=== PATIENT | male | born 1965 | race Caucasian/White ===

== ENCOUNTER 2023-02-21 08:10 | Outpatient (CLI) | payer BC, SELFPAY ==
--- NOTE | ~2023-02-21 | MR_ITS ---
MRI of the lumbar spine Clinical History: Spondylosis, radiculopathy Technique: Axial T2-weighted images, and sagittal T1-weighted, T2-weighted, and T2 fat-sat images wer e acquired. Findings: There are bilateral L4 pars interarticularis defects, with 8 mm anterolisthesis of L4 over L5. No acute fracture identified. No other bone marrow signal abnormality seen. At L1-L2 and L2-L3, there is no disc bulge or herniation. There is mild to moderate facet arthropathy at these levels. No spinal canal stenosis or neural foraminal narrowing at these levels. At L3-L4, there is minimal disc bulge with mild to moderate facet arthropathy. No spinal canal stenos is or neural foraminal narrowing. At L4-L5, there is diffuse disc bulge/uncovering with advanced facet arthropathy. There is no kye s shanna canal stenosis. There is severe right neural foraminal narrowing. There is mild to moderate lef t neural foraminal narrowing. At L5-S1, there is no disc bulge or herniation. There is moderate to advanced facet arthropathy. No s shanna canal stenosis or neural foraminal narrowing. Paravertebral soft tissues are unremarkable. Impression: Bilateral L4 pars interarticularis defects, with 8 mm anterolisthesis of L4 over L5. Underlying degenerative changes at L4-L5 with associated severe right neural foraminal narrowing and mild to moderate left neural foraminal narrowing. Reviewed, dictated and finalized at [facility]. Impression: Bilateral L4 pars interarticularis defects, with 8 mm anterolisthesis of L4 ove r L5. Underlying degenerative changes at L4-L5 with associated severe right neural fo raminal narrowing and mild to moderate left neural foraminal narrowing.
== END 2023-02-21 08:11 ==
LOC: GOSHIMG 08:12
DX: M47.26 Other spondylosis with radiculopathy, lumbar region (principal); R93.7 Abnormal findings on diagnostic imaging of other parts of musculoskeletal system
CPT/HCPCS: 72148

== ENCOUNTER 2023-05-01 15:51 | Inpatient (IN) | payer BC, SELFPAY ==
[2023-05-01] VITALS (13 sets, daily range): BP systolic 145–174; BP diastolic 95–114; PULSE 94–105; RESP 12–20; TEMP 36.6–36.7; O2SAT 98–100; BMI 28.7
--- NOTE | ~2023-05-01 | US_ITS ---
EXAMINATION: US biopsy renal DATE: 05/04/2023 10:07 INDICATION: Acute kidney injury. Proteinuria. Hematuria. TECHNIQUE: The procedure including the risks, benefits, and alternatives was discussed with the patie nt. Risks discussed included bleeding and infection. The patient understood the risks and agreed to p roceed. A timeout was performed to verify the patient's name, date of , and procedure to be p erformed. The skin overlying the left kidney was prepped and draped in usual sterile fashion. Anest hetic was administered with 1% lidocaine subcutaneously. An 18 gauge core biopsy needle was then use d to obtain 4 core biopsy specimens under continuous sonographic guidance. The entry site was cleaned and dressed. There were no immediate complications. FINDINGS: Ultrasound images demonstrate the needle in the kidney. IMPRESSION: 1. Ultrasound-guided random left kidney core needle biopsy. Reviewed, dictated and finalized at location A.
--- NOTE | ~2023-05-01 | XR_ITS ---
Portable chest x-ray Comparison: 05/02/2023 Clinical History: Catheter placement Findings: Right-sided central venous catheter is in satisfactory position. Lungs are clear. No conso lidation, effusion, or pneumothorax. Cardiomediastinal silhouette is stable. Stable orthopedic hardw are at the left clavicle. Impression: Right-sided central venous catheter in satisfactory position. Clear lungs. Reviewed, dictated and finalized at location . Impression: Right-sided central venous catheter in satisfactory position. Clear lungs.
--- NOTE | ~2023-05-01 | XR_ITS ---
XR chest port-a-cath/central DATE: 05/02/2023 16:17 INDICATION: Central line placement TECHNIQUE: Portable upright AP chest on 05/02/2023 at 1611 hours COMPARISON: None FINDINGS: Right internal jugular central venous catheter tip overlies the superior vena cava. No pneu mothorax or pleural effusion is evident. The lungs are clear of infiltrate or consolidation. Normal heart size. No hilar or mediastinal enlargement. Plate and screws of left clavicle. IMPRESSION: Right internal jugular central venous catheter tip overlies superior vena cava No active cardiac pulmonary disease or pneumothorax Reviewed, dictated and finalized at Location A. Reviewed, dictated and finalized at location L. IMPRESSION: Right internal jugular central venous catheter tip overlies superio r vena cava No active cardiac pulmonary disease or pneumothorax
--- NOTE | ~2023-05-01 | US_ITS ---
EXAMINATION: US renal BI DATE: 05/01/2023 18:50 INDICATION: kidney failure TECHNIQUE: Multiple grayscale and Doppler ultrasound images of the kidneys were obtained. COMPARISON: CT abdomen and pelvis, same date FINDINGS: The right kidney measures 11.2 x 5.9 x 5.5 cm. The left kidney measures 13.0 x 6.0 x 6.2 cm. The kidn eys demonstrate normal parenchymal echogenicity. There is no hydronephrosis. The bladder wall is mild ly thickened, to 3 mm. Ureteral jets not identified. IMPRESSION: Unremarkable renal findings. Mild bladder wall thickening may be secondary to outlet compromise or cy stitis. Ureteral jets were not detected during this examination. Reviewed, dictated and finalized at location K. IMPRESSION: Unremarkable renal findings. Mild bladder wall thickening may be secondary to o utlet compromise or cystitis. Ureteral jets were not detected during this exami [facility] emergency department
--- NOTE | ~2023-05-01 | CT_ITS ---
EXAMINATION: CT abdomen pelvis wo con DATE: 05/01/2023 17:11 INDICATION: Nausea and vomiting. Abdominal cramping. TECHNIQUE: Computed tomography (CT) of the abdomen and pelvis was performed without intravenous contr ast. Automated exposure control and iterative reconstruction technique were employed. The dose-length product was 650.58 mGy-cm. COMPARISON: None. FINDINGS: The visualized portions of the lung bases demonstrate mild atelectasis. No pleural effusion . The heart size is normal. There are coronary artery calcifications. No pericardial effusion. The li yoanna, gallbladder, pancreas, spleen, adrenal glands, and kidneys are normal. There is no urolithiasis. There are no dilated loops of bowel. The appendix is normal. There are bilateral inguinal hernias co ntaining fat. Aortic atherosclerosis is noted. There are no pathologically enlarged lymph nodes. Ther e is no free intraperitoneal fluid. There is moderate lumbar spondylosis. There are chronic bilateral L4 pars defects. There is 6 mm anterolisthesis of L4 on L5. IMPRESSION: 1. Bilateral inguinal hernias containing fat. Reviewed, dictated and finalized at location A.
--- NOTE | ~2023-05-01 | XR_ITS ---
EXAMINATION: XR fl guide central line place DATE: 05/10/2023 07:59 INDICATION: Tunneled dialysis catheter insertion TECHNIQUE: 2 fluoroscopic images of portions of the chest were obtained during procedure performed by Dr. Easley. Radiologist was not present for the imaging or procedure. The amount of fluoroscopy time used during this procedure was 0.5 minutes. COMPARISON: 05/02/2023 FINDINGS/IMPRESSION: Interval replacement of the prior right internal jugular central venous catheter with a new large-bor e dual-lumen likely tunneled right internal jugular central venous catheter with distal tip in the ri ght atrium. Reviewed, dictated and finalized at location A.
--- NOTE | 2023-05-01 16:04 | ECG_ITS ---
Measurements Intervals [place] Rate: 108 P: 44 [place]: 132 QRS: 28 QRSD: 85 T: 46 QT: 321 QTc: 431 Interpretive Statements SINUS TACHYCARDIA BORDERLINE R WAVE PROGRESSION, ANTERIOR LEADS MINIMAL Q WAVES- HIGH LATERAL LEADS ABNORMAL ECG NO PREVIOUS ECG AVAILABLE FOR COMPARISON Electronically Signed On 05-02-2023 8:00:10 CDT by Liang Clemons D.O.
--- NOTE | 2023-05-01 16:04 | ECG_ITS ---
Measurements Intervals [place] Rate: 91 P: 51 DC: 158 QRS: 21 QRSD: 88 T: 29 QT: 351 QTc: 434 Interpretive Statements SINUS RHYTHM MINIMAL Q WAVES- HIGH LATERAL LEADS BORDERLINE ECG NO PREVIOUS ECG AVAILABLE FOR COMPARISON Electronically Signed On 05-01-2023 20:13:40 CDT by Liang Clemons D.O.
[2023-05-01 16:32] LABS: Basophils Absolute Auto 0.1 K/mm3 (0.0-0.1); Basophils Percent Auto 0.9 % (0.2-1.2); Eosinophils Absolute Auto 0.2 K/mm3 (0-0.3); Eosinophils Percent Auto 2.3 % (0-4.4); Hematocrit 30.1 % (42.0-52.0); Hemoglobin 9.8 g/dL (14.0-18.0); Immature Granulocyte Absolute 0.07 K/mm3 (0.00-0.031); Immature Granulocyte Percent A 1.1 % (0-0.5); Lymphocytes Absolute Auto 0.93 K/mm3 (0.9-3.2); Mean Corpuscular HGB Conc 32.6 g/dl (32-36); Mean Corpuscular Hemoglobin 30.3 pg (26-34); Mean Corpuscular Volume 93.2 fl (80-100); Mean Platelet Volume 10.7 fl (7.4-10.4); Monocytes Absolute Auto 0.5 K/mm3 (0.1-0.6); Monocytes Percent Auto 6.8 % (2.6-8.5); Neutrophils Percent Auto 74.9 % (45.5-73.1); Platelet Count Result 276 k/mm3 (150-375); Red Blood Count 3.23 M/mm3 (4.6-6.20); Red Cell Distribution Width 12.8 % (11.5-14.5); White Blood Count 6.7 K/mm3 (4.5-10.0)
[2023-05-01 16:38] LABS: Alanine Aminotransferase 44 U/L (6-50); Albumin Level 4.1 g/dL (3.5-5.1); Alkaline Phosphatase 103 U/L (38-126); Anion Gap 18 mmol/L (8-16); Aspartate Amino Transferase 28 U/L (17-59); Bilirubin,Total 0.3 mg/dL (0.2-1.3); Blood Urea Nitrogen 76 mg/dL (9-20); Calcium 8.5 mg/dL (8.4-10.2); Carbon Dioxide 19 mmol/L (22-30); Chloride 102 mmol/L (98-107); Estimated CRCL calculation 9 ml/min; Estimated Glomerular Filt Rate 7; Glucose 126 mg/dL (65-110); Potassium 4.3 mmol/L (3.4-5.0); Sodium 139 mmol/L (137-145)
[2023-05-01 16:41] LABS: Prothrombin Time 13.9 Seconds (11.1-14.7)
[2023-05-01 16:42] LABS: Partial Thromboplastin Time 33.1 SECONDS (22.3-36.8)
--- NOTE | 2023-05-01 16:58 | ED.RECABL ---
HPI - Recheck/Abnormal Lab/Rx General Chief Complaint: Recheck/Abnormal Lab/Rx Stated Complaint: sent by pcp ramón kidney function Time Seen by Provider: 05/01/23 16:36 Source: patient and RN notes reviewed Mode of arrival: ambulatory Limitations: no limitations History of Present Illness HPI narrative: This is a 58 year old male who presents for evaluation of abnormal labs. Patient went to see primary care provider today for 1 month of abnormal stools, nausea, vomiting and he had labs done. His labs showed that he had acute kidney failure. His creatinine today was 8.1 with BUN 80. He denies history of kidney failure. HE also had outpatient abdominal xray shows no bowel obstruction and moderate fecal material of the ascending colon. He states 1 month ago he started having constant daily mid abdominal cramping. He also reports sporadic nausea and vomiting. His last episode of emesis 1 on . He also also noticed intermittent pink tinge to his urine. HE also reports over the past few months he was taking ibuprofen and celebrex regularly for issues with his back. He states he has not take celebrex in 1 month. He states his stools have been irregular for 1 month as well. He reports he usually has 1-2 bowel movements per day. He has been having infrequent small bowel movement. He states he feels like he is urinating normal amount. HE denies any fever or chills. Related Data Allergies Allergy/AdvReac Type Severity Reaction Status Date / Time Sulfa (Sulfonamide Allergy Hives Verified 05/01/23 16:29 Antibiotics) Review of Systems Constitutional: Constitutional: Denies weakness Cardiovascular: Cardiovascular: Denies syncope, Denies rapid heart rate, Denies irregular heart rhythm, Denies leg edema and Denies dyspnea Respiratory: Respiratory: Denies chest congestion, Denies hemoptysis, Denies excessive phlegm production and Denies dyspnea Gastrointestinal: Gastrointestinal: Reports abdominal pain, Denies hematochezia, Reports constipation, Reports diarrhea, Reports nausea and Reports vomiting Genitourinary: Genitourinary: Reports hematuria, Denies dysuria, Denies penile discharge and Denies testicular pain Musculoskeletal: Musculoskeletal: Reports back pain, Denies joint swelling, Denies loss of height and Denies muscle weakness Neurologic: Denies syncope, Denies focal weakness and Denies weakness [facility] Past Medical History Medical History (Updated 05/01/23 @ 19:13 by Alyx Coleman MD) Clavicle fracture Lumbar radiculopathy Sinus disease Surgical History Surgical History (Updated 05/01/23 @ 19:12 by Alyx Coleman MD) History of foot surgery Hx of tonsillectomy Social History Social History (Updated 05/01/23 @ 17:28 by Alyx Coleman MD) Smoking status: Former smoker Alcohol use details: rarely Substance use: never Exam Const: General: no acute distress and alert Nutritional Appearance: well nourished Orientation/consciousness: patient oriented x3 Limitations: no limitations HENMT: Head: normal to inspection Mouth: Yes Normal oral and palatal mucosa present, Yes lip normal and Yes moist mucous membranes Eyes: EOM: EOMs intact bilaterally Neck: Neck: normal visual inspection Chest: Chest palpation & inspection: normal inspection of the chest Resp: Effort & Inspection: normal respiratory effort Auscultation: clear to auscultation bilaterally Cardio: Rate: regular rate Rhythm: regular rhythm Heart sounds: no murmurs GI: GI Palp: Yes Soft to palpation, No Tenderness to palpation present (GI), No Guarding due to palpation present (GI) and No Rigid due to palpation Auscultation: normal bowel sounds Skin: General skin exam: normal color Rashes: no rashes Wounds: no wounds Neuro: General: patient oriented x3, moves all extremities and CN's II-XI intact bilaterally Psych: Mental Status: mental status grossly normal Affect: normal affect Attitude: cooperative Course Consulta
[2023-05-01] MEDS: SODIUM CHLORIDE 0.9% IV 1,000 ML 999 ML IV CONT (17:34)
[2023-05-01 17:40] LABS: Appearance Urine Clear (Clear); Bacteria Urine None Seen /hpf; Bilirubin Urine Negative (Negative); Blood Urine 3+ (Negative); Color Urine Yellow (Yellow); Glucose Urine UA Trace mg/dL (Negative); Ketones Urine Negative (Negative); Leukocyte Esterase Ur Trace LEU/UL (Negative); Nitrate Urine Negative (Negative); Non Pathogenic Casts 0-2; Protein Urine 3+ mg/dL (Negative); RBC Urine >100 /hpf (0-2); Specific Grav Ur 1.011 (1.001-1.035); Squamous Epithelial Cell Urine None seen /hpf (Few); Urobilinogen Urine 0.2 mg/dL (<2.0); WBC Urine 0-5 /hpf; pH Urine 5.5 (5.0-9.0)
[2023-05-01 17:41] LABS: Add Urine Microscopic? YES
[2023-05-01] MEDS: methylPREDNISolone SOD SUCC 1,000 MG in DEXTROSE 5% 100 ML 200 MG IVPB (18:16)
--- NOTE | 2023-05-01 18:47 | PM.IMHP ---
H&P: HPI History of Present Illness Date/Time: 05/01/23 19:00 Chief Complaint: Abnormal labs. Narrative: This is a pleasant 58-year-old male with GERD who presented to the emergency department for evaluation of abnormal labs. The patient provides the following history. He has had issues with low back pain and right hip pain for several months and he was started on Celebrex sometime in January. He was also referred to pain management and received some injections which seemed to have helped his pain. He stopped taking Celebrex after about a month after began having worsening GERD symptoms with bloating, belching, and early satiety. He also reports that his blood pressures started to run high for the 1st time in his life and he thought it was related to the Celebrex as well. On occasion he still takes Advil or Tylenol for pain but not very often. Unfortunately his symptoms have not improved and in fact they seem to be getting worse. He has frequent nausea, occasional dry heaves, and he has been constipated for the 1st time in his life. On recent trips to the doctor his blood pressures have been elevated and he he had labs drawn and was referred to the ED after he was found to have evidence of acute kidney injury. Pertinent labs today include a sodium of 139, potassium 4.3, carbon dioxide 19, anion gap 18, BUN 76, creatinine 8.10. Urine was positive for 3+ protein, 3+ blood, and greater than 100 rbc's with a random urine total protein of greater than 600 mg/dL. He is being admitted in this setting for further evaluation. With further questioning he has noticed that his urine looks slightly pink tinged for about a month or so. He has not noticed a change in urine output. Last week he had some mild swelling in his legs but that has improved. He has been feeling extremely tired and is sleeping most of the time when he is not at work. His weight has remained stable. He reports feeling a bit confused with slow thought processes. He has no known history of kidney disease and he denies family history of kidney disease. Review of Systems Review of Systems: Twelve systems were reviewed and are negative except for as per HPI. [facility] Past Medical History Medical History (Updated 05/02/23 @ 00:06 by Beth Abdi PA-C) Clavicle fracture Lumbar radiculopathy Sinus disease Surgical History Surgical History History of foot surgery Hx of tonsillectomy Family History Family History (Updated 05/01/23 @ 19:44 by Linda Carter RN) Father Acute myocardial infarction Sibling Hypertension Social History Social History (Updated 05/02/23 @ 00:05 by Beth Abdi PA-C) Social History: Surrogate medical decision maker: Ambika Braun, spouse. Code status: Full code. Smoking status: Former smoker Alcohol intake: never Alcohol use details: rarely Substance use: never Lack of Transportation: No Lack of Food: Never True Current Housing: I Have Housing Concerned About Future Housing: No Difficulty Paying Gas/Electric Bills: No Difficulty Paying for Meds: No Currently Unemployed: No Education: High School Diploma/GED Difficulty w/ Childcare or Family Care: No Additional occupation/education comments: [employer] Spiritual care concerns: No Meds Home Medications and Allergies Home Medications Medication Instructions Recorded Confirmed Type cimetidine 400 mg tablet 400 mg PO DAILY PRN Acid Reflux 05/01/23 05/01/23 History omeprazole 20 mg capsule,delayed 20 mg PO DAILY 05/01/23 05/01/23 History release Allergies Allergy/AdvReac Type Severity Reaction Status Date / Time Sulfa (Sulfonamide Allergy Hives Verified 05/01/23 16:29 Antibiotics) Vital Signs Vital Signs - 24 hr 05/01/23 15:54 05/01/23 16:28 05/01/23 17:33 Temperature 97.8 F Pulse Rate 102 H 100 105 H Respiratory Rate 18 18 20 Blood Pressure 169/108 H 165/11
[2023-05-01 18:56] LABS: Creatinine Urine 56.7 mg/dL
[2023-05-01 19:14] LABS: Sodium Urine Random 57 meq/L
[2023-05-01 19:16] LABS: Total Protein Urine Random > 600 mg/dL
--- NOTE | 2023-05-01 20:10 | ADMGEN ---
This patient, Mike Braun, was admitted to 2 Medical Room 240-01. Patient/family oriented to hospital policies and general routines including ID bracelet, bed and alarms, visiting hours, pain management, procedures, bathroom and other care routines, personal items, smoking policy, room service/diet, and visiting hours. Information on how to activate the Rapid Response Team has been discussed. Patient/Family are encouraged to report perceived risks to care and to ask questions if they do not understand what they are told or what they should do.
[2023-05-01] MEDS: SODIUM CHLORIDE 0.9% IV 1,000 ML 125 ML IV CONT (21:07)
[2023-05-01] MEDS: ONDANSETRON INJ 4 MG/2 ML VIAL IV PUSH (21:07)
[2023-05-01] MEDS: ALPRAZolam (*CRX) 0.25 MG TABLET PO (22:34)
[2023-05-02] VITALS (7 sets, daily range): BP systolic 135–158; BP diastolic 89–99; PULSE 81–95; RESP 16–20; TEMP 35.9–36.5; O2SAT 92–100
[2023-05-02 05:55] LABS: Basophils Percent Auto 0.3 % (0.2-1.2); Eosinophils Percent Auto 0.2 % (0-4.4); Hematocrit 31.1 % (42.0-52.0); Hemoglobin 9.9 g/dL (14.0-18.0); Immature Granulocyte Absolute 0.07 K/mm3 (0.00-0.031); Immature Granulocyte Percent A 1.1 % (0-0.5); Immature Reticulocyte Fraction 10.9 % (3.0-15.9); Lymphocytes Absolute Auto 0.51 K/mm3 (0.9-3.2); Lymphocytes Percent Auto 7.8 % (18.3-44.2); Mean Corpuscular HGB Conc 31.8 g/dl (32-36); Mean Corpuscular Volume 94.2 fl (80-100); Mean Platelet Volume 10.5 fl (7.4-10.4); Monocytes Percent Auto 0.6 % (2.6-8.5); Neutrophils Absolute Auto 5.9 K/mm3 (1.3-6.7); Platelet Count Result 326 k/mm3 (150-375); Red Cell Distribution Width 12.6 % (11.5-14.5); Reticulocyte Hemoglobin Conten 31.2 pg (28.2-35.7); Reticulocyte Percent 0.94 % (0.7-4.3); Reticulocytes Absolute 0.03 M/mm3 (0.02-0.1); White Blood Count 6.5 K/mm3 (4.5-10.0)
[2023-05-02] MEDS: SODIUM CHLORIDE 0.9% IV 1,000 ML 100 ML IV CONT ×2 (05:55→16:14)
[2023-05-02 06:11] LABS: Alanine Aminotransferase 69 U/L (6-50); Albumin Level 3.8 g/dL (3.5-5.1); Alkaline Phosphatase 125 U/L (38-126); Anion Gap 16 mmol/L (8-16); Aspartate Amino Transferase 42 U/L (17-59); Bilirubin,Total 0.3 mg/dL (0.2-1.3); Blood Urea Nitrogen 77 mg/dL (9-20); Calcium 8.3 mg/dL (8.4-10.2); Carbon Dioxide 15 mmol/L (22-30); Chloride 108 mmol/L (98-107); Estimated CRCL calculation 9 ml/min; Estimated Glomerular Filt Rate 7; Glucose 142 mg/dL (65-110); Magnesium 1.9 mg/dL (1.6-2.3); Phosphorus 7.9 mg/dL (2.5-4.5); Potassium 5.4 mmol/L (3.4-5.0); Sodium 139 mmol/L (137-145)
[2023-05-02 07:04] LABS: Iron 101 ug/dL (49-181)
[2023-05-02 07:13] LABS: Percent Iron Saturation 57 % (20-50)
--- NOTE | 2023-05-02 07:14 | PM.IMPN ---
Progress Note: A&P Assessment and Plan (1) Acute kidney injury: Code(s): N17.9 - Acute kidney failure, unspecified Status: Acute Assessment and Plan: Unknown baseline creatinine. On admission Cr 8.10-->7.4 today -Had been prescribed Celebrex in January for chronic back pain. Stopped taking after one month because he was having GI symptoms and HTN which he thought was contributed. Still takes Aleve occasionally for pain. -Per his report no change in UOP but reports fatigue and intermittent lower extremity swelling -K+ 5.4, Phos 7.9. K+ can be treated on the floor and no IMU beds. Given that he does not have any concerns on telemetry and K decreased to 5.2 after Caclium infusion, will hold off on further treatment. Added Renvela with meals for phosphorus. -FeNA is 5.64% alluding to Intrinsic disease -Add telemetry -HTN with SBPs 150-160's not on antihypertensives at baseline. IVP prn hydralazine for SBP > 160 mm hg. Wait to see what nephrology recommends. -Nephrology has been consulted for assistance with management of JONATHAN and HTN. Appreciate rec's. -Solumedrol 1000 mg daily -Needs kidney biopsy. Blood pressure too high and BUN/Cr elevation is concerning for increase bleeding risk. Biopsy next 1-2 days. -Likely to need temporary catheter placed for HD tomorrow -Ck 198 -Started on amlodipine 5 mg Po daily with prn clonidine to help control blood pressure (2) Normocytic anemia: Code(s): D64.9 - Anemia, unspecified Status: Acute Assessment and Plan: Unknown baseline. Admission Hgb 9.8-->stable at 9.9 today -no signs of bleeding -MCHC 31.8 -anemia panel in process -associated sx include weakness, fatigue -Has many GI complaints that are suspicious for PUD -Consulted GI and started on Protonix 40 mg IVP BID -EGD to be done this admission. Likely tomorrow. (3) Elevated blood pressure reading: Code(s): R03.0 - Elevated blood-pressure reading, without diagnosis of hypertension Status: Acute Assessment and Plan: see JONATHAN Subjective Date/time seen: 05/02/23 07:14 Interval history: HPI obtained from chart This is a pleasant 58-year-old male with GERD who presented to the emergency department for evaluation of abnormal labs. The patient provides the following history. He has had issues with low back pain and right hip pain for several months and he was started on Celebrex sometime in January. He was also referred to pain management and received some injections which seemed to have helped his pain. He stopped taking Celebrex after about a month after began having worsening GERD symptoms with bloating, belching, and early satiety. He also reports that his blood pressures started to run high for the 1st time in his life and he thought it was related to the Celebrex as well. On occasion he still takes Advil or Tylenol for pain but not very often. Unfortunately his symptoms have not improved and in fact they seem to be getting worse. He has frequent nausea, occasional dry heaves, and he has been constipated for the 1st time in his life. On recent trips to the doctor his blood pressures have been elevated and he he had labs drawn and was referred to the ED after he was found to have evidence of acute kidney injury. Pertinent labs today include a sodium of 139, potassium 4.3, carbon dioxide 19, anion gap 18, BUN 76, creatinine 8.10. Urine was positive for 3+ protein, 3+ blood, and greater than 100 rbc's with a random urine total protein of greater than 600 mg/dL. He is being admitted in this setting for further evaluation. With further questioning he has noticed that his urine looks slightly pink tinged for about a month or so. He has not noticed a change in urine output. Last week he had some mild swelling in his legs but that has improved. He has been feeling extremely tired and is sleeping most of the time when he is not at work. His weight has remained stable. He reports feeling a bit confused w
[2023-05-02 07:34] LABS: Thyroid Stimulating Hormone Reflex 0.606 uIU/mL (0.465-4.68)
[2023-05-02 07:47] LABS: Folic Acid 9.3 ng/mL (2.76->20)
[2023-05-02] MEDS: cloNIDine HCL 0.1 MG TABLET PO (08:07)
[2023-05-02] MEDS: SEVELAMER CARBONATE 800 MG TABLET PO ×3 (08:07→16:15)
[2023-05-02] MEDS: CALCIUM GLUC 1,000 MG/NS 50 ML 1,000 MG/50 ML BAG 100 MG IVPB (08:08)
--- NOTE | 2023-05-02 08:12 | PM.CNNEP ---
Assessment and Plan Assessment and plan (1) Acute kidney injury: Code(s): N17.9 - Acute kidney failure, unspecified Status: Acute Assessment and Plan: The patient has an elevated creatinine. I suspect that this is acute kidney injury. We do not have any old labs though. Renal ultrasound is unremarkable. Urine electrolytes are non pre renal. Urine protein is very high. UA shows protein and blood. Minimal white cells. The patient has hematuria, proteinuria, foamy urine for a month, and high creatinine. Blood pressure is high of late as well. This all sounds like it could be a glomerulonephritis. When the Emergency Room talk to me last night I asked them to give him a dose of Solu-Medrol. Patient also notes that he was probably dehydrated. He could have had rhabdomyolysis causing renal failure. So will check a stat CK. That still leaves the proteinuria to explain so I think this is less likely. I think we need a kidney biopsy. I would do this today, however his blood pressure is high any just took Advil yesterday. I think we need to wait a couple of days. He is getting stress dose steroids so that would cover any inflammatory disease in his kidneys. His BUN and creatinine are quite high as well. The high BUN creatinine can cause platelets not to function properly and so would be a risk of bleeding. His creatinine did come down with fluids overnight. So we will continue to give IV fluids and hopefully the creatinine will continue to improve. However if it does not get much better by tomorrow I think we ought to do a dialysis treatment to get the BUN and creatinine down to make the biopsy more safe. Patient had a very long discussion about all of the above. He understands the complexity of the situation. (2) Hypertension: Code(s): I10 - Essential (primary) hypertension Status: Acute Assessment and Plan: Patient's blood pressure is high. This is probably due to his kidney disease since it started after the kidney disease started. Will give amlodipine now. Will also give clonidine now and p.r.n.. (3) Normocytic anemia: Code(s): D64.9 - Anemia, unspecified Status: Acute Assessment and Plan: Hemoglobin is low. Most likely from the kidney disease. He could have blood loss anemia as well. Iron deficiency or vitamin deficiencies can do this as well. Will get stool guaiacs. Will also get iron studies, and B12 and folate have already been ordered. History of Present Illness Reason for Consult Consult date: 05/02/23 Chief Complaint Chief complaint: Acute Kidney Failure History of Present Illness Narrative: Mike is a very pleasant 58-year-old gentleman who has a history of sciatica. The patient's problem started in January when he had his back pain. He went to see primary care who gave him Celebrex. This did not work any eventually went to a pain specialist to did an MRI and then gave him injections. In the meantime the patient had developed belly discomfort. He was epigastric pain and also nausea. He googled Celebrex and found that that could cause it so he stopped the Celebrex but the discomfort continued. At about the same time he was found to have high blood pressure. This was during the time that he was on the Celebrex and thought that it might get better off the Celebrex. Neither improved.. He went to see his primary care doctor again because he continued to have belly discomfort and nausea and labs were drawn which were abnormal so he was sent to the ER. In the ER was found have a very high creatinine, hematuria, proteinuria, and high blood pressure. CT abdomen was unremarkable. Renal sonogram was unremarkable. Renal consultation was requested. The patient says that he has had dark urine as viewed in the commode for about the last 3 weeks to a month or so. He thought it might be due to dehydration so he was pushing fluids. He also noted foam in the u
[2023-05-02] MEDS: amLODIPine BESYLATE 5 MG TABLET PO (08:20)
[2023-05-02 08:33] LABS: Erythrocyte Sedimentation Rate > 140 mm/hr (0-20)
[2023-05-02 09:18] LABS: Creatine Kinase 128 U/L (55-170)
[2023-05-02 09:20] LABS: Complement C3 119 mg/dL (88-165)
[2023-05-02 10:18] LABS: Anion Gap 15 mmol/L (8-16); Blood Urea Nitrogen 78 mg/dL (9-20); Calcium 8.1 mg/dL (8.4-10.2); Carbon Dioxide 12 mmol/L (22-30); Chloride 106 mmol/L (98-107); Estimated CRCL calculation 10 ml/min; Estimated Glomerular Filt Rate 8; Glucose 244 mg/dL (65-110); Potassium 5.2 mmol/L (3.4-5.0); Sodium 133 mmol/L (137-145)
[2023-05-02 13:07] LABS: Creatinine Urine 74.9 mg/dL
[2023-05-02 13:07] LABS: Iron 102 ug/dL (49-181)
[2023-05-02 13:13] LABS: Sodium Urine Random 42 meq/L
[2023-05-02 13:18] LABS: Percent Iron Saturation 62 % (20-50)
--- NOTE | 2023-05-02 13:27 | WPDGICN ---
Assessment and Plan Assessment and plan (1) Abdominal pain: Code(s): R10.9 - Unspecified abdominal pain Status: Acute Assessment and Plan: He likely has peptic ulcer disease due to Celebrex. EGD will be scheduled. Probably to be done tomorrow (2) Nausea and vomiting: Code(s): R11.2 - Nausea with vomiting, unspecified Status: Acute Assessment and Plan: This began about 3 weeks ago. Even stopping his Celebrex and not seem to help (3) Acute kidney injury: Code(s): N17.9 - Acute kidney failure, unspecified Status: Acute Assessment and Plan: With rehydration his creatinine today is slightly lower at 7.5 but BUN for unchanged. He has been seen by Nephrology. The thoughts are that he could have a glomerular nephritis. He was empirically given steroids last night. There is also concern for rhabdomyolysis. Kidney biopsy is being considered. Dialysis may be required (4) Hypertension: Code(s): I10 - Essential (primary) hypertension Status: Acute Assessment and Plan: This developed while he was on Celebrex and is a new diagnosis. He has been started on amlodipine. (5) Normocytic anemia: Code(s): D64.9 - Anemia, unspecified Status: Acute Assessment and Plan: He has no history of anemia. He has not seen blood in his stools. Hemoglobin is 9.8, hematocrit 30.1 This could be secondary to kidney disease if he has more chronic kidney disease (6) Change in bowel habits: Code(s): R19.4 - Change in bowel habit Status: Acute Assessment and Plan: Having a bowel movement seems more difficult. When he does have 1 stools are smaller and shorter. He has not had diarrhea. GI Consult Note Consult date/time: 05/02/23 13:27 HPI: Mike Braun is a 58 year old male Who presented emergency room yesterday. He states that was told by his primary care provider that he had abnormal kidney function. Also he had been complaining of abdominal pain a generalized discomfort, and also nausea. His problems seem to have began in January. At that time he was having back pain. He was placed on Celebrex. After about 4 weeks on it he was found have elevation of his blood pressure. He also was having discomfort in his abdomen with frequent nausea and couple of episodes of vomiting. Sometimes eating would seem to give him some relief but at times he felt worse and could not eat a complete meal. He the last time he vomited was last . He has no prior history of liver disease gallbladder disease or peptic ulcer disease. He did stop taking the Celebrex around April 04 but his gastrointestinal symptoms have not improved. On admission here he was found have a creatinine of 8.1 with a BUN of 76. Liver function studies were within normal limits. There has been a change in his bowel habits. Stools are smaller and he needs to go several times a day to empty his bowels were as in the past he would have 1 or 2 well-formed BMs each day. He has never had a colonoscopy in in fact his primary care provider recently told him that he wanted him to have 1 for screening. Review of Systems Review of Systems: All systems reviewed & are unremarkable except as noted in HPI and below PMFSH Past Medical History Medical History Clavicle fracture Lumbar radiculopathy Sinus disease Surgical History Surgical History History of foot surgery Hx of tonsillectomy Family History Family History Father Acute myocardial infarction Sibling Hypertension Father Family history of heart disease in male family member before age 55 Social History Social History Social History: Surrogate medical decision maker: Ambika Braun, spouse. Code status: Full co
[2023-05-02 13:34] LABS: Total Protein Urine Random 372 mg/dL; Ur Ttl Prot Creatinine Ratio 4.97 mg/mg (0-0.20)
[2023-05-02 15:17] LABS: Hepatitis B Surface Antigen Negative (Negative)
[2023-05-02 15:34] LABS: Hepatitis B Surface Anti Res Negative; Hepatitis C Virus Antibody Negative (Negative)
[2023-05-02] MEDS: methylPREDNISolone SOD SUCC 1,000 MG in DEXTROSE 5% 100 ML 200 MG IVPB (16:15)
--- NOTE | 2023-05-02 16:37 | PM.CNGS ---
Assessment and Plan Assessment and plan (1) Acute kidney injury: Code(s): N17.9 - Acute kidney failure, unspecified Status: Acute Assessment and Plan: The patient has evidence of acute kidney failure with significantly elevated BUN and creatinine. Nephrology has seen patient and is recommending proceeding with dialysis soon. It appears that the OR will not be available for tunneled dialysis catheter placement under sedation until late afternoon tomorrow. He has already eaten lunch today therefore this cannot be performed under sedation today. Will plan to proceed with bedside placement of Justin temporary dialysis catheter to allow access for initiating hemodialysis as soon as possible. I have discussed the procedure, risks, benefits, and alternatives. Questions were answered. (2) Hypertension: Code(s): I10 - Essential (primary) hypertension Status: Acute (3) Normocytic anemia: Code(s): D64.9 - Anemia, unspecified Status: Acute (4) Hematuria: Code(s): R31.9 - Hematuria, unspecified Status: Acute History of Present Illness Consult details Consult date: 05/02/23 Reason for consult: other (Dialysis access) Requesting physician: Santy Frey MD Narrative: This is a 58-year-old man who I am asked to see for placement of a hemo dialysis catheter. He presented to the emergency department yesterday due to abnormal labs found at his PCP visit. He was noted to be in acute renal failure. He has had multiple other complaints including some abdominal pain and difficulty with bowel movements. He has never had a prior history of kidney failure. He denies any history of diabetes. Review of Systems Review of Systems: All systems reviewed & are unremarkable except as noted in HPI and below Constitutional: Constitutional: Denies chills and Denies fever(s) Cardiovascular: Cardiovascular: Denies chest pain and Denies dyspnea Respiratory: Respiratory: Denies dyspnea Gastrointestinal: Gastrointestinal: Reports as per HPI [facility] Past Medical History Medical History Clavicle fracture Lumbar radiculopathy Sinus disease Surgical History Surgical History History of foot surgery Hx of tonsillectomy Family History Family History Father Acute myocardial infarction Sibling Hypertension Father Family history of heart disease in male family member before age 55 Social History Social History Social History: Surrogate medical decision maker: Ambika Braun, spouse. Code status: Full code. Smoking status: Former smoker Alcohol intake: never Alcohol use details: rarely Substance use: never Lack of Transportation: No Lack of Food: Never True Current Housing: I Have Housing Concerned About Future Housing: No Difficulty Paying Gas/Electric Bills: No Difficulty Paying for Meds: No Currently Unemployed: No Education: High School Diploma/GED Difficulty w/ Childcare or Family Care: No Additional occupation/education comments: [employer]. Spiritual care concerns: No Meds Home Medications and Allergies Home Medications Medication Instructions Recorded Confirmed Type cimetidine 400 mg tablet 400 mg PO DAILY PRN Acid Reflux 05/01/23 05/01/23 History omeprazole 20 mg capsule,delayed 20 mg PO DAILY 05/01/23 05/01/23 History release Allergies Allergy/AdvReac Type Severity Reaction Status Date / Time Sulfa (Sulfonamide Allergy Hives Verified 05/02/23 09:00 Antibiotics) Vital Signs Vital Signs - 24 hr 05/01/23 17:33 05/01/23 18:18 05/01/23 16:46 Temperature Pulse Rate 105 H 95 104 H Respiratory Rate 20 16 18 Blood Pressure 161/114 H 174/111 H 159/110 H Pulse Oximetry 99 100 100 Oxygen Deliv
--- NOTE | 2023-05-02 16:45 | W.PM.PROC2 ---
Procedure Note - Detailed Date of Procedure 05/02/23 Pre-op Diagnosis Acute Kidney Failure Post-op Diagnosis Same Procedure Performed Right internal jugular Justin dialysis catheter placement using ultrasound guidance Surgeon Benji Jenkins, DO Anesthesia Local (1% Lidocaine) Indications This is a 58-year-old man who presented in acute renal failure. He has had elevated BUN and creatinine and has not responded to fluid challenges. Discussions were made with nephrology and decision was made to proceed with hemodialysis. Findings SonoSite ultrasound was used to identify the right internal jugular vein. This was viewed as a compressible vessel just lateral to the pulsatile carotid artery. Ultrasound guidance was used to advance the 18 gauge introducer needle directly into the lumen of the internal jugular vein. Dark nonpulsatile blood was aspirated. The guidewire advanced smoothly. A 12 British triple-lumen 16 cm hemodialysis catheter was placed. Chest x-ray is pending to confirm placement. Description of Procedure Procedure, risks, benefits, and alternatives were discussed with the patient. Written consent was obtained and placed in chart prior to procedure. Patient was placed supine in hospital bed and placed in slight Trendelenburg position. Time-out was done to confirm patient and procedure. The right neck and chest area was prepped and draped in sterile fashion using chlorhexidine prep. SonoSite ultrasound was used to identify the right internal jugular vein. 1% lidocaine was infiltrated directly over this area. An 18 gauge introducer needle was advanced under ultrasound guidance directly into the right internal jugular vein. Dark nonpulsatile blood was aspirated. A 0.035 in guidewire was then advanced through the needle. The guidewire advanced smoothly. The needle was then withdrawn leaving the guidewire in place. A small bucky incision was made at the insertion site using an 11 blade scalpel. The blue dilators were then advanced over the guidewire to dilate the vessel. The 12 British triple lumen 16 cm dialysis catheter was then advanced over the guidewire until it was in place. The guidewire was removed. All 3 lumens were then aspirated and flushed with sterile saline. All 3 lumens function with ease. Caps were placed over the lumens. Glue was placed at the insertion site and the catheter was secured in place using 3 0 nylon simple interrupted sutures. A Tegaderm dressing was then applied over top. The patient was then sat up in bed and chest x-ray was ordered to confirm placement. Implants 12 British triple-lumen 16 cm dialysis catheter Estimated Blood Loss 5 Urine Output 600 Complications No immediate complications Condition Stable Disposition No change [facility] Billing Surgery - Charge Forward: Surgery Billing
[2023-05-02] MEDS: PANTOPRAZOLE SODIUM IV 40 MG VIAL IV PUSH (22:01)
[2023-05-03] VITALS (20 sets, daily range): BP systolic 136–167; BP diastolic 81–107; PULSE 73–103; RESP 14–18; TEMP 35.5–37; O2SAT 95–98
[2023-05-03] MEDS: SODIUM CHLORIDE 0.9% IV 1,000 ML 100 ML IV CONT (02:14)
[2023-05-03 05:21] LABS: Hematocrit 25.8 % (42.0-52.0); Hemoglobin 8.4 g/dL (14.0-18.0); Immature Granulocyte Absolute 0.07 K/mm3 (0.00-0.031); Immature Granulocyte Percent A 0.7 % (0-0.5); Lymphocytes Absolute Auto 0.46 K/mm3 (0.9-3.2); Lymphocytes Percent Auto 4.3 % (18.3-44.2); Mean Corpuscular HGB Conc 32.6 g/dl (32-36); Mean Corpuscular Hemoglobin 30.3 pg (26-34); Mean Corpuscular Volume 93.1 fl (80-100); Monocytes Absolute Auto 0.2 K/mm3 (0.1-0.6); Monocytes Percent Auto 1.4 % (2.6-8.5); Neutrophils Percent Auto 93.6 % (45.5-73.1); Platelet Count Result 311 k/mm3 (150-375); Red Blood Count 2.77 M/mm3 (4.6-6.20); Red Cell Distribution Width 12.5 % (11.5-14.5); White Blood Count 10.7 K/mm3 (4.5-10.0)
[2023-05-03 05:33] LABS: INR 1.1; Partial Thromboplastin Time 31.1 SECONDS (22.3-36.8); Prothrombin Time 14.6 Seconds (11.1-14.7)
[2023-05-03 05:40] LABS: Alanine Aminotransferase 44 U/L (6-50); Albumin Level 3.2 g/dL (3.5-5.1); Alkaline Phosphatase 85 U/L (38-126); Anion Gap 12 mmol/L (8-16); Aspartate Amino Transferase 17 U/L (17-59); Bilirubin,Total 0.2 mg/dL (0.2-1.3); Blood Urea Nitrogen 80 mg/dL (9-20); Calcium 8.1 mg/dL (8.4-10.2); Carbon Dioxide 13 mmol/L (22-30); Chloride 109 mmol/L (98-107); Creatine Kinase 59 U/L (55-170); Estimated CRCL calculation 12 ml/min; Estimated Glomerular Filt Rate 8; Glucose 147 mg/dL (65-110); Phosphorus 7.7 mg/dL (2.5-4.5); Potassium 5.1 mmol/L (3.4-5.0); Sodium 134 mmol/L (137-145)
--- NOTE | 2023-05-03 08:44 | PM.PNNEP ---
Progress Note: A&P Assessment and Plan (1) Acute kidney injury: Code(s): N17.9 - Acute kidney failure, unspecified Status: Acute Assessment and Plan: The patient has an elevated creatinine. I suspect that this is acute kidney injury. We are waiting from old labs from his primary care physician. Renal ultrasound is unremarkable. Urine electrolytes are non pre renal. Urine protein is very high. UA shows protein and blood. Minimal white cells. Sedimentation rate is very high. Complements are normal. CPK is normal The patient has hematuria, proteinuria. I suspect he has some sort of a glomerulonephritis. Complements are normal which speaks more in favor of Dina's or Goodpasture's rather than lupus or a immune complex mediated GN which usually has low complements. His creatinine is a little bit better. Because of his nausea and vomiting, which may be uremic, he probably was a little bit dehydrated as well. However he still has hematuria plus nephrotic range proteinuria so he still needs the biopsy. The biopsy will be done tomorrow. Continue IV fluids. Reduce the dose to 75 (2) Hypertension: Code(s): I10 - Essential (primary) hypertension Status: Acute Assessment and Plan: Patient's blood pressure is better with amlodipine and p.r.n. clonidine. (3) Normocytic anemia: Code(s): D64.9 - Anemia, unspecified Status: Acute Assessment and Plan: Hemoglobin is low. Most likely from the kidney disease. He could have blood loss anemia as well. Iron deficiency or vitamin deficiencies can do this as well. Stool guaiacs are ordered. B12 folate and iron are okay. Will give Epogen Subjective Date/time seen: 05/03/23 08:44 Interval history: Patient feels a little better today. He does have some nausea again this morning. He is making a little bit of urine he says. Review of Systems Cardiovascular: Cardiovascular: Reports no additional cardiovascular complaints Respiratory: Respiratory: Reports no additional respiratory complaints Gastrointestinal: Gastrointestinal: Reports no additional gastrointestinal complaints Genitourinary: Genitourinary: Reports no additional male genitourinary complaints Exam Narrative: WDWN in NAD skin no rash head ncat lungs clear cor reg no rub abd BS+ nontender and soft ext no edema. Objective Data Vital Signs Vital Signs: Vital Signs - 24 hr 05/02/23 14:44 05/02/23 12:00 05/02/23 16:00 Temperature 97.7 F Pulse Rate 86 95 90 Respiratory Rate 16 Blood Pressure 135/89 Pulse Oximetry 98 Oxygen Delivery 05/02/23 21:51 05/03/23 04:34 05/02/23 20:00 Temperature 97.7 F 97.8 F Pulse Rate 90 84 91 Respiratory Rate 16 14 Blood Pressure 158/97 H 136/87 Pulse Oximetry 92 95 Oxygen Delivery 05/03/23 00:00 05/03/23 04:00 05/03/23 08:13 Temperature Pulse Rate 94 84 80 Respiratory Rate Blood Pressure Pulse Oximetry 96 Oxygen Delivery Room Air Intake/Output Intake/Output: Intake & Output 04/30/23 05/01/23 05/02/23 05/03/23 23:59 23:59 23:59 23:59 Intake Total 1100 4010 1550 Output Total 2300 1100 Balance 1100 1710 450 Meds/Results Medications: Active Medications Generic Name Dose Route Start Last Admin Trade Name Freq PRN Reason Stop Dose Admin Amlodipine Besylate 5 mg 05/02/23 09:00 05/02/23 08:20 Amlodipine Besylate 5 Mg Tablet PO 5 mg QAM FÁTIMA Administration Bisacodyl 10 mg 05/03/23 12:00 Bisacodyl 5 Mg Tablet Ec PO 05/03/23 21:01 1200,1500,2100 FÁTIMA Clonidine HCl 0.1 mg 05/02/23 07:51 Clonidine Hcl 0.1 Mg Tablet PO Q6H PRN systolic above 160 Dextrose 12.5 gm 05/02/23 06:56 Dextrose 50% 25 Gm/50 Ml Syringe IV PUSH PRN PRN Hypoglycemia Protocol Glucagon 1 mg 05/02/23 06:56 Glucagon For Inj 1 Mg Vial IM PRN PRN Hypoglycemia Protocol Glucose 1
[2023-05-03] MEDS: SEVELAMER CARBONATE 800 MG TABLET PO ×3 (09:18→17:17)
[2023-05-03] MEDS: amLODIPine BESYLATE 5 MG TABLET PO (09:18)
[2023-05-03] MEDS: PANTOPRAZOLE SODIUM IV 40 MG VIAL IV PUSH ×2 (09:19→21:42)
--- NOTE | 2023-05-03 12:06 | PM.IMPN ---
Progress Note: A&P Assessment and Plan (1) Acute kidney injury: Code(s): N17.9 - Acute kidney failure, unspecified Status: Acute Assessment and Plan: The patient has an elevated creatinine. I suspect that this is acute kidney injury. We are waiting from old labs from his primary care physician. Renal ultrasound is unremarkable. Urine electrolytes are non pre renal. Urine protein is very high. UA shows protein and blood. Minimal white cells. Sedimentation rate is very high. Complements are normal. CPK is normal The patient has hematuria, proteinuria. I suspect he has some sort of a glomerulonephritis. Complements are normal which speaks more in favor of Dina's or Goodpasture's rather than lupus or a immune complex mediated GN which usually has low complements. His creatinine is a little bit better. Because of his nausea and vomiting, which may be uremic, he probably was a little bit dehydrated as well. However he still has hematuria plus nephrotic range proteinuria so he still needs the biopsy. The biopsy will be done tomorrow. Continue IV fluids. Reduce the dose to 75 (2) Hypertension: Code(s): I10 - Essential (primary) hypertension Status: Acute Assessment and Plan: Patient's blood pressure is better with amlodipine and p.r.n. clonidine. (3) Normocytic anemia: Code(s): D64.9 - Anemia, unspecified Status: Acute Assessment and Plan: Hemoglobin is low. Most likely from the kidney disease. He could have blood loss anemia as well. Iron deficiency or vitamin deficiencies can do this as well. Stool guaiacs are ordered. B12 folate and iron are okay. Will give Epogen (4) Abdominal pain: Code(s): R10.9 - Unspecified abdominal pain Status: Acute Assessment and Plan: Generalized abdominal pain he describes as squeezing sensation with nausea, currently mildly improved. Associated with constipation symptoms. (5) Change in bowel habits: Code(s): R19.4 - Change in bowel habit Status: Acute Assessment and Plan: Generalized abdominal pain he describes as squeezing sensation with nausea, currently mildly improved. Associated with constipation symptoms. Plan Dialysis today for Acute Renal Failure EGD/Colonoscopy and Renal Biopsy tomorrow. Appreciate recommendations from Nephrology, Surgery and GI. Time Spent With Patient Time with patient: Greater than 35 minutes (answered many questions regarding bowel prep, EGD/Coloscopy, Dialysis and kidney biopsy) Subjective Date/time seen: 05/03/23 08:30 Interval history: Copied from previous chart: HPI obtained from chart This is a pleasant 58-year-old male with GERD who presented to the emergency department for evaluation of abnormal labs. The patient provides the following history. He has had issues with low back pain and right hip pain for several months and he was started on Celebrex sometime in January. He was also referred to pain management and received some injections which seemed to have helped his pain. He stopped taking Celebrex after about a month after began having worsening GERD symptoms with bloating, belching, and early satiety. He also reports that his blood pressures started to run high for the 1st time in his life and he thought it was related to the Celebrex as well. On occasion he still takes Advil or Tylenol for pain but not very often. Unfortunately his symptoms have not improved and in fact they seem to be getting worse. He has frequent nausea, occasional dry heaves, and he has been constipated for the 1st time in his life. On recent trips to the doctor his blood pressures have been elevated and he he had labs drawn and was referred to the ED after he was found to have evidence of acute kidney injury. Pertinent labs today include a sodium of 139, potassium 4.3, carbon dioxide 19, anion gap 18, BUN 76, creatinine 8.10. Urine was positive for 3+ protein, 3+
[2023-05-03] MEDS: BISACODYL 5 MG TABLET EC 10 MG PO ×3 (12:41→21:50)
--- NOTE | 2023-05-03 13:30 | PCCCNOTE ---
On 05/03/23, the student, [Zeynep Pina], provided care and completed [facility] documentation on this patient. I have reviewed the student's documentation and agree with the findings.
[2023-05-03] MEDS: polyethylene glycoL 3350 238 GM BOTTLE PO (17:18)
[2023-05-03] MEDS: SODIUM CHLORIDE 0.9% IV 1,000 ML 75 ML IV CONT (17:19)
[2023-05-03] MEDS: methylPREDNISolone SOD SUCC 1,000 MG in DEXTROSE 5% 100 ML 200 MG IVPB (17:35)
[2023-05-03 20:06] LABS: IFOB Positive Control Positive; Immunochemical Fecal Occult Bl Negative (N)
[2023-05-04] VITALS (12 sets, daily range): BP systolic 128–163; BP diastolic 84–107; PULSE 70–124; RESP 15–18; TEMP 36.3–36.6; O2SAT 96–100
[2023-05-04 06:04] LABS: Anion Gap 7 mmol/L (8-16); Blood Urea Nitrogen 51 mg/dL (9-20); Calcium 7.7 mg/dL (8.4-10.2); Carbon Dioxide 26 mmol/L (22-30); Chloride 104 mmol/L (98-107); Estimated CRCL calculation 21 ml/min; Estimated Glomerular Filt Rate 16; Glucose 127 mg/dL (65-110); Phosphorus 6.2 mg/dL (2.5-4.5); Potassium 3.9 mmol/L (3.4-5.0); Sodium 137 mmol/L (137-145)
--- NOTE | 2023-05-04 08:15 | PM.PNNEP ---
Progress Note: A&P Assessment and Plan (1) Acute kidney injury: Code(s): N17.9 - Acute kidney failure, unspecified Status: Acute Assessment and Plan: The patient has an elevated creatinine. I suspect that this is acute kidney injury. We are waiting from old labs from his primary care physician. Will re-request these. Renal ultrasound is unremarkable. Urine electrolytes are non pre renal. Urine protein is very high. UA shows protein and blood. Minimal white cells. Sedimentation rate is very high. Complements are normal. Other serology is still pending CPK is normal The patient has hematuria, proteinuria. Renal biopsy today. His creatinine is much better today because of the dialysis. He still has hematuria and proteinuria so will proceed with a biopsy. Continue IV fluids. (2) Hypertension: Code(s): I10 - Essential (primary) hypertension Status: Acute Assessment and Plan: Patient's blood pressure is better with amlodipine and p.r.n. clonidine. Currently in the 140s. (3) Normocytic anemia: Code(s): D64.9 - Anemia, unspecified Status: Acute Assessment and Plan: Hemoglobin is low. Most likely from the kidney disease. He could have blood loss anemia as well. Iron deficiency or vitamin deficiencies can do this as well. Stool guaiacs are ordered. He says he saved to sample. B12 folate and iron are okay. On Epogen Subjective Date/time seen: 05/04/23 08:15 Interval history: Patient feels okay today. He had his colonoscopy prep yesterday. Will have EGD colonoscopy today. He is also going to have a renal biopsy today. Exam Narrative: WDWN in NAD skin no rash or subQ nodules head ncat lungs clear cor reg no rub abd BS+ nontender and soft ext no edema. Objective Data Vital Signs Vital Signs: Vital Signs - 24 hr 05/03/23 09:16 05/03/23 09:00 05/03/23 14:15 Temperature 97.9 F Pulse Rate 94 92 Respiratory Rate 18 Blood Pressure 150/98 H 160/107 H Pulse Oximetry 97 Oxygen Delivery Room Air 05/03/23 14:22 05/03/23 14:40 05/03/23 12:00 Temperature Pulse Rate 92 86 73 Respiratory Rate Blood Pressure 167/107 H 148/81 H Pulse Oximetry Oxygen Delivery 05/03/23 15:00 05/03/23 15:20 05/03/23 15:40 Temperature Pulse Rate 88 93 78 Respiratory Rate Blood Pressure 143/97 H 142/92 H 146/95 H Pulse Oximetry Oxygen Delivery 05/03/23 16:00 05/03/23 16:20 05/03/23 16:40 Temperature Pulse Rate 89 77 94 Respiratory Rate Blood Pressure 150/96 H 144/88 H 162/102 H Pulse Oximetry Oxygen Delivery 05/03/23 16:56 05/03/23 17:00 05/03/23 16:00 Temperature 98.2 F Pulse Rate 91 85 91 Respiratory Rate 16 Blood Pressure 162/98 H 157/93 H Pulse Oximetry Oxygen Delivery 05/03/23 21:39 05/03/23 20:00 05/04/23 00:00 Temperature 97.7 F Pulse Rate 96 103 H 100 Respiratory Rate 16 Blood Pressure 149/97 H Pulse Oximetry 98 Oxygen Delivery 05/04/23 04:00 05/04/23 05:10 Temperature 97.7 F Pulse Rate 70 83 Respiratory Rate 16 Blood Pressure 147/86 H Pulse Oximetry 99 Oxygen Delivery Intake/Output Intake/Output: Intake & Output 05/01/23 05/02/23 05/03/23 05/04/23 23:59 23:59 23:59 23:59 Intake Total 1100 4126 5360 150 Output Total 2300 4000 600 Balance 1100 1826 1360 -450 Meds/Results Medications: Active Medications Generic Name Dose Route Start Last Admin Trade Name Freq PRN Reason Stop Dose Admin Amlodipine Besylate 5 mg 05/02/23 09:00 05/03/23 09:18 Amlodipine Besylate 5 Mg Tablet PO 5 mg QAM FÁTIMA Administration Clonidine HCl 0.1 mg 05/02/23 07:51 Clonidine Hcl 0.1 Mg Tablet PO Q6H PRN systolic above 160 Dextrose 12.5 gm 05/02/23 06:56 Dextrose 50% 25 Gm/50 Ml Syringe IV PUSH PRN PRN Hypoglycemia Protocol Epoetin Mike-epbx 6,000 units/ 10,000 units
[2023-05-04] MEDS: SODIUM CHLORIDE 0.9% IV 1,000 ML 75 ML IV CONT (11:01)
[2023-05-04] MEDS: PANTOPRAZOLE SODIUM IV 40 MG VIAL IV PUSH (11:13)
--- NOTE | 2023-05-04 12:40 | PM.IMPN ---
Progress Note: A&P Assessment and Plan (1) Acute kidney injury: Code(s): N17.9 - Acute kidney failure, unspecified Status: Acute Assessment and Plan: The patient has an elevated creatinine. I suspect that this is acute kidney injury. We are waiting from old labs from his primary care physician. Will re-request these. Renal ultrasound is unremarkable. Urine electrolytes are non pre renal. Urine protein is very high. UA shows protein and blood. Minimal white cells. Sedimentation rate is very high. Complements are normal. Other serology is still pending CPK is normal The patient has hematuria, proteinuria. Renal biopsy today. His creatinine is much better today because of the dialysis. He still has hematuria and proteinuria so will proceed with a biopsy. Continue IV fluids. (2) Hypertension: Code(s): I10 - Essential (primary) hypertension Status: Acute Assessment and Plan: Patient's blood pressure is better with amlodipine and p.r.n. clonidine. Currently in the 140s. (3) Normocytic anemia: Code(s): D64.9 - Anemia, unspecified Status: Acute Assessment and Plan: Hemoglobin is low. Most likely from the kidney disease. He could have blood loss anemia as well. Iron deficiency or vitamin deficiencies can do this as well. Stool guaiacs are ordered. He says he saved to sample. B12 folate and iron are okay. On Epogen Plan Complete EGD and colonoscopy today. Dialysis tomorrow. Follow-up with Nephrology regarding dialysis plan. Change right IJ Justin dressing to maintain sterility. Time Spent With Patient Time with patient: 25 - 35 minutes Subjective Date/time seen: 05/04/23 12:40 Interval history: Copied from previous chart: HPI obtained from chart This is a pleasant 58-year-old male with GERD who presented to the emergency department for evaluation of abnormal labs. The patient provides the following history. He has had issues with low back pain and right hip pain for several months and he was started on Celebrex sometime in January. He was also referred to pain management and received some injections which seemed to have helped his pain. He stopped taking Celebrex after about a month after began having worsening GERD symptoms with bloating, belching, and early satiety. He also reports that his blood pressures started to run high for the 1st time in his life and he thought it was related to the Celebrex as well. On occasion he still takes Advil or Tylenol for pain but not very often. Unfortunately his symptoms have not improved and in fact they seem to be getting worse. He has frequent nausea, occasional dry heaves, and he has been constipated for the 1st time in his life. On recent trips to the doctor his blood pressures have been elevated and he he had labs drawn and was referred to the ED after he was found to have evidence of acute kidney injury. Pertinent labs today include a sodium of 139, potassium 4.3, carbon dioxide 19, anion gap 18, BUN 76, creatinine 8.10. Urine was positive for 3+ protein, 3+ blood, and greater than 100 rbc's with a random urine total protein of greater than 600 mg/dL. He is being admitted in this setting for further evaluation. With further questioning he has noticed that his urine looks slightly pink tinged for about a month or so. He has not noticed a change in urine output. Last week he had some mild swelling in his legs but that has improved. He has been feeling extremely tired and is sleeping most of the time when he is not at work. His weight has remained stable. He reports feeling a bit confused with slow thought processes. He has no known history of kidney disease and he denies family history of kidney disease. Interval History: 05/02-patient seen today in room resting in bed appears anxious.? His and friend at the bedside.? He is already spoke with Nephrology today and he appears overwhelmed.? I reviewed in detail with him
[2023-05-04 14:17] LABS: Erythropoietin (EPO) 1.2 mIU/mL (2.6-18.5)
[2023-05-04] MEDS: LACTATED RINGERS 1,000 ML 150 ML IV CONT (14:24)
--- NOTE | 2023-05-04 15:00 | WPDANESEPPF ---
Anes - Initial Pre Proc Eval Procedure: Operation Date: 05/03/23 15:00 Proposed Procedures p Insertion Tunneled Dialysis Catheter - Benji Jenkins DO Operation Date: 05/04/23 15:45 Proposed Procedures p Esophagogastroduodenoscopy & Colonoscopy - Roldan Hernandez MD Date/Time: 05/04/23 15:00 Surgeon: Mukul Alonzo MD Pre Op Diagnosis: Acute Kidney Failure Patient Data Age: 58 Gender: M Height: 1.73 m Weight: 91.9 kg Last Vital Signs Temp 36.3 C L 05/04/23 14:25 Pulse 89 05/04/23 14:25 Resp 18 05/04/23 14:25 BP 163/100 H 05/04/23 14:25 Pulse Ox 100 05/04/23 14:25 O2 Del Method Room Air 05/04/23 14:25 Allergies Allergy/AdvReac Type Severity Reaction Status Date / Time Sulfa (Sulfonamide Allergy Hives Verified 05/02/23 09:00 Antibiotics) Home Medications Medication Instructions Recorded Confirmed Type cimetidine 400 mg tablet 400 mg PO DAILY PRN Acid Reflux 05/01/23 05/01/23 History omeprazole 20 mg capsule,delayed 20 mg PO DAILY 05/01/23 05/01/23 History release Laboratory Tests 05/02/23 05/03/23 05/04/23 05:21 19:36 04:52 Sodium 137 mmol/L (137-145) Potassium 3.9 mmol/L (3.4-5.0) Chloride 104 mmol/L (98-107) Carbon Dioxide 26 mmol/L (22-30) Anion Gap 7 L mmol/L (8-16) BUN 51 H D mg/dL (9-20) Creatinine 3.90 H mg/dL (0.7-1.3) Estim Creat Clear Calc 21 ml/min Estimated GFR 16 L (59 - ) Glucose 127 H mg/dL (65-110) Calcium 7.7 L mg/dL (8.4-10.2) Phosphorus 6.2 H mg/dL (2.5-4.5) Erythropoietin 1.2 L mIU/mL (2.6-18.5) Albumin 3.0 L g/dL (3.5-5.1) Stl Occult Blood (IFOB) Negative (N) Patient hx anesthesia problems: none Family hx anesthesia problems: none Results Review: All pre-operative results and documents have been reviewed as part of the pre-operative evaluation. [facility] Past Medical History Medical History Clavicle fracture Lumbar radiculopathy Sinus disease Surgical History Surgical History History of foot surgery Hx of tonsillectomy Family History Family History Father Acute myocardial infarction Sibling Hypertension Father Family history of heart disease in male family member before age 55 Social History Social History Social History: Surrogate medical decision maker: Ambika Braun, spouse. Code status: Full code. Smoking status: Former smoker Alcohol intake: never Alcohol use details: rarely Substance use: never Lack of Transportation: No Lack of Food: Never True Current Housing: I Have Housing Concerned About Future Housing: No Difficulty Paying Gas/Electric Bills: No Difficulty Paying for Meds: No Currently Unemployed: No Education: High School Diploma/GED Difficulty w/ Childcare or Family Care: No Additional occupation/education comments: [employer] Spiritual care concerns: No Anes - Eval Final PreProcedure Day of Procedure 05/04/23 15:00 Patient weight: overweight Heart: regular rate and rhythm Lungs: clear to auscultation Airway: Mallampati scale class II Neurological: alert and oriented Last oral intake: >/= 8 hours ASA classification: III Emergent: no Anesthetic plan: proceed Anesthesia type and monitoring: general GIVS and standard monitoring Results Review: All pre-operative results and documents have been reviewed as part of the pre-operative evaluation. Informed Consent: The patient's anesthetic plan and its attendant risks and benefits were discussed with the patient/family/POA. Questions were solicited and answers provided to the satisfaction of the patie
[2023-05-04] MEDS: SODIUM CHLORIDE 0.9% IV 500 ML 10 ML IV CONT (15:34)
--- NOTE | 2023-05-04 15:45 | SUR.OPER ---
EGD started at 1538 and ended at 1541. Colonoscopy began at 1547.
[2023-05-04] MEDS: SEVELAMER CARBONATE 800 MG TABLET PO (16:40)
[2023-05-04] MEDS: amLODIPine BESYLATE 5 MG TABLET PO (16:41)
[2023-05-05 07:30] LABS: Albumin Level 2.8 g/dL (3.5-5.1); Anion Gap 8 mmol/L (8-16); Blood Urea Nitrogen 57 mg/dL (9-20); Calcium 7.4 mg/dL (8.4-10.2); Carbon Dioxide 25 mmol/L (22-30); Chloride 106 mmol/L (98-107); Estimated CRCL calculation 21 ml/min; Estimated Glomerular Filt Rate 16; Glucose 100 mg/dL (65-110); Phosphorus 6.1 mg/dL (2.5-4.5); Potassium 3.7 mmol/L (3.4-5.0); Sodium 139 mmol/L (137-145)
[2023-05-05] MEDS: SEVELAMER CARBONATE 800 MG TABLET PO ×3 (08:40→17:16)
[2023-05-05] MEDS: amLODIPine BESYLATE 5 MG TABLET PO (08:41)
[2023-05-05] MEDS: PANTOPRAZOLE 40 MG TABLET PO (08:41)
[2023-05-05 09:34] LABS: Basophils Percent Auto 0.1 % (0.2-1.2); Hematocrit 24.7 % (42.0-52.0); Hemoglobin 7.8 g/dL (14.0-18.0); Immature Granulocyte Absolute 0.09 K/mm3 (0.00-0.031); Lymphocytes Absolute Auto 1.31 K/mm3 (0.9-3.2); Mean Corpuscular HGB Conc 31.6 g/dl (32-36); Mean Corpuscular Hemoglobin 29.8 pg (26-34); Mean Corpuscular Volume 94.3 fl (80-100); Mean Platelet Volume 10.9 fl (7.4-10.4); Monocytes Absolute Auto 0.8 K/mm3 (0.1-0.6); Monocytes Percent Auto 8.7 % (2.6-8.5); Neutrophils Absolute Auto 6.6 K/mm3 (1.3-6.7); Neutrophils Percent Auto 75.2 % (45.5-73.1); Platelet Count Result 254 k/mm3 (150-375); Red Blood Count 2.62 M/mm3 (4.6-6.20); Red Cell Distribution Width 12.8 % (11.5-14.5); White Blood Count 8.7 K/mm3 (4.5-10.0)
--- NOTE | 2023-05-05 09:47 | PM.IMPN ---
Progress Note: A&P Assessment and Plan (1) Acute kidney injury: Code(s): N17.9 - Acute kidney failure, unspecified Status: Acute Assessment and Plan: The patient has an elevated creatinine. I suspect that this is acute kidney injury. Old labs showed a creatinine of 1.7 last year. There may be some element of chronic kidney disease here. Renal ultrasound is unremarkable. Urine electrolytes are non pre renal. Urine protein is very high. UA shows protein and blood. Minimal white cells. Sedimentation rate is very high. Complements are normal. Other serology is still pending CPK is normal The patient has hematuria, proteinuria. Renal biopsy was done yesterday. We should get a preliminary report over the phone sometime today. He is making urine. His creatinine haylie from 3.9-4.0, essentially stable in 24hours. Hopefully this means his renal function is stable if not improving. He is eating well. We can stop the IV fluids. He received is 3 doses of IV Solu-Medrol. Will start prednisone 80mg per day. Depending on what the biopsy shows he may need more medications. (2) Hypertension: Code(s): I10 - Essential (primary) hypertension Status: Acute Assessment and Plan: Patient's blood pressure is better with amlodipine and p.r.n. clonidine. Currently in the 140s. (3) Normocytic anemia: Code(s): D64.9 - Anemia, unspecified Status: Acute Assessment and Plan: Hemoglobin is low. Most likely from the kidney disease. He could have blood loss anemia as well. Iron deficiency or vitamin deficiencies can do this as well. Stool guaiacs are negative B12 folate and iron are okay. On Epogen Plan Per Nephrology at this point Time Spent With Patient Time with patient: 25 - 35 minutes Subjective Date/time seen: 05/05/23 09:47 Interval history: Copied from previous chart: HPI obtained from chart This is a pleasant 58-year-old male with GERD who presented to the emergency department for evaluation of abnormal labs. The patient provides the following history. He has had issues with low back pain and right hip pain for several months and he was started on Celebrex sometime in January. He was also referred to pain management and received some injections which seemed to have helped his pain. He stopped taking Celebrex after about a month after began having worsening GERD symptoms with bloating, belching, and early satiety. He also reports that his blood pressures started to run high for the 1st time in his life and he thought it was related to the Celebrex as well. On occasion he still takes Advil or Tylenol for pain but not very often. Unfortunately his symptoms have not improved and in fact they seem to be getting worse. He has frequent nausea, occasional dry heaves, and he has been constipated for the 1st time in his life. On recent trips to the doctor his blood pressures have been elevated and he he had labs drawn and was referred to the ED after he was found to have evidence of acute kidney injury. Pertinent labs today include a sodium of 139, potassium 4.3, carbon dioxide 19, anion gap 18, BUN 76, creatinine 8.10. Urine was positive for 3+ protein, 3+ blood, and greater than 100 rbc's with a random urine total protein of greater than 600 mg/dL. He is being admitted in this setting for further evaluation. With further questioning he has noticed that his urine looks slightly pink tinged for about a month or so. He has not noticed a change in urine output. Last week he had some mild swelling in his legs but that has improved. He has been feeling extremely tired and is sleeping most of the time when he is not at work. His weight has remained stable. He reports feeling a bit confused with slow thought processes. He has no known history of kidney disease and he denies family history of kidney disease. Interval History: 05/02-patient seen today in room resting in bed appears anxious.?
--- NOTE | 2023-05-05 10:42 | PM.PNNEP ---
Progress Note: A&P Assessment and Plan (1) Acute kidney injury: Code(s): N17.9 - Acute kidney failure, unspecified Status: Acute Assessment and Plan: The patient has an elevated creatinine. I suspect that this is acute kidney injury. Old labs showed a creatinine of 1.7 last year. There may be some element of chronic kidney disease here. Renal ultrasound is unremarkable. Urine electrolytes are non pre renal. Urine protein is very high. UA shows protein and blood. Minimal white cells. Sedimentation rate is very high. Complements are normal. Other serology is still pending CPK is normal The patient has hematuria, proteinuria. Renal biopsy was done yesterday. We should get a preliminary report over the phone sometime today. He is making urine. His creatinine haylie from 3.9-4.0, essentially stable in 24hours. Hopefully this means his renal function is stable if not improving. He is eating well. We can stop the IV fluids. He received is 3 doses of IV Solu-Medrol. Will start prednisone 80mg per day. Depending on what the biopsy shows he may need more medications. (2) Hypertension: Code(s): I10 - Essential (primary) hypertension Status: Acute Assessment and Plan: Patient's blood pressure is better with amlodipine and p.r.n. clonidine. Currently in the 140s. (3) Normocytic anemia: Code(s): D64.9 - Anemia, unspecified Status: Acute Assessment and Plan: Hemoglobin is low. Most likely from the kidney disease. He could have blood loss anemia as well. Iron deficiency or vitamin deficiencies can do this as well. Stool guaiacs are negative B12 folate and iron are okay. On Epogen Subjective Date/time seen: 05/05/23 10:42 Interval history: Patient feels okay today. He had a renal biopsy yesterday which went pretty well. He had a colonoscopy yesterday showing a rectal polyp and EGD showing GERD. He is eager for discharge but knows he can go home for few more days until we figure this out. Exam Narrative: WDWN in NAD skin no rash or subQ nodules head ncat lungs clear bilaterally cor reg no rub or gallop abd BS+ nontender and soft ext no edema or cyanosis. Objective Data Vital Signs Vital Signs: Vital Signs - 24 hr 05/04/23 12:00 05/04/23 14:25 05/04/23 16:00 Temperature 97.3 F L Pulse Rate 90 89 81 Respiratory Rate 18 16 Blood Pressure 163/100 H 142/99 H Pulse Oximetry 100 98 Oxygen Delivery Room Air Room Air 05/04/23 16:10 05/04/23 16:12 05/04/23 19:08 Temperature 97.8 F Pulse Rate 75 72 98 Respiratory Rate 15 15 16 Blood Pressure 132/95 H 142/96 H 128/84 Pulse Oximetry 96 98 97 Oxygen Delivery Room Air Room Air 05/04/23 20:00 Temperature Pulse Rate Respiratory Rate Blood Pressure Pulse Oximetry Oxygen Delivery Room Air Intake/Output Intake/Output: Intake & Output 05/02/23 05/03/23 05/04/23 05/05/23 23:59 23:59 23:59 23:59 Intake Total 4126 5360 2140 360 Output Total 2300 4000 1100 Balance 1826 1360 1040 360 Meds/Results Medications: Active Medications Generic Name Dose Route Start Last Admin Trade Name Freq PRN Reason Stop Dose Admin Amlodipine Besylate 5 mg 05/02/23 09:00 05/05/23 08:41 Amlodipine Besylate 5 Mg Tablet PO 5 mg QAM FÁTIMA Administration Clonidine HCl 0.1 mg 05/02/23 07:51 Clonidine Hcl 0.1 Mg Tablet PO Q6H PRN systolic above 160 Dextrose 12.5 gm 05/02/23 06:56 Dextrose 50% 25 Gm/50 Ml Syringe IV PUSH PRN PRN Hypoglycemia Protocol Glucagon 1 mg 05/02/23 06:56 Glucagon For Inj 1 Mg Vial IM PRN PRN Hypoglycemia Protocol Glucose 15 gm 05/02/23 06:56 Glucose Oral Gel 15 Gm Of Glucse In 37.5 Gm Tube PO PRN PRN Hypoglycemia Protocol Sodium Chloride 1,000 mls @ 75 mls/hr 05/01/23 18:10 05/04/23 11:01 Normal Saline Iv IV CONT 75 mls/hr .[id number] FÁTIMA Ad
[2023-05-05] MEDS: EPOETIN ALFA 10,000 UNITS/ML VIAL 10000 UNITS SUB-Q (11:30)
[2023-05-05] MEDS: predniSONE 20 MG TABLET 80 MG PO (11:30)
[2023-05-05 14:10] VITALS: BP 155/62; PULSE 104; RESP 17; TEMP 36.6; O2SAT 98
[2023-05-05 18:39] LABS: Complement Total CH50 >60 U/mL (31-60)
[2023-05-05 20:20] VITALS: BP 163/97; PULSE 83; RESP 20; TEMP 36.6; O2SAT 98
[2023-05-06 04:18] VITALS: BP 162/94; PULSE 82; RESP 20; TEMP 36.6; O2SAT 97
[2023-05-06 05:49] LABS: Albumin Level 2.8 g/dL (3.5-5.1); Anion Gap 11 mmol/L (8-16); Blood Urea Nitrogen 57 mg/dL (9-20); Calcium 7.6 mg/dL (8.4-10.2); Carbon Dioxide 23 mmol/L (22-30); Chloride 102 mmol/L (98-107); Estimated CRCL calculation 22 ml/min; Estimated Glomerular Filt Rate 17; Glucose 111 mg/dL (65-110); Phosphorus 6.2 mg/dL (2.5-4.5); Potassium 3.6 mmol/L (3.4-5.0); Sodium 136 mmol/L (137-145)
--- NOTE | 2023-05-06 07:40 | WPDGIPROGNO ---
Progress Note: A&P Assessment and Plan (1) Abdominal pain: Code(s): R10.9 - Unspecified abdominal pain Status: Acute Assessment and Plan: He likely has peptic ulcer disease due to Celebrex. EGD will be scheduled. Probably to be done tomorrow + EGD was rather unremarkable. H pylori was negative. + Tolerate his diet. (2) Nausea and vomiting: Code(s): R11.2 - Nausea with vomiting, unspecified Status: Acute Assessment and Plan: This began about 3 weeks ago. Even stopping his Celebrex and not seem to help + Nausea has resolved. (3) Acute kidney injury: Code(s): N17.9 - Acute kidney failure, unspecified Status: Acute Assessment and Plan: With rehydration his creatinine today is slightly lower at 7.5 but BUN for unchanged. He has been seen by Nephrology. The thoughts are that he could have a glomerular nephritis. He was empirically given steroids last night. There is also concern for rhabdomyolysis. Kidney biopsy is being considered. Dialysis may be required 05/06/2023 He has had dialysis and creatinine has come down from 8.1 to 3.8, improve, but suggesting chronic kidney disease. Biopsy done with results still pending. (4) Hypertension: Code(s): I10 - Essential (primary) hypertension Status: Acute Assessment and Plan: This developed while he was on Celebrex and is a new diagnosis. He has been started on amlodipine. (5) Normocytic anemia: Code(s): D64.9 - Anemia, unspecified Status: Acute Assessment and Plan: He has no history of anemia. He has not seen blood in his stools. Hemoglobin is 9.8, hematocrit 30.1 This could be secondary to kidney disease if he has more chronic kidney disease No sign of GI bleed on endoscopic procedures stool Hemoccult negative (6) Change in bowel habits: Code(s): R19.4 - Change in bowel habit Status: Acute Assessment and Plan: Having a bowel movement seems more difficult. When he does have 1 stools are smaller and shorter. He has not had diarrhea. 05/06/2023 no evidence of colitis or inflammatory bowel disease on colonoscopy. We will treat his bowel situation as needed. Plan from my perspective he can be discharged at any time. Subjective Date/time seen: 05/06/23 07:40 he is feeling better in terms of his digestive tract. He tolerated his diet last night. He has had no more nausea or vomiting and he is not having abdominal pain at this time. I discussed with him his endoscopy results, the virtually unremarkable EGD with negative H pylori. His colonoscopy revealed only a small polyp. He is waiting for the results of his kidney biopsy, as nephrology suspecting glomerular nephritis. He had dialysis 2 days ago and thought he was going to have it yesterday. Exam Const: General: cooperative and healthy appearing Orientation/consciousness: patient oriented x3 HENMT: Head: normal to inspection Ears: hearing grossly normal bilaterally Mouth: Yes Normal oral and palatal mucosa present Eyes: General: appearance normal, both eyes and all related structures Neck: Neck: normal visual inspection Chest: Chest palpation & inspection: normal inspection of the chest Resp: Effort & Inspection: normal respiratory effort Auscultation: clear to auscultation bilaterally Cardio: Rate: regular rate Rhythm: regular rhythm GI: Inspection: normal to inspection GI Palp: No abdominal tenderness, Yes Soft to palpation and Yes No hepatosplenomegaly present Auscultation: normal bowel sounds Skin: General skin exam: normal color and no jaundice Neuro: General: patient oriented x3 Speech: normal speech Objective Data Vital Signs Vital Signs: Vital Signs - 24 hr 05/05/23 08:36 05/05/23 14:10 05/05/23 19:44 Temperature 36.6 C Pulse Rate 104 H Respiratory Rate 17 Blood Pressure 155/62 H Pulse Oximetry 98 Oxygen Delivery Room Air Room
[2023-05-06 08:14] LABS: Hepatitis B Core Ab Total Nonreactive (Nonreactive)
[2023-05-06 08:47] LABS: Glucose Point of Care 85 mg/dl (65-105)
[2023-05-06] MEDS: amLODIPine BESYLATE 5 MG TABLET PO (08:58)
[2023-05-06] MEDS: PANTOPRAZOLE 40 MG TABLET PO (08:58)
[2023-05-06] MEDS: SEVELAMER CARBONATE 800 MG TABLET PO ×3 (08:58→17:37)
[2023-05-06] MEDS: predniSONE 20 MG TABLET 80 MG PO (08:58)
--- NOTE | 2023-05-06 09:33 | PM.PNNEP ---
Progress Note: A&P Assessment and Plan (1) Acute kidney injury: Code(s): N17.9 - Acute kidney failure, unspecified Status: Acute Assessment and Plan: The patient has an elevated creatinine. Renal ultrasound is unremarkable. Urine electrolytes are non pre renal. Urine protein is very high. UA shows protein and blood. Minimal white cells. Sedimentation rate is very high. Complements are normal. 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 Because he has such a high creatinine he will need plasmapheresis. Will continue steroids as well. Will reduce the dose to75mg per day and taper per Plexivas protocol. he will also need combination therapy with Rituxan and cyclophosphamide. However neither IV is available in the hospital so will start with oral cyclophosphamide while he is here and then give the Rituxan plus IV cyclophosphamide as an outpatient in the infusion center. I will consult Dr. Alicea to get that arranged. We discussed the risks of the therapy. This includes mostly increased risk of infection. Other possibilities include hemorrhagic cystitis, lymphoma down the line. I will give him handouts. The benefit of the therapy would be to try to keep him off dialysis. Since he has about 50% of the interstitial area scarred, it is unclear how much better his kidney function will get. It is 17 right now. If we can get up into the 20s that would be great. If he stays in the teens then he can finish his regimen and apply for kidney transplant. If his kidney for function improves then that would be great. There is a possibility that the kidney function may deteriorate in spite of all this therapy and he would be back on dialysis. At that point we would stop the immunosuppressive. We discussed all the above at length. I also offered for him to get a 2nd opinion at [facility] or [facility] if he would like. He is going to talk it over with his family. I do not think we could get him transferred as an inpatient, however he could get an opinion as an outpatient. 25minutes were spent in research, and discussions with the patient and JOLANTA Croft. He is making urine. His creatinine haylie from 3.9-4.0, essentially stable in 24hours. Hopefully this means his renal function is stable if not improving. His GFR is 17. (2) Hypertension: Code(s): I10 - Essential (primary) hypertension Status: Acute Assessment and Plan: Patient's blood pressure is better with amlodipine and p.r.n. clonidine. Currently in the 140s. (3) Normocytic anemia: Code(s): D64.9 - Anemia, unspecified Status: Acute Assessment and Plan: Hemoglobin is low. Most likely from the kidney disease. He could have blood loss anemia as well. Iron deficiency or vitamin deficiencies can do this as well. Stool guaiacs are negative B12 folate and iron are okay. On Epogen subq Subjective Date/time seen: 05/06/23 09:33 Interval history: Patient feels okay today. Eating pretty well. Up and around. Exam Narrative: WDWN in NAD skin no rash or subQ nodules head ncat lungs clear bilaterally cor reg no rub or gallop abd BS+ nontender and soft ext no edema or cyanosis. Objective Data Vital Signs Vital Signs: Vital Signs - 24 hr 05/05/23 14:10 05/05/23 19:44 05/05/23 20:20 Temperature 97.8 F 97.9 F Pulse Rate 104 H 83 Respiratory Rate 17 20 Blood Pressure 155/62 H 163/97 H Pulse Oximetry 98 98 Oxygen Delivery Room Air 05/06/23 04:18 Temperature 97.9 F Pulse Rate 82 Respiratory Rate 20 Blood Pressure 162/94 H Pulse Oximetry 97 Oxygen Delivery Intake/Output Intake/Output: Intake & Output 05/03/23 05/04/23 05/05/23 05/06/23 23:59 23:59 23:59 23:59 Intake Total 5360 2140 1984 200 Output Total 4000 1100 1100 1200 Balance 1360 1040 884 -1000 Meds
--- NOTE | 2023-05-06 13:21 | PM.IMPN ---
Progress Note: A&P Assessment and Plan (1) Acute kidney injury: Code(s): N17.9 - Acute kidney failure, unspecified Status: Acute Assessment and Plan: The patient has an elevated creatinine. Renal ultrasound is unremarkable. Urine electrolytes are non pre renal. Urine protein is very high. UA shows protein and blood. Minimal white cells. Sedimentation rate is very high. Complements are normal. 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 Because he has such a high creatinine he will need plasmapheresis. Will continue steroids as well. Will reduce the dose to75mg per day and taper per Plexivas protocol. he will also need combination therapy with Rituxan and cyclophosphamide. However neither IV is available in the hospital so will start with oral cyclophosphamide while he is here and then give the Rituxan plus IV cyclophosphamide as an outpatient in the infusion center. I will consult Dr. Alicea to get that arranged. We discussed the risks of the therapy. This includes mostly increased risk of infection. Other possibilities include hemorrhagic cystitis, lymphoma down the line. I will give him handouts. The benefit of the therapy would be to try to keep him off dialysis. Since he has about 50% of the interstitial area scarred, it is unclear how much better his kidney function will get. It is 17 right now. If we can get up into the 20s that would be great. If he stays in the teens then he can finish his regimen and apply for kidney transplant. If his kidney for function improves then that would be great. There is a possibility that the kidney function may deteriorate in spite of all this therapy and he would be back on dialysis. At that point we would stop the immunosuppressive. We discussed all the above at length. I also offered for him to get a 2nd opinion at [facility] or [facility] if he would like. He is going to talk it over with his family. I do not think we could get him transferred as an inpatient, however he could get an opinion as an outpatient. 25minutes were spent in research, and discussions with the patient and JOLANTA Croft. He is making urine. His creatinine haylie from 3.9-4.0, essentially stable in 24hours. Hopefully this means his renal function is stable if not improving. His GFR is 17. (2) Hypertension: Code(s): I10 - Essential (primary) hypertension Status: Acute Assessment and Plan: Patient's blood pressure is continuing a ride in the 160/100 range. Will increase amlodipine dose. (3) Normocytic anemia: Code(s): D64.9 - Anemia, unspecified Status: Acute Assessment and Plan: Hemoglobin is low. Most likely from the kidney disease. He could have blood loss anemia as well. Iron deficiency or vitamin deficiencies can do this as well. Stool guaiacs are negative B12 folate and iron are okay. On Epogen subq Plan Per Nephrology at this point Time Spent With Patient Time with patient: 25 - 35 minutes Subjective Date/time seen: 05/06/23 11:00 Interval history: Copied from previous chart: HPI obtained from chart This is a pleasant 58-year-old male with GERD who presented to the emergency department for evaluation of abnormal labs. The patient provides the following history. He has had issues with low back pain and right hip pain for several months and he was started on Celebrex sometime in January. He was also referred to pain management and received some injections which seemed to have helped his pain. He stopped taking Celebrex after about a month after began having worsening GERD symptoms with bloating, belching, and early satiety. He also reports that his blood pressures started to run high for the 1st time in his life and he thought it was related to the Celebrex as well. On occasion he still takes Advil or Tylenol for pain but
[2023-05-06 14:55] VITALS: BP 142/96; PULSE 95; RESP 14; TEMP 36.8; O2SAT 98
[2023-05-06] MEDS: CALCIUM CARBONATE (TUMS) 500 MG (200 MG ELEMENTAL) PO (17:37)
--- NOTE | 2023-05-06 19:37 | PC.NURSE ---
Received a call from GUTIERREZ Hensley from local infusion center stating Dr. Frey gave her orders regarding the initiation of plasmapheresis. Primary RN spoke with roundhouse firer/fireman and charge nurse to get direction in placing orders and to clarify orders received per infusion nurse. With guidance from roundhouse firer/fireman and charge nurse, Primary RN (Julienne) called Dr. Frey at 1825 to verify orders [address] Dr[address] Frey verified orders. Spoke to Sherman Sam regarding orders. Infusion nurse to clarify orders in AM.
[2023-05-06] MEDS: traZODone HCL 50 MG TABLET 100 MG PO (21:41)
[2023-05-06 21:50] VITALS: BP 149/103; PULSE 87; RESP 20; TEMP 37; O2SAT 98
[2023-05-07] VITALS (8 sets, daily range): BP systolic 122–150; BP diastolic 80–92; PULSE 86–112; RESP 14–20; TEMP 36.4–36.8; O2SAT 96–100
[2023-05-07 05:16] LABS: Hematocrit 25.4 % (42.0-52.0); Hemoglobin 8.5 g/dL (14.0-18.0); Mean Corpuscular HGB Conc 33.5 g/dl (32-36); Mean Corpuscular Hemoglobin 30.7 pg (26-34); Mean Corpuscular Volume 91.7 fl (80-100); Mean Platelet Volume 10.5 fl (7.4-10.4); Platelet Count Result 263 k/mm3 (150-375); Red Blood Count 2.77 M/mm3 (4.6-6.20); Red Cell Distribution Width 12.4 % (11.5-14.5); White Blood Count 9.9 K/mm3 (4.5-10.0)
[2023-05-07 05:27] LABS: Albumin Level 2.8 g/dL (3.5-5.1); Anion Gap 9 mmol/L (8-16); Blood Urea Nitrogen 62 mg/dL (9-20); Calcium 7.7 mg/dL (8.4-10.2); Carbon Dioxide 24 mmol/L (22-30); Chloride 103 mmol/L (98-107); Cholesterol 175 mg/dL (0-200); Estimated CRCL calculation 23 ml/min; Estimated Glomerular Filt Rate 18; Glucose 108 mg/dL (65-110); HDL Direct 49 mg/dL; Phosphorus 5.6 mg/dL (2.5-4.5); Potassium 3.4 mmol/L (3.4-5.0); Sodium 136 mmol/L (137-145); Triglycerides 146 mg/dL (<150)
[2023-05-07 05:38] LABS: LDL Cholesterol Direct 86 mg/dL
[2023-05-07] MEDS: amLODIPine BESYLATE 5 MG TABLET 10 MG PO (09:22)
[2023-05-07] MEDS: PANTOPRAZOLE 40 MG TABLET PO (09:24)
[2023-05-07] MEDS: CALCIUM CARBONATE (TUMS) 500 MG (200 MG ELEMENTAL) PO ×2 (09:24→17:17)
[2023-05-07] MEDS: SEVELAMER CARBONATE 800 MG TABLET PO ×2 (09:24→17:17)
--- NOTE | 2023-05-07 09:59 | PM.PNNEP ---
Progress Note: A&P Assessment and Plan (1) Acute kidney injury: Code(s): N17.9 - Acute kidney failure, unspecified Status: Acute Assessment and Plan: The patient has an elevated creatinine. Renal ultrasound is unremarkable. Urine electrolytes are non pre renal. Urine protein is very high. UA shows protein and blood. Minimal white cells. Sedimentation rate is very high. Complements are normal. 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 Because he has such a high creatinine he will need plasmapheresis. Will continue steroids as well. Will reduce the dose to75mg per day and taper per Plexivas protocol. he will also need combination therapy with Rituxan and cyclophosphamide. However neither IV is available in the hospital so will start with oral cyclophosphamide while he is here and then give the Rituxan plus IV cyclophosphamide as an outpatient in the infusion center. I will consult Dr. Alicea to get that arranged. He is still making urine. Creatinine is down to 3.6 Continue steroids. He is on cyclophosphamide. He will get his 1st round of plasmapheresis today. His biopsy was done 3 days ago so I do not think we need to use plasma for placement. Will try to get him arranged for IV Cytoxan and Rituxan as an outpatient. Dr. Chang cardoza has been consulted He is on calcium and pantoprazole to prophylax for the steroids. (2) Hypertension: Code(s): I10 - Essential (primary) hypertension Status: Acute Assessment and Plan: Patient's blood pressure is running in the 150s and 160s. Is on amlodipine 5mg a day. GFR too low for MAGUE-inhibitor or ARB for now. Will add diltiazem to help reduce proteinuria (3) Normocytic anemia: Code(s): D64.9 - Anemia, unspecified Status: Acute Assessment and Plan: Hemoglobin is up to 8.5. Stool guaiacs are negative B12 folate and iron are okay. On Epogen subq Subjective Date/time seen: 05/07/23 09:59 Interval history: Patient feels okay today. in the room. We discussed the treatment protocol and I answered questions. Eating pretty well. Up and around. Exam Narrative: WDWN in NAD skin no rash or subQ nodules head ncat lungs clear to auscultation cor reg no rub or gallop abd BS+ nontender and soft ext no edema Objective Data Vital Signs Vital Signs: Vital Signs - 24 hr 05/06/23 14:55 05/06/23 21:50 05/06/23 20:00 Temperature 98.2 F 98.6 F Pulse Rate 95 87 Respiratory Rate 14 20 Blood Pressure 142/96 H 149/103 H Pulse Oximetry 98 98 Oxygen Delivery Room Air 05/07/23 06:00 Temperature 98.3 F Pulse Rate 86 Respiratory Rate 18 Blood Pressure 150/86 H Pulse Oximetry 98 Oxygen Delivery Intake/Output Intake/Output: Intake & Output 05/04/23 05/05/23 05/06/23 05/07/23 23:59 23:59 23:59 23:59 Intake Total 2140 1984 1630 1030 Output Total 1100 1100 2750 1100 Balance 1040 884 -1120 -70 Meds/Results Medications: Active Medications Generic Name Dose Route Start Last Admin Trade Name Freq PRN Reason Stop Dose Admin Amlodipine Besylate 10 mg 05/07/23 09:00 05/07/23 09:22 Amlodipine Besylate 5 Mg Tablet PO 10 mg QAM FÁTIMA Administration Calcium Carbonate 200 mg 05/06/23 17:00 05/07/23 09:24 Calcium Carbonate (Tums) 500 Mg (200 Mg Elemental) PO 200 mg BIDWM FÁTIMA Administration Clonidine HCl 0.1 mg 05/02/23 07:51 Clonidine Hcl 0.1 Mg Tablet PO Q6H PRN systolic above 160 Cyclophosphamide 100 mg 05/06/23 09:50 05/07/23 09:24 Cyclophosphamide (*Bkc) 50 Mg Tablet PO 100 mg DAILY FÁTIMA Administration Dextrose 12.5 gm 05/02/23 06:56 Dextrose 50% 25 Gm/50 Ml Syringe IV PUSH PRN PRN Hypoglycemia Protocol Glucagon 1 mg 05/02/23 06:56 Glucagon For Inj 1 Mg Vial IM PRN PRN Hypoglycemia Prot
--- NOTE | 2023-05-07 10:23 | PM.IMPN ---
Progress Note: A&P Assessment and Plan (1) Acute kidney injury: Code(s): N17.9 - Acute kidney failure, unspecified Status: Acute Assessment and Plan: The patient has an elevated creatinine. Renal ultrasound is unremarkable. Urine electrolytes are non pre renal. Urine protein is very high. UA shows protein and blood. Minimal white cells. Sedimentation rate is very high. Complements are normal. 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 Because he has such a high creatinine he will need plasmapheresis. Will continue steroids as well. Will reduce the dose to75mg per day and taper per Plexivas protocol. he will also need combination therapy with Rituxan and cyclophosphamide. However neither IV is available in the hospital so will start with oral cyclophosphamide while he is here and then give the Rituxan plus IV cyclophosphamide as an outpatient in the infusion center. I will consult Dr. Alicea to get that arranged. He is still making urine. Creatinine is down to 3.6 Continue steroids. He is on cyclophosphamide. He will get his 1st round of plasmapheresis today. His biopsy was done 3 days ago so I do not think we need to use plasma replacement. Will try to get him arranged for IV Cytoxan and Rituxan as an outpatient. Dr. Alicea has been consulted He is on calcium and pantoprazole to prophylax for the steroids. (2) Hypertension: Code(s): I10 - Essential (primary) hypertension Status: Acute Assessment and Plan: Patient's blood pressure is running in the 150s and 160s. Is on amlodipine 5mg a day. GFR too low for MAGUE-inhibitor or ARB for now. Will add diltiazem to help reduce proteinuria (3) Normocytic anemia: Code(s): D64.9 - Anemia, unspecified Status: Acute Assessment and Plan: Hemoglobin is up to 8.5. Stool guaiacs are negative B12 folate and iron are okay. On Epogen subq Plan Per Nephrology at this point Time Spent With Patient Time with patient: less than 15 minutes Subjective Date/time seen: 05/07/23 10:23 Interval history: Copied from previous chart: HPI obtained from chart This is a pleasant 58-year-old male with GERD who presented to the emergency department for evaluation of abnormal labs. The patient provides the following history. He has had issues with low back pain and right hip pain for several months and he was started on Celebrex sometime in January. He was also referred to pain management and received some injections which seemed to have helped his pain. He stopped taking Celebrex after about a month after began having worsening GERD symptoms with bloating, belching, and early satiety. He also reports that his blood pressures started to run high for the 1st time in his life and he thought it was related to the Celebrex as well. On occasion he still takes Advil or Tylenol for pain but not very often. Unfortunately his symptoms have not improved and in fact they seem to be getting worse. He has frequent nausea, occasional dry heaves, and he has been constipated for the 1st time in his life. On recent trips to the doctor his blood pressures have been elevated and he he had labs drawn and was referred to the ED after he was found to have evidence of acute kidney injury. Pertinent labs today include a sodium of 139, potassium 4.3, carbon dioxide 19, anion gap 18, BUN 76, creatinine 8.10. Urine was positive for 3+ protein, 3+ blood, and greater than 100 rbc's with a random urine total protein of greater than 600 mg/dL. He is being admitted in this setting for further evaluation. With further questioning he has noticed that his urine looks slightly pink tinged for about a month or so. He has not noticed a change in urine output. Last week he had some mild swelling in his legs but that has improved. He has been feeling extremely tired and is sleeping most of
[2023-05-07] MEDS: ALBUMIN HUMAN 5% 25 GM/500 ML BTL 175 GM XX (11:55)
[2023-05-07] MEDS: CALCIUM GLUC 2,000 MG/NS 100ML 2,000 MG/100 ML BAG 100 MG IVPB (11:55)
[2023-05-07] MEDS: HEPARIN SODIUM, PORCINE 10,000 UNITS/10 ML VIAL 1000 UNITS XX (11:55)
[2023-05-07] MEDS: ALBUMIN HUMAN 5% 25 GM/500 ML BTL 12.5 GM XX (12:55)
--- NOTE | 2023-05-07 14:53 | PC.NURSE ---
Plasmapheresis Note for TPE#1 on 05/07/2023 1115-Patient resting in bed, visiting with (Ambika). 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 1155-TPE started. Patient resting quietly in bed, watching TV and visiting with Ambika. 1255-TPE continued. Caity-yellow plasma in collect bag. 1315-TPE complete. Patient tolerated apheresis with no adverse effects or events. Total fluid removed- 3947cc Total fluid replaced- 3926cc Total fluid balance- -21cc Griselda WHITLEY
[2023-05-07] MEDS: traZODone HCL 50 MG TABLET 100 MG PO (20:51)
[2023-05-08 05:34] LABS: Hematocrit 26.4 % (42.0-52.0); Hemoglobin 8.8 g/dL (14.0-18.0); Mean Corpuscular HGB Conc 33.3 g/dl (32-36); Mean Corpuscular Hemoglobin 31.2 pg (26-34); Mean Corpuscular Volume 93.6 fl (80-100); Mean Platelet Volume 10.3 fl (7.4-10.4); Platelet Count Result 275 k/mm3 (150-375); Red Blood Count 2.82 M/mm3 (4.6-6.20); Red Cell Distribution Width 12.7 % (11.5-14.5); White Blood Count 12.2 K/mm3 (4.5-10.0)
[2023-05-08 05:48] LABS: Anion Gap 9 mmol/L (8-16); Blood Urea Nitrogen 56 mg/dL (9-20); Calcium 7.6 mg/dL (8.4-10.2); Carbon Dioxide 21 mmol/L (22-30); Chloride 106 mmol/L (98-107); Estimated CRCL calculation 26 ml/min; Estimated Glomerular Filt Rate 21; Glucose 99 mg/dL (65-110); Phosphorus 5.5 mg/dL (2.5-4.5); Potassium 3.4 mmol/L (3.4-5.0); Sodium 136 mmol/L (137-145)
[2023-05-08 06:00] VITALS: BP 144/93; PULSE 97; RESP 20; TEMP 36.6; O2SAT 95
[2023-05-08] MEDS: ONDANSETRON INJ 4 MG/2 ML VIAL IV PUSH (08:38)
[2023-05-08] MEDS: SEVELAMER CARBONATE 800 MG TABLET PO ×3 (08:39→17:02)
[2023-05-08] MEDS: PANTOPRAZOLE 40 MG TABLET PO (08:39)
[2023-05-08] MEDS: EPOETIN ALFA 10,000 UNITS/ML VIAL 10000 UNITS SUB-Q (08:39)
[2023-05-08] MEDS: CALCIUM CARBONATE (TUMS) 500 MG (200 MG ELEMENTAL) PO ×2 (08:39→17:02)
[2023-05-08] MEDS: amLODIPine BESYLATE 5 MG TABLET PO (08:39)
[2023-05-08] MEDS: dilTIAZem HCL CD 180 MG CAP.24HR PO (08:39)
--- NOTE | 2023-05-08 10:02 | PM.PNNEP ---
Progress Note: A&P Assessment and Plan (1) Acute kidney injury: Code(s): N17.9 - Acute kidney failure, unspecified Status: Acute Assessment and Plan: The patient has an elevated creatinine. Renal ultrasound is unremarkable. Urine electrolytes are non pre renal. Urine protein is very high. UA shows protein and blood. Minimal white cells. Sedimentation rate is very high. Complements are normal. 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 he is on prednisone and oral Cytoxan. Cannot give IV meds in the hospital I consulted Dr. Alicea and also reached out to him to talk to him about getting this done as an outpatient. He will get Cytoxan plus Rituxan IV as an outpatient. He is getting plasmapheresis 2. Today. There will be 7 treatments total. He will need this as an outpatient. He is still making urine. Creatinine is down to 3.1! switch to PermCath for the plasmapheresis He is on calcium and pantoprazole to prophylax for the steroids. (2) Hypertension: Code(s): I10 - Essential (primary) hypertension Status: Acute Assessment and Plan: Patient's blood pressure is running in the 150s and 160s. Is on amlodipine 5mg a day. GFR too low for MAGUE-inhibitor or ARB for now. Will add diltiazem to help reduce proteinuria Will stop the amlodipine and switch to labetalol (3) Normocytic anemia: Code(s): D64.9 - Anemia, unspecified Status: Acute Assessment and Plan: Hemoglobin is up to 8.8. Stool guaiacs are negative B12 folate and iron are okay. On Epogen subq Subjective Date/time seen: 05/08/23 10:02 Interval history: Patient feels okay today. He slept pretty well. He is up and around Exam Narrative: WDWN in NAD skin no rash head ncat lungs clear to auscultation cor reg no rub or gallop abd BS+ nontender and soft ext no edema or cyanosis Objective Data Vital Signs Vital Signs: Vital Signs - 24 hr 05/07/23 11:55 05/07/23 12:25 05/07/23 11:55 Temperature 97.8 F 97.8 F 97.8 F Pulse Rate 112 H 107 H 112 H Respiratory Rate 18 18 18 Blood Pressure 144/88 H 144/88 H Pulse Oximetry 100 100 100 Oxygen Delivery 05/07/23 12:55 05/07/23 12:26 05/07/23 13:15 Temperature 97.8 F 98.1 F Pulse Rate 103 H 102 H Respiratory Rate 18 18 Blood Pressure 129/85 150/85 H 138/87 Pulse Oximetry 98 97 Oxygen Delivery 05/07/23 14:15 05/07/23 12:25 05/07/23 12:55 Temperature 97.6 F 97.8 F 97.8 F Pulse Rate 103 H 107 H 103 H Respiratory Rate 14 18 18 Blood Pressure 122/80 150/85 H 129/85 Pulse Oximetry 96 Oxygen Delivery 05/07/23 13:15 05/07/23 20:21 05/07/23 20:00 Temperature 98.1 F 97.7 F Pulse Rate 102 H 100 Respiratory Rate 18 20 Blood Pressure 138/87 140/92 H Pulse Oximetry 97 Oxygen Delivery Room Air 05/08/23 06:00 Temperature 97.8 F Pulse Rate 97 Respiratory Rate 20 Blood Pressure 144/93 H Pulse Oximetry 95 Oxygen Delivery Intake/Output Intake/Output: Intake & Output 05/05/23 05/06/23 05/07/23 05/08/23 23:59 23:59 23:59 23:59 Intake Total 1984 1630 2360 420 Output Total 1100 9230 2029 1828 Balance 884 1120 335 -2899 Meds/Results Medications: Active Medications Generic Name Dose Route Start Last Admin Trade Name Freq PRN Reason Stop Dose Admin Albumin Human 12.5 gm 05/09/23 10:00 Albumin Human 5% 25 Gm/500 Ml Btl XX 05/19/23 10:01 Q48H FÁTIMA Albumin Human 175 gm 05/09/23 10:00 Albumin Human 5% 25 Gm/500 Ml Btl XX 05/19/23 10:01 Q48H [facility] Amlodipine Besylate 5 mg 05/08/23 09:00 05/08/23 08:39 Amlodipine Besylate 5 Mg Tablet PO 5 mg QAM FÁTIMA Administration Calcium Carbonate 200 mg 05/06/23 17:00 05/08/23 08:39 Calcium Carbonate (Tums) 500 Mg (200 Mg Elemental) PO 200 mg BIDWM [facility] Administration Clonidine HCl 0.1 mg 05/02/23 07:5
--- NOTE | 2023-05-08 12:50 | PM.IMPN ---
Progress Note: A&P Assessment and Plan (1) Acute kidney injury: Code(s): N17.9 - Acute kidney failure, unspecified Status: Acute Assessment and Plan: The patient has an elevated creatinine. Renal ultrasound is unremarkable. Urine electrolytes are non pre renal. Urine protein is very high. UA shows protein and blood. Minimal white cells. Sedimentation rate is very high. Complements are normal. 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 he is on prednisone and oral Cytoxan. Cannot give IV meds in the hospital I consulted Dr. Alicea and also reached out to him to talk to him about getting this done as an outpatient. He will get Cytoxan plus Rituxan IV as an outpatient. He is getting plasmapheresis 2. Today. There will be 7 treatments total. He will need this as an outpatient. He is still making urine. Creatinine is down to 3.1! switch to PermCath for the plasmapheresis He is on calcium and pantoprazole to prophylax for the steroids. (2) Hypertension: Code(s): I10 - Essential (primary) hypertension Status: Acute Assessment and Plan: Patient's blood pressure is running in the 150s and 160s. Is on amlodipine 5mg a day. GFR too low for MAGUE-inhibitor or ARB for now. Will add diltiazem to help reduce proteinuria Will stop the amlodipine and switch to labetalol (3) Normocytic anemia: Code(s): D64.9 - Anemia, unspecified Status: Acute Assessment and Plan: Hemoglobin is up to 8.8. Stool guaiacs are negative B12 folate and iron are okay. On Epogen subq Plan PermCath placement then discharge to outpatient management in the infusion center for plasmapheresis and IV infusions. Time Spent With Patient Time with patient: 15 - 25 minutes Subjective Date/time seen: 05/08/23 12:50 Interval history: Copied from previous chart: HPI obtained from chart This is a pleasant 58-year-old male with GERD who presented to the emergency department for evaluation of abnormal labs. The patient provides the following history. He has had issues with low back pain and right hip pain for several months and he was started on Celebrex sometime in January. He was also referred to pain management and received some injections which seemed to have helped his pain. He stopped taking Celebrex after about a month after began having worsening GERD symptoms with bloating, belching, and early satiety. He also reports that his blood pressures started to run high for the 1st time in his life and he thought it was related to the Celebrex as well. On occasion he still takes Advil or Tylenol for pain but not very often. Unfortunately his symptoms have not improved and in fact they seem to be getting worse. He has frequent nausea, occasional dry heaves, and he has been constipated for the 1st time in his life. On recent trips to the doctor his blood pressures have been elevated and he he had labs drawn and was referred to the ED after he was found to have evidence of acute kidney injury. Pertinent labs today include a sodium of 139, potassium 4.3, carbon dioxide 19, anion gap 18, BUN 76, creatinine 8.10. Urine was positive for 3+ protein, 3+ blood, and greater than 100 rbc's with a random urine total protein of greater than 600 mg/dL. He is being admitted in this setting for further evaluation. With further questioning he has noticed that his urine looks slightly pink tinged for about a month or so. He has not noticed a change in urine output. Last week he had some mild swelling in his legs but that has improved. He has been feeling extremely tired and is sleeping most of the time when he is not at work. His weight has remained stable. He reports feeling a bit confused with slow thought processes. He has no known history of kidney disease and he denies family history of kidney disease. Interval History: 05/02-patient seen toilana
[2023-05-08 14:55] VITALS: BP 139/84; PULSE 103; RESP 14; TEMP 36.4; O2SAT 97
--- NOTE | 2023-05-08 15:25 | PM.PNGS ---
Progress Note: A&P Assessment and Plan (1) Acute kidney failure: Code(s): N17.9 - Acute kidney failure, unspecified Status: Acute Assessment and Plan: Plan to replace temporary hemodialysis catheter to tunneled hemodialysis catheter on Monday in the operating room Subjective Subjective Date/Time Seen: 05/08/23 15:25 Interval history: Pt seen and examined. Pt c RIJ temporary dialysis catheter in place for cont plasmapheresis. The patient is scheduled to get plasmapheresis again tomorrow. He will need more permanent access to allow plasmapheresis as outpatient. Review of Systems Review of Systems: All systems reviewed & are unremarkable except as noted in HPI and below Exam Const: General: cooperative, comfortable, no acute distress and ill appearing Neck: Other: RIJ HD cath - C/D/I Resp: Auscultation: diminished lung sounds Cardio: Rate: regular rate Rhythm: regular rhythm GI: Inspection: normal to inspection Objective Data Vital Signs Vital Signs: Vital Signs - 24 hr 05/07/23 20:21 05/07/23 20:00 05/08/23 06:00 Temperature 36.5 C 36.6 C Pulse Rate 100 97 Respiratory Rate 20 20 Blood Pressure 140/92 H 144/93 H Pulse Oximetry 97 95 Oxygen Delivery Room Air 05/08/23 08:50 05/08/23 14:55 Temperature 36.4 C L Pulse Rate 103 H Respiratory Rate 14 Blood Pressure 139/84 Pulse Oximetry 97 Oxygen Delivery Room Air Intake/Output Intake/Output: Intake & Output 05/05/23 05/06/23 05/07/23 05/08/23 23:59 23:59 23:59 23:59 Intake Total 1983 1630 2360 660 Output Total 1100 4340 2025 1825 Balance 884 -1120 284 -1164 Meds/Results Medications: Active Medications Generic Name Dose Route Start Last Admin Trade Name Freq PRN Reason Stop Dose Admin Albumin Human 12.5 gm 05/09/23 10:00 Albumin Human 5% 25 Gm/500 Ml Btl XX 05/19/23 10:01 Q48H [facility] Albumin Human 175 gm 05/09/23 10:00 Albumin Human 5% 25 Gm/500 Ml Btl XX 05/19/23 10:01 Q48H FÁTIMA Calcium Carbonate 200 mg 05/06/23 17:00 05/08/23 08:39 Calcium Carbonate (Tums) 500 Mg (200 Mg Elemental) PO 200 mg BIDWM FÁTIMA Administration Clonidine HCl 0.1 mg 05/02/23 07:51 Clonidine Hcl 0.1 Mg Tablet PO Q6H PRN systolic above 160 Cyclophosphamide 100 mg 05/06/23 09:50 05/08/23 08:39 Cyclophosphamide (*Bkc) 50 Mg Tablet PO 100 mg DAILY FÁTIMA Administration Dextrose 12.5 gm 05/02/23 06:56 Dextrose 50% 25 Gm/50 Ml Syringe IV PUSH PRN PRN Hypoglycemia Protocol Diltiazem HCl 180 mg 05/07/23 10:20 05/08/23 08:39 Diltiazem Hcl Cd 180 Mg Cap.24hr PO 180 mg QAM FÁTIMA Administration Epoetin Mike 10,000 units 05/08/23 09:00 05/08/23 08:39 Epoetin Mike 10,000 Units/Ml Vial SUB-Q 10,000 units MOWEFR@09 FÁTIMA Administration Glucagon 1 mg 05/02/23 06:56 Glucagon For Inj 1 Mg Vial IM PRN PRN Hypoglycemia Protocol Glucose 15 gm 05/02/23 06:56 Glucose Oral Gel 15 Gm Of Glucse In 37.5 Gm Tube PO PRN PRN Hypoglycemia Protocol Heparin Sodium (Porcine) 10,000 units 05/09/23 10:00 Heparin Sodium, Porcine 10,000 Units/10 Ml Vial XX 05/19/23 10:01 Q48H FÁTIMA Dextrose 1,000 mls @ 100 mls/hr 05/02/23 06:56 Dextrose 5% 1,000 Ml IVPB PRN PRN Hypoglycemia Protocol Calcium Gluconate 2,000 mg in 100 mls @ 100 mls/hr 05/09/23 10:00 Calcium Gluc 2,000 Mg/Ns 100ml IVPB 05/19/23 10:59 Q48H FÁTIMA Sodium Chloride 1,000 mls @ 999 mls/hr 05/09/23 10:00 Normal Saline Iv XX 05/19/23 11:01 Q48H [facility] Wide Open Labetalol HCl 50 mg 05/08/23 21:00 Labetalol Hcl 50 Mg Tablet PO Q12HR FÁTIMA Ondansetron HCl 4 mg 05/01/23 18:06 05/08/23 08:38 Ondansetron Inj 4 Mg/2 Ml Vial IV PUSH 4 mg Q4H PRN Administration Nausea Pantoprazole Sodium 40 mg 05/05/23 09:00 05/08/23 08:39 Pantoprazole 40 Mg Tablet PO 40 mg QAM FÁTIMA Adm
[2023-05-08 20:35] VITALS: BP 142/82; PULSE 98; RESP 16; TEMP 36.6; O2SAT 94
[2023-05-08 20:51] VITALS: PULSE 98
[2023-05-08] MEDS: traZODone HCL 50 MG TABLET 100 MG PO (20:51)
[2023-05-08] MEDS: LABETALOL HCL 50 MG TABLET PO (20:51)
[2023-05-09] VITALS (9 sets, daily range): BP systolic 120–142; BP diastolic 71–89; PULSE 70–93; RESP 14–20; TEMP 36.3–36.7; O2SAT 97–100
[2023-05-09 05:35] LABS: Albumin Level 2.7 g/dL (3.5-5.1); Anion Gap 10 mmol/L (8-16); Blood Urea Nitrogen 55 mg/dL (9-20); Calcium 7.4 mg/dL (8.4-10.2); Carbon Dioxide 21 mmol/L (22-30); Chloride 105 mmol/L (98-107); Estimated CRCL calculation 26 ml/min; Estimated Glomerular Filt Rate 21; Glucose 101 mg/dL (65-110); Hematocrit 26.2 % (42.0-52.0); Hemoglobin 8.5 g/dL (14.0-18.0); Mean Corpuscular HGB Conc 32.4 g/dl (32-36); Mean Corpuscular Hemoglobin 30.4 pg (26-34); Mean Corpuscular Volume 93.6 fl (80-100); Mean Platelet Volume 10.6 fl (7.4-10.4); Phosphorus 5.1 mg/dL (2.5-4.5); Platelet Count Result 281 k/mm3 (150-375); Potassium 3.3 mmol/L (3.4-5.0); Red Cell Distribution Width 13.2 % (11.5-14.5); Sodium 136 mmol/L (137-145); White Blood Count 12.7 K/mm3 (4.5-10.0)
--- NOTE | 2023-05-09 07:58 | PM.IMPN ---
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 Alicea consulted to help arrange this on plasmapheresis (total of 7 sessions) -- session #2 today still making urine with stable electrolytes follow trend of repeat labs and UOP outpatient arrangements for plasmapheresis ongoing (2) Hypertension: Code(s): I10 - Essential (primary) hypertension Status: Acute Assessment and Plan: reasonable control at this time unable to use MAGUE/ARB due to low GFR on diltiaze (for anti-proteinuric effects) and labetalol follow trend of hemodynamics (3) Normocytic anemia: Code(s): D64.9 - Anemia, unspecified Status: Acute Assessment and Plan: presumably due to JONATHAN, inflammation, and acute illness irons studies noted on Epogen (while hospitalized) follow trend of H/H Plan See above Time Spent With Patient Time with patient: 15 - 25 minutes Subjective Date/time seen: 05/09/23 07:58 Interval history: Copied from previous chart: HPI obtained from chart This is a pleasant 58-year-old male with GERD who presented to the emergency department for evaluation of abnormal labs. The patient provides the following history. He has had issues with low back pain and right hip pain for several months and he was started on Celebrex sometime in January. He was also referred to pain management and received some injections which seemed to have helped his pain. He stopped taking Celebrex after about a month after began having worsening GERD symptoms with bloating, belching, and early satiety. He also reports that his blood pressures started to run high for the 1st time in his life and he thought it was related to the Celebrex as well. On occasion he still takes Advil or Tylenol for pain but not very often. Unfortunately his symptoms have not improved and in fact they seem to be getting worse. He has frequent nausea, occasional dry heaves, and he has been constipated for the 1st time in his life. On recent trips to the doctor his blood pressures have been elevated and he he had labs drawn and was referred to the ED after he was found to have evidence of acute kidney injury. Pertinent labs today include a sodium of 139, potassium 4.3, carbon dioxide 19, anion gap 18, BUN 76, creatinine 8.10. Urine was positive for 3+ protein, 3+ blood, and greater than 100 rbc's with a random urine total protein of greater than 600 mg/dL. He is being admitted in this setting for further evaluation. With further questioning he has noticed that his urine looks slightly pink tinged for about a month or so. He has not noticed a change in urine output. Last week he had some mild swelling in his legs but that has improved. He has been feeling extremely tired and is sleeping most of the time when he is not at work. His weight has remained stable. He reports feeling a bit confused with slow thought processes. He has no known history of kidney disease and he denies family history of kidney disease. Interval History: 05/02-patient seen today in room resting in bed appears anxious.? His and friend at the bedside.? He is already spoke with Nephrology today and he appears overwhelmed.? I reviewed in detail with him and his the plan and care, also discussing Nephrology's note as his is not here when the rounded.? His biggest complaints are GI complaints includ
[2023-05-09] MEDS: CALCIUM GLUC 2,000 MG/NS 100ML 2,000 MG/100 ML BAG 100 MG IVPB (09:11)
[2023-05-09] MEDS: ALBUMIN HUMAN 5% 25 GM/500 ML BTL 175 GM XX (09:12)
[2023-05-09] MEDS: SODIUM CHLORIDE 0.9% IV 1,000 ML 999 ML XX (09:13)
--- NOTE | 2023-05-09 09:15 | PM.PNGS ---
Progress Note: A&P Assessment and Plan (1) Acute kidney failure: Code(s): N17.9 - Acute kidney failure, unspecified Status: Acute Assessment and Plan: will setup for tunneled HD cath in am Subjective Subjective Date/Time Seen: 05/09/23 09:15 Interval history: no acute issues, plan for plasmapheresis today Review of Systems Review of Systems: All systems reviewed & are unremarkable except as noted in HPI and below Exam Const: General: cooperative, comfortable and no acute distress Neck: Other: RIJ HD cath - C/D/I Chest: Chest palpation & inspection: normal inspection of the chest Resp: Auscultation: clear to auscultation bilaterally Cardio: Rate: regular rate Rhythm: regular rhythm GI: Inspection: normal to inspection Objective Data Vital Signs Vital Signs: Vital Signs - 24 hr 05/08/23 14:55 05/08/23 20:51 05/08/23 20:00 Temperature 36.4 C L Pulse Rate 103 H 98 Respiratory Rate 14 Blood Pressure 139/84 Pulse Oximetry 97 Oxygen Delivery Room Air 05/08/23 20:35 05/09/23 05:24 Temperature 36.6 C 36.7 C Pulse Rate 98 80 Respiratory Rate 16 14 Blood Pressure 142/82 H 139/87 Pulse Oximetry 94 98 Oxygen Delivery Intake/Output Intake/Output: Intake & Output 05/06/23 05/07/23 05/08/23 05/09/23 23:59 23:59 23:59 23:59 Intake Total 1630 2360 1450 790 Output Total 2750 2025 2350 1400 Balance -1120 935 -897 -610 Meds/Results Medications: Active Medications Generic Name Dose Route Start Last Admin Trade Name Freq PRN Reason Stop Dose Admin Albumin Human 12.5 gm 05/09/23 10:00 Albumin Human 5% 25 Gm/500 Ml Btl XX 05/19/23 10:01 Q48H [facility]ÁTIM[facility] Albumin Human 175 gm 05/09/23 10:00 05/09/23 09:12 Albumin Human 5% 25 Gm/500 Ml Btl XX 05/19/23 10:01 175 gm Q48H FÁTIMA Administration Calcium Carbonate 200 mg 05/06/23 17:00 05/08/23 17:02 Calcium Carbonate (Tums) 500 Mg (200 Mg Elemental) PO 200 mg BIDWM FÁTIMA Administration Clonidine HCl 0.1 mg 05/02/23 07:51 Clonidine Hcl 0.1 Mg Tablet PO Q6H PRN systolic above 160 Cyclophosphamide 100 mg 05/06/23 09:50 05/08/23 08:39 Cyclophosphamide (*Bkc) 50 Mg Tablet PO 100 mg DAILY FÁTIMA Administration Dextrose 12.5 gm 05/02/23 06:56 Dextrose 50% 25 Gm/50 Ml Syringe IV PUSH PRN PRN Hypoglycemia Protocol Diltiazem HCl 180 mg 05/07/23 10:20 05/08/23 08:39 Diltiazem Hcl Cd 180 Mg Cap.24hr PO 180 mg QAM FÁTIMA Administration Epoetin Mike 10,000 units 05/08/23 09:00 05/08/23 08:39 Epoetin Mike 10,000 Units/Ml Vial SUB-Q 10,000 units MOWEFR@09 FÁTIMA Administration Glucagon 1 mg 05/02/23 06:56 Glucagon For Inj 1 Mg Vial IM PRN PRN Hypoglycemia Protocol Glucose 15 gm 05/02/23 06:56 Glucose Oral Gel 15 Gm Of Glucse In 37.5 Gm Tube PO PRN PRN Hypoglycemia Protocol Heparin Sodium (Porcine) 10,000 units 05/09/23 10:00 Heparin Sodium, Porcine 10,000 Units/10 Ml Vial XX 05/19/23 10:01 Q48H FÁTIMA Dextrose 1,000 mls @ 100 mls/hr 05/02/23 06:56 Dextrose 5% 1,000 Ml IVPB PRN PRN Hypoglycemia Protocol Calcium Gluconate 2,000 mg in 100 mls @ 100 mls/hr 05/09/23 10:00 05/09/23 09:11 Calcium Gluc 2,000 Mg/Ns 100ml IVPB 05/19/23 10:59 100 mls/hr Q48H FÁTIMA Administration Sodium Chloride 1,000 mls @ 999 mls/hr 05/09/23 10:00 05/09/23 09:13 Normal Saline Iv XX 05/19/23 11:01 999 mls/hr Q48H FÁTIMA Administration Wide Open Labetalol HCl 50 mg 05/08/23 21:00 05/08/23 20:51 Labetalol Hcl 50 Mg Tablet PO 50 mg Q12HR FÁTIMA Administration Ondansetron HCl 4 mg 05/01/23 18:06 05/08/23 08:38 Ondansetron Inj 4 Mg/2 Ml Vial IV PUSH 4 mg Q4H PRN Administration Nausea Pantoprazole Sodium 40 mg 05/05/23 09:00 05/08/23 08:39 Pantoprazole 40 Mg Tablet PO 40 mg QAM FÁTIMA Administration Prednisone 60 mg/ Prednisone 5 75 mg
--- NOTE | 2023-05-09 09:42 | P.PNNP_ITS ---
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 Alicea consulted to help arrange this * on plasmapheresis (total of 7 sessions) -- session #2 today * still making urine with stable electrolytes * follow trend of repeat labs and UOP * outpatient arrangements for plasmapheresis ongoing (2) Hypertension: Code(s): I10 - Essential (primary) hypertension Status: Acute Assessment and Plan: * reasonable control at this time * unable to use MAGUE/ARB due to low GFR * on diltiaze (for anti-proteinuric effects) and labetalol * follow trend of hemodynamics (3) Normocytic anemia: Code(s): D64.9 - Anemia, unspecified Status: Acute Assessment and Plan: * presumably due to JONATHAN, inflammation, and acute illness * irons studies noted * on Epogen (while hospitalized) * follow trend of H/H Will continue to follow. Subjective Date/time seen: 05/09/23 09:42 Interval history: Follow-up for acute kidney injury/acute renal failure. Chart reviewed -- assuming care from Dr. Frey; tolerated plasmapheresis session #2 at the time of my visit (seen on plasmapheresis at 9:30AM); renal function remains relatively stable; on schedule tomorrow for conversion of temporary HD catheter to tunneled catheter; no apparent distress noted; no issues overnight. Exam Narrative: General: WD/WN male in NAD Heart: normal S1 and S2; no rub Lungs: clear to auscultation Abdomen: soft, nontender, nondistended, positive bowel sounds Extremities: no cyanosis or clubbing; no edema Skin: warm and dry Objective Data Vital Signs Vital Signs: Vital Signs Temp Pulse Resp BP Pulse Ox O2 Del Method 05/09/23 09:42 82 18 142/89 H 05/09/23 09:15 97.3 F L 93 18 142/83 H 100 05/09/23 05:24 98.0 F 80 14 139/87 98 05/08/23 20:35 97.9 F 98 16 142/82 H 94 05/08/23 20:00 Room Air 05/08/23 20:51 98 05/08/23 14:55 97.5 F L 103 H 14 139/84 97 Intake/Output Intake/Output: Intake & Output 05/06/23 05/07/23 05/08/23 05/09/23 23:59 23:59 23:59 23:59 Intake Total 1630 2360 1450 790 Output Total 2750 2025 2350 1400 Balance -1120 061 -359 -667 Meds/Results Medications: Active Medications Generic Name Dose Route Start Last Admin Trade Name Freq PRN Reason Stop Dose Admin Albumin Human 12.5 gm 05/09/23 10:00 Albumin Human 5% 25 Gm/500 Ml Btl XX 05/19/23 10:01 Q48H [facility] Albumin Human 175 gm 05/09/23 10:00 05/09/23 09:12 Albumin Human 5% 25 Gm/500 Ml Btl XX 05/19/23 10:01 175 gm
--- NOTE | 2023-05-09 09:42 | PM.PNNEP ---
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 Alicea consulted to help arrange this on plasmapheresis (total of 7 sessions) -- session #2 today still making urine with stable electrolytes follow trend of repeat labs and UOP outpatient arrangements for plasmapheresis ongoing (2) Hypertension: Code(s): I10 - Essential (primary) hypertension Status: Acute Assessment and Plan: reasonable control at this time unable to use MAGUE/ARB due to low GFR on diltiaze (for anti-proteinuric effects) and labetalol follow trend of hemodynamics (3) Normocytic anemia: Code(s): D64.9 - Anemia, unspecified Status: Acute Assessment and Plan: presumably due to JONATHAN, inflammation, and acute illness irons studies noted on Epogen (while hospitalized) follow trend of H/H Will continue to follow. Subjective Date/time seen: 05/09/23 09:42 Interval history: Follow-up for acute kidney injury/acute renal failure. Chart reviewed -- assuming care from Dr. Frey; tolerated plasmapheresis session #2 at the time of my visit (seen on plasmapheresis at 9:30AM); renal function remains relatively stable; on schedule tomorrow for conversion of temporary HD catheter to tunneled catheter; no apparent distress noted; no issues overnight. Exam Narrative: General: WD/WN male in NAD Heart: normal S1 and S2; no rub Lungs: clear to auscultation Abdomen: soft, nontender, nondistended, positive bowel sounds Extremities: no cyanosis or clubbing; no edema Skin: warm and dry Objective Data Vital Signs Vital Signs: Vital Signs Temp Pulse Resp BP Pulse Ox O2 Del Method 05/09/23 09:42 82 18 142/89 H 05/09/23 09:15 97.3 F L 93 18 142/83 H 100 07/25/23 05:24 98.0 F 80 14 139/87 98 05/08/23 20:35 97.9 F 98 16 142/82 H 94 05/08/23 20:00 Room Air 05/08/23 20:51 98 05/08/23 14:55 97.5 F L 103 H 14 139/84 97 Intake/Output Intake/Output: Intake & Output 05/06/23 05/07/23 05/08/23 05/09/23 23:59 23:59 23:59 23:59 Intake Total 1630 2360 1450 790 Output Total 2750 2025 2350 1400 Balance -1120 629 -900 -396 Meds/Results Medications: Active Medications Generic Name Dose Route Start Last Admin Trade Name Freq PRN Reason Stop Dose Admin Albumin Human 12.5 gm 05/09/23 10:00 Albumin Human 5% 25 Gm/500 Ml Btl XX 05/19/23 10:01 Q48H [facility] Albumin Human 175 gm 05/09/23 10:00 05/09/23 09:12 Albumin Human 5% 25 Gm/500 Ml Btl XX 05/19/23 10:01 175 gm Q48H FÁTIMA Administration Calcium Carbonate 200 mg 05/06/23 17:00 05/08/23 17:02 Calcium Carbonate (Tums) 500 Mg (200 Mg Elemental) PO 200 mg BIDWM FÁTIMA Administration Clonidine HCl 0.1 mg 05/02/23 07:51 Clonidine Hcl 0.1 Mg Tablet PO Q6H PRN systolic above 160 Cyclophosphamide 100 mg 05/06/23 09:50 05/08/23 08:39 Cyclophosphamide (*Bkc) 50 Mg Tablet PO 100 mg DAILY FÁTIMA Administration Dextrose 12.5 gm 05/02/23 06:56 Dextrose 50% 25 Gm/50 Ml Syringe IV PUSH PRN PRN Hypoglycemia Protocol Diltiazem HCl 180 mg 05/07/23 10:20 05/08/23 08:39 Diltiazem Hcl Cd 180 Mg Cap.24hr PO 180 mg QAM FÁTIMA Administration Epoetin Mike 10,000 units 05/08/23 09:00 05/08/23 08:39 Epoetin Mike 10,000 Units/Ml Vial SUB-Q 10,000
--- NOTE | 2023-05-09 09:51 | WPDANESEPPF ---
Anes - Initial Pre Proc Eval Procedure: Operation Date: 05/10/23 07:30 Proposed Procedures p Insertion Tunneled Dialysis Catheter - Janny Easley MD Date/Time: 05/09/23 09:51 Surgeon: Mukul Alonzo MD Pre Op Diagnosis: Acute Kidney Failure Patient Data Age: 58 Gender: M Height: 1.73 m Weight: 89.9 kg Last Vital Signs Temp 36.3 C L 05/09/23 09:15 Pulse 82 05/09/23 09:43 Resp 18 05/09/23 09:43 BP 142/89 H 05/09/23 09:43 Pulse Ox 100 05/09/23 09:15 O2 Del Method Room Air 05/08/23 20:00 Allergies Allergy/AdvReac Type Severity Reaction Status Date / Time Sulfa (Sulfonamide Allergy Hives Verified 05/02/23 09:00 Antibiotics) Home Medications Medication Instructions Recorded Confirmed Type cimetidine 400 mg tablet 400 mg PO DAILY PRN Acid Reflux 05/01/23 05/01/23 History omeprazole 20 mg capsule,delayed 20 mg PO DAILY 05/01/23 05/01/23 History release Laboratory Tests 05/02/23 05/09/23 05:15 04:54 WBC 12.7 H K/mm3 (4.5-10.0) RBC 2.80 L M/mm3 (4.6-6.20) Hgb 8.5 L g/dL (14.0-18.0) Hct 26.2 L % (42.0-52.0) MCV 93.6 fl (80-100) MCH 30.4 pg (26-34) MCHC 32.4 g/dl (32-36) RDW 13.2 % (11.5-14.5) Plt Count 281 k/mm3 (150-375) MPV 10.6 H fl (7.4-10.4) Sodium 136 L mmol/L (137-145) Potassium 3.3 L mmol/L (3.4-5.0) Chloride 105 mmol/L (98-107) Carbon Dioxide 21 L mmol/L (22-30) Anion Gap 10 mmol/L (8-16) BUN 55 H mg/dL (9-20) Creatinine 3.10 H mg/dL (0.7-1.3) Estim Creat Clear Calc 26 ml/min Estimated GFR 21 L (59 - ) Glucose 101 mg/dL (65-110) Calcium 7.4 L mg/dL (8.4-10.2) Phosphorus 5.1 H mg/dL (2.5-4.5) Albumin 2.7 L g/dL (3.5-5.1) OTIS Screen Positive A (Negative) OTIS Titer 1:80 A (Negative) OTIS Pattern see below ANCA Screen Pending Glomerular Base Memb Ab Pending Patient hx anesthesia problems: none Family hx anesthesia problems: none Results Review: All pre-operative results and documents have been reviewed as part of the pre-operative evaluation. [facility] Past Medical History Medical History Clavicle fracture Lumbar radiculopathy Sinus disease Surgical History Surgical History History of foot surgery Hx of tonsillectomy Family History Family History Father Acute myocardial infarction Sibling Hypertension Father Family history of heart disease in male family member before age 55 Social History Social History (Updated 05/10/23 @ 06:59 by Ash Chang DO) Social History: Surrogate medical decision maker: Ambika Braun, spouse. Code status: Full code. Smoking status: Former smoker Additional smoking assessment comments: 1.5 PPD x 30 years on average, up to 2-3 PPD at one point, quit 2012 Alcohol intake: never Alcohol use details: rarely Substance use: never Lack of Transportation: No Lack of Food: Never True Current Housing: I Have Housing Concerned About Future Housing: No Difficulty Paying Gas/Electric Bills: No Difficulty Paying for Meds: No Currently Unemployed: No Education: High School Diploma/GED Difficulty w/ Childcare or Family Care: No Additional occupation/education comments: [employer] Spiritual care concerns: No Anes - Eval Final PreProcedure Day of Procedure 05/09/23 09:51 Patient weight: obese Heart: regular rate and rhythm Lungs: clear to auscultation Airway: Mallampati scale class II Neurological: alert and oriented Last oral intake: >/= 8 hours ASA classification: IV Emergent: no Anesthetic plan: proceed Anesthesia type and monitoring: gener
[2023-05-09] MEDS: ALBUMIN HUMAN 5% 25 GM/500 ML BTL 12.5 GM XX (10:00)
[2023-05-09] MEDS: HEPARIN SODIUM, PORCINE 10,000 UNITS/10 ML VIAL 10000 UNITS XX (10:30)
--- NOTE | 2023-05-09 10:36 | PCNWS ---
Weekly nutritional screen. Patient is tolerating current diet with adequate intake. No weight loss reported. No nutritional needs at this time.
[2023-05-09] MEDS: LABETALOL HCL 50 MG TABLET PO ×2 (11:05→20:47)
[2023-05-09] MEDS: dilTIAZem HCL CD 180 MG CAP.24HR PO (11:05)
[2023-05-09] MEDS: PANTOPRAZOLE 40 MG TABLET PO (11:05)
[2023-05-09] MEDS: CALCIUM CARBONATE (TUMS) 500 MG (200 MG ELEMENTAL) PO ×2 (11:06→17:01)
[2023-05-09] MEDS: POTASSIUM CHLORIDE 20 MEQ ER TABLET PO (11:32)
[2023-05-09] MEDS: SEVELAMER CARBONATE 800 MG TABLET PO ×2 (11:33→17:01)
--- NOTE | 2023-05-09 19:12 | PDONCCN ---
HPI - Date of Consult Date/Time: 05/09/23 19:12 Requesting Physician: Mukul Alonzo MD Primary Care Provider: PHYSICIAN NOT ON STAFF - Consult Narrative Narrative: Mike Braun is a 58 year old male whom I saw as inpatient consult for further consideration of Rituximab for immune glomerulonephritis. Patient was admitted via ER on 05/01/23 when PCP ordered CBC and CMP for fatigue and generalized weakness. Creatinine was noted to be 8.1 and patient was admitted for acute renal failure. 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 OTIS was high and ANCA and anti GBM antibody are pending. Patient was given three doses of solumedrol and transitioned to oral prednisone. Patient was also started on plasmapheresis 05/08/23 with plans of total of 7 treatments. Today, 05/09/23, was Treatment #2. Patient is also started on immune suppression with oral cyclophosphamide and Rituximab is recommended for B cell suppression by anti-CD 20 antibody. Review of Systems - Review of Systems patient was seen by bedside. his was also present during my visit. Per patient and his , patient has been severely fatigued and tired for past 3 months. He can barely make to 40 hr work week and sleeps at home post work. per he was confused at times. he had low appetite, nausea but no vomiting. he denies any rash. Denies chest pain or hemoptysis. There is no cough or dyspnea. No abdominal pain, n/v/d. There was no other preceding illnesses. No falls or syncope. No headaches. No TIA or CVA - Neurologic Reports system reviewed and no additional complaints, except as documented, Denies syncope, Denies focal weakness, Denies weakness PMFSH Medical History: Medical History (Last Reviewed 05/04/23 @ 15:00 by Agustin Benjamin MD) Clavicle fracture Lumbar radiculopathy Sinus disease Surgical History: Surgical History (Last Reviewed 05/04/23 @ 15:00 by Agustin Benjamin MD) History of foot surgery Hx of tonsillectomy Family History: Family History (Last Reviewed 05/04/23 @ 15:00 by Agustin Benjamin MD) Father Acute myocardial infarction Sibling Hypertension Father Family history of heart disease in male family member before age 55 - Social History Social History: Social History (Last Reviewed 05/04/23 @ 15:00 by Agustin Benjamin MD) Alcohol Use: Alcohol intake: never Alcohol use details: rarely Substance Use: Substance use: never Others: Spiritual care concerns: No Smoking Status: Smoking status: Former smoker Approximate Smoking End Date: 2008 Social Determinants of Health: Has the Lack of Transportation Kept You From Medical Appointments or From Getting Medications?: No Within the Past 12 Months, Were You Worried Whether Your Food Would Run Out Before You Got Money to Buy More?: Never True What is Your Housing Situation Today?: I Have Housing Are You Worried That in the Next 2 Months, You May Not Have Your Own Housing to Live In?: No Do You Have Trouble Paying Your Heating Or Electricity Bill?: No Do You Have Trouble Paying For Medicines?: No Are You Currently Unemployed and Looking for Work?: No Highest Level of Education Completed: High School Diploma/GED Do You Have Trouble With Childcare or the Care of a Family Member?: No Exam - Vital Signs Vital Signs - 24 hr 05/08/23 20:51 05/08/23 20:00 05/08/23 20:35 Temperature 36.6 C Pulse Rate 98 98 Respiratory Rate 16 Blood Pressure 142/82 H Pulse Oximetry 94 Oxygen Delivery Room Air 05/09/23 05:24 05/09/23 09:15 05/09/23 09:43 Temperature 36.7 C 36.3 C L Pulse Rate 80 93 82 Respiratory Rate 14 18 18 Blood Pressure 139/87 142/83 H 142/89 H Pulse Oximetry 98 100 Oxygen Delivery
[2023-05-09] MEDS: traZODone HCL 50 MG TABLET 100 MG PO (20:47)
[2023-05-10] VITALS (11 sets, daily range): BP systolic 123–156; BP diastolic 77–94; PULSE 76–93; RESP 12–20; TEMP 36.2–36.6; O2SAT 93–100
--- NOTE | 2023-05-10 06:09 | PC.NURSE ---
Pt taken down to pre-op via stretcher. Per RN that came by, if arrives before 0730 she can go down to see him downstairs in pre-op.
[2023-05-10 06:59] LABS: Hematocrit 27.2 % (42.0-52.0); Hemoglobin 8.9 g/dL (14.0-18.0); Mean Corpuscular HGB Conc 32.7 g/dl (32-36); Mean Corpuscular Hemoglobin 31.2 pg (26-34); Mean Corpuscular Volume 95.4 fl (80-100); Platelet Count Result 280 k/mm3 (150-375); Red Blood Count 2.85 M/mm3 (4.6-6.20); Red Cell Distribution Width 14.1 % (11.5-14.5); White Blood Count 13.9 K/mm3 (4.5-10.0)
[2023-05-10 07:11] LABS: Albumin Level 3.4 g/dL (3.5-5.1); Anion Gap 13 mmol/L (8-16); Blood Urea Nitrogen 48 mg/dL (9-20); Calcium 7.8 mg/dL (8.4-10.2); Carbon Dioxide 18 mmol/L (22-30); Chloride 106 mmol/L (98-107); Estimated CRCL calculation 25 ml/min; Estimated Glomerular Filt Rate 23; Glucose 107 mg/dL (65-110); Phosphorus 4.8 mg/dL (2.5-4.5); Potassium 3.9 mmol/L (3.4-5.0); Sodium 137 mmol/L (137-145)
--- NOTE | 2023-05-10 07:20 | WPDHPUPDATE1 ---
History and Physical Update Update Date/Time: 05/10/23 07:20 History and Physical has been reviewed, including an updated exam of the patient. There are NO changes in the patient's condition. Risks, benefits, and alternatives have been discussed and questions answered. Patient agrees to proceed with procedure.
[2023-05-10] MEDS: SODIUM CHLORIDE 0.9% IV 500 ML 30 ML IV CONT (07:25)
[2023-05-10] MEDS: ceFAZolin 2 GM/D5W 50 ML 2 GM/50 ML BAG IVPB (07:25)
--- NOTE | 2023-05-10 07:32 | PM.IMPN ---
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 Alicea consulted to help arrange this on plasmapheresis (total of 7 sessions) -- session #3 today still making urine with stable electrolytes follow trend of repeat labs and UOP outpatient arrangements for plasmapheresis ongoing (2) Hypertension: Code(s): I10 - Essential (primary) hypertension Status: Acute Assessment and Plan: reasonable control at this time SBP 130s-150s unable to use MAGUE/ARB due to low GFR on diltiazem (for anti-proteinuric effects) and labetalol follow trend of hemodynamics (3) Normocytic anemia: Code(s): D64.9 - Anemia, unspecified Status: Acute Assessment and Plan: presumably due to JONATHAN, inflammation, and acute illness irons studies noted on Epogen (while hospitalized) follow trend of H/H Plan See above Subjective Date/time seen: 05/10/23 07:32 Interval history: Copied from previous chart: HPI obtained from chart This is a pleasant 58-year-old male with GERD who presented to the emergency department for evaluation of abnormal labs. The patient provides the following history. He has had issues with low back pain and right hip pain for several months and he was started on Celebrex sometime in January. He was also referred to pain management and received some injections which seemed to have helped his pain. He stopped taking Celebrex after about a month after began having worsening GERD symptoms with bloating, belching, and early satiety. He also reports that his blood pressures started to run high for the 1st time in his life and he thought it was related to the Celebrex as well. On occasion he still takes Advil or Tylenol for pain but not very often. Unfortunately his symptoms have not improved and in fact they seem to be getting worse. He has frequent nausea, occasional dry heaves, and he has been constipated for the 1st time in his life. On recent trips to the doctor his blood pressures have been elevated and he he had labs drawn and was referred to the ED after he was found to have evidence of acute kidney injury. Pertinent labs today include a sodium of 139, potassium 4.3, carbon dioxide 19, anion gap 18, BUN 76, creatinine 8.10. Urine was positive for 3+ protein, 3+ blood, and greater than 100 rbc's with a random urine total protein of greater than 600 mg/dL. He is being admitted in this setting for further evaluation. With further questioning he has noticed that his urine looks slightly pink tinged for about a month or so. He has not noticed a change in urine output. Last week he had some mild swelling in his legs but that has improved. He has been feeling extremely tired and is sleeping most of the time when he is not at work. His weight has remained stable. He reports feeling a bit confused with slow thought processes. He has no known history of kidney disease and he denies family history of kidney disease. Interval History: 05/02-patient seen today in room resting in bed appears anxious.? His and friend at the bedside.? He is already spoke with Nephrology today and he appears overwhelmed.? I reviewed in detail with him and his the plan and care, also discussing Nephrology's note as his is not here when the rounded.? His biggest complaints are GI complaints including intermittent nausea, vomiting, constipat
[2023-05-10] MEDS: HEPARIN SODIUM, PORCINE 10,000 UNITS/10 ML VIAL 10000 UNITS IRRIGATION (07:56)
[2023-05-10] MEDS: LIDO 1%/EPINEPHRINE 1:100,000 50 ML VIAL 20 ML INFILTRATE (07:58)
--- NOTE | 2023-05-10 08:06 | W.PM.PROC2 ---
Procedure Note - Detailed Date of Procedure 05/10/23 Pre-op Diagnosis Acute Kidney Failure Post-op Diagnosis Same Procedure Performed Placement of 28 cm right internal jugular tunneled hemodialysis catheter under fluoroscopic guidance Surgeon Janny Easley MD Anesthesia MAC and Local Indications 58-year-old male with acute renal failure requiring hemodialysis, plasmapheresis needing more permanent access for continued treatment as outpatient. The patient had previously placed temporary dialysis catheter in the right internal jugular vein. Findings Previous catheter noted in right internal jugular vein, accessed with a wire under fluoroscopic guidance Description of Procedure The patient was taken to the operating room placed in the supine position. After adequate induction of MAC anesthesia, the patient was prepped and draped in the normal sterile fashion. A time-out was then done to verify the patient's identity, as well as the procedure being performed. I began by using fluoroscopy to confirm placement of previous catheter in the right internal jugular vein. Once confirmed, I used a wire under sterile Seldinger technique to gain access into the right internal jugular vein. Again this was confirmed via fluoroscopy. Once confirmed the previous catheter was removed, leaving the wire in the right internal jugular vein. I then measured the tunneled hemodialysis catheter including the tunnel track going to the right chest. A 28 cm catheter was noted to be adequate for length. I then used local anesthetic to numb up the tract. I then made an incision in the right chest and tunneled the catheter to the stick site in the right neck. I then serially dilated the vein under sterile Seldinger technique as well as fluoroscopy. Once adequately dilated, the dilating sheath was placed under direct visualization by fluoroscopy into the vein. Once well positioned, the guidewire and the dilator were removed. I then placed the previously tunneled catheter into the vein over the sheath. Once properly positioned, the sheath was peeled away. Fluoroscopic view showed a nice smooth curvature of the catheter with its termination near the atrial caval junction. I was able to easily drawn flush from both port sites. Final flush was placed in both ports sites of 2.2 and 2.3 mL of heparin respectively. The catheter was then sutured into place and the right neck incision was closed with a 4-0 Monocryl subcuticular suture. Sterile dressings were placed. The patient tolerated the procedure well and was alert and awake postoperatively. He will be transferred to the recovery room in stable condition. Implants 28 cm tunneled hemodialysis catheter in the right internal jugular vein Estimated Blood Loss 5 Drains No Packing No Pathology None sent Complications No immediate complications Condition Stable Disposition PACU [facility] Billing Surgery - Charge Forward: Surgery Billing
[2023-05-10] MEDS: HEPARIN SODIUM, PORCINE 10,000 UNITS/10 ML VIAL 5000 UNITS IRRIGATION (08:17)
[2023-05-10 09:21] LABS: Anti Glomerular Basement Memb <1.0 AI (<1.0)
[2023-05-10] MEDS: SEVELAMER CARBONATE 800 MG TABLET PO ×2 (09:40→12:07)
[2023-05-10] MEDS: LABETALOL HCL 50 MG TABLET PO (09:41)
[2023-05-10] MEDS: dilTIAZem HCL CD 180 MG CAP.24HR PO (09:41)
[2023-05-10] MEDS: PANTOPRAZOLE 40 MG TABLET PO (09:41)
[2023-05-10] MEDS: CALCIUM CARBONATE (TUMS) 500 MG (200 MG ELEMENTAL) PO (09:44)
[2023-05-10] MEDS: EPOETIN ALFA 10,000 UNITS/ML VIAL 10000 UNITS SUB-Q (10:16)
--- NOTE | 2023-05-10 12:04 | P.PNNP_ITS ---
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) * on prednisone and oral cytoxan * tentatively plan outpatient IV cytoxan and rituximab * Hem/[facility] recommendations noted * on plasmapheresis (total of 7 sessions) -- session #2 yesterday * still making urine with stable electrolytes * follow trend of repeat labs and UOP * outpatient arrangements for plasmapheresis noted (2) Hypertension: Code(s): I10 - Essential (primary) hypertension Status: Acute Assessment and Plan: * reasonable control at this time * unable to use MAGUE/ARB due to low GFR * on diltiazem (for anti-proteinuric effects) and labetalol * follow trend of hemodynamics (3) Normocytic anemia: Code(s): D64.9 - Anemia, unspecified Status: Acute Assessment and Plan: * presumably due to JONATHAN, inflammation, and acute illness * irons studies noted * on Epogen (while hospitalized) * follow trend of H/H Not opposed to discharge from renal perspective -- patient will need to call to schedule visit with Dr. Alicea for IV cytoxan and IV rituximab (continue oral prednisone and cytoxan for now); follow-up with Dr. Frey in 1 - 2 weeks; continue outpatient plasmaphresis as scheduled to complete 7 sessions (5 more sessions remain). Will continue to follow. Subjective Date/time seen: 05/10/23 12:04 Interval history: Follow-up for acute kidney injury/acute renal failure. Tolerated plasmapheresis session #2 yesterday witout any issue or problems; s/p tunneled HD catheter placement earlier this morning and tolerated this procedure as well; no apparent distress noted; continues to make reasonable urine output with stability in renal function (if not improvement); seen by Hem/Onc yesterday; no other issues noted; anxious for discharge. Exam Narrative: General: WD/WN male in NAD Heart: normal S1 and S2; no rub Lungs: clear to auscultation Abdomen: soft, nontender, nondistended, positive bowel sounds Extremities: no cyanosis or clubbing; no edema Skin: warm and intact Objective Data Vital Signs Vital Signs: Vital Signs Temp Pulse Resp BP Pulse Ox O2 Del Method 05/10/23 10:30 97.4 F L 93 18 145/86 H 100 05/10/23 09:45 97.4 F L 93 18 145/86 H 100 05/10/23 09:15 97.3 F L 80 18 151/92 H 100 05/10/23 09:00 97.2 F L 77 20 141/90 H 100 05/10/23 09:41 76 05/10/23 08:45 78 12 147/85 H 95 Room Air 05/10/23 08:35 80 12 145/85 H 95 Room Air 05/10/23 08:20 86 16 133/83 93 Room Air 05/10/23 08:05 97.4 F L 90 20 123/77 93 Room Air 05/10/23 06:15 98 F 76 16 156/94 H 98 Room Air 05/10/23 04:36 97.8 F 81 16 131/81 98 05/09/23 20:50 Room Air 05/09/23 20:47 89 05/09/23 19:49 97.9 F 89 16 128/74 97
--- NOTE | 2023-05-10 12:04 | PM.PNNEP ---
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) on prednisone and oral cytoxan tentatively plan outpatient IV cytoxan and rituximab Hem/[facility] recommendations noted on plasmapheresis (total of 7 sessions) -- session #2 yesterday still making urine with stable electrolytes follow trend of repeat labs and UOP outpatient arrangements for plasmapheresis noted (2) Hypertension: Code(s): I10 - Essential (primary) hypertension Status: Acute Assessment and Plan: reasonable control at this time unable to use MAGUE/ARB due to low GFR on diltiazem (for anti-proteinuric effects) and labetalol follow trend of hemodynamics (3) Normocytic anemia: Code(s): D64.9 - Anemia, unspecified Status: Acute Assessment and Plan: presumably due to JONATHAN, inflammation, and acute illness irons studies noted on Epogen (while hospitalized) follow trend of H/H Not opposed to discharge from renal perspective -- patient will need to call to schedule visit with Dr. Alicea for IV cytoxan and IV rituximab (continue oral prednisone and cytoxan for now); follow-up with Dr. Frey in 1 - 2 weeks; continue outpatient plasmaphresis as scheduled to complete 7 sessions (5 more sessions remain). Will continue to follow. Subjective Date/time seen: 05/10/23 12:04 Interval history: Follow-up for acute kidney injury/acute renal failure. Tolerated plasmapheresis session #2 yesterday witout any issue or problems; s/p tunneled HD catheter placement earlier this morning and tolerated this procedure as well; no apparent distress noted; continues to make reasonable urine output with stability in renal function (if not improvement); seen by Hem/Onc yesterday; no other issues noted; anxious for discharge. Exam Narrative: General: WD/WN male in NAD Heart: normal S1 and S2; no rub Lungs: clear to auscultation Abdomen: soft, nontender, nondistended, positive bowel sounds Extremities: no cyanosis or clubbing; no edema Skin: warm and intact Objective Data Vital Signs Vital Signs: Vital Signs Temp Pulse Resp BP Pulse Ox O2 Del Method 05/10/23 10:30 97.4 F L 93 18 145/86 H 100 05/10/23 09:45 97.4 F L 93 18 145/86 H 100 05/10/23 09:15 97.3 F L 80 18 151/92 H 100 05/10/23 09:00 97.2 F L 77 20 141/90 H 100 05/10/23 09:41 76 05/10/23 08:45 78 12 147/85 H 95 Room Air 05/10/23 08:35 80 12 145/85 H 95 Room Air 05/10/23 08:20 86 16 133/83 93 Room Air 05/10/23 08:05 97.4 F L 90 20 123/77 93 Room Air 05/10/23 06:15 98 F 76 16 156/94 H 98 Room Air 05/10/23 04:36 97.8 F 81 16 131/81 98 05/09/23 20:50 Room Air 05/09/23 20:47 89 05/09/23 19:49 97.9 F 89 16 128/74 97 05/09/23 13:18 97.8 F 92 18 120/71 98 Intake/Output Intake/Output: Intake & Output 05/07/23 05/08/23 05/09/23 05/10/23 23:59 23:59 23:59 23:59 Intake Total 2360 1450 1610 430 Output Total 2025 2350 3300 1500 Balance 181 -540 -[phone] -8844 Meds/Results Medications: Active Medications Generic Name Dose Route Start Last Admin Trade Name Freq PRN Reason Stop Dose Admin Albumin Human 12.5 gm 05/09/23 10:00 05/09/23 10:00 Albumin Human 5% 25 Gm/500 Ml Btl XX 05/19/23 10:01 12.5 gm Q48H FÁTIMA Administration Albumin Human 175 gm 05/09/23 10:00 05/09/23 09:12 Albumin Human 5% 25 Gm/500 Ml Btl
--- NOTE | 2023-05-10 13:29 | PM.DS ---
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 Alicea consulted to help arrange this on plasmapheresis (total of 7 sessions) -- session #3 today still making urine with stable electrolytes follow trend of repeat labs and UOP outpatient arrangements for plasmapheresis ongoing (2) Hypertension: Code(s): I10 - Essential (primary) hypertension Status: Acute Assessment and Plan: reasonable control at this time SBP 130s-150s unable to use MAGUE/ARB due to low GFR on diltiazem (for anti-proteinuric effects) and labetalol follow trend of hemodynamics (3) Normocytic anemia: Code(s): D64.9 - Anemia, unspecified Status: Acute Assessment and Plan: presumably due to JONATHAN, inflammation, and acute illness irons studies noted on Epogen (while hospitalized) follow trend of H/H Plan See above DS: Summary Hospital Course Reason for hospitalization: Acute renal failure Hospital Course: HPI obtained from chart This is a pleasant 58-year-old male with GERD who presented to the emergency department for evaluation of abnormal labs. The patient provides the following history. He has had issues with low back pain and right hip pain for several months and he was started on Celebrex sometime in January. He was also referred to pain management and received some injections which seemed to have helped his pain. He stopped taking Celebrex after about a month after began having worsening GERD symptoms with bloating, belching, and early satiety. He also reports that his blood pressures started to run high for the 1st time in his life and he thought it was related to the Celebrex as well. On occasion he still takes Advil or Tylenol for pain but not very often. Unfortunately his symptoms have not improved and in fact they seem to be getting worse. He has frequent nausea, occasional dry heaves, and he has been constipated for the 1st time in his life. On recent trips to the doctor his blood pressures have been elevated and he he had labs drawn and was referred to the ED after he was found to have evidence of acute kidney injury. Pertinent labs today include a sodium of 139, potassium 4.3, carbon dioxide 19, anion gap 18, BUN 76, creatinine 8.10. Urine was positive for 3+ protein, 3+ blood, and greater than 100 rbc's with a random urine total protein of greater than 600 mg/dL. He is being admitted in this setting for further evaluation. With further questioning he has noticed that his urine looks slightly pink tinged for about a month or so. He has not noticed a change in urine output. Last week he had some mild swelling in his legs but that has improved. He has been feeling extremely tired and is sleeping most of the time when he is not at work. His weight has remained stable. He reports feeling a bit confused with slow thought processes. He has no known history of kidney disease and he denies family history of kidney disease. Interval History: 05/02-patient seen today in room resting in bed appears anxious.? His and friend at the bedside.? He is already spoke with Nephrology today and he appears overwhelmed.? I reviewed in detail with him and his the plan and care, also discussing Nephrology's note as his is not here when t
[2023-05-10 22:45] LABS: ANCA Screen P-ANCA POS (Negative); P-ANCA Titer Reflex Chg Test YES
[2023-05-13 13:34] LABS: Albumin 77 %; Measured Lambda Chains 1.66 mg/dL (<2.00); Pro/Creat Ratio 3822 mg/g creat (<100); Protein,total, 24 Hr Ur 5344 mg/24 h (<100); Total Kappa Chains 102.4 mg/24 h; Total Lambda Chains 53.12 mg/24 h
== END 2023-05-10 13:57 | disposition home or self-care (01) | DRG 684 ==
LOC: ANHED 18:13 → ANH2MED 19:13
PROVIDERS: Internal Medicine Gastroenterology; Internal Medicine Nephrology; Physician Assistant; Surgery; Admitting Provider Chiropractor; Emergency Provider General Practice; Visit Provider Nurse Practitioner Acute Care
PROC: 0DJ08ZZ Inspection of Upper Intestinal Tract, Via Natural or Artificial Opening Endoscopic (ICD-10-PCS; CPT 43235; principal; 2023-05-04 15:45)
PROC: 02HV33Z Insertion of Infusion Device into Superior Vena Cava, Percutaneous Approach (ICD-10-PCS; CPT 36908; principal; 2023-05-10 07:30)
DX: N17.9 Acute kidney failure, unspecified (principal); N01.9 Rapidly progressive nephritic syndrome with unspecified morphologic changes; D63.1 Anemia in chronic kidney disease; I10 Essential (primary) hypertension; K21.9 Gastro-esophageal reflux disease without esophagitis; M54.16 Radiculopathy, lumbar region; D12.8 Benign neoplasm of rectum; E86.0 Dehydration; R19.4 Change in bowel habit; R31.9 Hematuria, unspecified; Z87.891 Personal history of nicotine dependence
CPT/HCPCS: 36415; 36514; 50200; 74176; 76775; 76942; 77001; 80048; 80053; 80061; 80069; 81001; 81050; 82274; 82550; 82570; 82607; 82668; 82728; 82746; 82948; 83520; 83540; 83550; 83735; 84100; 84156; 84300; 84443; 85025; 85027; 85046; 85610; 85652; 85730; 86036; 86038; 86039; 86160; 86162; 86225; 86334; 86335; 86704; 86706; 86803; 87081; 87340; 88300; 88305; 88329; 93005; 96365; 96375; 99285; A9270; C1750; C1752; C9113; G0257; G0378; J0612; J0613; J0690; J1644; J2405; J2704; J2930; J3010; J7030; J7040; J7120; J7512; J8530; P9045; Q4081; Q5105

== ENCOUNTER 2023-05-22 07:34 | Outpatient (RCR) | payer BC, SELFPAY ==
[2023-05-11 09:44] VITALS: BP 155/105; PULSE 89; RESP 20; TEMP 36.9
[2023-05-11] MEDS: CALCIUM GLUC 2,000 MG/NS 100ML 2,000 MG/100 ML BAG 100 MG IVPB (09:50)
[2023-05-11] MEDS: SODIUM CHLORIDE 0.9% IV 1,000 ML 999 ML IV CONT (09:53)
[2023-05-11] MEDS: ALBUMIN HUMAN 5% 25 GM/500 ML BTL IV CONT (10:09)
[2023-05-11] MEDS: HEPARIN SODIUM, PORCINE 10,000 UNITS/10 ML VIAL 10000 UNITS IV PUSH (10:11)
[2023-05-11 10:19] VITALS: BP 148/92; PULSE 78; RESP 18
[2023-05-11 10:20] VITALS: BP 146/95; PULSE 82; RESP 18
[2023-05-11 10:30] VITALS: BP 146/88; PULSE 84; RESP 18; TEMP 36.9
[2023-05-15 09:35] VITALS: BP 152/98; PULSE 87; RESP 20; TEMP 36.2
[2023-05-15] MEDS: SODIUM CHLORIDE 0.9% IV 1,000 ML 999 ML IV CONT (09:35)
[2023-05-15] MEDS: CALCIUM GLUC 2,000 MG/NS 100ML 2,000 MG/100 ML BAG 100 MG IVPB (09:35)
[2023-05-15] MEDS: ALBUMIN HUMAN 5% 25 GM/500 ML BTL IV CONT (09:35)
[2023-05-15 09:44] LABS: Basophils Percent Auto 0.1 % (0.2-1.2); Eosinophils Percent Auto 0.1 % (0-4.4); Hematocrit 27.8 % (42.0-52.0); Hemoglobin 8.9 g/dL (14.0-18.0); Immature Granulocyte Absolute 0.16 K/mm3 (0.00-0.031); Lymphocytes Absolute Auto 0.42 K/mm3 (0.9-3.2); Lymphocytes Percent Auto 2.7 % (18.3-44.2); Mean Corpuscular Hemoglobin 31.1 pg (26-34); Mean Corpuscular Volume 97.2 fl (80-100); Mean Platelet Volume 10.7 fl (7.4-10.4); Monocytes Absolute Auto 0.5 K/mm3 (0.1-0.6); Monocytes Percent Auto 3.1 % (2.6-8.5); Neutrophils Absolute Auto 14.5 K/mm3 (1.3-6.7); Platelet Count Result 161 k/mm3 (150-375); Red Blood Count 2.86 M/mm3 (4.6-6.20); Red Cell Distribution Width 15.8 % (11.5-14.5); White Blood Count 15.6 K/mm3 (4.5-10.0)
[2023-05-15 09:54] LABS: Albumin Level 3.1 g/dL (3.5-5.1); Anion Gap 5 mmol/L (8-16); Blood Urea Nitrogen 66 mg/dL (9-20); Calcium 8.2 mg/dL (8.4-10.2); Carbon Dioxide 18 mmol/L (22-30); Chloride 105 mmol/L (98-107); Estimated Glomerular Filt Rate 23; Glucose 120 mg/dL (65-110); Phosphorus 3.3 mg/dL (2.5-4.5); Potassium 4.1 mmol/L (3.4-5.0); Sodium 128 mmol/L (137-145)
[2023-05-15] MEDS: HEPARIN SODIUM, PORCINE 10,000 UNITS/10 ML VIAL 10000 UNITS IV PUSH (09:58)
[2023-05-15 10:10] VITALS: BP 133/92; PULSE 85; RESP 18
[2023-05-15 10:38] VITALS: BP 126/83; PULSE 85; RESP 20
[2023-05-15 10:55] VITALS: BP 125/74; PULSE 85; RESP 18; TEMP 36.6
[2023-05-17 08:12] VITALS: BP 139/89; PULSE 86; RESP 20; TEMP 36.8
[2023-05-17] MEDS: CALCIUM GLUC 2,000 MG/NS 100ML 2,000 MG/100 ML BAG 100 MG IVPB (08:12)
[2023-05-17] MEDS: ALBUMIN HUMAN 5% 25 GM/500 ML BTL IV CONT (08:23)
[2023-05-17] MEDS: SODIUM CHLORIDE 0.9% IV 1,000 ML 999 ML IV CONT (08:25)
[2023-05-17 08:32] VITALS: BP 130/92; PULSE 84; RESP 18
[2023-05-17 09:00] VITALS: BP 111/76; PULSE 84; RESP 18
[2023-05-17] MEDS: HEPARIN SODIUM, PORCINE 10,000 UNITS/10 ML VIAL 10000 UNITS IV PUSH (09:28)
[2023-05-17 09:30] VITALS: BP 126/78; PULSE 86; RESP 18; TEMP 36.6
[2023-05-19 09:05] VITALS: BP 126/89; PULSE 87; RESP 18; TEMP 36.8
[2023-05-19] MEDS: ALBUMIN HUMAN 5% 25 GM/500 ML BTL IV CONT (09:11)
[2023-05-19] MEDS: CALCIUM GLUC 2,000 MG/NS 100ML 2,000 MG/100 ML BAG 100 MG IVPB (09:12)
[2023-05-19] MEDS: SODIUM CHLORIDE 0.9% IV 1,000 ML 999 ML IV CONT (09:12)
[2023-05-19] MEDS: HEPARIN SODIUM, PORCINE 10,000 UNITS/10 ML VIAL 10000 UNITS IV PUSH (09:13)
[2023-05-19 09:30] VITALS: BP 128/83; PULSE 84; RESP 18
[2023-05-19 10:00] VITALS: BP 126/83; PULSE 86; RESP 20
[2023-05-19 10:30] VITALS: BP 133/88; PULSE 86; RESP 20; TEMP 36.6
[2023-05-22] MEDS: SODIUM CHLORIDE 0.9% IV 1,000 ML 999 ML IV CONT (08:20)
[2023-05-22] MEDS: ALBUMIN HUMAN 5% 25 GM/500 ML BTL IV CONT (08:20)
[2023-05-22] MEDS: CALCIUM GLUC 2,000 MG/NS 100ML 2,000 MG/100 ML BAG 100 MG IVPB (08:20)
[2023-05-22 08:28] LABS: Basophils Percent Auto 0.1 % (0.2-1.2); Eosinophils Percent Auto 0.2 % (0-4.4); Hematocrit 28.3 % (42.0-52.0); Hemoglobin 8.8 g/dL (14.0-18.0); Immature Granulocyte Absolute 0.08 K/mm3 (0.00-0.031); Immature Granulocyte Percent A 0.8 % (0-0.5); Lymphocytes Absolute Auto 0.31 K/mm3 (0.9-3.2); Lymphocytes Percent Auto 3.1 % (18.3-44.2); Mean Corpuscular HGB Conc 31.1 g/dl (32-36); Mean Corpuscular Hemoglobin 31.9 pg (26-34); Mean Corpuscular Volume 102.5 fl (80-100); Mean Platelet Volume 10.4 fl (7.4-10.4); Monocytes Absolute Auto 0.3 K/mm3 (0.1-0.6); Monocytes Percent Auto 2.9 % (2.6-8.5); Neutrophils Absolute Auto 9.3 K/mm3 (1.3-6.7); Neutrophils Percent Auto 92.9 % (45.5-73.1); Platelet Count Result 142 k/mm3 (150-375); Red Blood Count 2.76 M/mm3 (4.6-6.20)
[2023-05-22 08:37] LABS: Albumin Level 3.3 g/dL (3.5-5.1); Anion Gap 4 mmol/L (8-16); Blood Urea Nitrogen 61 mg/dL (9-20); Calcium 8.2 mg/dL (8.4-10.2); Carbon Dioxide 14 mmol/L (22-30); Chloride 113 mmol/L (98-107); Estimated Glomerular Filt Rate 23; Glucose 130 mg/dL (65-110); Phosphorus 3.7 mg/dL (2.5-4.5); Potassium 5.2 mmol/L (3.4-5.0); Sodium 131 mmol/L (137-145)
[2023-05-22 08:43] LABS: CRP 0.6 mg/dL (<1.0)
[2023-05-22] MEDS: HEPARIN SODIUM, PORCINE 10,000 UNITS/10 ML VIAL 10000 UNITS IV PUSH (08:43)
[2023-05-22 08:46] VITALS: BP 127/79; PULSE 79; RESP 18; TEMP 36.6; O2SAT 98
[2023-05-22 08:54] VITALS: BP 130/78; PULSE 76; RESP 18
[2023-05-22 08:58] LABS: Parathyroid Intact 344.5 pg/mL (7.5-53.5)
[2023-05-22 08:59] LABS: Erythrocyte Sedimentation Rate 12 mm/hr (0-20)
[2023-05-22 09:20] VITALS: BP 114/62; PULSE 76; RESP 18; TEMP 36.4
[2023-05-22 10:13] LABS: Creatinine Urine 37.6 mg/dL
[2023-05-22 10:21] LABS: Total Protein Urine Random > 600 mg/dL
[2023-05-29 17:54] LABS: ANCA Screen P-ANCA POS (Negative)
[2023-05-29 18:10] LABS: P-ANCA Titer Reflex Chg Test YES
== END 2023-08-09 23:59 | disposition home or self-care (01) ==
LOC: ANHCPCTRAN 07:34
PROVIDERS: Visit Provider Internal Medicine Nephrology
DX: N01.7 Rapidly progressive nephritic syndrome with diffuse crescentic glomerulonephritis (principal)
CPT/HCPCS: 36415; 36514; 80069; 82570; 83970; 84156; 85025; 85652; 86036; 86140; J0613; J1644; J7030; P9045

== ENCOUNTER 2023-05-25 03:00 | Day surgery (SDC) | payer BC, SELFPAY ==
[2023-05-22 14:49] VITALS: BMI 28.1
--- NOTE | 2023-05-22 14:53 | SUR.PREOP ---
Report to the Outpatient Waiting Room, entrance under the green pavilion located off [facility], at time _ Report to the Outpatient Waiting Room, entrance under the green pavilion located off [facility], at time _1300 on date __05/25/23 . Planned Procedure Time: _1500 . Time changes happen often and if your time is changed the preop area will call you the afternoon before. - You and your visitor will be asked to self-screen and do not enter if you have any COVID symptoms. - A mask is optional within the hospital at this time. Patients may have clear liquids (water, carbonated beverages, clear teas, apple juice) until 3 hours prior to surgery with a maximum of 20 ounces. - No food from midnight until time of surgery - Infants may have breast milk until 4 hours before surgery, formula 6 hours prior to surgery. - Children will be allowed to drink immediately following surgery. If applicable, please bring a bottle or sippy cup to assist with drinking. Juice, water, soda, and popsicles are readily available. For infants on formula, please bring formula the day of surgery. Pacifiers are allowed. Take the following medications with a SIP of water the morning of surgery: __diltiazem,labetolol,prednisone DO NOT STOP ANY OF YOUR OTHER PRESCRIPTION MEDICATIONS PRIOR TO SURGERY ?EXCEPT THE FOLLOWING Medications to discontinue per physician n/a Date to take last dose_n/a Please no make-up, nail lao, hairspray, perfume, deodorant, or body powder the day of surgery. No jewelry (including any body piercings) or valuables the day of surgery, leave them at home. Please take a shower or bath the night before, or the morning of, surgery with an antibacterial soap. Wear comfortable, loose fitting clothing. Children are encouraged to wear pajamas. - Jewelry must be removed prior to entering the operating room. Rings and piercings that are not removed may be cut off. - The hospital will not accept responsibility for valuables. - Please leave all valuables, including medications, at home the day of surgery. If you are going home after surgery, a licensed petroleum transport driver must drive you home. - NO public transportation without another adult if you receive anesthesia. - We recommend that an adult stay with you for 24 hours following discharge. - We also recommend that you do not drive, make important decision, drink alcoholic beverages, or take any drugs that were not prescribed by your health care provider for at least 24 hours after your discharge time. For Pediatric surgeries, we recommend two adults accompany the child home. Follow any additional instructions given to you from your surgeon. If you or anyone in your household have experienced Covid symptoms in the past week, please notify your surgeon or the nurse liaison at the phone number below for possible testing. Telephone instructions given to allie tonya and asked if any additional questions and then verbalized understanding. Patient advised to call surgeon office or pre surgery nurse liaison [phone] if any additional questions. on date . Planned Procedure Time: . Time changes happen often and if your time is changed the preop area will call you the afternoon before. - You and your visitor will be asked to self-screen and do not enter if you have any COVID symptoms. - A mask is optional within the hospital at this time. Patients may have clear liquids (water, carbonated beverages, clear teas, apple juice) until 3 hours prior to surgery with a maximum of 20 ounces. - No food from midnight until time of surgery - Infants may have breast milk until 4 hours before surgery, infant formula 6 hours prior to surgery. - Children will be allowed to drink immediately following surgery. If applicable, please bring a bottle or sippy cup to assist with drinking. Juice, water, soda, a
--- NOTE | 2023-05-25 12:53 | WPDHPUPDATE1 ---
History and Physical Update Update Date/Time: 05/25/23 12:53 History and Physical has been reviewed, including an updated exam of the patient. There are NO changes in the patient's condition. Risks, benefits, and alternatives have been discussed and questions answered. Patient agrees to proceed with procedure. Pt has completed plasmapheresis and will now be set up for tunneled catheter removal
[2023-05-25 13:00] VITALS: BP 143/91; PULSE 83; RESP 16; TEMP 36.6; O2SAT 100
--- NOTE | 2023-05-25 13:38 | WPDANESEPPF ---
Anes - Initial Pre Proc Eval Procedure: Operation Date: 05/25/23 15:00 Proposed Procedures p Removal of Tunneled Dialysis Catheter - Janny Easley MD Date/Time: 05/25/23 13:38 Surgeon: Janny Easley MD Pre Op Diagnosis: pauci-immune rpgn Acute kidney failure Patient Data Age: 58 Gender: M Height: 1.73 m Weight: 98.4 kg Last Vital Signs Temp 36.6 C 05/25/23 13:00 Pulse 83 05/25/23 13:00 Resp 16 05/25/23 13:00 BP 143/91 H 05/25/23 13:00 Pulse Ox 100 05/25/23 13:00 O2 Del Method Room Air 05/25/23 13:00 Allergies Allergy/AdvReac Type Severity Reaction Status Date / Time Sulfa (Sulfonamide Allergy Intermediate Hives Verified 05/25/23 13:08 Antibiotics) Home Medications Medication Instructions Recorded Confirmed Type calcium carbonate 500 mg calcium 200 mg PO BIDWM #60 tabs 05/10/23 05/25/23 Rx (1,250 mg) chewable tablet cyclophosphamide 50 mg capsule 100 mg PO DAILY 14 days #28 caps 05/10/23 05/25/23 Rx diltiazem HCl 180 mg 180 mg PO QAM 30 days #30 caps 05/10/23 05/25/23 Rx capsule,extended release 24 hr, controlled labetalol 100 mg tablet 50 mg PO Q12H #30 tabs 05/10/23 05/25/23 Rx pantoprazole 40 mg tablet,delayed 40 mg PO QAM 14 days #14 tabs 05/10/23 05/25/23 Rx release sevelamer carbonate 800 mg tablet 800 mg PO TIDWM 30 days #90 tabs 05/10/23 05/25/23 Rx (Renvela) prednisone 20 mg tablet 30 mg PO DAILY@0800 05/22/23 05/25/23 History Laboratory Tests 05/25/23 13:22 Sodium Pending Potassium Pending Chloride Pending Carbon Dioxide Pending Anion Gap Pending BUN Pending Creatinine Pending Estim Creat Clear Calc Pending Estimated GFR Pending Glucose Pending Calcium Pending Patient hx anesthesia problems: none Family hx anesthesia problems: none Results Review: All pre-operative results and documents have been reviewed as part of the pre-operative evaluation. [facility] Past Medical History Medical History Clavicle fracture Lumbar radiculopathy Sinus disease Surgical History Surgical History History of foot surgery Hx of tonsillectomy Family History Family History Father Acute myocardial infarction Sibling Hypertension Father Family history of heart disease in male family member before age 55 Social History Social History Social History: Surrogate medical decision maker: Ambika Braun, spouse. Code status: Full code. Smoking status: Former smoker Tobacco type: cigarettes Smoking end date: 10/16/09 Additional smoking assessment comments: cigarettes 1 1/2ppd x 25 years Alcohol intake: never Alcohol use details: rarely Substance use: never Lack of Transportation: No Lack of Food: Never True Current Housing: I Have Housing Concerned About Future Housing: No Difficulty Paying Gas/Electric Bills: No Difficulty Paying for Meds: No Currently Unemployed: No Education: High School Diploma/GED Difficulty w/ Childcare or Family Care: No Living arrangements: with family Additional occupation/education comments: [employer] Gender identity (if verbalized by the patient): Male Spiritual care concerns: No Anes - Eval Final PreProcedure Day of Procedure 05/25/23 13:38 Patient weight: obese Heart: regular rate and rhythm Lungs: decreased breath sounds Airway: Mallampati scale class II Neurological: alert and oriented Last oral intake: >/= 8 hours ASA classification: III Emergent: no Anesthetic plan: proceed Anesthesia type and monitoring: general GIVS and standard monitoring Results Review: All pre-operative results and documents have been reviewed as part of the pre-operative evaluation
[2023-05-25 13:40] LABS: Anion Gap 7 mmol/L (8-16); Blood Urea Nitrogen 68 mg/dL (9-20); Calcium 8.8 mg/dL (8.4-10.2); Carbon Dioxide 12 mmol/L (22-30); Chloride 116 mmol/L (98-107); Estimated CRCL calculation 28 ml/min; Estimated Glomerular Filt Rate 22; Glucose 105 mg/dL (65-110); Potassium 6.2 mmol/L (3.4-5.0); Sodium 135 mmol/L (137-145)
--- NOTE | 2023-05-25 13:43 | ECG_ITS ---
Measurements Intervals [place] Rate: 80 P: 44 SD: 159 QRS: 22 QRSD: 94 T: 41 QT: 335 QTc: 388 Interpretive Statements SINUS RHYTHM WITH OCCASIONAL SUPRAVENTRICULAR PREMATURE COMPLEXES COMPARED TO ECG 05/01/2023 18:52:21 NO SIGNIFICANT CHANGES Electronically Signed On 05-25-2023 14:01:48 CDT by Rosa Chamberlain M.D.
[2023-05-25] MEDS: SODIUM CHLORIDE 0.9% IV 500 ML 30 ML IV CONT (13:48)
--- NOTE | 2023-05-25 14:04 | SUR.PREOP ---
dr molina aware of elevated potassium,ordered ekg with results,dr molina talked with dr rincon and dr guzman with proceed with surgery.
[2023-05-25] MEDS: ceFAZolin 2 GM/D5W 50 ML 2 GM/50 ML BAG IVPB (14:32)
[2023-05-25] MEDS: LIDO 1%/EPINEPHRINE 1:100,000 50 ML VIAL 10 ML INFILTRATE (14:48)
[2023-05-25 14:58] VITALS: BP 136/89; PULSE 81; RESP 14; O2SAT 100
--- NOTE | 2023-05-25 15:02 | W.PM.PROC2 ---
Procedure Note - Detailed Date of Procedure 05/25/23 Pre-op Diagnosis Glomerular nephritis Post-op Diagnosis Same Procedure Performed removal of right internal jugular tunneled hemodialysis catheter Surgeon Janny Easley MD Anesthesia MAC and Local Indications 58-year-old male with glomerulonephritis status post treatment with plasmapheresis now needing tunneled dialysis catheter removal Findings previously placed right internal jugular tunneled hemodialysis catheter in right chest with no signs and symptoms of malfunction, infection Description of Procedure The patient was taken the operating room placed in the supine position. After adequate induction of MAC anesthesia, the patient was prepped and draped in the normal sterile fashion. A time-out was then done to verify the patient's identity, as well as the procedure being performed. The area around the catheter and the cuff were then locally anesthetized. I then used a hemostat to bluntly dissect around the cuff. Once this area was free, I put some gentle traction on the catheter and was able to remove it from the right chest. The catheter was noted to be intact. I then held pressure at the level of the right internal jugular vein for approximately 5 minutes. No bleeding was noted. Sterile dressing was then placed on the wound to the right chest. A pressure dressing was also placed at the level of the right IJ. The patient tolerated the procedure well and was alert and awake in the operating room postoperatively. He will be transferred to the recovery room in stable condition. Estimated Blood Loss 0 Pathology None sent Complications No immediate complications Condition Stable Disposition PACU [facility] Billing Surgery - Charge Forward: Surgery Billing
[2023-05-25 15:28] VITALS: BP 137/89; PULSE 80; RESP 14
[2023-05-25 15:35] VITALS: BP 132/84; PULSE 77; RESP 14
== END 2023-05-25 15:45 | disposition home or self-care (01) ==
PROVIDERS: Anesthesiology; Visit Provider Surgery
PROC: (CPT 36589; principal; 2023-05-25 15:00)
DX: Z49.01 Encounter for fitting and adjustment of extracorporeal dialysis catheter (principal); N05.9 Unspecified nephritic syndrome with unspecified morphologic changes; I49.8 Other specified cardiac arrhythmias; I10 Essential (primary) hypertension; D64.9 Anemia, unspecified; E66.9 Obesity, unspecified; Z68.33 Body mass index [BMI] 33.0-33.9, adult; Z87.891 Personal history of nicotine dependence
CPT/HCPCS: 36589; 36415; 80048; 93005; J0690; J2250; J2704; J7040

== ENCOUNTER 2023-06-16 10:39 | Outpatient (CLI) | payer BC, SELFPAY ==
[2023-06-16 10:58] LABS: Hematocrit 28.5 % (42.0-52.0); Hemoglobin 9.5 g/dL (14.0-18.0); Mean Corpuscular HGB Conc 33.3 g/dl (32-36); Mean Corpuscular Hemoglobin 32.3 pg (26-34); Mean Corpuscular Volume 96.9 fl (80-100); Mean Platelet Volume 9.5 fl (7.4-10.4); Platelet Count Result 186 k/mm3 (150-375); Red Blood Count 2.94 M/mm3 (4.6-6.20); Red Cell Distribution Width 16.4 % (11.5-14.5); White Blood Count 10.1 K/mm3 (4.5-10.0)
[2023-06-16 12:01] LABS: Erythrocyte Sedimentation Rate 24 mm/hr (0-20)
[2023-06-16 15:02] LABS: Appearance Urine Clear (Clear); Bacteria Urine None Seen /hpf; Bilirubin Urine Negative (Negative); Blood Urine 2+ (Negative); Color Urine Yellow (Yellow); Glucose Urine UA Negative (Negative); Ketones Urine Negative (Negative); Leukocyte Esterase Ur Negative LEU/UL (NEGATIVE); Nitrate Urine Negative (Negative); Non Pathogenic Casts 0-2; Protein Urine 3+ mg/dL (Negative); Specific Grav Ur 1.012 (1.001-1.035); Squamous Epithelial Cell Urine None seen /hpf (Few); Urobilinogen Urine 0.2 mg/dL (<2.0); WBC Urine 0-5 /hpf (0-3); pH Urine 5.5 (5.0-9.0)
[2023-06-16 15:04] LABS: Add Urine Microscopic? YES
[2023-06-16 15:22] LABS: Creatinine Urine 80.4 mg/dL
[2023-06-16 15:48] LABS: Total Protein Urine Random 531 mg/dL
[2023-06-16 16:56] LABS: Parathyroid Intact 105.8 pg/mL (7.5-53.5)
[2023-06-16 17:02] LABS: Albumin Level 3.1 g/dL (3.5-5.1); Anion Gap 3 mmol/L (8-16); Blood Urea Nitrogen 54 mg/dL (9-20); CRP < 0.5 mg/dL (<1.0); Calcium 8.5 mg/dL (8.4-10.2); Carbon Dioxide 26 mmol/L (22-30); Chloride 105 mmol/L (98-107); Estimated Glomerular Filt Rate 23; Glucose 99 mg/dL (65-110); Phosphorus 3.3 mg/dL (2.5-4.5); Potassium 4.3 mmol/L (3.4-5.0); Sodium 134 mmol/L (137-145)
[2023-06-25 12:47] LABS: ANCA Screen P-ANCA POS (Negative)
[2023-06-25 13:10] LABS: P-ANCA Titer Reflex Chg Test YES
== END 2023-06-16 10:40 | disposition home or self-care (01) ==
PROVIDERS: Internal Medicine Nephrology; Visit Provider Internal Medicine Hematology & Oncology
DX: N01.9 Rapidly progressive nephritic syndrome with unspecified morphologic changes (principal)
CPT/HCPCS: 36415; 80069; 81001; 82570; 83970; 84156; 85027; 85652; 86036; 86140

== ENCOUNTER 2023-07-10 13:04 | Outpatient (CLI) | payer BC, SELFPAY ==
[2023-07-10 16:34] LABS: Creatinine Urine 66.2 mg/dL
[2023-07-10 16:38] LABS: Total Protein Urine Random > 600 mg/dL
[2023-07-10 16:40] LABS: Albumin Level 3.3 g/dL (3.5-5.1); Anion Gap 7 mmol/L (8-16); Blood Urea Nitrogen 35 mg/dL (9-20); CRP 6.9 mg/dL (<1.0); Calcium 9.4 mg/dL (8.4-10.2); Carbon Dioxide 23 mmol/L (22-30); Chloride 101 mmol/L (98-107); Estimated Glomerular Filt Rate 23; Glucose 104 mg/dL (65-110); Phosphorus 3.3 mg/dL (2.5-4.5); Potassium 4.2 mmol/L (3.4-5.0); Sodium 131 mmol/L (137-145)
[2023-07-10 17:09] LABS: Erythrocyte Sedimentation Rate > 140 mm/hr (0-20)
[2023-07-15 14:40] LABS: ANCA Screen P-ANCA POS (Negative); P-ANCA Titer 1:20 Titer (<1:20); P-ANCA Titer Reflex Chg Test YES
== END 2023-07-10 13:05 | disposition home or self-care (01) ==
PROVIDERS: Internal Medicine Nephrology; Visit Provider Internal Medicine Hematology & Oncology
DX: N01.9 Rapidly progressive nephritic syndrome with unspecified morphologic changes (principal)
CPT/HCPCS: 36415; 80069; 82570; 84156; 85652; 86036; 86140

== ENCOUNTER 2023-07-19 13:01 | Inpatient (IN) | payer BC, SELFPAY ==
[2023-07-19] VITALS (28 sets, daily range): BP systolic 107–137; BP diastolic 78–95; PULSE 72–99; RESP 10–28; TEMP 36.4–37.1; O2SAT 85–100
--- NOTE | ~2023-07-19 | XR_ITS ---
XR chest 2V DATE: 07/19/2023 13:30 INDICATION: Fever, cough, shortness of breath. Weakness. TECHNIQUE: PA and lateral views COMPARISON: 05/10/20002019 portable AP chest FINDINGS: Plate and screws are noted at the left clavicle. Normal heart size. No hilar or mediastinal enlargement. Bilateral mild apical capping. No pulmonary i nfiltrate or consolidation, pleural effusion or pulmonary vascular congestion or pneumothorax is dete cted. IMPRESSION: No active cardiopulmonary disease Reviewed, dictated and finalized at location B.
--- NOTE | ~2023-07-19 | CT_ITS ---
EXAMINATION: CT diagnostic chest wo con DATE: 07/19/2023 15:45 INDICATION: fever, hypoxia TECHNIQUE: Computed tomography (CT) of the chest was performed with 100 mL Omnipaque-350 intravenous contrast. Automated exposure control and iterative reconstruction technique were employed. The dose-l ength product was 252.88 mGy-cm. COMPARISON: None. FINDINGS: CHEST: Thoracic aorta: No significant dilation or calcification. Lung parenchyma and airways: Mild diffuse centrilobular nodular opacities. Small focus of groundglass opacity in the right upper lobe. Bibasilar and dependent atelectasis/scar. Thoracic inlet, axillae and chest wall: No thyroid or soft tissue mass. No axillary lymphadenopathy. Uncomplicated appearing fixation hardware in the left scapula. Mediastinum: Enlarged lymph nodes. Heart and pericardium: Normal heart size. No pericardial effusion. Coronary artery calcifications: Mild. Pleura: No effusion or mass. Upper abdomen: No significant finding. Thoracic bones: No acute osseous finding in the chest. IMPRESSION: Pulmonary opacities may reflect hypersensitivity pneumonitis, respiratory bronchiolitis in smokers, o r infectious airways disease. Mediastinal lymphadenopathy. Reviewed, dictated and finalized at location K. IMPRESSION: Pulmonary opacities may reflect hypersensitivity pneumonitis, respiratory bronc hiolitis in smokers, or infectious airways disease. Mediastinal lymphadenopathy.
--- NOTE | 2023-07-19 13:10 | ECG_ITS ---
Measurements Intervals [place] Rate: 88 P: 40 MS: 147 QRS: 22 QRSD: 106 T: 39 QT: 354 QTc: 429 Interpretive Statements SINUS RHYTHM COMPARED TO ECG 05/25/2023 13:53:32 NO SIGNIFICANT CHANGES Electronically Signed On 07-19-2023 19:16:32 CDT by Zhane Patiño M.D.
[2023-07-19 13:40] LABS: Hemoglobin 9.1 g/dL (14.0-18.0); Mean Corpuscular HGB Conc 32.5 g/dl (32-36); Mean Corpuscular Volume 95.2 fl (80-100); Mean Platelet Volume 9.7 fl (7.4-10.4); Platelet Count Result 340 k/mm3 (150-375); Red Blood Count 2.94 M/mm3 (4.6-6.20); Red Cell Distribution Width 14.8 % (11.5-14.5); White Blood Count 5.3 K/mm3 (4.5-10.0)
[2023-07-19 13:49] LABS: INR 0.9; Prothrombin Time 12.6 Seconds (11.1-14.7)
[2023-07-19 13:50] LABS: Partial Thromboplastin Time 27.8 SECONDS (22.3-36.8)
[2023-07-19 13:51] LABS: Lactic Acid Reflex 2.6 mmol/L (0.7-2.0)
[2023-07-19 13:54] LABS: Alanine Aminotransferase 18 U/L (6-50); Albumin Level 3.3 g/dL (3.5-5.1); Alkaline Phosphatase 58 U/L (38-126); Anion Gap 11 mmol/L (8-16); Aspartate Amino Transferase 24 U/L (17-59); Bilirubin,Total 0.6 mg/dL (0.2-1.3); Blood Urea Nitrogen 47 mg/dL (9-20); CRP 3.9 mg/dL (<1.0); Calcium 9.4 mg/dL (8.4-10.2); Carbon Dioxide 18 mmol/L (22-30); Chloride 100 mmol/L (98-107); Estimated CRCL calculation 23 ml/min; Estimated Glomerular Filt Rate 20; Glucose 131 mg/dL (65-110); Potassium 4.1 mmol/L (3.4-5.0); Sodium 129 mmol/L (137-145)
[2023-07-19 14:05] LABS: Appearance Urine Clear (Clear); Bacteria Urine None Seen /hpf; Bilirubin Urine Negative (Negative); Blood Urine Trace (Negative); Color Urine Yellow (Yellow); Glucose Urine UA Negative (Negative); Granular Casts Urine Present /lpf; Hyaline Casts Urine Present /lpf; Ketones Urine Negative (Negative); Leukocyte Esterase Ur Negative LEU/UL (Negative); Mucus Urine Present /lpf; Nitrate Urine Negative (Negative); Protein Urine 3+ mg/dL (Negative); Specific Grav Ur 1.018 (1.001-1.035); Squamous Epithelial Cell Urine None seen /hpf (Few); Urobilinogen Urine 0.2 mg/dL (<2.0); WBC Urine 0-5 /hpf; pH Urine 5.5 (5.0-9.0)
--- NOTE | 2023-07-19 14:13 | ED.FEVER ---
HPI - Fever General Chief Complaint: Fever Stated Complaint: fever- sent by Dr. Frey Time Seen by Provider: 07/19/23 14:01 History of Present Illness HPI Narrative: patient is a 58-year-old male with history of pauci-immune rapidly progressive glomerulonephritis here for fever. patient notes that over the last 1 week he seems to wake up each morning drenched in sweat and feeling warm and flushed. When his checked his temperature he occasionally is febrile, with T-max several days ago of 103 F. He has taken tylenol for the fever twice in the past week, none taken today. This morning he did not check his temperature. He notes that he saw his PCP during this last week for these symptoms, no source of infection was identified, no testing was performed aside from 2 home COVID tests which were negative. he does note intermittent headaches over the last 1 week, as well as sinus drainage. Neither of these are present today. His had contacted his tea tree farm worker office throughout the week given his symptoms and he received a phone call today from Dr. Frey who recommended he come in for full workup for infection. He denies cough, diarrhea, dysuria, any skin infection. No abdominal pain. He notes he has some generalized fatigue right now but is otherwise feeling okay. No recent travel, no known sick contacts, no known TB exposure. He is unsure if he had any testing prior to starting his immunosuppression here while he was hospitalized. Related Data Allergies Allergy/AdvReac Type Severity Reaction Status Date / Time Sulfa (Sulfonamide Allergy Intermediate Hives Verified 06/20/23 11:09 Antibiotics) Review of Systems Review of Systems: All systems reviewed & are unremarkable except as noted in HPI and below PMFSH Past Medical History Medical History Clavicle fracture Lumbar radiculopathy Sinus disease Surgical History Surgical History History of foot surgery Hx of tonsillectomy Family History Family History Father Acute myocardial infarction Sibling Hypertension Father Family history of heart disease in male family member before age 55 Social History Social History Social History: Surrogate medical decision maker: Ambika Braun, spouse. Code status: Full code. Years smoked: 30 Smoking status: Former smoker Tobacco type: cigarettes Smoking end date: 10/16/09 Additional smoking assessment comments: cigarettes 1 1/2ppd x 25 years Alcohol intake: never Alcohol use details: rarely Substance use: never Lack of Transportation: No Lack of Food: Never True Current Housing: I Have Housing Concerned About Future Housing: No Difficulty Paying Gas/Electric Bills: No Difficulty Paying for Meds: No Currently Unemployed: No Education: High School Diploma/GED Difficulty w/ Childcare or Family Care: No Living arrangements: with family Additional occupation/education comments: [employer] Gender identity (if verbalized by the patient): Male Spiritual care concerns: No Exam Narrative: GENERAL: Well-appearing, well-nourished, and in no acute distress. HEAD: Normocephalic, atraumatic. EYES: PERRLA and EOMI. ENT: Nares clear. Mucous membranes moist. NECK: Supple. CHEST: Clear to auscultation. No respiratory distress. HEART: Regular rate and rhythm. Normal peripheral pulses. ABDOMEN: Soft, nontender, nondistended. EXTREMITIES: Normal range of motion. No edema. SKIN: Warm, dry, no rash. NEURO: No focal deficits. Alert and oriented x3. PSYCH: Normal mood and affect. Course Course Emergency Course: Chart review performed. Patient here with fever and fatigue per triage note. Currently being treated with oral chemo and steroids by Dr. Frey due to kidney
[2023-07-19 14:15] LABS: SARS-CoV-2 RNA PCR Negative (Negative)
[2023-07-19 14:16] LABS: Add Urine Microscopic? YES
[2023-07-19 14:28] LABS: Band Neutrophils Percent 2 % (0-6); Lymphocytes Absolute Manual 0.31 K/mm3 (1.1-4.5); Monocytes Absolute Manual 0.26 K/mm3 (0.1-0.90); Monocytes Percent Manual 5 % (3-9); Neutrophils Absolute Manual 4.71 K/mm3 (1.3-6.7); Neutrophils Percent Manual 87 % (46-73); Platelet Estimate Adequate (Adequate); Total Cells Counted 100
[2023-07-19 14:29] LABS: Anisocytosis 1+ (NORMAL); Schistocytes None Seen (NORMAL)
[2023-07-19 16:36] LABS: Reflex Lactic Acid Yes or No Add Lactic
[2023-07-19 17:12] LABS: Lactic Acid 0.8 mmol/L (0.7-2.0)
[2023-07-19] MEDS: DOXYCYCLINE 100 MG/NS 100 ML 100 MG/100 ML BAG IVPB (18:13)
--- NOTE | 2023-07-19 18:16 | ADMGEN ---
This patient, Mike Braun, was admitted to Medical Room 257-01. Patient/family oriented to hospital policies and general routines including ID bracelet, bed and alarms, visiting hours, pain management, procedures, bathroom and other care routines, personal items, smoking policy, room service/diet, and visiting hours. Information on how to activate the Rapid Response Team has been discussed. Patient/Family are encouraged to report perceived risks to care and to ask questions if they do not understand what they are told or what they should do.
[2023-07-19] MEDS: SODIUM CHLORIDE 0.9% IV 1,000 ML 100 ML IV CONT (22:04)
[2023-07-19] MEDS: LABETALOL HCL 50 MG TABLET PO (22:06)
[2023-07-19] MEDS: CITALOPRAM HYDROBROMIDE 10 MG TABLET PO (22:06)
[2023-07-19] MEDS: FAMOTIDINE 20 MG TABLET PO (22:07)
[2023-07-20] VITALS (13 sets, daily range): BP systolic 116–135; BP diastolic 69–89; PULSE 76–97; RESP 16–18; TEMP 36.3–36.9; O2SAT 94–96; BMI 24.7
[2023-07-20 05:41] LABS: Hematocrit 24.2 % (42.0-52.0); Hemoglobin 7.9 g/dL (14.0-18.0); Mean Corpuscular HGB Conc 32.6 g/dl (32-36); Mean Corpuscular Hemoglobin 31.6 pg (26-34); Mean Corpuscular Volume 96.8 fl (80-100); Mean Platelet Volume 9.9 fl (7.4-10.4); Platelet Count Result 265 k/mm3 (150-375); Red Cell Distribution Width 14.8 % (11.5-14.5); White Blood Count 4.1 K/mm3 (4.5-10.0)
[2023-07-20] MEDS: DOXYCYCLINE 100 MG/NS 100 ML 100 MG/100 ML BAG IVPB ×2 (05:50→19:10)
[2023-07-20 05:55] LABS: Albumin Level 2.7 g/dL (3.5-5.1); Anion Gap 5 mmol/L (8-16); Blood Urea Nitrogen 47 mg/dL (9-20); Calcium 8.5 mg/dL (8.4-10.2); Carbon Dioxide 22 mmol/L (22-30); Chloride 106 mmol/L (98-107); Estimated CRCL calculation 25 ml/min; Estimated Glomerular Filt Rate 23; Glucose 98 mg/dL (65-110); Magnesium 2.1 mg/dL (1.6-2.3); Phosphorus 5.9 mg/dL (2.5-4.5); Potassium 3.3 mmol/L (3.4-5.0); Sodium 133 mmol/L (137-145)
[2023-07-20] MEDS: CALCIUM CARBONATE (TUMS) 500 MG (200 MG ELEMENTAL) PO ×2 (08:45→18:04)
[2023-07-20] MEDS: dilTIAZem HCL CD 180 MG CAP.24HR PO (08:45)
[2023-07-20] MEDS: ENOXAPARIN 30 MG/0.3 ML SYRINGE SUB-Q (08:45)
[2023-07-20] MEDS: SEVELAMER CARBONATE 800 MG TABLET PO ×3 (08:45→18:03)
[2023-07-20] MEDS: LABETALOL HCL 50 MG TABLET PO ×2 (08:46→20:00)
[2023-07-20] MEDS: predniSONE 10 MG TABLET PO (08:47)
[2023-07-20] MEDS: FAMOTIDINE 20 MG TABLET PO ×2 (08:47→18:03)
[2023-07-20] MEDS: predniSONE 5 MG TABLET PO (08:47)
--- NOTE | 2023-07-20 10:32 | PM.IMHP ---
H&P: HPI History of Present Illness Date/Time: 07/20/23 10:32 Chief Complaint: patient is a 58-year-old male with history of pauci-immune rapidly progressive glomerulonephritis here for fever.? patient notes that over the last 1 week he seems to wake up each morning drenched in sweat and feeling warm and flushed.? When his checked his temperature he occasionally is febrile, with T-max several days ago of 103 F.? He has taken tylenol for the fever twice in the past week, none taken today. This morning he did not check his temperature. He notes that he saw his PCP during this last week for these symptoms, no source of infection was identified, no testing was performed aside from 2 home COVID tests which were negative.? he does note intermittent headaches over the last 1 week, as well as sinus drainage.? Neither of these are present today.? His had contacted his detective and intelligence analyst office throughout the week given his symptoms and he received a phone call today from Dr. Frey who recommended he come in for full workup for infection.? He denies cough, diarrhea, dysuria, any skin infection.? No abdominal pain.? He notes he has some generalized fatigue right now but is otherwise feeling okay. No recent travel, no known sick contacts, no known TB exposure. He is unsure if he had any testing prior to starting his immunosuppression here while he was hospitalized. Review of Systems Review of Systems: All systems reviewed & are unremarkable except as noted in HPI and below PMFSH Past Medical History Medical History Clavicle fracture Lumbar radiculopathy Sinus disease Surgical History Surgical History History of foot surgery Hx of tonsillectomy Family History Family History Father Acute myocardial infarction Sibling Hypertension Father Family history of heart disease in male family member before age 55 Social History Social History Social History: Surrogate medical decision maker: Ambika Braun, spouse. Code status: Full code. Smoking packs per day: 2 Smoking cigarettes per day: 40.0 Years smoked: 30 Smoking pack-years: 60.00 Smoking status: Former smoker Tobacco type: cigarettes Smokeless tobacco user: chewing tobacco Second hand tobacco smoke exposure: Yes Smoking end date: 10/16/09 Additional smoking assessment comments: cigarettes 1 1/2ppd x 25 years Alcohol intake: former Alcohol use details: rarely Substance use: never Lack of Transportation: No Lack of Food: Never True Current Housing: I Have Housing Concerned About Future Housing: No Difficulty Paying Gas/Electric Bills: No Difficulty Paying for Meds: No Currently Unemployed: No Education: High School Diploma/GED Difficulty w/ Childcare or Family Care: No Living arrangements: with family Additional occupation/education comments: [employer]. Gender identity (if verbalized by the patient): Male Spiritual care concerns: No Meds Home Medications and Allergies Home Medications Medication Instructions Recorded Confirmed Type calcium carbonate 500 mg calcium 200 mg PO BIDWM #60 tabs 05/10/23 07/19/23 Rx (1,250 mg) chewable tablet cyclobenzaprine 5 mg tablet 5 mg PO BID PRN muscle spasm #60 05/29/23 07/19/23 Rx tabs citalopram 10 mg tablet 10 mg PO HS 07/19/23 07/19/23 History diltiazem HCl 180 mg 180 mg PO DAILY 07/19/23 07/19/23 History capsule,extended release 24 hr, controlled (DILT-XR) famotidine 20 mg tablet 20 mg PO BID 07/19/23 07/19/23 History labetalol 100 mg tablet 50 mg PO Q12H 07/19/23 07/19/23 History prednisone 20 mg tablet 10 mg PO DAILY 07/19/23 07/19/23 History prednisone 5 mg tablet 5 mg PO DAILY 07/19/23 07/19/23 History sevelamer carbonate 800 mg tablet 800 mg PO T
[2023-07-20] MEDS: SODIUM CHLORIDE 0.9% IV 1,000 ML 100 ML IV CONT (12:02)
--- NOTE | 2023-07-20 12:37 | P.CDI_ITS ---
* Moderate CDI Query Clarification Request BMI 24.7 Nutritional Diagnostic Statement Moderate Malnutrition related to inadequate protein-energy intake with increase protein-energy needs in setting of acute disease (pneumonia) as evidenced by <75% of EER and 10% weight loss (18 lbs) in the past 2 months. Please refer to the comprehensive nutrition assessment for further information. Please clarify severity of protein calorie malnutrition: * mild * Moderate * Severe * Other/ Unspecified
--- NOTE | 2023-07-20 13:39 | PM.CNNEP ---
Assessment and Plan Assessment and plan (1) Pauci-immune RPGN (rapidly progressive glomerulonephritis): Code(s): N01.9 - Rapidly progressive nephritic syndrome with unspecified morphologic changes Status: Acute Assessment and Plan: biopsy proven on last hospitalization appears to be renal involvement only received once session of dialysis and 7 sessions of plasmaphereses s/p pulse dose steroids and on oral prednisone with ongoing weaning on immunosuppressive medications: initially on oral cytoxan received IV cytoxan x 1 and IV rituximab x 2 (but then insurance insurances delayed further treatment) resumed on oral cytoxan (late June) -- however, ran out about a week ago (prior to admission) renal function has been slowly improving given issues with infection, hold cytoxan for now but continue steroids follow trend of repeat labs and UOP (2) Acute kidney injury: Code(s): N17.9 - Acute kidney failure, unspecified Status: Acute Assessment and Plan: due to #1 slow improvement in creatinine noted follow trend of renal function (3) Pneumonia: Code(s): J18.9 - Pneumonia, unspecified organism Status: Acute Assessment and Plan: complicated by immunocompromised state (renal dysfunction and immunosuppressive therapy) follow culture data on antibiotic therapy (4) Hypertension: Code(s): I10 - Essential (primary) hypertension Status: Chronic Assessment and Plan: reasonable control at this time continue home medications follow trend of hemodynamics (5) Anemia: Code(s): D64.9 - Anemia, unspecified Status: Acute Assessment and Plan: suspect due to acute illness and JONATHAN/ARF dilution effect with IVFs(?) cytoxan could be a contributing factor but was off this medication x 1 week before admission will start Epogen check anemia studies but hesitant to give IV iron in the setting of a acute infection follow trend of H/H (6) GERD (gastroesophageal reflux disease): Code(s): K21.9 - Gastro-esophageal reflux disease without esophagitis Status: Chronic Assessment and Plan: on pepcid I will continue follow the patient with you while he made hospitalized to make further recommendations as needed. Thank you for allowing me to participate in the care of this patient. History of Present Illness Reason for Consult Consult date: 07/20/23 Reason for consult: glomerulonephritis Chief Complaint Chief complaint: right upper lobe pneumonia,jonathan History of Present Illness Narrative: The patient is a 58-year-old male with a past medical history as outlined below who presented to [facility] Emergency room for further evaluation of fevers. The patient reports that over the last week he wakes up each morning quite sweaty in association with a sensation of warmth and being flushed. His apparently checked his temperature during these episodes and reports fevers as high as 103 degrees. He takes Tylenol for the fevers which helped but this issue continues to occur. . He apparently saw his primary care physician with regard to this issue as the concern was of course that he had some type of infection. No specific source of infection was apparent and he did have to home Covid tests that were negative. Associated symptoms include intermittent headaches as well as sinus drainage. His contacted his acquisitions librarian since he is on immunosuppressive medications for his pauci immune glomerulonephritis and it was recommended he come to the ER for further assessment. Workup and evaluation in the emergency room demonstrated the patient to be hemodynamically stable although he was in mild distress. He gave no history of cough, diarrhea, dysuria, chest pain, palpitations, lightheadedness, or dizziness. He did report some shortness of breath particularly with exertional activities. Routine blood t
--- NOTE | 2023-07-20 13:39 | P.CONNP_ITS ---
Assessment and Plan Assessment and plan (1) Pauci-immune RPGN (rapidly progressive glomerulonephritis): Code(s): N01.9 - Rapidly progressive nephritic syndrome with unspecified morphologic changes Status: Acute Assessment and Plan: * biopsy proven on last hospitalization * appears to be renal involvement only * received once session of dialysis and 7 sessions of plasmaphereses * s/p pulse dose steroids and on oral prednisone with ongoing weaning * on immunosuppressive medications: * initially on oral cytoxan * received IV cytoxan x 1 and IV rituximab x 2 (but then insurance insurances delayed further treatment) * resumed on oral cytoxan (late June) -- however, ran out about a week ago (prior to admission) * renal function has been slowly improving * given issues with infection, hold cytoxan for now but continue steroids * follow trend of repeat labs and UOP (2) Acute kidney injury: Code(s): N17.9 - Acute kidney failure, unspecified Status: Acute Assessment and Plan: * due to #1 * slow improvement in creatinine noted * follow trend of renal function (3) Pneumonia: Code(s): J18.9 - Pneumonia, unspecified organism Status: Acute Assessment and Plan: * complicated by immunocompromised state (renal dysfunction and immunosuppressive therapy) * follow culture data * on antibiotic therapy (4) Hypertension: Code(s): I10 - Essential (primary) hypertension Status: Chronic Assessment and Plan: * reasonable control at this time * continue home medications * follow trend of hemodynamics (5) Anemia: Code(s): D64.9 - Anemia, unspecified Status: Acute Assessment and Plan: * suspect due to acute illness and JONATHAN/ARF * dilution effect with IVFs(?) * cytoxan could be a contributing factor but was off this medication x 1 week before admission * will start Epogen * check anemia studies but hesitant to give IV iron in the setting of a acute infection * follow trend of H/H (6) GERD (gastroesophageal reflux disease): Code(s): K21.9 - Gastro-esophageal reflux disease without esophagitis Status: Chronic Assessment and Plan: * on pepcid I will continue follow the patient with you while he made hospitalized to make further recommendations as needed. Thank you for allowing me to participate in the care of this patient. History of Present Illness Reason for Consult Consult date: 07/20/23 Reason for consult: glomerulonephritis Chief Complaint Chief complaint: right upper lobe pneumonia,jonathan History of Present Illness Narrative: The patient is a 58-year-old male with a past medical history as outlined below who presented to [facility] Emergency room for further evaluation of fevers. The patient reports that over the last week he wakes up each morning quite sweaty in association with a sensation of warmth and being flushed. His apparently checked his temperature during these episodes and reports fevers as high as 103 degrees. He takes Tylenol for the fevers which helped but this issue continues to occur. . He apparently saw his primary care physician with regard to this issue as the concern was of course that he had some type of infection. No specific source of infection was apparent and he did have to home Covid tests that were negative. Associated symptoms include intermittent headaches as well as sinus drainage. His contacted his food and beverage intern since he is on immunosuppressive medications for his pauc
[2023-07-20] MEDS: ONDANSETRON INJ 4 MG/2 ML VIAL IV PUSH (14:17)
[2023-07-20] MEDS: CITALOPRAM HYDROBROMIDE 10 MG TABLET PO (20:01)
[2023-07-21] VITALS (13 sets, daily range): BP systolic 134–137; BP diastolic 88–92; PULSE 72–98; RESP 18; TEMP 36.3–36.9; O2SAT 95–100
[2023-07-21] MEDS: SODIUM CHLORIDE 0.9% IV 1,000 ML 100 ML IV CONT ×2 (01:13→11:08)
[2023-07-21] MEDS: DOXYCYCLINE 100 MG/NS 100 ML 100 MG/100 ML BAG IVPB ×2 (06:05→17:05)
[2023-07-21 07:26] LABS: Hematocrit 24.6 % (42.0-52.0); Hemoglobin 7.7 g/dL (14.0-18.0); Mean Corpuscular HGB Conc 31.3 g/dl (32-36); Mean Corpuscular Volume 99.2 fl (80-100); Mean Platelet Volume 10.2 fl (7.4-10.4); Platelet Count Result 275 k/mm3 (150-375); Red Blood Count 2.48 M/mm3 (4.6-6.20); Red Cell Distribution Width 14.6 % (11.5-14.5); White Blood Count 4.5 K/mm3 (4.5-10.0)
[2023-07-21 07:28] LABS: Anion Gap 3 mmol/L (8-16); Blood Urea Nitrogen 37 mg/dL (9-20); Calcium 8.6 mg/dL (8.4-10.2); Carbon Dioxide 22 mmol/L (22-30); Chloride 107 mmol/L (98-107); Estimated CRCL calculation 29 ml/min; Estimated Glomerular Filt Rate 27; Glucose 91 mg/dL (65-110); Potassium 3.4 mmol/L (3.4-5.0); Sodium 132 mmol/L (137-145)
[2023-07-21] MEDS: CALCIUM CARBONATE (TUMS) 500 MG (200 MG ELEMENTAL) PO ×2 (08:12→17:05)
[2023-07-21] MEDS: predniSONE 10 MG TABLET PO (08:12)
[2023-07-21] MEDS: FAMOTIDINE 20 MG TABLET PO ×2 (08:12→17:05)
[2023-07-21] MEDS: ENOXAPARIN 30 MG/0.3 ML SYRINGE SUB-Q (08:13)
[2023-07-21] MEDS: predniSONE 5 MG TABLET PO (08:13)
[2023-07-21] MEDS: SEVELAMER CARBONATE 800 MG TABLET PO ×3 (08:13→17:05)
[2023-07-21] MEDS: dilTIAZem HCL CD 180 MG CAP.24HR PO (08:13)
[2023-07-21] MEDS: LABETALOL HCL 50 MG TABLET PO ×2 (08:13→21:05)
[2023-07-21 08:21] LABS: Anisocytosis 3+ (NORMAL); Band Neutrophils Percent 7 % (0-6); Lymphocytes Absolute Manual 0.22 K/mm3 (1.1-4.5); Monocytes Absolute Manual 0.45 K/mm3 (0.1-0.90); Monocytes Percent Manual 10 % (3-9); Neutrophils Absolute Manual 3.82 K/mm3 (1.3-6.7); Neutrophils Percent Manual 78 % (46-73); Platelet Estimate Adequate (Adequate); Total Cells Counted 100
[2023-07-21 08:22] LABS: Poikilocytosis 2+ (NORMAL)
[2023-07-21 08:23] LABS: Ovalocytes 1+ (NORMAL); Tear Drop Cells 1+ (NORMAL)
[2023-07-21 08:24] LABS: Schistocytes None Seen (NORMAL)
--- NOTE | 2023-07-21 11:01 | PM.PNNEP ---
Progress Note: A&P Assessment and Plan (1) Pauci-immune RPGN (rapidly progressive glomerulonephritis): Code(s): N01.9 - Rapidly progressive nephritic syndrome with unspecified morphologic changes Status: Acute Assessment and Plan: biopsy proven on last hospitalization appears to be just renal involvement at this time received once session of dialysis and 7 sessions of plasmaphereses s/p pulse dose steroids and on oral prednisone with ongoing weaning on immunosuppressive medications: initially on oral cytoxan received IV cytoxan x 1 and IV rituximab x 2 (but then insurance issues delayed further treatment) resumed on oral cytoxan (late June) -- however, ran out about a week ago (prior to admission) renal function has been slowly improving given issues with infection, hold cytoxan for now but continue steroids follow trend of repeat labs and UOP (2) Acute kidney injury: Code(s): N17.9 - Acute kidney failure, unspecified Status: Acute Assessment and Plan: due to #1 slow improvement in creatinine noted follow trend of renal function (3) Pneumonia: Code(s): J18.9 - Pneumonia, unspecified organism Status: Acute Assessment and Plan: complicated by immunocompromised state (renal dysfunction and immunosuppressive therapy) follow culture data given issues with hypoxia and possibility of lung involvement with his known glomerulonephritis, CT of chest ordered for further assessment on antibiotic therapy (4) Hypertension: Code(s): I10 - Essential (primary) hypertension Status: Chronic Assessment and Plan: reasonable control at this time continue home medications follow trend of hemodynamics (5) Anemia: Code(s): D64.9 - Anemia, unspecified Status: Acute Assessment and Plan: suspect due to acute illness and JONATHAN/ARF with associated inflammation dilution effect with IVFs(?) cytoxan could be a contributing factor but was off this medication x 1 week before admission started on Epogen check anemia studies but hesitant to give IV iron in the setting of a possible acute infection follow trend of H/H (6) GERD (gastroesophageal reflux disease): Code(s): K21.9 - Gastro-esophageal reflux disease without esophagitis Status: Chronic Assessment and Plan: on pepcid Will continue to follow. Subjective Date/time seen: 07/21/23 11:01 Interval history: Follow-up for acute kidney injury/acute renal failure due to pauci-imune glomerulonephritis. Overall, he states he feels better; reports shortness of breath with exertion and nursing reports hypoxia whenever oxygen is attempted to be weaned; no apparent distress noted; no other issues/events overnight or earlier this AM; noted low H/H since admission. Exam Narrative: General: WD/WN male in NAD Heart: normal S1 and S2; no rub Lungs: coarse breath sounds Abdomen: soft, nontender, nondistended, positive bowel sounds Extremities: no cyanosis or clubbing; no edema Skin: warm and dry Objective Data Vital Signs Vital Signs: Vital Signs Temp Pulse Resp BP Pulse Ox O2 Del Method O2 Flow Rate 07/21/23 11:00 81 07/21/23 08:00 72 07/21/23 08:00 98 Nasal Cannula 2 07/21/23 08:13 80 07/21/23 08:07 95 Nasal Cannula 2 07/21/23 07:31 97.4 F L 79 18 137/92 H 96 07/21/23 04:00 73 07/21/23 00:00 78 07/20/23 20:00 81 07/20/23 20:00 96 Nasal Cannula 2 07/20/23 20:00 76 07/20/23 19:25 97.3 F L 85 18 125/77 95 Intake/Output Intake/Output: Intake & Output 07/18/23 07/19/23 07/20/23 07/21/23 23:59 23:59 23:59 23:59 Intake Total 150 3030 1930 Output Total 825 725 Balance 150 2205 1205 Meds/Results Medications: Active Medications Generic Name Dose Route Start Last Admin Trade Name Freq PRN Reason Stop Dose
--- NOTE | 2023-07-21 11:01 | P.PNNP_ITS ---
Progress Note: A&P Assessment and Plan (1) Pauci-immune RPGN (rapidly progressive glomerulonephritis): Code(s): N01.9 - Rapidly progressive nephritic syndrome with unspecified morphologic changes Status: Acute Assessment and Plan: * biopsy proven on last hospitalization * appears to be just renal involvement at this time * received once session of dialysis and 7 sessions of plasmaphereses * s/p pulse dose steroids and on oral prednisone with ongoing weaning * on immunosuppressive medications: * initially on oral cytoxan * received IV cytoxan x 1 and IV rituximab x 2 (but then insurance issues delayed further treatment) * resumed on oral cytoxan (late June) -- however, ran out about a week ago (prior to admission) * renal function has been slowly improving * given issues with infection, hold cytoxan for now but continue steroids * follow trend of repeat labs and UOP (2) Acute kidney injury: Code(s): N17.9 - Acute kidney failure, unspecified Status: Acute Assessment and Plan: * due to #1 * slow improvement in creatinine noted * follow trend of renal function (3) Pneumonia: Code(s): J18.9 - Pneumonia, unspecified organism Status: Acute Assessment and Plan: * complicated by immunocompromised state (renal dysfunction and immunosuppressive therapy) * follow culture data * given issues with hypoxia and possibility of lung involvement with his known glomerulonephritis, CT of chest ordered for further assessment * on antibiotic therapy (4) Hypertension: Code(s): I10 - Essential (primary) hypertension Status: Chronic Assessment and Plan: * reasonable control at this time * continue home medications * follow trend of hemodynamics (5) Anemia: Code(s): D64.9 - Anemia, unspecified Status: Acute Assessment and Plan: * suspect due to acute illness and JONATHAN/ARF with associated inflammation * dilution effect with IVFs(?) * cytoxan could be a contributing factor but was off this medication x 1 week before admission * started on Epogen * check anemia studies but hesitant to give IV iron in the setting of a possible acute infection * follow trend of H/H (6) GERD (gastroesophageal reflux disease): Code(s): K21.9 - Gastro-esophageal reflux disease without esophagitis Status: Chronic Assessment and Plan: * on pepcid Will continue to follow. Subjective Date/time seen: 07/21/23 11:01 Interval history: Follow-up for acute kidney injury/acute renal failure due to pauci-imune glomerulonephritis. Overall, he states he feels better; reports shortness of breath with exertion and nursing reports hypoxia whenever oxygen is attempted to be weaned; no apparent distress noted; no other issues/events overnight or earlier this AM; noted low H/H since admission. Exam Narrative: General: WD/WN male in NAD Heart: normal S1 and S2; no rub Lungs: coarse breath sounds Abdomen: soft, nontender, nondistended, positive bowel sounds Extremities: no cyanosis or clubbing; no edema Skin: warm and dry Objective Data Vital Signs Vital Signs: Vital Signs Temp Pulse Resp BP Pulse Ox O2 Del Method O2 Flow Rate 07/21/23 11:00 81 07/21/23 08:00 72 07/21/23 08:00 98 Nasal Cannula 2 07/21/23 08:13 80
[2023-07-21] MEDS: EPOETIN ALFA-EPBX 20,000 UNITS/ML VIAL 20000 UNITS SUB-Q (11:08)
--- NOTE | 2023-07-21 11:11 | PM.IMPN ---
Progress Note: A&P Assessment and Plan (1) Pneumonia of right upper lobe due to infectious organism: Code(s): J18.9 - Pneumonia, unspecified organism Status: Acute Assessment and Plan: Continue antibiotics. (2) Acute kidney failure: Qualifiers: Acute renal failure type: unspecified Qualified Code(s): N17.9 - Acute kidney failure, unspecified Code(s): N17.9 - Acute kidney failure, unspecified Status: Acute Assessment and Plan: Secondary to glomerular nephritis. Continue renal medications. (3) Anxiety: Code(s): F41.9 - Anxiety disorder, unspecified Status: Acute Assessment and Plan: Continue home med (4) GERD (gastroesophageal reflux disease): Code(s): K21.9 - Gastro-esophageal reflux disease without esophagitis Status: Chronic Assessment and Plan: Continue home meds (5) Pauci-immune RPGN (rapidly progressive glomerulonephritis): Code(s): N01.9 - Rapidly progressive nephritic syndrome with unspecified morphologic changes Status: Acute Assessment and Plan: Monitor kidney function. Continue his chronic meds for this. (6) Hypertension: Code(s): I10 - Essential (primary) hypertension Status: Chronic Subjective Date/time seen: 07/21/23 11:11 Interval history: no complaints Exam Narrative: GENERAL: Well-appearing, well-nourished, and in no acute distress. HEAD: Normocephalic, atraumatic. EYES: PERRLA and EOMI. ENT: Nares clear. Mucous membranes moist. NECK: Supple. CHEST: Clear to auscultation. No respiratory distress. HEART: Regular rate and rhythm. Normal peripheral pulses. ABDOMEN: Soft, nontender, nondistended. EXTREMITIES: Normal range of motion. No edema. SKIN: Warm, dry, no rash. NEURO: No focal deficits. Alert and oriented x3. PSYCH: Normal mood and affect. Objective Data Vital Signs Vital Signs: Vital Signs - 24 hr 07/20/23 12:43 07/20/23 13:51 07/20/23 12:01 Temperature 98.4 F Pulse Rate 92 93 Respiratory Rate 16 Blood Pressure 120/80 Pulse Oximetry 95 95 Oxygen Delivery Nasal Cannula Oxygen Flow Rate 2 Fraction of Inspired Oxygen 07/20/23 16:03 07/20/23 19:25 07/20/23 20:00 Temperature 97.3 F L Pulse Rate 80 85 76 Respiratory Rate 18 Blood Pressure 125/77 Pulse Oximetry 95 Oxygen Delivery Oxygen Flow Rate Fraction of Inspired Oxygen 07/20/23 20:00 07/20/23 20:00 07/21/23 00:00 Temperature Pulse Rate 81 78 Respiratory Rate Blood Pressure Pulse Oximetry 96 Oxygen Delivery Nasal Cannula Oxygen Flow Rate 2 Fraction of Inspired Oxygen 07/21/23 04:00 07/21/23 07:31 07/21/23 08:07 Temperature 97.4 F L Pulse Rate 73 79 Respiratory Rate 18 Blood Pressure 137/92 H Pulse Oximetry 96 95 Oxygen Delivery Nasal Cannula Oxygen Flow Rate 2 Fraction of Inspired Oxygen 28 07/21/23 08:13 07/21/23 08:00 07/21/23 08:00 Temperature Pulse Rate 80 72 Respiratory Rate Blood Pressure Pulse Oximetry 98 Oxygen Delivery Nasal Cannula Oxygen Flow Rate 2 Fraction of Inspired Oxygen Intake/Output Intake/Output: Intake & Output 07/18/23 07/19/23 07/20/23 07/21/23 23:59 23:59 23:59 23:59 Intake Total 150 3030 360 Output Total 825 725 Balance 150 2205 -365 Meds/Results Medications: Active Medications Generic Name Dose Route Start Last Admin Trade Name Freq PRN Reason Stop Dose Admin Calcium Carbonate 200 mg 07/20/23 08:00 07/21/23 08:12 Calcium Carbonate (Tums) 500 Mg (200 Mg Elemental) PO 200 mg BIDWM FÁTIMA Administration Citalopram Hydrobromide 10 mg 07/19/23 21:35 07/20/23 20:01 Citalopram Hydrobromide 10 Mg Tablet PO 10 mg HS FÁTIMA Administration Cyclobenzaprine HCl 5 mg 07/19/23 21:12 Cyclobenzaprine Hcl 5 Mg Tablet PO BID PRN muscle spasm Diltiazem HCl 180 mg 07/20/23 09:00 07/21/23 08:13 Diltiazem H
[2023-07-21] MEDS: CITALOPRAM HYDROBROMIDE 10 MG TABLET PO (21:05)
[2023-07-22] VITALS (10 sets, daily range): BP systolic 140–148; BP diastolic 78–92; PULSE 71–88; RESP 18–20; TEMP 36.3–37.2; O2SAT 94–98
[2023-07-22 05:59] LABS: Hematocrit 25.2 % (42.0-52.0); Mean Corpuscular HGB Conc 31.7 g/dl (32-36); Mean Corpuscular Hemoglobin 31.3 pg (26-34); Mean Corpuscular Volume 98.4 fl (80-100); Platelet Count Result 264 k/mm3 (150-375); Red Blood Count 2.56 M/mm3 (4.6-6.20); Red Cell Distribution Width 14.7 % (11.5-14.5)
[2023-07-22 06:08] LABS: Alanine Aminotransferase 13 U/L (6-50); Albumin Level 2.5 g/dL (3.5-5.1); Alkaline Phosphatase 48 U/L (38-126); Anion Gap 4 mmol/L (8-16); Aspartate Amino Transferase 22 U/L (17-59); Bilirubin,Total 0.4 mg/dL (0.2-1.3); Blood Urea Nitrogen 33 mg/dL (9-20); Calcium 8.8 mg/dL (8.4-10.2); Carbon Dioxide 21 mmol/L (22-30); Chloride 110 mmol/L (98-107); Estimated CRCL calculation 33 ml/min; Estimated Glomerular Filt Rate 31; Glucose 92 mg/dL (65-110); Phosphorus 3.8 mg/dL (2.5-4.5); Potassium 3.5 mmol/L (3.4-5.0); Sodium 135 mmol/L (137-145)
[2023-07-22 06:23] LABS: Iron 61 ug/dL (49-181)
[2023-07-22 06:32] LABS: Band Neutrophils Percent 9 % (0-6); Basophils Absolute Manual 0.06 K/mm3 (0.0-0.1); Basophils Percent Manual 1 % (0-1); Eosinophils Absolute Manual 0.06 K/mm3 (0.02-0.5); Eosinophils Percent Manual 1 % (0-4); Lymphocytes Absolute Manual 1.02 K/mm3 (1.1-4.5); Monocytes Percent Manual 5 % (3-9); Neutrophils Absolute Manual 4.56 K/mm3 (1.3-6.7); Neutrophils Percent Manual 67 % (46-73); Nucleated Red Blood Cells 1 %; Total Cells Counted 100
[2023-07-22 06:33] LABS: Anisocytosis 1+ (NORMAL); Percent Iron Saturation 41 % (20-50); Platelet Estimate Adequate (Adequate); Schistocytes None Seen (NORMAL)
[2023-07-22] MEDS: DOXYCYCLINE 100 MG/NS 100 ML 100 MG/100 ML BAG IVPB (06:34)
[2023-07-22 07:13] LABS: Folic Acid 4.4 ng/mL (2.76->20)
[2023-07-22] MEDS: predniSONE 5 MG TABLET PO (08:26)
[2023-07-22] MEDS: CALCIUM CARBONATE (TUMS) 500 MG (200 MG ELEMENTAL) PO (08:26)
[2023-07-22] MEDS: SEVELAMER CARBONATE 800 MG TABLET PO ×2 (08:26→11:27)
[2023-07-22] MEDS: FAMOTIDINE 20 MG TABLET PO (08:26)
[2023-07-22] MEDS: dilTIAZem HCL CD 180 MG CAP.24HR PO (08:26)
[2023-07-22] MEDS: ENOXAPARIN 30 MG/0.3 ML SYRINGE SUB-Q (08:26)
[2023-07-22] MEDS: LABETALOL HCL 50 MG TABLET PO (08:26)
[2023-07-22] MEDS: predniSONE 10 MG TABLET PO (08:26)
[2023-07-22] MEDS: EPOETIN ALFA-EPBX 10,000 UNITS/ML VIAL 10000 UNITS SUB-Q (08:27)
--- NOTE | 2023-07-22 12:00 | PM.DS ---
DS: Admitting Diagnosis Discharge Date July 22, 2023 Admitting Diagnosis Pneumonia DS: Discharge Diagnosis Discharge Diagnosis (1) Pneumonia of right upper lobe due to infectious organism: Code(s): J18.9 - Pneumonia, unspecified organism Status: Acute Assessment and Plan: Continue antibiotics. (2) Acute kidney failure: Qualifiers: Acute renal failure type: unspecified Qualified Code(s): N17.9 - Acute kidney failure, unspecified Code(s): N17.9 - Acute kidney failure, unspecified Status: Acute Assessment and Plan: Secondary to glomerular nephritis. Continue renal medications. (3) Anxiety: Code(s): F41.9 - Anxiety disorder, unspecified Status: Acute Assessment and Plan: Continue home med (4) GERD (gastroesophageal reflux disease): Code(s): K21.9 - Gastro-esophageal reflux disease without esophagitis Status: Chronic Assessment and Plan: Continue home meds (5) Pauci-immune RPGN (rapidly progressive glomerulonephritis): Code(s): N01.9 - Rapidly progressive nephritic syndrome with unspecified morphologic changes Status: Acute Assessment and Plan: Monitor kidney function. Continue his chronic meds for this. (6) Hypertension: Code(s): I10 - Essential (primary) hypertension Status: Chronic DS: Summary Hospital Course Hospital Course: Patient is a 58-year-old gentleman who came in with respiratory complaints and found have pneumonia. He was started on IV antibiotics improved significantly. Will have him evaluated for home oxygen. To note patient has a history of glomerular nephritis and was on immunosuppressants. These have been modified by Nephrology. Otherwise patient can be discharged. Time Spent with Patient Time attestation: Total time spent providing and/or coordinating discharge services: Exam Narrative: GENERAL: Well-appearing, well-nourished, and in no acute distress. HEAD: Normocephalic, atraumatic. EYES: PERRLA and EOMI. ENT: Nares clear. Mucous membranes moist. NECK: Supple. CHEST: Clear to auscultation. No respiratory distress. HEART: Regular rate and rhythm. Normal peripheral pulses. ABDOMEN: Soft, nontender, nondistended. EXTREMITIES: Normal range of motion. No edema. SKIN: Warm, dry, no rash. NEURO: No focal deficits. Alert and oriented x3. PSYCH: Normal mood and affect. DS: Data Data Completed and Pending Labs on day of discharge: Labs from last 24 hours 07/22/23 05:22 WBC 6.0 RBC 2.56 L Hgb 8.0 L Hct 25.2 L MCV 98.4 MCH 31.3 MCHC 31.7 L RDW 14.7 H Plt Count 264 MPV 10.0 Immature Gran % (Auto) Not Reportable Neut % (Auto) Not Reportable Lymph % (Auto) Not Reportable [place] % (Auto) Not Reportable Eos % (Auto) Not Reportable Baso % (Auto) Not Reportable Lymph # (Auto) Not Reportable [place] # (Auto) Not Reportable Eos # (Auto) Not Reportable Baso # (Auto) Not Reportable Abs Immat Gran (auto) Not Reportable Absolute Neuts (auto) Not Reportable Absolute Nucleated RBC Not Reportable Total Counted 100 Neutrophils % (Manual) 67 Band Neutrophils % 9 H Lymphocytes % (Manual) 17.0 L Monocytes % (Manual) 5 Eosinophils % (Manual) 1 Basophils % (Manual) 1 Nucleated RBC % Not Reportable Abs Neuts (Manual) 4.56 Abs Lymphs (Manual) 1.02 L Abs Monocytes (Manual) 0.30 Absolute Eos (Manual) 0.06 Abs Basophils (Manual) 0.06 Nucleated RBCs 1 Platelet Estimate Adequate Anisocytosis 1+ Schistocytes None seen Sodium 135 L Potassium 3.5 Chloride 110 H Carbon Dioxide 21 L Anion Gap 4 L BUN 33 H Creatinine 2.20 H Estim Creat Clear Calc 33 Estimated GFR 31 L Glucose 92 Calcium 8.8 Phosphorus 3.8 Iron 61 TIBC 149 L % Saturation 41 Ferritin 1300.00 H Total Bilirubin 0.4 AST 22 ALT 13 Alkaline Phosphatase 48 Total Protein 5.0 L Albumin 2.5 L Vitamin B12 458.0 Folate 4.4 Preliminary micro re
--- NOTE | 2023-07-22 14:02 | P.PNNP_ITS ---
Progress Note: A&P Assessment and Plan (1) Pauci-immune RPGN (rapidly progressive glomerulonephritis): Code(s): N01.9 - Rapidly progressive nephritic syndrome with unspecified morphologic changes Status: Acute Assessment and Plan: * biopsy proven on last hospitalization * appears to be just renal involvement at this time * received once session of dialysis and 7 sessions of plasmaphereses * s/p pulse dose steroids and on oral prednisone with ongoing weaning * on immunosuppressive medications: * initially on oral cytoxan * received IV cytoxan x 1 and IV rituximab x 2 (but then insurance issues delayed further treatment) * resumed on oral cytoxan (late June) -- however, ran out about a week ago (prior to admission) * The pharmacy finally filled and he will resume his Cytoxan on Monday. * He is also on weaning dose of steroids. He is on 15mg per day. * renal function has been slowly improving today's creatinine is the best it has been since presentation. * given issues with infection, hold cytoxan for now but continue steroids * He should restart his atovaquone on Monday. (2) Acute kidney injury: Code(s): N17.9 - Acute kidney failure, unspecified Status: Acute Assessment and Plan: * due to #1 * slow improvement in creatinine noted * follow trend of renal function (3) Pneumonia: Code(s): J18.9 - Pneumonia, unspecified organism Status: Acute Assessment and Plan: * complicated by immunocompromised state (renal dysfunction and immunosuppressive therapy) * follow culture data * CT chest is done. It could be infection or inflammation. However symptoms are much better with antibiotics and holding this I talked so I think it is more likely the former. We can repeat the chest x-ray in a week or so. He sees me in the office on Monday * on antibiotic therapy (4) Hypertension: Code(s): I10 - Essential (primary) hypertension Status: Chronic Assessment and Plan: * reasonable control at this time * continue home medications * follow trend of hemodynamics (5) Anemia: Code(s): D64.9 - Anemia, unspecified Status: Acute Assessment and Plan: * suspect due to acute illness and JONATHAN/ARF with associated inflammation * dilution effect with IVFs(?) * cytoxan could be a contributing factor but was off this medication x 1 week before admission * started on Epogen * Hemoglobin up a little bit. * Will follow this along and continue Epogen as an outpatient if needed. (6) GERD (gastroesophageal reflux disease): Code(s): K21.9 - Gastro-esophageal reflux disease without esophagitis Status: Chronic Assessment and Plan: * on pepcid Will continue to follow. Subjective Date/time seen: 07/22/23 14:02 Interval history: The patient feels much better than on admission. A little bit of a cough but much better. Strength is much better breathing is okay and he is not on oxygen. Exam Narrative: General: WD/WN male in NAD Heart: normal S1 and S2; no rub or gallop Lungs: coarse breath sounds bilaterally Abdomen: soft, nontender, nondistended, positive bowel sounds Extremities: no cyanosis or clubbing; no edema Skin: No rash Objective Data Vital Signs Vital Signs: Vital Signs - 24 hr 07/21/23 14:48 07/21/23 16:00 07/21/23 19:52 Temperature 97.5 F L Pu
--- NOTE | 2023-07-22 14:02 | PM.PNNEP ---
Progress Note: A&P Assessment and Plan (1) Pauci-immune RPGN (rapidly progressive glomerulonephritis): Code(s): N01.9 - Rapidly progressive nephritic syndrome with unspecified morphologic changes Status: Acute Assessment and Plan: biopsy proven on last hospitalization appears to be just renal involvement at this time received once session of dialysis and 7 sessions of plasmaphereses s/p pulse dose steroids and on oral prednisone with ongoing weaning on immunosuppressive medications: initially on oral cytoxan received IV cytoxan x 1 and IV rituximab x 2 (but then insurance issues delayed further treatment) resumed on oral cytoxan (late June) -- however, ran out about a week ago (prior to admission) The pharmacy finally filled and he will resume his Cytoxan on Monday. He is also on weaning dose of steroids. He is on 15mg per day. renal function has been slowly improving today's creatinine is the best it has been since presentation. given issues with infection, hold cytoxan for now but continue steroids He should restart his atovaquone on Monday. (2) Acute kidney injury: Code(s): N17.9 - Acute kidney failure, unspecified Status: Acute Assessment and Plan: due to #1 slow improvement in creatinine noted follow trend of renal function (3) Pneumonia: Code(s): J18.9 - Pneumonia, unspecified organism Status: Acute Assessment and Plan: complicated by immunocompromised state (renal dysfunction and immunosuppressive therapy) follow culture data CT chest is done. It could be infection or inflammation. However symptoms are much better with antibiotics and holding this I talked so I think it is more likely the former. We can repeat the chest x-ray in a week or so. He sees me in the office on Monday on antibiotic therapy (4) Hypertension: Code(s): I10 - Essential (primary) hypertension Status: Chronic Assessment and Plan: reasonable control at this time continue home medications follow trend of hemodynamics (5) Anemia: Code(s): D64.9 - Anemia, unspecified Status: Acute Assessment and Plan: suspect due to acute illness and JONATHAN/ARF with associated inflammation dilution effect with IVFs(?) cytoxan could be a contributing factor but was off this medication x 1 week before admission started on Epogen Hemoglobin up a little bit. Will follow this along and continue Epogen as an outpatient if needed. (6) GERD (gastroesophageal reflux disease): Code(s): K21.9 - Gastro-esophageal reflux disease without esophagitis Status: Chronic Assessment and Plan: on pepcid Will continue to follow. Subjective Date/time seen: 07/22/23 14:02 Interval history: The patient feels much better than on admission. A little bit of a cough but much better. Strength is much better breathing is okay and he is not on oxygen. Exam Narrative: General: WD/WN male in NAD Heart: normal S1 and S2; no rub or gallop Lungs: coarse breath sounds bilaterally Abdomen: soft, nontender, nondistended, positive bowel sounds Extremities: no cyanosis or clubbing; no edema Skin: No rash Objective Data Vital Signs Vital Signs: Vital Signs - 24 hr 07/21/23 14:48 07/21/23 16:00 07/21/23 19:52 Temperature 97.5 F L Pulse Rate 79 79 Respiratory Rate 18 Blood Pressure 134/88 Pulse Oximetry 100 98 Oxygen Delivery Nasal Cannula Oxygen Flow Rate 1 07/21/23 20:57 07/21/23 21:05 07/22/23 04:45 Temperature 98.4 F 99 F Pulse Rate 83 82 84 Respiratory Rate 18 20 Blood Pressure 137/90 140/78 Pulse Oximetry 97 94 Oxygen Delivery Oxygen Flow Rate 07/21/23 20:00 07/22/23 00:00 07/22/23 04:00 Temperature Pulse Rate 98 77 71 Respiratory Rate Blood Pressure Pulse Oximetry Oxygen Delivery Oxygen Flow Rate 07/22/23 08:26 07/22/23 0
== END 2023-07-22 14:30 | disposition home or self-care (01) | DRG 193 ==
LOC: ANHED 16:30 → ANH2MED 16:54
PROVIDERS: Internal Medicine; Internal Medicine Nephrology; Preventive Medicine Aerospace Medicine; Admitting Provider Chiropractor; Emergency Provider Student in an Organized Health Care Education/Training Program; Visit Provider Chiropractor
DX: J18.9 Pneumonia, unspecified organism (principal); N01.9 Rapidly progressive nephritic syndrome with unspecified morphologic changes; N17.9 Acute kidney failure, unspecified; E44.0 Moderate protein-calorie malnutrition; F41.9 Anxiety disorder, unspecified; D63.8 Anemia in other chronic diseases classified elsewhere; K21.9 Gastro-esophageal reflux disease without esophagitis; I10 Essential (primary) hypertension; Z20.822 Contact with and (suspected) exposure to COVID-19; Z87.891 Personal history of nicotine dependence; Z68.24 Body mass index [BMI] 24.0-24.9, adult
CPT/HCPCS: 36415; 71046; 71250; 80048; 80053; 80069; 81001; 82607; 82728; 82746; 83540; 83550; 83605; 83735; 84100; 85025; 85027; 85610; 85730; 86140; 87040; 87635; 93005; 99285; A9270; J0696; J1650; J2405; J7030; J7512; Q5105; Q5106

== ENCOUNTER 2023-08-22 13:11 | Outpatient (CLI) | payer BC, SELFPAY ==
[2023-08-22 13:26] LABS: Hematocrit 33.8 % (42.0-52.0); Hemoglobin 11.3 g/dL (14.0-18.0); Mean Corpuscular HGB Conc 33.4 g/dl (32-36); Mean Corpuscular Hemoglobin 32.9 pg (26-34); Mean Corpuscular Volume 98.5 fl (80-100); Platelet Count Result 232 k/mm3 (150-375); Red Blood Count 3.43 M/mm3 (4.6-6.20); Red Cell Distribution Width 15.3 % (11.5-14.5); White Blood Count 6.8 K/mm3 (4.5-10.0)
[2023-08-22 16:42] LABS: Albumin Level 3.3 g/dL (3.5-5.1); Anion Gap 3 mmol/L (8-16); Blood Urea Nitrogen 28 mg/dL (9-20); Calcium 8.8 mg/dL (8.4-10.2); Carbon Dioxide 22 mmol/L (22-30); Chloride 107 mmol/L (98-107); Estimated Glomerular Filt Rate 26; Glucose 101 mg/dL (65-110); Phosphorus 3.4 mg/dL (2.5-4.5); Potassium 4.3 mmol/L (3.4-5.0); Sodium 132 mmol/L (137-145)
== END 2023-08-22 13:12 | disposition home or self-care (01) ==
LOC: ANHLAB 13:13
PROVIDERS: Internal Medicine Nephrology; Visit Provider Internal Medicine Hematology & Oncology
DX: N01.9 Rapidly progressive nephritic syndrome with unspecified morphologic changes (principal); N17.9 Acute kidney failure, unspecified
CPT/HCPCS: 36415; 80069; 85027

== ENCOUNTER 2023-09-29 14:01 | Outpatient (CLI) | payer BC, SELFPAY ==
[2023-09-29 14:19] LABS: Hematocrit 31.5 % (42.0-52.0); Hemoglobin 10.5 g/dL (14.0-18.0); Mean Corpuscular HGB Conc 33.3 g/dl (32-36); Mean Corpuscular Hemoglobin 32.9 pg (26-34); Mean Corpuscular Volume 98.7 fl (80-100); Mean Platelet Volume 9.5 fl (7.4-10.4); Platelet Count Result 199 k/mm3 (150-375); Red Blood Count 3.19 M/mm3 (4.6-6.20); Red Cell Distribution Width 15.3 % (11.5-14.5); White Blood Count 4.1 K/mm3 (4.5-10.0)
[2023-09-29 16:38] LABS: Albumin Level 3.2 g/dL (3.5-5.1); Anion Gap 2 mmol/L (8-16); Blood Urea Nitrogen 28 mg/dL (9-20); CRP < 0.5 mg/dL (<1.0); Calcium 9.1 mg/dL (8.4-10.2); Carbon Dioxide 25 mmol/L (22-30); Chloride 110 mmol/L (98-107); Estimated Glomerular Filt Rate 26; Glucose 117 mg/dL (65-110); Phosphorus 2.7 mg/dL (2.5-4.5); Potassium 4.1 mmol/L (3.4-5.0); Sodium 137 mmol/L (137-145)
[2023-09-29 16:43] LABS: Parathyroid Intact 66.7 pg/mL (7.5-53.5)
[2023-09-29 16:48] LABS: Erythrocyte Sedimentation Rate 48 mm/hr (0-20)
[2023-09-29 17:23] LABS: Total Protein Urine Random > 600 mg/dL
[2023-10-05 14:59] LABS: ANCA Screen P-ANCA POS (Negative); P-ANCA Titer 1:20 Titer (<1:20); P-ANCA Titer Reflex Chg Test YES
== END 2023-09-29 14:02 | disposition home or self-care (01) ==
LOC: ANHLAB 14:02
PROVIDERS: Internal Medicine Nephrology; Visit Provider Internal Medicine Hematology & Oncology
DX: N01.9 Rapidly progressive nephritic syndrome with unspecified morphologic changes (principal); N18.4 Chronic kidney disease, stage 4 (severe)
CPT/HCPCS: 36415; 80069; 82570; 83970; 84156; 85027; 85652; 86036; 86140

== ENCOUNTER 2023-12-12 13:09 | Outpatient (CLI) | payer BC, SELFPAY ==
[2023-12-12 13:44] LABS: Hematocrit 29.8 % (42.0-52.0); Hemoglobin 9.8 g/dL (14.0-18.0); Mean Corpuscular HGB Conc 32.9 g/dl (32-36); Mean Corpuscular Hemoglobin 34.5 pg (26-34); Mean Corpuscular Volume 104.9 fl (80-100); Mean Platelet Volume 9.8 fl (7.4-10.4); Platelet Count Result 231 k/mm3 (150-375); Red Blood Count 2.84 M/mm3 (4.6-6.20); Red Cell Distribution Width 12.9 % (11.5-14.5); White Blood Count 5.6 K/mm3 (4.5-10.0)
[2023-12-12 14:07] LABS: Appearance Urine Clear (Clear); Bacteria Urine None Seen /hpf; Bilirubin Urine Negative (Negative); Blood Urine Negative (Negative); Color Urine Yellow (Yellow); Glucose Urine UA Negative (Negative); Ketones Urine Negative (Negative); Leukocyte Esterase Ur Negative LEU/UL (NEGATIVE); Nitrate Urine Negative (Negative); Non Pathogenic Casts 0-2; Protein Urine 3+ mg/dL (Negative); RBC Urine 0-2 /hpf (0-2); Specific Grav Ur 1.011 (1.001-1.035); Squamous Epithelial Cell Urine None seen /hpf (Few); Urobilinogen Urine 0.2 mg/dL (<2.0); WBC Urine 0-5 /hpf (0-3); pH Urine 5.5 (5.0-9.0)
[2023-12-12 14:18] LABS: Add Urine Microscopic? YES
[2023-12-12 16:32] LABS: Albumin Level 3.9 g/dL (3.5-5.1); Anion Gap 4 mmol/L (8-16); Blood Urea Nitrogen 44 mg/dL (9-20); Calcium 9.5 mg/dL (8.4-10.2); Carbon Dioxide 24 mmol/L (22-30); Chloride 105 mmol/L (98-107); Estimated Glomerular Filt Rate 17; Glucose 98 mg/dL (65-110); Phosphorus 4.2 mg/dL (2.5-4.5); Potassium 4.4 mmol/L (3.4-5.0); Sodium 133 mmol/L (137-145)
[2023-12-12 16:33] LABS: Creatinine Urine 104.1 mg/dL
[2023-12-12 16:43] LABS: Parathyroid Intact 109.1 pg/mL (7.5-53.5)
[2023-12-12 17:38] LABS: Total Protein Urine Random 313 mg/dL; Ur Ttl Prot Creatinine Ratio 3.01 mg/mg (0-0.20)
[2023-12-17 21:28] LABS: ANCA Screen P-ANCA POS (Negative)
[2023-12-17 21:38] LABS: P-ANCA Titer Reflex Chg Test YES
== END 2023-12-12 13:10 | disposition home or self-care (01) ==
LOC: ANHLAB 13:25
PROVIDERS: Internal Medicine Nephrology; Visit Provider Internal Medicine Hematology & Oncology
DX: N01.9 Rapidly progressive nephritic syndrome with unspecified morphologic changes (principal); N18.4 Chronic kidney disease, stage 4 (severe)
CPT/HCPCS: 36415; 80069; 81001; 82570; 83970; 84156; 85027; 86036

== ENCOUNTER 2023-12-13 13:56 | Outpatient (CLI) | payer BC, SELFPAY ==
--- NOTE | ~2023-12-13 | XR_ITS ---
EXAMINATION: XR chest 2V DATE: 12/13/2023 14:07 INDICATION: Stage IV chronic kidney disease TECHNIQUE: PA and lateral views of the chest were obtained. COMPARISON: Chest radiograph dated 07/19/2023 FINDINGS: The lungs are clear with no focal airspace opacities, pulmonary edema, pleural effusion or pneumothor ax. The cardiomediastinal silhouette is normal. Plain screw fixation along the left clavicle. IMPRESSION: 1. No acute cardiopulmonary disease. Reviewed, dictated and finalized at location B. [facility]
== END 2023-12-13 13:57 | disposition home or self-care (01) ==
LOC: ANHIMG 13:57
PROVIDERS: Visit Provider Internal Medicine Nephrology
DX: N01.9 Rapidly progressive nephritic syndrome with unspecified morphologic changes (principal); N18.4 Chronic kidney disease, stage 4 (severe)
CPT/HCPCS: 71046

== ENCOUNTER 2023-12-18 13:19 | Outpatient (CLI) | payer BC, SELFPAY ==
[2023-12-18 13:47] LABS: Hematocrit 29.6 % (42.0-52.0); Hemoglobin 9.9 g/dL (14.0-18.0); Mean Corpuscular HGB Conc 33.4 g/dl (32-36); Mean Corpuscular Hemoglobin 34.7 pg (26-34); Mean Corpuscular Volume 103.9 fl (80-100); Mean Platelet Volume 9.5 fl (7.4-10.4); Platelet Count Result 235 k/mm3 (150-375); Red Blood Count 2.85 M/mm3 (4.6-6.20); Red Cell Distribution Width 13.1 % (11.5-14.5); White Blood Count 5.4 K/mm3 (4.5-10.0)
[2023-12-18 16:08] LABS: Albumin Level 3.8 g/dL (3.5-5.1); Anion Gap 8 mmol/L (8-16); Blood Urea Nitrogen 39 mg/dL (9-20); Calcium 9.2 mg/dL (8.4-10.2); Carbon Dioxide 19 mmol/L (22-30); Chloride 106 mmol/L (98-107); Creatinine Urine 118.7 mg/dL; Estimated Glomerular Filt Rate 24; Glucose 93 mg/dL (65-110); Phosphorus 3.5 mg/dL (2.5-4.5); Potassium 4.6 mmol/L (3.4-5.0); Sodium 133 mmol/L (137-145)
[2023-12-18 16:25] LABS: Total Protein Urine Random 553 mg/dL; Ur Ttl Prot Creatinine Ratio 4.66 mg/mg (0-0.20)
== END 2023-12-18 13:20 | disposition home or self-care (01) ==
PROVIDERS: Internal Medicine Nephrology; Visit Provider Internal Medicine Hematology & Oncology
DX: N01.9 Rapidly progressive nephritic syndrome with unspecified morphologic changes (principal); N18.4 Chronic kidney disease, stage 4 (severe); R06.02 Shortness of breath
CPT/HCPCS: 36415; 80069; 82570; 84156; 85027

== ENCOUNTER 2024-01-11 13:32 | Outpatient (CLI) | payer BC, SELFPAY ==
[2024-01-11 13:52] LABS: Hematocrit 30.4 % (42.0-52.0); Mean Corpuscular HGB Conc 32.9 g/dl (32-36); Mean Corpuscular Hemoglobin 33.7 pg (26-34); Mean Corpuscular Volume 102.4 fl (80-100); Mean Platelet Volume 9.8 fl (7.4-10.4); Platelet Count Result 212 k/mm3 (150-375); Red Blood Count 2.97 M/mm3 (4.6-6.20); Red Cell Distribution Width 12.1 % (11.5-14.5); White Blood Count 4.8 K/mm3 (4.5-10.0)
[2024-01-11 16:51] LABS: Albumin Level 3.9 g/dL (3.5-5.1); Anion Gap 6 mmol/L (4-12); Blood Urea Nitrogen 57 mg/dL (9-20); Carbon Dioxide 20 mmol/L (22-30); Chloride 106 mmol/L (98-107); Estimated Glomerular Filt Rate 21; Glucose 110 mg/dL (65-110); Phosphorus 4.6 mg/dL (2.5-4.5); Potassium 4.4 mmol/L (3.4-5.0); Sodium 132 mmol/L (137-145)
[2024-01-11 17:07] LABS: Total Protein Urine Random 190 mg/dL; Ur Ttl Prot Creatinine Ratio 3.88 mg/mg (0-0.20)
== END 2024-01-11 13:33 | disposition home or self-care (01) ==
LOC: ANHLAB 13:34
PROVIDERS: Internal Medicine Nephrology; Visit Provider Internal Medicine Hematology & Oncology
DX: N18.4 Chronic kidney disease, stage 4 (severe) (principal)
CPT/HCPCS: 36415; 80069; 82570; 84156; 85027

== ENCOUNTER 2024-01-31 07:07 | Outpatient (CLI) | payer BC, SELFPAY ==
[2024-01-23 09:42] VITALS: BMI 24.3
--- NOTE | 2024-01-23 09:43 | PC.NURSE ---
Pre Radiology instructions Report to the outpatient hospital for special care on date 01/31/24 at time 0715 for procedure Time: 0915. YOU MAY BE MONITORED AT HOSPITAL FOR UP TO 4 HOURS AFTER YOUR PROCEDURE. A visitor will be allowed to accompany the patient into the hospital. You and your visitor will be asked to self-screen and do not enter if you have any COVID symptoms. A mask is OPTIONAL within the hospital. Patients are to have no food or drink 6 hours prior to procedure time Driving will be restricted after the procedure, you must have a person to drive you home. Labs will be drawn in preop area and once reviewed, you will be taken to radiology area for procedure. When the procedure is completed, you will be taken to outpatient where you will be monitored for several hours. You may have one visitor in this area. Other than holding anti-coagulants, patient may take other medication(s) as scheduled. Prior to your appointment date patients are instructed to hold anti-coagulants after discussing with ordering provider to stop. If unable to discontinue anti-coagulants please notify radiologist. ? No aspirin or warfarin (Coumadin) for 7 days prior to the procedure. ? No clopidogrel (Plavix), ticagrelor (Brilinta), prasugrel (Effient) or dabigatran (Pradaxa) for 5 days prior to the procedure. ? No rivaroxaban (Xarelto), apixaban (Eliquis), dipyridamole (Aggrenox or Persantine) or cilostazol (Pletal) for 2 days prior to the procedure. Medications to discontinue per physician: N/A Date to take last dose: N/A Please leave all valuables, including medications, at home the day of procedure. The hospital will not accept responsibility for valuables. Wear comfortable, loose fitting clothing.? Follow any additional instructions given to you from ordering provider. Telephone instructions given to RAULITO HORTON and asked if any additional questions and then verbalized understanding. Patient advised to call scheduling provider office or registration scheduling [phone] if any additional questions.
[2024-01-31] VITALS (11 sets, daily range): BP systolic 110–133; BP diastolic 78–101; PULSE 62–84; RESP 18; TEMP 36.7; O2SAT 99
--- NOTE | ~2024-01-31 | US_ITS ---
EXAMINATION: US biopsy renal DATE: 01/31/2024 10:29 INDICATION: Stage IV chronic kidney disease TECHNIQUE: The procedure including the risks, benefits, and alternatives was discussed with the patie nt. Risks discussed included bleeding and infection. The patient understood the risks and agreed to p roceed. A timeout was performed to verify the patient's name, date of , and procedure to be p erformed. The skin overlying the left kidney was prepped and draped in usual sterile fashion. Anest hetic was administered with 1% lidocaine subcutaneously. An 18 gauge core biopsy needle was then use d to obtain 3 core biopsy specimens under continuous sonographic guidance. The entry site was cleaned and dressed. There were no immediate complications. FINDINGS: Ultrasound images demonstrate the needle in the kidney. IMPRESSION: 1. Ultrasound-guided random left kidney core needle biopsy. Reviewed, dictated and finalized at location A.
[2024-01-31 08:27] LABS: Prothrombin Time 13.3 Seconds (11.1-14.7)
== END 2024-01-31 14:25 | disposition home or self-care (01) ==
PROVIDERS: Referring Provider Internal Medicine Nephrology; Visit Provider Radiology Diagnostic Radiology
PROC: (CPT 76942; principal; 2024-01-31 09:15)
DX: N01.9 Rapidly progressive nephritic syndrome with unspecified morphologic changes (principal); N18.4 Chronic kidney disease, stage 4 (severe); R06.02 Shortness of breath
CPT/HCPCS: 36415; 50200; 76942; 85610; 88300; 88329

== ENCOUNTER 2024-03-27 13:30 | Outpatient (CLI) | payer BC, SELFPAY ==
[2024-03-27 13:48] LABS: Hematocrit 33.3 % (42.0-52.0); Hemoglobin 10.5 g/dL (14.0-18.0); Mean Corpuscular HGB Conc 31.5 g/dl (32-36); Mean Corpuscular Hemoglobin 30.3 pg (26-34); Mean Corpuscular Volume 96.2 fl (80-100); Mean Platelet Volume 9.8 fl (7.4-10.4); Platelet Count Result 216 k/mm3 (150-375); Red Blood Count 3.46 M/mm3 (4.6-6.20); Red Cell Distribution Width 12.8 % (11.5-14.5); White Blood Count 5.1 K/mm3 (4.5-10.0)
[2024-03-27 18:00] LABS: Albumin Level 4.3 g/dL (3.5-5.1); Anion Gap 8 mmol/L (4-12); Blood Urea Nitrogen 63 mg/dL (9-20); Calcium 9.2 mg/dL (8.4-10.2); Carbon Dioxide 17 mmol/L (22-30); Chloride 109 mmol/L (98-107); Estimated Glomerular Filt Rate 20; Glucose 93 mg/dL (65-110); Potassium 5.6 mmol/L (3.4-5.0); Sodium 134 mmol/L (137-145)
== END 2024-03-27 13:31 | disposition home or self-care (01) ==
LOC: ANHLAB 13:31
PROVIDERS: Visit Provider Internal Medicine Nephrology
DX: N18.4 Chronic kidney disease, stage 4 (severe) (principal)
CPT/HCPCS: 36415; 80069; 85027

== ENCOUNTER 2024-05-03 11:03 | Outpatient (CLI) | payer BC, SELFPAY ==
[2024-05-03 11:21] LABS: Hemoglobin 11.3 g/dL (14.0-18.0); Mean Corpuscular HGB Conc 31.4 g/dl (32-36); Mean Corpuscular Hemoglobin 29.7 pg (26-34); Mean Corpuscular Volume 94.7 fl (80-100); Mean Platelet Volume 10.2 fl (7.4-10.4); Platelet Count Result 210 k/mm3 (150-375); Red Cell Distribution Width 13.2 % (11.5-14.5); White Blood Count 4.5 K/mm3 (4.5-10.0)
[2024-05-03 13:32] LABS: Creatinine Urine 84.1 mg/dL
[2024-05-03 13:33] LABS: Albumin Level 4.3 g/dL (3.5-5.1); Anion Gap 10 mmol/L (4-12); Blood Urea Nitrogen 62 mg/dL (9-20); Calcium 9.5 mg/dL (8.4-10.2); Carbon Dioxide 22 mmol/L (22-30); Chloride 104 mmol/L (98-107); Estimated Glomerular Filt Rate 19; Glucose 89 mg/dL (65-110); Phosphorus 4.2 mg/dL (2.5-4.5); Potassium 5.1 mmol/L (3.4-5.0); Sodium 136 mmol/L (137-145)
[2024-05-03 13:44] LABS: Total Protein Urine Random 312 mg/dL; Ur Ttl Prot Creatinine Ratio 3.71 mg/mg (0-0.20)
== END 2024-05-03 11:04 | disposition home or self-care (01) ==
PROVIDERS: Internal Medicine Nephrology; Visit Provider Internal Medicine Hematology & Oncology
DX: N18.4 Chronic kidney disease, stage 4 (severe) (principal)
CPT/HCPCS: 36415; 80069; 82570; 83970; 84156; 85027

== ENCOUNTER 2024-07-09 09:49 | Outpatient (CLI) | payer BC, SELFPAY ==
[2024-07-09 12:31] LABS: Albumin Level 4.1 g/dL (3.5-5.1); Anion Gap 9 mmol/L (4-12); Blood Urea Nitrogen 51 mg/dL (9-20); Calcium 9.1 mg/dL (8.4-10.2); Carbon Dioxide 20 mmol/L (22-30); Chloride 98 mmol/L (98-107); Estimated Glomerular Filt Rate 19; Glucose 90 mg/dL (65-110); Phosphorus 3.9 mg/dL (2.5-4.5); Sodium 127 mmol/L (137-145)
== END 2024-07-09 09:50 | disposition home or self-care (01) ==
PROVIDERS: Internal Medicine Nephrology; Visit Provider Internal Medicine Hematology & Oncology
DX: N18.4 Chronic kidney disease, stage 4 (severe) (principal)
CPT/HCPCS: 36415; 80069

== ENCOUNTER 2024-08-12 10:49 | Outpatient (CLI) | payer BC, SELFPAY ==
[2024-08-12 11:03] LABS: Hematocrit 36.2 % (42.0-52.0); Hemoglobin 11.6 g/dL (14.0-18.0); Mean Corpuscular Hemoglobin 29.9 pg (26-34); Mean Corpuscular Volume 93.3 fl (80-100); Mean Platelet Volume 9.7 fl (7.4-10.4); Platelet Count Result 192 k/mm3 (150-375); Red Blood Count 3.88 M/mm3 (4.6-6.20); Red Cell Distribution Width 13.6 % (11.5-14.5); White Blood Count 5.1 K/mm3 (4.5-10.0)
[2024-08-12 13:12] LABS: Total Protein Urine Random 332 mg/dL; Ur Ttl Prot Creatinine Ratio 3.32 mg/mg (0-0.20)
[2024-08-12 13:59] LABS: Albumin Level 4.2 g/dL (3.5-5.1); Anion Gap 9 mmol/L (4-12); Blood Urea Nitrogen 57 mg/dL (9-20); Calcium 9.1 mg/dL (8.4-10.2); Carbon Dioxide 22 mmol/L (22-30); Chloride 105 mmol/L (98-107); Estimated Glomerular Filt Rate 18; Glucose 86 mg/dL (65-110); Phosphorus 3.8 mg/dL (2.5-4.5); Potassium 5.4 mmol/L (3.4-5.0); Sodium 136 mmol/L (137-145)
== END 2024-08-12 10:50 | disposition home or self-care (01) ==
LOC: ANHLAB 10:50
PROVIDERS: Visit Provider Internal Medicine Nephrology
DX: N01.9 Rapidly progressive nephritic syndrome with unspecified morphologic changes (principal); N18.4 Chronic kidney disease, stage 4 (severe)
CPT/HCPCS: 36415; 80069; 82570; 84156; 85027

== ENCOUNTER 2024-10-04 13:18 | Outpatient (CLI) | payer BC, SELFPAY ==
[2024-10-11 03:04] LABS: ANCA Screen P-ANCA POS (NEGATIVE); P-ANCA Titer 1:20 titer (<1:20); P-ANCA Titer Reflex Chg Test YES
== END 2024-10-04 13:19 | disposition home or self-care (01) ==
LOC: ANHLAB 13:19
PROVIDERS: Visit Provider Internal Medicine Nephrology
DX: N18.4 Chronic kidney disease, stage 4 (severe) (principal); E21.1 Secondary hyperparathyroidism, not elsewhere classified
CPT/HCPCS: 36415; 86036

== ENCOUNTER 2024-12-13 10:03 | Outpatient (CLI) | payer BC, SELFPAY ==
[2024-12-13 10:19] LABS: Hematocrit 35.1 % (42.0-52.0); Hemoglobin 11.2 g/dL (14.0-18.0); Mean Corpuscular HGB Conc 31.9 g/dl (32-36); Mean Corpuscular Hemoglobin 29.6 pg (26-34); Mean Corpuscular Volume 92.9 fl (80-100); Mean Platelet Volume 9.7 fl (7.4-10.4); Platelet Count Result 184 k/mm3 (150-375); Red Blood Count 3.78 M/mm3 (4.6-6.20); Red Cell Distribution Width 13.4 % (11.5-14.5); White Blood Count 4.4 K/mm3 (4.5-10.0)
[2024-12-13 11:42] LABS: Anion Gap 12 mmol/L (4-12); Blood Urea Nitrogen 48 mg/dL (9-20); Calcium 9.1 mg/dL (8.4-10.2); Carbon Dioxide 19 mmol/L (22-30); Chloride 107 mmol/L (98-107); Estimated Glomerular Filt Rate 19; Glucose 96 mg/dL (65-110); Phosphorus 3.6 mg/dL (2.5-4.5); Sodium 138 mmol/L (137-145)
[2024-12-13 11:43] LABS: Parathyroid Intact 182.7 pg/mL (14.5-75.2)
[2024-12-13 12:24] LABS: Creatinine Urine 92.3 mg/dL
[2024-12-13 12:32] LABS: Total Protein Urine Random 321 mg/dL; Ur Ttl Prot Creatinine Ratio 3.48 mg/mg (0-0.20)
[2024-12-19 02:49] LABS: ANCA Screen P-ANCA POS (NEGATIVE); P-ANCA Titer 1:40 titer (<1:20); P-ANCA Titer Reflex Chg Test YES
== END 2024-12-13 10:04 | disposition home or self-care (01) ==
LOC: ANHLAB 10:05
PROVIDERS: PCP Internal Medicine Nephrology; Visit Provider Internal Medicine Hematology & Oncology
DX: N01.9 Rapidly progressive nephritic syndrome with unspecified morphologic changes (principal); N18.4 Chronic kidney disease, stage 4 (severe)
CPT/HCPCS: 36415; 80069; 82570; 83970; 84156; 85027; 86036

== ENCOUNTER 2025-01-29 10:29 | Outpatient (CLI) | payer BC, SELFPAY ==
[2025-01-29 10:52] LABS: Hematocrit 35.8 % (42.0-52.0); Hemoglobin 11.4 g/dL (14.0-18.0); Mean Corpuscular HGB Conc 31.8 g/dl (32-36); Mean Corpuscular Hemoglobin 29.8 pg (26-34); Mean Corpuscular Volume 93.5 fl (80-100); Mean Platelet Volume 10.2 fl (7.4-10.4); Platelet Count Result 183 k/mm3 (150-375); Red Blood Count 3.83 M/mm3 (4.6-6.20); Red Cell Distribution Width 13.4 % (11.5-14.5); White Blood Count 4.9 K/mm3 (4.5-10.0)
[2025-01-29 11:29] LABS: Albumin Level 4.3 g/dL (3.5-5.1); Anion Gap 11 mmol/L (4-12); Blood Urea Nitrogen 52 mg/dL (9-20); CRP < 0.5 mg/dL (<1.0); Calcium 9.1 mg/dL (8.4-10.2); Carbon Dioxide 20 mmol/L (22-30); Chloride 105 mmol/L (98-107); Estimated Glomerular Filt Rate 16; Glucose 113 mg/dL (65-110); Phosphorus 3.2 mg/dL (2.5-4.5); Potassium 5.1 mmol/L (3.4-5.0); Sodium 136 mmol/L (137-145)
--- OUTSIDE RECORDS SUMMARY | 2025-01-29 11:43 | XMS_ITS ---
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 JORDY MERCADO DO Active Last Documented On 4 10:47PM ; [facility] Acute Renal Failure 07/17/2023 JORDY MERCADO DO Active Last Documented On 3 9:37AM ; [facility] Anxiety Disorder Nos 07/17/2023 JORDY MERCADO DO Active Last Documented On 3 9:38AM ; [facility] Abdominal Pain 05/04/2023 JORDY MERCADO DO In active Last Documented On 3 2:13PM ; [facility] Constipation Chronic 05/04/2023 JORDY MERCADO DO Inactive Last Documented On 3 2:12PM ; [facility] Benign Prostatic Hypertrophy 06/08/2022 JORDY MERCADO DO Active Last Documented On 2 9:29AM ; [facility] Closed Fracture of Tarsal an d Metatarsal Bones 05/12/2020 07/29/2023 JORDY MERCADO DO Resolved Last Documented On 3 2:12PM ; [facility] Chest Pain 01/09/2017 06/08/2022 JORDY French ROGELIO DO Resolv ed Last Documented On 2 9:29AM ; [facility] Esophageal Disorders 01/09/2017 06/08/2022 JORDY French ROGELIO DO Resolved Last Documented On 2 9:29AM ; [facility] Plan of Treatment Findings Encounter Date Ordered follow-up visit CHECK UP with JORDY JASON DO 02/20/2024 Last Documented On 4 8:01PM ; [facility] Ordered patient to call if p roblem develops CHECK UP with JORDY MERCADO DO 02/20/2024 Last Documented On 4 8:01PM ; [facility] PLAN [Use for s.o.a.p. note free text] CHECK UP with JORDY MERCADO DO 02/20/2024 Last Documented On 4 8:01PM ; [facility] Ordered follow-up visit CHECK UP with JORDY JASON DO 11/24/2023 Last Documented On 4 10:48PM ; [facility] Ordered patient to call if p roblem develops CHECK UP with JORDY MERCADO DO 11/24/2023 Last Documented On 4 10:48PM ; [facility] PLAN [Use for s.o.a.p. note free text] CHECK UP with JORDY MERCADO DO 11/24/2023 Last Documented On 4 10:48PM ; [facility] Ordered follow-up visit CHECK UP with JORDY JASON DO 08/24/2023 Last Documented On 3 7:47AM ; [facility] Ordered patient to call if p roblem develops CHECK UP with JORDY MERCADO DO 08/24/2023 Last Documented On 3 7:47AM ; [facility] PLAN [Use for s.o.a.p. note free text] CHECK UP with JORDY MERCADO DO 08/24/2023 Last Documented On 3 7:47AM ; [facility] Ordered follow-up visit CHECK UP with JORDY JASON DO 07/25/2023 Last Documented On 3 2:15PM ; [facility] Ordered patient to call if p roblem develops CHECK UP with JORDY MERCADO DO 07/25/2023 Last Documented On 3 2:15PM ; [facility] PLAN [Use for s.o.a.p. note free text] CHECK UP with JORDY MERCADO DO 07/25/2023 Last Documented On 3 2:15PM ; [facility] Ordered follow-up visit SICK VISIT with JORDY JARA DO 07/13/2023 Last Documented On 3 9:41AM ; [facility] Ordered patient to call if p roblem develops SICK VISIT with JORDY MERCADO DO 07/13/2023 Last Documented On 3 9:41AM ; [facility] PLAN [Use for s.o.a.p. note free text] SICK VISI T with JORDY MERCADO DO 07/13/2023 Last Documented On 3 9:41AM ; [facility] Ordered follow-up visit ANNUAL PHYSICAL EXAM wit h JORDY MERCADO DO 07/06/2023 Last Documented On 3 2:45PM ; [facility] Ordered return to the clinic if condition worsens or new symptoms arise ANNUAL PHYSICAL EXAM with JORDY MERCADO DO 07/06/2023 Last Documented On 3 2:45PM ; [facility] PLAN [Use for s.o.a.p. note free text] ANNUAL PHYSICAL EXAM with JORDY MERCADO DO 07/06/2023 Last Documented On 3 2:45PM ; [facility] Ordered patient to call if p roblem develops PROBLEM VISIT with JORDY MERCADO DO 05/01/2023 Last Documented On 3 5:33PM ; [facility] PLAN [Use for s.o.a.p. note free text] PROBLEM VISIT with JORDY MERCADO DO 05/01/2023 Last Documented On 3 5:33PM ; [facility] Ordered return to the clinic if condition worsens or new symptoms arise CHECK UP with JORDY MERCADO DO 06/08/2022 Last Documented On 2 10:36PM ; [facility] PLAN [Use for s.o.a.p. note free text] CHECK UP with JORDY MERCADO DO 06/08/2022 Last Documented On 2 10:36PM ; [facility] Ordered an X-ray PROBLEM VISIT with JORDY WOMACK DO 05/26/2022 Last Documented On 2 2:19PM ; [facility] Ordered return to the clinic if condition worsens or new symptoms arise PROBLEM VISIT with JORDY MERCADO DO 05/26/2022 Last Documented On 2 2:19PM ; [facility] Ordered return to the clinic if condition worsens or new symptoms arise PROBLEM VISIT with JORDY MECRADO DO 03/04/2021 Last Documented On 1 8:34AM ; [facility] PLAN [Use for s.o.a.p. note free text] PROBLEM VISIT with JORDY MERCADO DO 03/04/2021 Last Documented On 1 8:34AM ; [facility] Ordered return to the clinic if condition worsens or new symptoms arise PROBLEM VISIT with JORDY MERCADO DO 01/25/2021 Last Documented On 1 8:35PM ; [facility] PLAN [Use for s.o.a.p. note free text] PROBLEM VISIT with JORDY MERCADO DO 01/25/2021 Last Documented On 1 8:35PM ; [facility] Ordered return to the clinic if condition worsens or new symptoms arise GENERAL OFFICE VISIT with JORDY MERCADO DO 05/06/2020 Last Documented On 0 4:03PM ; [facility] PLAN [Use for s.o.a.p. note free text] GENERAL OFFICE VISIT with JORDY MERCADO DO 05/06/2020 Last Documented On 0 4:03PM ; [facility] ONCE RELEASED FX HEALED 1-2 WEEK CAN DO P.T 1-2 WEEKS AND RESUME WORK SLOW CHECK UP with JORDY MERCADO DO 04/15/2020 Last Documented On 0 6:07PM ; [facility] Ordered follow-up visit CHECK UP with JORDY JASON DO 04/15/2020 Last Documented On 0 6:07PM ; [facility] Ordered return to the clinic if condition worsens or new symptoms arise CHECK UP with JORDY MERCADO DO 04/15/2020 Last Documented On 0 6:07PM ; [facility] Ordered patient to call if p roblem develops PROBLEM VISIT with JORDY MERCADO DO 12/27/2017 Last Documented On 8 6:42PM ; [facility] Ordered return to the clinic if condition worsens or new symptoms arise PROBLEM VISIT with JORDY MERCADO DO 12/27/2017 Last Documented On 8 6:42PM ; [facility] Ordered Transition in care, clinical summary provided PROBLEM VISIT with JORDY MERCADO DO 12/27/2017 Last Documented On 8 6:42PM ; [facility] Ordered patient will call r appointment as needed or in 1 year for annual exam CHECK UP with LORRIE VALLADARES [facility]- WEED INSPECTOR- 03/15/2017 Last Documented On 7 8:57AM ; [facility] Stress test if symptoms reoc cure. Continue the Omeprazole can decrease use if symptoms decrease 3 WK CK-UP with JORDY MERCADO DO 01/04/2017 Last Documented On 7 9:59PM ; [facility] Ordered patient to call if p roblem develops 3 WK CK-UP with JORDY MERCADO DO 01/04/2017 Last Documented On 7 9:59PM ; [facility] Ordered return to the clinic if condition worsens or new symptoms arise 3 WK CK-UP with JORDY MERCADO DO 01/04/2017 Last Documented On 7 9:59PM ; [facility] Ordered Transition in care, clinical summary provided 3 WK CK-UP with JORDY MERCADO DO 01/04/2017 Last Documented On 7 9:59PM ; [facility] Stay hydrated. Start Omepraz ole. Take the Nitro with chest pain for protection. ER if not resolving. Do fasting lab 12 hours CBC, Mag, PSA, CRP, LIPID, CMP order given NEW PATIENT VISIT with JORDY MERCADO DO 12/14/2016 Last Documented On 7 9:02PM ; [facility] Go to the emergency room if condition worsens NEW PATIENT VISIT with JORDY MERCADO 12/14/2016 Last Documented On 7 9:02PM ; [facility] Ordered patient to call if denton philip develops NEW PATIENT VISIT with JORDY MERCADO 12/14/2016 Last Documented On 7 9:02PM ; [facility] Ordered return to the clinic if condition worsens or new symptoms arise NEW PATIENT VISIT with JORDY MERCADO 12/14/2016 Last Documented On 7 9:02PM ; [facility] Ordered Transition in care, clinical summary provided NEW PATIENT VISIT with JORDY MERCADO 12/14/2016 Last Documented On 7 9:02PM ; [facility] bring in results of lab work done at work NEW PATIENT VISIT with JORDY ELIASJERRY ALEXIS 01/04/2012 Last Documented On 2 9:20AM ; [facility] Ordered return to the clinic if condition worsens or new symptoms arise NEW PATIENT VISIT with JORDY ELIASJERRY ALEXIS 01/04/2012 Last Documented On 2 9:20AM ; [facility] Referrals To Diagnosis General Surgery LUCIANO WISE DO Encounter for screening for malignant neoplasm of colon Last Documented On 7 7:32AM ; [facility] General Surgery [address] [address] - Neoplasm of unsp behavior of bone, soft tissue, and skin Note: possible excisional bi opsy if indicated Last Documented On 3 9:40AM ; [facility] Instructions to patient Go to the emergency room if condition worsens Last Documented On 3 3:52PM ; [facility] Go to the emergency room if condition worsens Last Documented On 3 12:00PM ; [facility] Watch for signs/symptoms of infection Last Documented On 3 12:00PM ; [facility] Go to the emergency room if condition worsens Last Documented On 2 9:23AM ; [facility] Intervention and counseling on cessation of tobacco use Last Documented On 2 9:13AM ; [facility] Intervention and counseling on cessation of tobacco use Last Documented On 2 8:58AM ; [facility] Watch for signs/symptoms of infection Last Documented On 1 9:01AM ; [facility] Go to the emergency room if condition worsens Last Documented On 1 8:35PM ; [facility] Watch for signs/symptoms of infection Last Documented On 1 9:55AM ; [facility] Go to the emergency room if condition worsens Last Documented On 0 2:06PM ; [facility] Watch for signs/symptoms of infection Last Documented On 0 1:50PM ; [facility] Go to the emergency room if condition worsens Last Documented On 0 6:04PM ; [facility] Watch for signs/symptoms of infection Last Documented On 0 11:57AM ; [facility] Go to the emergency room if condition worsens Last Documented On 8 6:40PM ; [facility] Go to the emergency room if condition worsens Last Documented On 8 6:41PM ; [facility] Instructions for patient Last Documented On 7 8:52AM ; [facility] Go to the emergency room if condition worsens Last Documented On 7 6:22PM ; [facility] Avoid certain foods Last Documented On 7 6:49PM ; [facility] Assessments Includes: Assessments for all patient encounters Findings Encounter Date Acute renal failure CHECK UP with JORDY HOUSTON F DO 02/20/2024 Last Documented On 4 8:01PM ; [facility] Anxiety disorder NOS CHECK UP with JORDY French PALDASHA FF DO 02/20/2024 Last Documented On 4 8:01PM ; [facility] Acute renal failure CHECK UP with JORDY French PALDASHAF F DO 11/24/2023 Last Documented On 4 10:48PM ; [facility] Anxiety disorder NOS CHECK UP with JORDY French PALDASHA FF DO 11/24/2023 Last Documented On 4 10:48PM ; [facility] Arthralgias of multiple sites CHECK UP with JORDY L PALCHEFF DO 11/24/2023 Last Documented On 4 10:48PM ; [facility] Nausea due to meds CHECK UP with JORDY L PALCHEFF DO 11/24/2023 Last Documented On 4 10:48PM ; [facility] Primary pauci-immune necroti zing and crescentic glomerulonephritis CHECK UP with JORDY L PALCHEFF DO 11/24/2023 Last Documented On 4 10:48PM ; [facility] Somatic dysfunction of cervical region CHECK UP with JORDY L PALCHEFF DO 11/24/2023 Last Documented On 4 10:48PM ; [facility] Acute renal failure CHECK UP with JORDY L PALCHEF F DO 08/24/2023 Last Documented On 3 7:47AM ; [facility] Anxiety disorder NOS CHECK UP with JORDY L PALCHE FF DO 08/24/2023 Last Documented On 3 7:47AM ; [facility] Benign prostatic hypertrophy CHECK UP with JORDY L PALCHEFF DO 08/24/2023 Last Documented On 3 7:47AM ; [facility] Functional constipation CHECK UP with JORDY L PAL CHEFF DO 08/24/2023 Last Documented On 3 7:47AM ; [facility] Nausea CHECK UP with JORDY L PALCHEFF DO 08/24/2023 Last Documented On 3 7:47AM ; [facility] Acute renal failure CHECK UP with JORDY L PALCHEF F DO 07/25/2023 Last Documented On 3 2:15PM ; [facility] Anxiety disorder NOS CHECK UP with JORDY L PALCHE FF DO 07/25/2023 Last Documented On 3 2:15PM ; [facility] Bacterial pneumonia CHECK UP with JORDY L PALCHEF F DO 07/25/2023 Last Documented On 3 2:15PM ; [facility] Acute renal failure SICK VISIT with JORDY Gillian LIMCH EFF DO 07/13/2023 Last Documented On 3 9:41AM ; [facility] Anxiety disorder NOS SICK VISIT with JORDY L PALC HEFF DO 07/13/2023 Last Documented On 3 9:41AM ; [facility] Drug-induced headache withou t intractable headache SICK VISIT with JORDY MECRADO DO 07/13/2023 Last Documented On 3 9:41AM ; [facility] Viral upper respiratory infection SICK VISIT wit h JORDY MERCADO DO 07/13/2023 Last Documented On 3 9:41AM ; [facility] Acute glomerulonephritis ANNUAL PHYSICAL EXAM wi th JORDY MERCADO DO 07/06/2023 Last Documented On 3 2:45PM ; [facility] Allergic rhinitis due to pollen ANNUAL P HYSICAL EXAM with JORDY MERCADO DO 07/06/2023 Last Documented On 3 2:45PM ; [facility] Depression ANNUAL PHYSICAL EXAM with JORDY MERCADO DO 07/06/2023 Last Documented On 3 2:45PM ; [facility] Routine history and physical ANNUAL PHYSICAL EXA M with JORDY MERCADO DO 07/06/2023 Last Documented On 3 2:45PM ; [facility] [L98.8 - Other specified dis orders of the skin and subcutaneous tissue] skin lesion: FOLLOW UP with KAMALJIT MARTINEZ MD 07/06/2023 Last Documented On 3 10:53AM ; [facility] [L98.8 - Other specified dis orders of the skin and subcutaneous tissue] skin lesion: FOLLOW UP with KAMALJIT MARTINEZ MD 06/14/2023 Last Documented On 3 12:36PM ; [facility] [L98.8 - Other specified dis orders of the skin and subcutaneous tissue] skin lesion: CONSULTATION - NEW PATIENT with KAMALJIT MARTINEZ MD 06/08/2023 Last Documented On 3 9:57AM ; [facility] [L30.9 - Dermatitis, unspeci fied] dermatitis PROBLEM VISIT with FRANKLIN BRADLEY-ROMAINE 06/07/2023 Last Documented On 3 2:39PM ; [facility] Neoplasm of unspecified beha vior of bone, soft tissue, and skin PROBLEM VISIT with FRANKLIN BRADLEY-ROMAINE 06/07/2023 Last Documented On 3 2:39PM ; [facility] Abdominal pain PROBLEM VISIT with JORDY EDWARDS DO 05/01/2023 Last Documented On 3 5:33PM ; [facility] Acute renal failure PROBLEM VISIT with JORDY LANG DO 05/01/2023 Last Documented On 3 5:33PM ; [facility] Benign prostatic hypertrophy PROBLEM VISIT with JORDY MERCADO DO 05/01/2023 Last Documented On 3 5:33PM ; [facility] Chronic constipation PROBLEM VISIT with JORDY JARA DO 05/01/2023 Last Documented On 3 5:33PM ; [facility] Benign prostatic hypertrophy CHECK UP with JORDY MERCADO DO 06/08/2022 Last Documented On 2 10:36PM ; [facility] Cramp of limb CHECK UP with JORDY MERCADO DO 06/08/2022 Last Documented On 2 10:36PM ; [facility] Onychomycosis CHECK UP with JORDY MERCADO DO 06/08/2022 Last Documented On 2 10:36PM ; [facility] Primary erectile dysfunction CHECK UP with JORDY MERCADO DO 06/08/2022 Last Documented On 2 10:36PM ; [facility] Routine history and physical CHECK UP with JORDY MERCADO DO 06/08/2022 Last Documented On 2 10:36PM ; [facility] Screening Malig. Neoplasm Rectum CHECK UP with Manuel MERCADO DO 06/08/2022 Last Documented On 2 10:36PM ; [facility] Bursitis of elbow left PROBLEM VISIT with JORDY MERCADO DO 05/26/2022 Last Documented On 2 2:19PM ; [facility] Urticaria PROBLEM VISIT with JORDY EDWARDS DO 03/04/2021 Last Documented On 1 8:34AM ; [facility] Urticaria PROBLEM VISIT with JORDY EDWARDS DO 01/25/2021 Last Documented On 1 8:35PM ; [facility] Benign prostatic hypertrophy GENERAL OFFICE VISI T with JORDY MERCADO DO 05/06/2020 Last Documented On 0 4:03PM ; [facility] Closed fracture of tarsal an d metatarsal bones GENERAL OFFICE VISIT with JORDY MERCADO DO 05/06/2020 Last Documented On 0 4:03PM ; [facility] Routine history and physical GENERAL OFFICE VISI T with JORDY MERCADO DO 05/06/2020 Last Documented On 0 4:03PM ; [facility] Screening Malig. Neoplasm Rectum GENERAL OFFICE VISIT with JORDY MERCADO DO 05/06/2020 Last Documented On 0 4:03PM ; [facility] Open fracture of metatarsal neck ALL 5 LEFT FOOT SURG REPAIR CHECK UP with JORDY MERCADO DO 04/15/2020 Last Documented On 0 6:07PM ; [facility] Open fracture of the left cl avicle POST REPAIR PLATE CHECK UP with JORDY MERCADO DO 04/15/2020 Last Documented On 0 6:07PM ; [facility] Common migraine (without aura) PROBLEM VISIT wit h JORDY MERCADO DO 12/27/2017 Last Documented On 8 6:42PM ; [facility] Upper respiratory infection * PHONE CALL with JACQUIE MERCADO DO 10/10/2017 Last Documented On 7 1:09PM ; [facility] Routine adult history and ph ysical (18-64 yrs) without abnormal findings CHECK UP with LORRIE VALLADARES PMHNP-BC WEED INSPECTOR-BC 03/15/2017 Last Documented On 7 8:57AM ; [facility] Chest pain 3 WK CK-UP with JORDY MERCADO DO 01/04/2017 Last Documented On 7 9:59PM ; [facility] Esophageal disorders 3 WK CK-UP with JORDY JENNINGS DO 01/04/2017 Last Documented On 7 9:59PM ; [facility] Chest pain NEW PATIENT VISIT with JORDY LANG DO 12/14/2016 Last Documented On 7 9:02PM ; [facility] Esophageal reflux NEW PATIENT VISIT with JORDY MERCADO DO 12/14/2016 Last Documented On 7 9:02PM ; [facility] Vertigo NEW PATIENT VISIT with JORDY French JOLANTA MCGRAWJERRY DO 12/14/2016 Last Documented On 7 9:02PM ; [facility] Normal routine history and physical NEW PATIENT VISIT with JORDY MERCADO DO 01/04/2012 Last Documented On 2 9:20AM ; [facility] Instructions Includes: Instructions for all patient encounters Instructions to patient Go to the emergency room if condition worsens Last Documented On 3 3:52PM ; [facility] Go to the emergency room if condition worsens Last Documented On 3 12:00PM ; [facility] Watch for signs/symptoms of infection Last Documented On 3 12:00PM ; [facility] Go to the emergency room if condition worsens Last Documented On 2 9:23AM ; [facility] Intervention and counseling on cessation of tobacco use Last Documented On 2 9:13AM ; [facility] Intervention and counseling on cessation of tobacco use Last Documented On 2 8:58AM ; [facility] Watch for signs/symptoms of infection Last Documented On 1 9:01AM ; [facility] Go to the emergency room if condition worsens Last Documented On 1 8:35PM ; [facility] [facility] Watch for signs/symptoms of infection Last Documented On 1 9:55AM ; [facility] Go to the emergency room if condition worsens Last Documented On 0 2:06PM ; [facility] Watch for signs/symptoms of infection Last Documented On 0 1:50PM ; [facility] Go to the emergency room if condition worsens Last Documented On 0 6:04PM ; [facility] Watch for signs/symptoms of infection Last Documented On 0 11:57AM ; [facility] Go to the emergency room if condition worsens Last Documented On 8 6:40PM ; [facility] Go to the emergency room if condition worsens Last Documented On 8 6:41PM ; [facility] Instructions for patient Last Documented On 7 8:52AM ; [facility] Go to the emergency room if condition worsens Last Documented On 7 6:22PM ; [facility] Avoid certain foods Last Documented On 7 6:49PM ; [facility] Medical Equipment - Implanted Devices Includes: Current and historical Devices No Medical Equipment Recorded Medications Includes: Current and historical Medications Current Medications (continue as prescribed) Citalopram Hydrobromide 20 M G Oral Tablet 02/20/2024 Provider: JORDY MERCADO DO Diagnosis: Other mixed anxi ety disorders TAKE 1 TABLET BY MOUTH EVERY DAY Last Documented On 02/20/2024 2:47PM By JORDY MERCADO DO ; [facility] Mycophenolate Mofetil 500 MG Oral Tablet 01/24/2024 Provider: VIANEY ROWLAND MD Diagnosis: Last Documented On 02/20/2024 2:19PM By Heather GREGORY ; [facility] Famotidine 20 MG Oral Tablet 06/08/2023 Provider: Diagnosis: Last Documented On 06/08/2023 9:19AM By Marcelino GREGORY ; [facility] Sevelamer Carbonate 800 MG Oral Tablet 05/10/2023 Pr ovider: Diagnosis: Last Documented On 3 10:45AM By KATEY GREGORY ; [facility] Dilt-XR 180 MG Oral Capsule Extended Release 24 Hour 0 05/10/2023 Provider: Diagnosis: Last Documented On 3 10:46AM By KATEY GREGORY ; [facility] Labetalol HCl 100 MG Oral Tablet 05/10/2023 Provider : Diagnosis: 1/2 tab po every 12 hours Last Documented On 3 10:47AM By KATEY GREGORY ; [facility] Cyclobenzaprine HCl 10 MG Oral Tablet 02/14/2023 Pro vider: Diagnosis: Last Documented On 3 10:50AM By KATEY GREGORY ; [facility] Past Medications on file Citalopram Hydrobromide 20 MG Oral Tablet 11/20/2023 - 02/20/2024 Provider: JORDY MERCADO DO Diagnosis: Other mixed anxi ety disorders TAKE 1 TABLET BY MOUTH EVERY DAY Last Documented On 02/20/2024 2:34PM By JORDY MERCADO DO ; [facility] Citalopram Hydrobromide 20 MG Oral Tablet 08/24/2023 - 11/20/2023 Provider: JORDY MERCADO DO Diagnosis: Other mixed anxi ety disorders One tablet daily Last Documented On 11/20/2023 10:37AM By JORDY MERCADO DO ; [facility] Citalopram Hydrobromide 20 MG Oral Tablet 07/25/2023 - 08/24/2023 Provider: JORDY MERCADO DO Diagnosis: Other mixed anxi ety disorders One tablet daily Last Documented On 08/24/2023 11:36AM By Jatinder Galicia ; [facility] Citalopram Hydrobromide 10 MG Oral Tablet 07/06/2023 - 08/24/2023 Provider: JORDY MERCADO DO Diagnosis: Depression, unspecified One tablet daily Last Documented On 08/24/2023 11:25AM By JORDY MERCADO DO ; [facility] Cimetidine 300 MG Oral Tablet 06/07/2023 - 08/24/2023 Provider: FRANKLIN MALIK [facility]- Diagnosis: Dermatitis, unspecified One tablet daily Last Documented On 08/24/2023 11:26AM By JORDY MERCADO DO ; [facility] predniSONE 20 MG Oral Tablet 05/26/2023 - 02/20/2024 P sterlingvider: VIANEY ROWLAND MD Diagnosis: Last Documented On 02/20/2024 2:19PM By Heather GREGORY ; [facility] predniSONE 5 MG Oral Tablet 05/26/2023 - 02/20/2024 Pr ovider: VIANEY ROWLAND MD Diagnosis: Last Documented On 02/20/2024 2:19PM By Heather GREGORY ; [facility] Lokelma 5 GM Oral Packet 05/25/2023 - 02/20/2024 Provi gene: VIANEY ROWLAND MD Diagnosis: Last Documented On 02/20/2024 2:19PM By Heather GREGORY ; [facility] Pantoprazole Sodium 40 MG Or al Tablet Delayed Release 05/10/2023 - 08/24/2023 Provider: Diagnosis: Last Documented On 08/24/2023 11:26AM By JORDY MERCADO DO ; [facility] Sildenafil Citrate 25 MG Oral Tablet 06/13/2022 - 05/01/2023 Provider: JORDY MERCADO DO Diagnosis: Erectile dysfunc tion due to arterial insufficiency 1 pill 30 min before needed, max 2 pills a day. if no results after 2-3 times with 1 pill may increase to 2 pills at a time Last Documented On 05/01/2023 11:48AM By Bon GREGORY ; [facility] Cimetidine 400 MG Oral Tablet 06/10/2022 - 06/07/2023 Provider: JORDY MERCADO DO Diagnosis: TAKE 1 TABLET BY MOUTH TWICE DAILY Last Documented On 3 10:46AM By KATEY GREGORY ; [facility] Terbinafine HCl 250 MG Oral Tablet 06/08/2022 - 05/01/2023 Provider: JORDY MERCADO DO Diagnosis: Tinea unguium One tablet daily Last Documented On 05/01/2023 11:47AM By Bon GREGORY ; [facility] Cimetidine 400 MG Oral Tablet 05/05/2021 - 05/26/2022 Provider: JORDY MERCADO DO Diagnosis: Urticaria, unspe cified TAKE 1 TABLET BY MOUTH TWICE DAILY Last Documented On 05/26/2022 8:56AM By Tiffanie GREGORY ; [facility] Cimetidine 400 MG Oral Tablet 03/31/2021 - 05/05/2021 Provider: JORDY MERCADO DO Diagnosis: Urticaria, unspe cified TAKE 1 TABLET BY MOUTH TWICE DAILY Last Documented On 11:39AM By LORRIE VALLADARES [facility] ; [facility] Cimetidine 400 MG Oral Tablet 03/04/2021 - 03/31/2021 Provider: JORDY MERCADO DO Diagnosis: Urticaria, unspe cified One tablet twice a day Last Documented On 4:10PM By ANASTASIYA GREGORY ; [facility] Cephalexin 500 MG Oral Tablet 02/19/2021 - 03/31/2021 Provider: JORDY MERCADO DO Diagnosis: Urticaria, unspe cified One tablet three times a day Last Documented On 1:15PM By ANASTASIYA GREGORY ; [facility] Medrol 4 MG Oral Tablet Therapy Pack 02/01/2021 - 03/31/2021 Provider: JORDY MERCADO DO Diagnosis: Urticaria, unspe cified as directed Last Documented On 1 1:16PM By ANASTASIYA GREGORY ; [facility] Medrol 4 MG Oral Tablet Therapy Pack 01/25/2021 - 02/01/2021 Provider: JORDY MERCADO DO Diagnosis: Urticaria, unspe cified as directed Last Documented On 02/01/2021 9:59AM By JORDY MERCADO DO ; [facility] Ibuprofen 800 MG Oral Tablet 10/23/2020 - 06/07/2023 Provider: JORDY MERCADO DO Diagnosis: Fracture of unsp metatarsal bone(s), left foot, init TAKE 1 TABLET BY MOUTH THREE TIMES DAILY Last Documented On 3 10:46AM By KATEY GREGORY ; [facility] Ibuprofen 800 MG Oral Tablet 08/31/2020 - 10/23/2020 Provider: JORDY MERCADO DO Diagnosis: Fracture of unsp metatarsal bone(s), left foot, init TAKE 1 TABLET BY MOUTH THREE TIMES DAILY Last Documented On 10/23/2020 12:47PM By JORDY MERCADO DO ; [facility] Ibuprofen 800 MG Oral Tablet 05/07/2020 - 08/31/2020 Provider: JORDY MERCADO DO Diagnosis: Fracture of unsp metatarsal bone(s), left foot, init One tablet three times a day Last Documented On 08/31/2020 1:20PM By JORDY MERCADO DO ; [facility] oxyCODONE-Acetaminophen 5-325 MG Oral Tablet 0 - 05/26/2022 Provider: Diagnosis: NEEDED Last Documented On 05/26/2022 8:56AM By Tiffanie GREGORY ; [facility] Aspirin 325 MG Oral Tablet 04/15/2020 - 03/04/2021 Pro vider: Diagnosis: Last Documented On 03/04/2021 8:54AM By JORDY MERCADO DO ; [facility] SUMAtriptan Succinate 100MG Oral Tablet 12/27/2017 - 04/15/2020 Provider: JORDY MERCADO DO Diagnosis: Other migraine, intractable, with status migrainosus TAKE AT THE ONSET OF CELESTIN, MAY REPEAT IN 2 HOURS IS NOT RESOLVING Last Documented On 04/15/2020 10:59AM By JOSE ALFREDO ; [facility] Zithromax Z-Timothy 250MG Oral Tablet 10/10/2017 - 12/27/2017 Provider: JORDY MERCADO DO Diagnosis: Acute upper resp iratory infection, unspecified as directed Last Documented On 12/27/2017 8:28AM By Melissa GREGORY ; [facility] PriLOSEC OTC 20MG Oral Table t Delayed Release 10/06/2017 - 05/26/2022 Provider: JORDY MERCADO DO Diagnosis: One tablet daily Last Documented On 05/26/2022 8:56AM By Tiffanie Posadas Shiv ; [facility] Omeprazole 20MG Oral Capsule Delayed Release 09/29/2017 - 06/07/2023 Provider: JORDY MERCADO DO Diagnosis: Disease of esoph allegra, unspecified 1 capsule daily Last Documented On 3 10:46AM By KATEY GREGORY ; [facility] Omeprazole 20MG Oral Capsule Delayed Release 03/15/2017 - 09/29/2017 Provider: LORRIE VALLADARES [facility]- Diagnosis: Disease of esoph allegra, unspecified 1 capsule daily Last Documented On 09/29/2017 5:00PM By JORDY MERCADO DO ; [facility] Omeprazole 20MG Oral Capsule, delayed-release 01/04/2017 - 03/15/2017 Provider: JORDY MERCADO DO Diagnosis: Disease of esoph allegra, unspecified 1 capsule daily Last Documented On 7 8:36AM By LORRIE VALLADARES [facility] ; [facility] Omeprazole 20MG Oral Capsule, delayed-release 12/14/2016 - 01/04/2017 Provider: JORDY MERCADO DO Diagnosis: Disease of esoph allegra, unspecified Take before evening meal. Last Documented On 7 7:23PM By ANASTASIYA GREGORY ; [facility] Nitrostat 0.4MG Sublingual Tablet, sublingual 12/14/2016 - 05/06/2020 Provider: JORDY MERCADO DO Diagnosis: Chest pain, unspecified 1 q 5 mins for a total of 3 doses PRN Last Documented On 05/06/2020 1:34PM By [email or web address] ; [facility] Medications Administered Includes: Administered Medications in patient's chart No Administered Medications Recorded Vital Signs Includes: Vital Signs from 01/30/2024 through 01/29/2025 Vital Name 02/20/2024 02:11P Blood Pressure Sitting L 132/82 Pulse Rate-Sitting (bpm) 84 Respiration Rate (breaths/min) 20 Height (in) 68 Weight (lb) 158.125 Body Mass Index 24 Body Surface Area 1.8 Oxygen Saturation (%) 93 Last Documented: On 02/20/2024 2:18PM ; [facility] Results Includes: Results from 01/30/2024 through 01/29/2025 No Results Recorded For Specified Dates History of Present Illness History of Present Illness not supported for this document type No History of Present Illness Recorded Social History Description Last Updated Non-smoker 04/15/2020 Last Documented On 0 6:07PM ; [facility] Currently 01/04/2017 Last Documented On 7 9:59PM ; [facility] No tobacco use 12/14/2016 Last Documented On 7 9:02PM ; [facility] Smoking status : Former smoker 7 Last Documented On 7 9:02PM ; [facility] Alcohol 2 per week 01/04/2012 Last Documented On 2 9:20AM ; [facility] 01/04/2012 Last Documented On 2 9:20AM ; [facility] Former smoker 01/04/2012 Last Documented On 2 9:20AM ; [facility] Medical History Includes: Medical History in patient's chart Description Last Updated Vaccine history 08/24/2023 Last Documented On 3 7:47AM ; [facility] History of colonoscopy fiberoptic was pe rformed 05/04/2023 06/07/2023 Last Documented On 3 2:39PM ; [facility] No recent change in medical history 02/15 Last Documented On 7 8:57AM ; [facility] Currently wearing eyeglasses 01/04/2012 Last Documented On 2 9:20AM ; [facility] Wearing contact lenses 01/04/2012 Last Documented On 2 9:20AM ; [facility] Exposure airborne chemical particulate 0 01/04/2012 Last Documented On 2 9:20AM ; [facility] Exposure to chemical liquids 01/04/2012 Last Documented On 2 9:20AM ; [facility] Exposure to dust 01/04/2012 Last Documented On 2 9:20AM ; [facility] Exposure to fumes 01/04/2012 Last Documented On 2 9:20AM ; [facility] High level of environmental noise 2011 Last Documented On 2 9:20AM ; [facility] Smoke exposure 01/04/2012 Last Documented On 2 9:20AM ; [facility] No history of arthritis 01/04/2012 Last Documented On 2 9:20AM ; [facility] No history of cancer 01/04/2012 Last Documented On 2 9:20AM ; [facility] No history of chronic obstructive pulmon lia disease 01/04/2012 Last Documented On 2 9:20AM ; [facility] No history of convulsive disorder 2011 Last Documented On 2 9:20AM ; [facility] No history of diabetes mellitus 01/04/20 12 Last Documented On 2 9:20AM ; [facility] No history of hypertension 01/04/2012 Last Documented On 2 9:20AM ; [facility] No history of stroke syndrome 01/04/2012 Last Documented On 2 9:20AM ; [facility] No history of venereal disease 2 Last Documented On 2 9:20AM ; [facility] No reported cardiovascular symptoms 12/15 Last Documented On 2 9:20AM ; [facility] No reported easy bleeding 01/04/2012 Last Documented On 2 9:20AM ; [facility] No reported recurrent infections 012 Last Documented On 2 9:20AM ; [facility] Family History Includes: Family History in patient's chart Description Last Updated Family history unchanged 06/08/2022 Last Documented On 2 10:36PM ; [facility] Review of Systems Review of Systems not supported for this document type No Review of Systems Recorded Mental Status Description Cognitive functioning was no rmal Oriented to time, place, and person Thought processes were not i mpaired No anxiety No homicidal thoughts Not thinking about suicide The thought content revealed no impairment Functional Status No Functional Status Recorded Physical Exam Physical Exam not supported for this document type No Physical Exam Recorded Immunizations Includes: Immunizations in patient's chart Vaccine Dose # Date Site Reaction(s) Status Source Yvan 1 10/26/2021 Left Arm Complete (Reported) Patient Last Documented On 3 10:55AM ; [facility] Tdap (Boostrix) 1 01/12/2014 Left Arm Complete (Re ported) Patient Last Documented On 3 10:55AM ; [facility] Allergies Includes: Active, inactive, and resolved Allergies Substance Type Reaction Onset Date Resolved Date Statu s Sulfa Antibiotics Allergy 05/26/2022 A ctive Last Documented On 4 2:10PM ; [facility] Encounters Includes: Encounters from 01/30/2024 through 01/29/2025 Encounter Provider Location Date Check-In Time Check-Out Time Diagnosis CHECK UP JRODY MERCADO DO [facility] 02/20/20 24 2:07PM 2:50PM Anxiety Disorder Nos,Acute Renal Failure Insurance Includes: Active Insurance Policies Plan Name Member ID Group # Subscriber Relationship Effect bebeto Dates 1 - [facility] [id number] CLIFFORD KAUFFMAN Self Clinical Notes Includes: Signed Clinical Notes starting from 11/04/2022 * Progress note Date Encounter Last Documented by 02/20/2024 CHECK UP Last documented on 02/27/2024; 8:01 PM, JORDY MERCADO DO; [facility] Active Problems & Conditions - N17.9 - Acute Renal Failure - F41.3 - Anxiety Disorder Nos - N40.0 - Benign Prostatic Hypertrophy - 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 History of Present Illness CLIFFORD KAUFFMAN is a 58 year old male. - Allergy list reviewed - Medication list reviewed - No systemic symptoms - Not feeling tired or poorly - No head symptoms - No neck symptoms - No eye symptoms - No otolaryngeal symptoms - No cardiovascular symptoms - No pulmonary symptoms - No gastrointestinal symptoms - Normal appetite - No genitourinary symptoms - No musculoskeletal symptoms - No anxiety - No depression - No initial insomnia - No middle-night awakening - No homicidal thoughts - Not thinking about suicide - No skin symptoms The patient is a pleasant 58-year-old male who presents today for a 3-month follow-up visit. He is feeling fine today. He reports good moods and sound sleep patterns. With respect to his energy, it is better than prior. He has been taking citalopram 20 mg 1 tab once daily and has been tolerating it well. He denies having thoughts of hurting himself or others. He denies any crying spells or angry spells. He returned back to work a month ago and has been working in a 12-hour rotational shift. He is status post a renal biopsy. He denies any vision changes, headaches, dizziness, or falls. He denies any chest pain, palpitations, shortness of breath, changes in bowel movements such as black or tarry stools, or bladder problems. Current Medication - Citalopram Hydrobromide 20 MG Oral Tablet TAKE 1 TABLET BY MOUTH EVERY DAY, 90 days, 1 refills - Cyclobenzaprine HCl 10 MG Oral Tablet as needed 10 days, 0 refills - Dilt-XR 180 MG Oral Capsule Extended Release 24 Hour 1 capsule daily 30 days, 0 refills - Famotidine 20 MG Oral Tablet One tablet twice a day 0 days, 0 refills - Labetalol HCl 100 MG Oral Tablet as directed 1/2 tab po every 12 hours, 30 days, 0 refills - Mycophenolate Mofetil 500 MG Oral Tablet 30 days, 0 refills - Sevelamer Carbonate 800 MG Oral Tablet One tablet three times a day 30 days, 0 refills Past Medical/Surgical History Reported: No recent change in medical history. Medical: Vaccine history. Currently wearing eyeglasses and currently wearing contact lenses. No reported cardiovascular symptoms, no easy bleeding, and no recurrent infections. Environmental Exposure: Exposure to chemical liquids, exposure to fumes, an exposure to smoke, exposure to noise high level of environmental noise, exposure to dust, and airborne chemical particulate. Other: Diagnostic fiberoptic colonoscopy 05/04/2023 Diagnoses: No diagnosis of systemic hypertension. No diagnosis of chronic obstructive pulmonary disease. No diagnosis of diabetes mellitus. No diagnosis of arthritis. No diagnosis of convulsive disorder No diagnosis of stroke syndrome. No diagnosis of sexually transmitted disease. No diagnosis of cancer Social History Tobacco use: No tobacco use. Former smoker and non-smoker. Smoking status: Former smoker. Alcohol: Alcohol 2 per week. Marital: Currently and . Allergies - Sulfa Antibiotics Family History Family history unchanged Review Of Systems Systemic: No fever, no night sweats, and no edema. Head: No headache. Neck: No neck pain. Eyes: No vision problems. Otolaryngeal: No nasal discharge and no sore throat. Cardiovascular: No chest pain or discomfort and no palpitations. Pulmonary: No dyspnea and not expressed as feeling short of breath. Gastrointestinal: No nausea, no vomiting, and no melena. Genitourinary: No dysuria. Musculoskeletal: No localized joint pain. Neurological: No dizziness and no lightheadedness. Psychological: No high irritability, no emotional hypersensitivity, and no sleep disturbances. No change in thought patterns and no lack of balance between leisure activities and work. Skin: No rash. Physical Findings - Vitals taken 02/20/2024 02:11 pm BP-Sitting L 132/82 mmHg Pulse Rate-Sitting 84 bpm Respiration Rate 20 per min Height 68 in Weight 158 lbs 2 oz Body Mass Index 24 kg/m2 Body Surface Area 1.8 m2 Oxygen Saturation 93 % General Appearance: - Well-appearing. - Alert. - In no acute distress. Neck: Suppleness: - Neck demonstrated no decrease in suppleness. Thyroid: - Showed no abnormalities. Cervical Mass: - No cervical mass was seen. Eyes: General/bilateral: Extraocular Movements: - Normal. Pupils: - PERRLA. Optic Disc: - Normal. Retina: - Fundoscopic exam was normal. Ears: General/bilateral: External Auditory Canal: - External auditory meatus normal. Tympanic Membrane: - Normal. Nose: General/bilateral: Discharge: - No nasal discharge. Sinus Tenderness: - No sinus tenderness. Pharynx: Oropharynx: - Normal. Chest: - No thoracic asymmetry was noted. Lungs: - Normal. - Normal breath sounds/voice sounds. - No wheezing was heard. - No rhonchi were heard. - No rales/crackles were heard. Cardiovascular: Heart Rate And Rhythm: - Normal. Heart Sounds: - Normal. Murmurs: - No murmurs were heard. Carotid Arteries: - No bruit in the carotid artery. Arterial Pulses: - No bruit in the femoral artery. Edema: - Not present. Back: - Normal. - No costovertebral angle tenderness. Abdomen: Auscultation: - Bowel sounds were normal. - A bruit was not heard in the abdomen. Palpation: - Abdominal non-tender. - No mass was palpated in the abdomen. Liver: - Not enlarged. Spleen: - Not enlarged. Musculoskeletal System: General/bilateral: - Musculoskeletal system: normal. Cervical Spine: General/bilateral: - Cervical lymph nodes were not tender on palpation. Lower Leg: General/bilateral: - A positive Aura's sign was not elicited. - Philip Sign was negative. Neurological: - Cognitive functions normal. - Oriented to time, place, and person. Cranial Nerves: - Normal. Sensation: - No sensory exam abnormalities were noted. Motor: - No tremor was seen. Reflexes: - Deep tendon reflexes were normal. Psychiatric: Appearance: - Normal. Demonstrated Behavior: - Behavior demonstrated no abnormalities. Attitude: - Not abnormal. Mood: - Euthymic. Affect: - Normal. Thought Processes: - Not impaired. Thought Content: - Revealed no impairment. Skin: - General appearance was normal. - Color and pigmentation were normal. - No skin lesions. - No rash. Tests Laboratory-based Chemistry: Reviewed laboratory-based chemistry. Assessment - Acute renal failure [N17.9 - Acute kidney failure, unspecified] - Anxiety disorder NOS [F41.3 - Other mixed anxiety disorders] Therapy - Reviewed Blood Pressures. - Dietary regime modified electrolyte levels low in sodium content instructed to monitor salt intake. - Discussed Exercise. - Continue current medication. - Pt encouraged to be compliant with current treatment. - Plan of care reviewed and agreed to by the patient. Vaccinations - Received dose of influenza virus vaccine - Did not receive dose of pneumococcal vaccine Counseling/Education - Reduce caffeine intake Discussed discussion [Use for free text]. Discussed lab test results with Patient. >20 MIN> 50% His blood pressure has been within normal limits. His weight is down 3 pounds since the last visit. Reviewed his most recent lab work which showed INR 1.0, hemoglobin 10, random protein 190, sodium 132, potassium 4.4, BUN 57, creatinine 3.1, glucose 110, phosphorus 4.6, CRP normal, and urinalysis with 3+ protein. Plan StartCited - Other Follow-up FOLLOW UP IN 6 MONTHS. EndCited - Follow-up visit - Patient to call if problem develops PLAN [Use for s.o.a.p. note free text]. Continue present medications, call for refills. He was advised to follow a healthy diet. He was advised to drink plenty of water and stay hydrated. Other Jatinder Galicia, scribing the following service on behalf of Dr. Jordy Mercado, D.O. Practice Management Use of tobacco assessment performed Review of medications documented.
--- OUTSIDE RECORDS SUMMARY | 2025-01-29 11:43 | XMS_ITS | Clinical Summary ---
Author Organization [facility] Address [address] [place] [address] Phone Care Team Providers Care Crm Marketing Specialist Name Role Phone ROGELIO ALEXIS JORDY French Primary Care Provider [phone] Reason for Visit and Chief Complaint The Chief Complaint is: Patient has had chills, fever, BA, CELESTIN, cough, and congestion for a week. 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 note free text]. - Last Documented On 07/17/2023 9:41AM ; [facility] Discussed diet modifications and advised to follow them. He was suggested to add salt in his diet and follow a healthy diet. He was advised to drink plenty of water and stay hydrated. If headache persists/worsens, call or report back. - Last Documented On 07/17/2023 9:41AM ; [facility] Assessments Includes: Assessments from this encounter Findings - Acute renal failure [N17.9 - Acute kidney failure, unspecified] - Last Documented On 07/17/2023 9:41AM ; [facility] - Drug-induced headache without intractable headache [G44.40 - Drug-induced headache, not elsewhere classified, not intractable] - Last Documented On 07/17/2023 9:41AM ; [facility] - Anxiety disorder NOS [F41.3 - Other mixed anxiety disorders] - Last Documented On 07/17/2023 9:41AM ; [facility] - Viral upper respiratory infection [J06.9 - Acute upper respiratory infection, unspecified] - Last Documented On 07/17/2023 9:41AM ; [facility] Medical Equipment - Implanted Devices Includes: Current Devices No Medical Equipment Recorded Medications Includes: Medications discussed during this encounter and other current Medications Current Medications (continue as prescribed) Citalopram Hydrobromide 20 M G Oral Tablet 02/20/2024 Provider: JORDY ARNOLD DO Diagnosis: Other mixed anxi ety disorders TAKE 1 TABLET BY MOUTH EVERY DAY Last Documented On 02/20/2024 2:47PM By JORDY ARNOLD DO ; [facility] Mycophenolate Mofetil 500 MG Oral Tablet 01/24/2024 Provider: VIANEY ROWLAND MD Diagnosis: Last Documented On 02/20/2024 2:19PM By Heather GREGORY ; [facility] Famotidine 20 MG Oral Tablet 06/08/2023 Provider: Diagnosis: Last Documented On 06/08/2023 9:19AM By Marcelino GREGORY ; [facility] Sevelamer Carbonate 800 MG Oral Tablet 05/10/2023 Pr ovider: Diagnosis: Last Documented On 10:45AM By KATEY GREGORY ; [facility] Dilt-XR 180 MG Oral Capsule Extended Release 24 Hour 0 05/10/2023 Provider: Diagnosis: Last Documented On 3 10:46AM By KATEY GREGORY ; [facility] Labetalol HCl 100 MG Oral Tablet 05/10/2023 Provider : Diagnosis: 1/2 tab po every 12 hours Last Documented On 3 10:47AM By KATEY GREGORY ; [facility] Cyclobenzaprine HCl 10 MG Oral Tablet 02/14/2023 Pro vider: Diagnosis: Last Documented On 3 10:50AM By KATEY GREGORY ; [facility] Medications Administered Includes: Administered Medications from this encounter No Administered Medications Recorded Vital Signs Includes: Vital Signs from this encounter Vital Name 07/13/2023 11:22A Blood Pressure Sitting R 122/74 Pulse Rate-Sitting (bpm) 74 Respiration Rate (breaths/min) 20 Temp-Oral (F) 99.1 Height (in) 68 Weight (lb) 165.25 Body Mass Index 25.1 Body Surface Area 1.9 Oxygen Saturation (%) 98 Last Documented: On 07/13/2023 11:23A M ; [facility] Results Includes: Results discussed during this encounter No Results Recorded For Specified Dates History of Present Illness Includes: History of Present Illness from this encounter TRICE KAUFFMAN is a 58 year old male. - Allergy list reviewed - Medication list reviewed - Head symptoms - Pulmonary symptoms - Anxiety BUT LIL BETTER - No high irritability The patient is a pleasant 58-year-old male, who presents today with acute concerns. The patient is accompanied by his today to the clinic. He complains of chills, fever, headache, myalgia, cough, and congestion x1 week. The patient reports that his symptoms have been getting progressively worse since then. He woke up in the middle of night with headache and congestion. He reports that sometimes symptoms get better in the evening. He had a fever of 103 yesterday and took 2 Tylenol and was 99 this morning. He did not use Flonase but took zyrtec. He did 2 COVID tests at home, which were negative. Of note, he has been taking citalopram 10 mg once daily and has been tolerating well and denies any side effects. Social History Description Last Updated Non-smoker 04/15/2020 Last Documented On 3 11:22AM ; [facility] Currently 01/04/2017 Last Documented On 3 11:22AM ; [facility] No tobacco use 12/14/2016 Last Documented On 3 11:22AM ; [facility] Smoking status : Former smoker 7 Last Documented On 3 11:22AM ; [facility] Alcohol 2 per week 01/04/2012 Last Documented On 3 11:22AM ; [facility] 01/04/2012 Last Documented On 3 11:22AM ; [facility] Former smoker 01/04/2012 Last Documented On 3 11:22AM ; [facility] Procedures and Surgical History Includes: Procedures from this encounter Procedures Code Diagnosis Performing Provider Service L ocation Service Date diet Last Documented On 3 11:40AM ; [facility] follow-up visit Last Documented On 3 9:38AM ; [facility] plan of care reviewed and agreed to Last Documented On 3 11:40AM ; [facility] plan of care reviewed and agreed to by t he patient Last Documented On 3 11:40AM ; [facility] Pt encouraged to be compliant with curre nt treatment Last Documented On 3 11:40AM ; [facility] Medical History Includes: Medical History addressed during this encounter Description Last Updated History of colonoscopy fiberoptic was pe rformed 05/04/2023 06/07/2023 Last Documented On 3 11:22AM ; [facility] No recent change in medical history 02/15 Last Documented On 3 11:22AM ; [facility] Currently wearing eyeglasses 01/04/2012 Last Documented On 3 11:22AM ; [facility] Wearing contact lenses 01/04/2012 Last Documented On 3 11:22AM ; [facility] Exposure airborne chemical particulate 0 01/04/2012 Last Documented On 3 11:22AM ; [facility] Exposure to chemical liquids 01/04/2012 Last Documented On 3 11:22AM ; [facility] Exposure to dust 01/04/2012 Last Documented On 3 11:22AM ; [facility] Exposure to fumes 01/04/2012 Last Documented On 3 11:22AM ; [facility] High level of environmental noise 2011 Last Documented On 3 11:22AM ; [facility] Smoke exposure 01/04/2012 Last Documented On 3 11:22AM ; [facility] No history of arthritis 01/04/2012 Last Documented On 3 11:22AM ; [facility] No history of cancer 01/04/2012 Last Documented On 3 11:22AM ; [facility] No history of chronic obstructive pulmon lia disease 01/04/2012 Last Documented On 3 11:22AM ; [facility] No history of convulsive disorder 2011 Last Documented On 3 11:22AM ; [facility] No history of diabetes mellitus 01/04/20 12 Last Documented On 3 11:22AM ; [facility] No history of hypertension 01/04/2012 Last Documented On 3 11:22AM ; [facility] No history of stroke syndrome 01/04/2012 Last Documented On 3 11:22AM ; [facility] No history of venereal disease 2 Last Documented On 3 11:22AM ; [facility] No reported cardiovascular symptoms 12/15 Last Documented On 3 11:22AM ; [facility] No reported easy bleeding 01/04/2012 Last Documented On 3 11:22AM ; [facility] No reported recurrent infections 012 Last Documented On 3 11:22AM ; [facility] Family History Includes: Family History addressed during this encounter Description Last Updated Family history unchanged 06/08/2022 Last Documented On 3 11:22AM ; [facility] Review of Systems Includes: Review of Systems from this encounter Systemic: Feeling poorly (malaise), fever, and chills. Head: Headache. Otolaryngeal: No nasal discharge and no sore throat. Cardiovascular: No chest pain or discomfort and no palpitations. Pulmonary: No dyspnea. Cough. Gastrointestinal: No nausea, no vomiting, and no melena. Neurological: No dizziness. Psychological: No sleep disturbances. Mental Status Includes: Mental Status from this encounter Description Oriented to time, place, and person Anxiety BUT LIL BETTER Functional Status Includes: Functional Status from this encounter No Functional Status Recorded Physical Exam Includes: Physical Exam from this encounter Allergies Includes: Active Allergies Substance Type Reaction Onset Date Resolved Date Statu s Sulfa Antibiotics Allergy 05/26/2022 A ctive Last Documented On 4 2:10PM ; [facility] Encounters Encounter Provider Location Date Check-In Time Check-Out Time Diagnosis SICK VISIT JORDY ARNOLD DO [facility] 07/13/20 23 11:08AM 11:45AM Anxiety Disorder Nos,Upper Respiratory Infection Viral,Acute Renal Failure,Drug-i nduced Headache Without Intractable Headache Insurance Includes: Active Insurance Policies Plan Name Member ID Group # Subscriber Relationship Effect bebeto Dates 1 - [facility] [id number] CLIFFORD KAUFFMAN Self Clinical Notes Includes: Clinical Notes from this encounter * Progress note Date Encounter Last Documented by 07/13/2023 SICK VISIT Last documented on 07/17/2023; 9:41 AM, JORDY ARNOLD DO; [facility] Active Problems & Conditions - R10.9 - Abdominal Pain - N17.9 - Acute Renal Failure - F41.3 - Anxiety Disorder Nos - N40.0 - Benign Prostatic Hypertrophy - S92.302A - Closed Fracture of Tarsal and Metatarsal Bones - K59.00 - Constipation Chronic Chief Complaint The Chief Complaint is: Patient has had chills, fever, BA, CELESTIN, cough, and congestion for a week. He did two covid tests and they were negative. History of Present Illness CLIFFORD KAUFFMAN is a 58 year old male. - Allergy list reviewed - Medication list reviewed - Head symptoms - Pulmonary symptoms - Anxiety BUT LIL BETTER - No high irritability The patient is a pleasant 58-year-old male, who presents today with acute concerns. The patient is accompanied by his today to the clinic. He complains of chills, fever, headache, myalgia, cough, and congestion x1 week. The patient reports that his symptoms have been getting progressively worse since then. He woke up in the middle of night with headache and congestion. He reports that sometimes symptoms get better in the evening. He had a fever of 103 yesterday and took 2 Tylenol and was 99 this morning. He did not use Flonase but took zyrtec. He did 2 COVID tests at home, which were negative. Of note, he has been taking citalopram 10 mg once daily and has been tolerating well and denies any side effects. Current Medication - Cimetidine 300 MG Oral Tablet One tablet daily, 30 days, 1 refills - Citalopram Hydrobromide 10 MG Oral Tablet One tablet daily, 30 days, 0 refills - Cyclobenzaprine HCl 10 MG Oral [...] 12 hours, 30 days, 0 refills - Lokelma 5 GM Oral Packet ONCE DAILY 30 days, 0 refills - Pantoprazole Sodium 40 MG Oral Tablet Delayed Release One tablet daily 14 days, 0 refills - predniSONE 20 MG Oral Tablet One tablet daily 30 days, 0 refills - predniSONE 5 MG Oral Tablet One tablet daily 30 days, 0 refills - Sevelamer Carbonate 800 MG Oral Tablet One tablet three times a day 30 days, 0 refills Past Medical/Surgical History Reported: No recent change in medical history. Medical: Currently wearing eyeglasses and currently wearing contact lenses. No reported cardiovascular symptoms, no easy bleeding, and no recurrent infections. Environmental Exposure: Exposure to chemical liquids, exposure to fumes, an exposure to smoke, exposure to noise high level of environmental noise, exposure to dust, and airborne chemical particulate. Other: Colonoscopy fiberoptic was performed 05/04/2023 Diagnoses: No diagnosis of systemic hypertension. [...] Family history unchanged Review Of Systems Systemic: Feeling poorly (malaise), fever, and chills. Head: Headache. Otolaryngeal: No nasal discharge and no sore throat. Cardiovascular: No chest pain or discomfort and no palpitations. Pulmonary: No dyspnea. Cough. Gastrointestinal: No nausea, no vomiting, and no melena. Neurological: No dizziness. Psychological: No sleep disturbances. Physical Findings - Vitals taken 07/13/2023 11:22 am BP-Sitting R 122/74 mmHg Pulse Rate-Sitting 74 bpm Respiration Rate 20 per min Temp-Oral 99.1 F Height 68 in Weight 165 lbs 4 oz Body Mass Index 25.1 kg/m2 Body Surface Area 1.9 m2 Oxygen Saturation 98 % General Appearance: - In no acute distress. Eyes: General/bilateral: Pupils: - PERRLA. Ears: General/bilateral: External Auditory Canal: - External auditory meatus normal. Tympanic Membrane: - Normal. Nose: General/bilateral: Discharge: - No nasal discharge. Sinus Tenderness: - No sinus tenderness. Pharynx: Oropharynx: - Normal. Lungs: - Normal breath sounds/voice sounds. - No wheezing was heard. - No rhonchi were heard. - No rales/crackles were heard. Cardiovascular: Heart Rate And Rhythm: - Normal. Murmurs: - No murmurs were heard. Edema: - Not present. Abdomen: Auscultation: - Bowel sounds were normal. Musculoskeletal System: General/bilateral: - Musculoskeletal system: normal. Neurological: - Oriented to time, place, and person. Psychiatric: Mood: - Dysthymic BETTER. Skin: - General appearance was normal. Assessment - Acute renal failure [N17.9 - Acute kidney failure, unspecified] - Drug-induced headache without intractable headache [G44.40 - Drug-induced headache, not elsewhere classified, not intractable] - Anxiety disorder NOS [F41.3 - Other mixed anxiety disorders] - Viral upper respiratory infection [J06.9 - Acute upper respiratory infection, unspecified] Therapy - Diet. - Pt encouraged to be compliant with current treatment. - Follow-up visit. - Plan of care reviewed and agreed to by the patient. Plan StartCited - Other PHY ORDER/COMMENT PLEASE CALL HIM OR AND SEE IF CELESTIN FEVER STILL IMPROVING , THANKS EndCited - Follow-up visit - Patient to call if problem develops PLAN [Use for s.o.a.p. note free text]. Discussed diet modifications and advised to follow them. He was suggested to add salt in his diet and follow a healthy diet. He was advised to drink plenty of water and stay hydrated. If headache persists/worsens, call or report back. Other Jatinder Galicia, scribing the following service on behalf of Dr. Jordy Arnold, D.O.
--- OUTSIDE RECORDS SUMMARY | 2025-01-29 11:43 | XMS_ITS | Clinical Summary ---
Author Organization [facility] Address [address] [place] [address] Phone Care Team Providers Care Director Business Systems Name Role Phone JORDY ARNOLD DO Primary Care Provider [phone] Reason for Visit and Chief Complaint The Chief Complaint is: Patient is here for a check up Problems Includes: Problems addressed during this encounter and other active Problems Current Visit Onset Date Resolved Date Provider Conditio n Status Acute Renal Failure 07/17/2023 JORDY ARNOLD DO Active Last Documented On 3 9:37AM ; [facility] Anxiety Disorder Nos 07/17/2023 JORDY ARNOLD DO Active Last Documented On 3 9:38AM ; [facility] Past Visits Onset Date Resolved Date Provider 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 JORDY ARNOLD DO Active Last Documented On 4 10:47PM ; [facility] Abdominal Pain 05/04/2023 JORDY ARNOLD DO In active Last Documented On 3 2:13PM ; [facility] Constipation Chronic 05/04/2023 JORDY ARNOLD DO Inactive Last Documented On 3 2:12PM ; [facility] Benign Prostatic Hypertrophy 06/08/2022 JRODY ARNOLD DO Active Last Documented On 2 9:29AM ; [facility] Closed Fracture of Tarsal an d Metatarsal Bones 05/12/2020 07/29/2023 JORDY ARNOLD DO Resolved Last Documented On 2:12PM ; [facility] Plan of Treatment - Follow-up visit - Last Documented On 07/29/2023 2:15PM ; [facility] - Patient to call if problem develops - Last Documented On 07/29/2023 2:15PM ; [facility] PLAN [Use for s.o.a.p. note free text]. - Last Documented On 07/29/2023 2:15PM ; [facility] Continue present medications, call for refills. Increased citalopram to 20 mg once daily. Finish course of antibiotic. He was advised to follow a healthy diet. He was advised to drink plenty of water and stay hydrated. - Last Documented On 07/29/2023 2:15PM ; [facility] Assessments Includes: Assessments from this encounter Findings - Bacterial pneumonia [J15.9 - Unspecified bacterial pneumonia] - Last Documented On 07/29/2023 2:15PM ; [facility] - Acute renal failure [N17.9 - Acute kidney failure, unspecified] - Last Documented On 07/29/2023 2:15PM ; [facility] - Anxiety disorder NOS [F41.3 - Other mixed anxiety disorders] - Last Documented On 07/29/2023 2:15PM ; [facility] Medical Equipment - Implanted Devices Includes: Current Devices No Medical Equipment Recorded Medications Includes: Medications discussed during this encounter and other current Medications New / Renewed during this visit JORDY ARNOLD DO on 07/25/2023 Citalopram Hydrobromide 20 M G Oral Tablet Provider: JORDY ARNOLD DO 30 day supply: 30 tablet, 0 refills Diagnosis: Other mixed anxiety disorders One tablet daily Pharmacy: [facility] ([facility] - [id number] , [place], [phone] - Last Documented On 08/24/2023 11:36AM By Jatinder Galicia ; [facility] Current Medications (continue as prescribed) Citalopram Hydrobromide 20 M G Oral Tablet 02/20/2024 Provider: JORDY ARNOLD DO Diagnosis: Other mixed anxi ety disorders TAKE 1 TABLET BY MOUTH EVERY DAY Last Documented On 02/20/2024 2:47PM By JORDY ARNOLD DO ; [facility] Mycophenolate Mofetil 500 MG Oral Tablet 01/24/2024 Provider: VIANEY ROWLAND MD Diagnosis: Last Documented On 02/20/2024 2:19PM By Heather GREGORY ; [facility] Famotidine 20 MG Oral Tablet 06/08/2023 Provider: Diagnosis: Last Documented On 06/08/2023 9:19AM By Marcelino GREGORY ; [facility] Sevelamer Carbonate 800 MG Oral Tablet 05/10/2023 Pr ovider: Diagnosis: Last Documented On 3 10:45AM By KATEY GREGORY ; [facility] Dilt-XR 180 MG Oral Capsule Extended Release 24 Hour 0 05/10/2023 Provider: Diagnosis: Last Documented On 10:46AM By KATEY GREGORY ; [facility] Labetalol HCl 100 MG Oral Tablet 05/10/2023 Provider : Diagnosis: 1/2 tab po every 12 hours Last Documented On 3 10:47AM By KATEY GREGORY ; [facility] Cyclobenzaprine HCl 10 MG Oral Tablet 02/14/2023 Pro vider: Diagnosis: Last Documented On 10:50AM By KATEY GREGORY ; [facility] Medications Administered Includes: Administered Medications from this encounter No Administered Medications Recorded Vital Signs Includes: Vital Signs from this encounter Vital Name 07/25/2023 02:40P Blood Pressure Sitting L 112/72 Pulse Rate-Sitting (bpm) 82 Respiration Rate (breaths/min) 20 Height (in) 68 Weight (lb) 164.375 Body Mass Index 25 Body Surface Area 1.9 Oxygen Saturation (%) 97 Last Documented: On 07/25/2023 2:40PM ; [facility] Results Includes: Results discussed during this encounter [...] No depression - No initial insomnia - Not thinking about suicide - No homicidal thoughts - No skin symptoms The patient is a pleasant 58-year-old male, who presents today for a 4-week follow-up visit. He is feeling fine today. He reports good moods and sound sleep patterns. With respect to his energy, it is better than prior. He has been taking citalopram 10 mg once daily and has been tolerating it well. He denies any side effects. He denies having thoughts of hurting himself or others. He denies any crying spells or angry spells. better but still down He was seen and admitted to [facility] for pneumonia last week and discharged home on Monday with Cefdinir. He reports that his breathing is a lot better. He denies any abdominal pain, nausea, or vomiting. He has an appointment with curatorial specialist tomorrow. He denies any vision changes, headaches, dizziness, or falls. He denies any chest pain, palpitations, changes in bowel movements such as black or tarry stools, or bladder problems. Social History Description Last Updated Non-smoker 04/15/2020 Last Documented On 3 2:40PM ; [facility] Currently 01/04/2017 Last Documented On 3 2:40PM ; [facility] No tobacco use 12/14/2016 Last Documented On 3 2:40PM ; [facility] Smoking status : Former smoker Last Documented On 3 2:40PM ; [facility] Alcohol 2 per week 01/04/2012 Last Documented On 3 2:40PM ; [facility] 01/04/2012 Last Documented On 3 2:40PM ; [facility] Former smoker 01/04/2012 Last Documented On 3 2:40PM ; [facility] Procedures and Surgical History Includes: Procedures from this encounter Procedures Code Diagnosis Performing Provider Service L ocation Service Date dietary regime Last Documented On 3 3:02PM ; [facility] continue current medication Last Documented On 3 3:01PM ; [facility] plan of care reviewed and agreed to Last Documented On 3 3:01PM ; [facility] plan of care reviewed and agreed to by t he patient Last Documented On 3 3:01PM ; [facility] Pt encouraged to be compliant with curre nt treatment Last Documented On 3 3:02PM ; [facility] Discussed Exercise Last Documented On 3 3:02PM ; [facility] instructed to monitor salt intake Last Documented On 3 3:02PM ; [facility] Reviewed Blood Pressures Last Documented On 3 3:01PM ; [facility] Medical History Includes: Medical History addressed during this encounter Description Last Updated History of colonoscopy fiberoptic was pe rformed 05/04/2023 06/07/2023 Last Documented On 3 2:40PM ; [facility] No recent change in medical history 02/15 Last Documented On 3 2:40PM ; [facility] Currently wearing eyeglasses 01/04/2012 Last Documented On 3 2:40PM ; [facility] Wearing contact lenses 01/04/2012 Last Documented On 3 2:40PM ; [facility] Exposure airborne chemical particulate 0 01/04/2012 Last Documented On 3 2:40PM ; [facility] Exposure to chemical liquids 01/04/2012 Last Documented On 3 2:40PM ; [facility] Exposure to dust 01/04/2012 Last Documented On 3 2:40PM ; [facility] Exposure to fumes 01/04/2012 Last Documented On 3 2:40PM ; [facility] High level of environmental noise 2011 Last Documented On 3 2:40PM ; [facility] Smoke exposure 01/04/2012 Last Documented On 3 2:40PM ; [facility] No history of arthritis 01/04/2012 Last Documented On 3 2:40PM ; [facility] No history of cancer 01/04/2012 Last Documented On 3 2:40PM ; [facility] No history of chronic obstructive pulmon lia disease 01/04/2012 Last Documented On 3 2:40PM ; [facility] No history of convulsive disorder 2011 Last Documented On 3 2:40PM ; [facility] No history of diabetes mellitus 01/04/20 12 Last Documented On 3 2:40PM ; [facility] No history of hypertension 01/04/2012 Last Documented On 3 2:40PM ; [facility] No history of stroke syndrome 01/04/2012 Last Documented On 3 2:40PM ; [facility] No history of venereal disease 2 Last Documented On 3 2:40PM ; [facility] No reported cardiovascular symptoms 12/15 Last Documented On 3 2:40PM ; [facility] No reported easy bleeding 01/04/2012 Last Documented On 3 2:40PM ; [facility] No reported recurrent infections 012 Last Documented On 3 2:40PM ; [facility] Family History Includes: Family History addressed during this encounter Description Last Updated Family history unchanged 06/08/2022 Last Documented On 3 2:40PM ; [facility] Review of Systems Includes: Review of Systems from this encounter Systemic: No night sweats. Head: No headache. Neck: No neck pain. Eyes: No vision problems. Otolaryngeal: No nasal discharge and no sore throat. Cardiovascular: No chest pain or discomfort and no palpitations. Pulmonary: No dyspnea. Gastrointestinal: No nausea, no vomiting, and no melena. Genitourinary: No dysuria. Musculoskeletal: No localized joint pain. Neurological: No dizziness and no lightheadedness. Psychological: No high irritability, no emotional hypersensitivity, and no sleep disturbances. No change in thought patterns and no lack of balance between leisure activities and work. Skin: No rash. Mental Status Includes: Mental Status from this encounter Description Cognitive functioning was no rmal Oriented to time, place, and person Thought processes were not i mpaired No anxiety No homicidal thoughts Not thinking about suicide The thought content revealed no impairment Functional Status Includes: Functional Status from this encounter No Functional Status Recorded Physical Exam Includes: Physical Exam from this encounter Allergies Includes: Active Allergies Substance Type Reaction Onset Date Resolved Date Statu s Sulfa Antibiotics Allergy 05/26/2022 A ctive Last Documented On 4 2:10PM ; [facility] Encounters Encounter Provider Location Date Check-In Time Check-Out Time Diagnosis CHECK UP JORDY ARNOLD DO [facility] 07/25/20 23 2:14PM 3:02PM Bacterial Pneumonia,Acu te Renal Failure,Anxie ty Disorder Nos Insurance Includes: Active Insurance Policies Plan Name Member ID Group # Subscriber Relationship Effect bebeto Dates 1 - [facility] [id number] CLIFFORD KAUFFMAN Self Clinical Notes Includes: Clinical Notes from this encounter * Progress note Date Encounter Last Documented by 07/25/2023 CHECK UP Last documented on 07/29/2023; 2:15 PM, JORDY ARNOLD DO; [facility] Active Problems & Conditions - N17.9 - Acute Renal Failure - F41.3 - Anxiety Disorder Nos - N40.0 - Benign Prostatic Hypertrophy Chief Complaint The Chief Complaint is: Patient is here for a check up. History of Present Illness CLIFFORD [...] No depression - No initial insomnia - Not thinking about suicide - No homicidal thoughts - No skin symptoms The patient is a pleasant 58-year-old male, who presents today for a 4-week follow-up visit. He is feeling fine today. He reports good moods and sound sleep patterns. With respect to his energy, it is better than prior. He has been taking citalopram 10 mg once daily and has been tolerating it well. He denies any side effects. He denies having thoughts of hurting himself or others. He denies any crying spells or angry spells. better but still down He was seen and admitted to [facility] for pneumonia last week and discharged home on Monday with Cefdinir. He reports that his breathing is a lot better. He denies any abdominal pain, nausea, or vomiting. He has an appointment with curatorial specialist tomorrow. He denies any vision changes, headaches, dizziness, or falls. He denies any chest pain, palpitations, changes in bowel movements such as black or tarry stools, or bladder problems. Current Medication - Cimetidine 300 MG Oral [...] to dust, and airborne chemical particulate. Other: Diaignostic fiberoptic colonoscopy 05/04/2023 Diagnoses: No diagnosis of [...] history unchanged Review Of Systems Systemic: No night sweats. Head: No headache. Neck: No neck pain. Eyes: No vision problems. Otolaryngeal: No nasal discharge and no sore throat. Cardiovascular: No chest pain or discomfort and no palpitations. Pulmonary: No dyspnea. Gastrointestinal: No nausea, no vomiting, and no melena. Genitourinary: No dysuria. Musculoskeletal: No localized joint pain. Neurological: No dizziness and no lightheadedness. Psychological: No high irritability, no emotional hypersensitivity, and no sleep disturbances. No change in thought patterns and no lack of balance between leisure activities and work. Skin: No rash. Physical Findings - Vitals taken 07/25/2023 02:40 pm BP-Sitting L 112/72 mmHg Pulse Rate-Sitting 82 bpm Respiration Rate 20 per min Height 68 in Weight 164 lbs 6 oz Body Mass Index 25 kg/m2 Body Surface Area 1.9 m2 Oxygen Saturation 97 % General Appearance: - Well-appearing. - Alert. [...] Philip Sign was negative. Neurological: - Cognitive functioning was normal. - Oriented to time, place, and person. Cranial Nerves: - Normal. Sensation: - No sensory exam abnormalities were noted. Motor: - No tremor was seen. Reflexes: - Deep tendon reflexes were normal. Psychiatric: Appearance: - Normal. Demonstrated Behavior: - Behavior demonstrated no abnormalities. Attitude: - Not abnormal. Mood: - Euthymic. Affect: - Blunted. - Somber. - Normal. Thought Processes: - Not impaired. Thought Content: - Revealed no impairment. Skin: - General appearance was normal. - Color and pigmentation were normal. - No skin lesions. - No rash. Assessment - Bacterial pneumonia [J15.9 - Unspecified bacterial pneumonia] - Acute renal failure [N17.9 - Acute [...] reviewed and agreed to by the patient. Counseling/Education - Reduce caffeine intake Discussed discussion [Use for free text]. >20 MIN> 50% His blood pressure has been within normal limits. His weight is down 1 pound since the last visit. Plan StartCited - Other Follow-up FOLLOW UP IN 4 WEEKS. EndCited StartCited - Other mixed anxiety disorders Citalopram Hydrobromide 20 MG tablet One tablet daily, 30 days, 0 refills EndCited - Follow-up visit - Patient to call if problem develops PLAN [Use for s.o.a.p. note free text]. Continue present medications, call for refills. Increased citalopram to 20 mg once daily. Finish course of antibiotic. He was advised to follow a healthy diet. He was advised to drink plenty of water and stay hydrated. Other Jatinder Galicia, scribing the following service on behalf of Dr. Jordy Arnold D.O.
--- OUTSIDE RECORDS SUMMARY | 2025-01-29 11:43 | XMS_ITS | Clinical Summary ---
Author Organization [facility] Address [address] [place] [address] Phone Care Team Providers Care Director Learning Name Role Phone JORDY ARNOLD DO Primary Care Provider [phone] Reason for Visit and Chief Complaint The Chief Complaint is: Patient is here for his 3 mo check up Problems Includes: Problems addressed during this encounter and other active Problems Current Visit Onset Date Resolved Date Provider Conditio n Status Acute Renal Failure 07/17/2023 JORDY ARNOLD DO Active Last Documented On 3 9:37AM ; [facility] Anxiety Disorder Nos 07/17/2023 JORDY ARNOLD DO Active Last Documented On 3 9:38AM ; [facility] Past Visits Onset Date Resolved Date Provider 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 note free text]. - Last Documented On 02/27/2024 8:01PM ; [facility] Continue present medications, call for refills. He was advised to follow a healthy diet. He was advised to drink plenty of water and stay hydrated. - Last Documented On 02/27/2024 8:01PM ; [facility] Assessments Includes: Assessments from this encounter Findings - Acute renal failure [N17.9 - Acute kidney failure, unspecified] - Last Documented On 02/27/2024 8:01PM ; [facility] - Anxiety disorder NOS [F41.3 - Other mixed anxiety disorders] - Last Documented On 02/27/2024 8:01PM ; [facility] Medical Equipment - Implanted Devices Includes: Current Devices No Medical Equipment Recorded Medications Includes: Medications discussed during this encounter and other current Medications Discontinued / Stopped on this date JORDY ARNOLD DO on 11/20/2023 Citalopram Hydrobromide 20 M G Oral Tablet Provider: JORDY ARNOLD DO Diagnosis: Other mixed anxi ety disorders Last Documented On 02/20/2024 2:34PM By JORDY ARNOLD DO ; [facility] predniSONE 20 MG Oral Tablet Provider: VIANEY ROWLAND MD Diagnosis: Last Documented On 02/20/2024 2:19PM By Heather GREGORY ; [facility] predniSONE 5 MG Oral Tablet Provider: VIANEY ROWLAND MD Diagnosis: Last Documented On 02/20/2024 2:19PM By Heather GREGORY ; [facility] Lokelma 5 GM Oral Packet Provider: SVETA ROWLAND MD Diagnosis: Last Documented On 02/20/2024 2:19PM By Heather GREGORY ; [facility] Current Medications (continue as prescribed) Citalopram Hydrobromide 20 M G Oral Tablet 02/20/2024 Provider: JORDY ARNOLD DO Diagnosis: Other mixed anxi ety disorders TAKE 1 TABLET BY MOUTH EVERY DAY Last Documented On 02/20/2024 2:47PM By JORDY ARNOLD DO ; [facility] Mycophenolate Mofetil 500 MG Oral Tablet 01/24/2024 Provider: VIANEY ROWLAND MD Diagnosis: Last Documented On 02/20/2024 2:19PM By Heather GREGORY ; [facility] Famotidine 20 MG Oral Tablet 06/08/2023 Provider: Diagnosis: Last Documented On 06/08/2023 9:19AM By Marcelino GREGORY ; [facility] Sevelamer Carbonate 800 MG Oral Tablet 05/10/2023 Pr ovider: Diagnosis: Last Documented On 3 10:45AM By KATEY GREGORY ; [facility] Dilt-XR 180 MG Oral Capsule Extended Release 24 Hour 0 05/10/2023 Provider: Diagnosis: Last Documented On 3 10:46AM By KATEY GREGORY ; [facility] Labetalol HCl 100 MG Oral Tablet 05/10/2023 Provider : Diagnosis: 10/17 tab po every 12 hours Last Documented On 3 10:47AM By KATEY GREGORY ; [facility] Cyclobenzaprine HCl 10 MG Oral Tablet 02/14/2023 Pro vider: Diagnosis: Last Documented On 3 10:50AM By KATEY GREGORY ; [facility] Medications Administered Includes: Administered Medications from this encounter No Administered Medications Recorded Vital Signs Includes: Vital Signs from this encounter Vital Name 02/20/2024 02:11P Blood Pressure Sitting L 132/82 Pulse Rate-Sitting (bpm) 84 Respiration Rate (breaths/min) 20 Height (in) 68 Weight (lb) 158.125 Body Mass Index 24 Body Surface Area 1.8 Oxygen Saturation (%) 93 Last Documented: On 02/20/2024 2:18PM ; [facility] Results Includes: Results discussed during this encounter No Results Recorded For Specified Dates History of Present Illness Includes: History of Present Illness from this encounter TRCIE KAUFFMAN is a 58 year old male. [...] Last Updated Non-smoker 04/15/2020 Last Documented On 4 2:10PM ; [facility] Currently 01/04/2017 Last Documented On 4 2:10PM ; [facility] No tobacco use 12/14/2016 Last Documented On 4 2:10PM ; [facility] Smoking status : Former smoker Last Documented On 4 2:10PM ; [facility] Alcohol 2 per week 01/04/2012 Last Documented On 4 2:10PM ; [facility] 01/04/2012 Last Documented On 4 2:10PM ; [facility] Former smoker 01/04/2012 Last Documented On 4 2:10PM ; [facility] Procedures and Surgical History Includes: Procedures from this encounter Procedures Code Diagnosis Performing Provider Service L ocation Service Date dietary regime Last Documented On 4 2:23PM ; [facility] continue current medication Last Documented On 4 2:22PM ; [facility] plan of care reviewed and agreed to Last Documented On 4 2:22PM ; [facility] plan of care reviewed and agreed to by t he patient Last Documented On 4 2:22PM ; [facility] use of tobacco assessment performed 1000F Last Documented On 4 2:10PM ; [facility] review of medications documented 1160F Last Documented On 4 2:10PM ; [facility] Pt encouraged to be compliant with curre nt treatment Last Documented On 4 2:23PM ; [facility] Discussed Exercise Last Documented On 4 2:23PM ; [facility] instructed to monitor salt intake Last Documented On 4 2:23PM ; [facility] Reviewed Blood Pressures Last Documented On 4 2:22PM ; [facility] reviewed laboratory-based chemistry Last Documented On 4 2:34PM ; [facility] Medical History Includes: Medical History addressed during this encounter Description Last Updated Vaccine history 08/24/2023 Last Documented On 4 2:10PM ; [facility] History of colonoscopy fiberoptic was pe rformed 05/04/2023 06/07/2023 Last Documented On 4 2:10PM ; [facility] No recent change in medical history 02/15 Last Documented On 4 2:10PM ; [facility] Currently wearing eyeglasses 01/04/2012 Last Documented On 4 2:10PM ; [facility] Wearing contact lenses 01/04/2012 Last Documented On 4 2:10PM ; [facility] Exposure airborne chemical particulate 0 01/04/2012 Last Documented On 4 2:10PM ; [facility] Exposure to chemical liquids 01/04/2012 Last Documented On 4 2:10PM ; [facility] Exposure to dust 01/04/2012 Last Documented On 4 2:10PM ; [facility] Exposure to fumes 01/04/2012 Last Documented On 4 2:10PM ; [facility] High level of environmental noise 2011 Last Documented On 4 2:10PM ; [facility] Smoke exposure 01/04/2012 Last Documented On 4 2:10PM ; [facility] No history of arthritis 01/04/2012 Last Documented On 4 2:10PM ; [facility] No history of cancer 01/04/2012 Last Documented On 4 2:10PM ; [facility] No history of chronic obstructive pulmon lia disease 01/04/2012 Last Documented On 4 2:10PM ; [facility] No history of convulsive disorder 2011 Last Documented On 4 2:10PM ; [facility] No history of diabetes mellitus 01/04/20 12 Last Documented On 4 2:10PM ; [facility] No history of hypertension 01/04/2012 Last Documented On 4 2:10PM ; [facility] No history of stroke syndrome 01/04/2012 Last Documented On 4 2:10PM ; [facility] No history of venereal disease 2 Last Documented On 4 2:10PM ; [facility] No reported cardiovascular symptoms 12/15 Last Documented On 4 2:10PM ; [facility] No reported easy bleeding 01/04/2012 Last Documented On 4 2:10PM ; [facility] No reported recurrent infections 012 Last Documented On 4 2:10PM ; [facility] Family History Includes: Family History addressed during this encounter Description Last Updated Family history unchanged 06/08/2022 Last Documented On 4 2:10PM ; [facility] Review of Systems Includes: Review of Systems from this encounter Systemic: No fever, no night sweats, and [...] ctive Last Documented On 4 2:10PM ; [facility] Encounters Encounter Provider Location Date Check-In Time Check-Out Time Diagnosis CHECK UP JORDY ARNOLD DO [facility] 02/20/20 24 2:07PM 2:50PM Anxiety Disorder Nos,Acute Renal Failure Insurance Includes: Active Insurance Policies Plan Name Member ID Group # Subscriber Relationship Effect bebeto Dates 1 - [facility] [id number] CLIFFORD KAUFFMAN Self Clinical Notes Includes: Clinical Notes from this encounter * Progress note Date Encounter Last Documented by 02/20/2024 CHECK UP Last documented on 02/27/2024; 8:01 PM, JORDY ARNOLD DO; [facility] Active Problems & Conditions - [...] on behalf of Dr. Jordy Arnold, D.O. Practice Management Use of tobacco assessment performed Review of medications documented.
--- OUTSIDE RECORDS SUMMARY | 2025-01-29 11:43 | XMS_ITS | Continuity of Care Document ---
Author Organization [facility] Address [address] [place] [address] Phone Care Team Providers Care Sand Worker Name Role Phone Wilson Germain MD Unavailable Unavailable Advance Directives Directive Yes / No Effective Date File Name No Information Encounters Encounter Description Practice Location Reason(s) For Visit Diagnoses Date Provider Providers Copied on Encounter [facility], [address] [place], [place], [id number], [place] tel:[phone] [facility] [place] No Information [address] Mar[address] Rachel. [address], [place], [place], [id number], [place]. tel:[phone] Family History Family Member Type Diagnosis Age At Onset No Information Payers Payer name Insurance type Covered green party ID Authoriza tion(s) No Information Social History [...]
--- OUTSIDE RECORDS SUMMARY | 2025-01-29 11:43 | XMS_ITS ---
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
--- OUTSIDE RECORDS SUMMARY | 2025-01-29 11:44 | XMS_ITS | Clinical Summary ---
Author Organization [facility] Address [address] [place] [address] Phone Care Team Providers Care Manager Engagement Name Role Phone JORDY ARNOLD DO Primary Care Provider [phone] Reason for Visit and Chief Complaint The Chief Complaint is: 1 month follow up, having some trouble with stomach nausea Problems Includes: Problems addressed during this encounter and other active Problems Current Visit Onset Date Resolved Date Provider Conditio n Status Acute Renal Failure 07/17/2023 JORDY ARNOLD DO Active Last Documented On 3 9:37AM ; [facility] Anxiety Disorder Nos 07/17/2023 JORDY ARNOLD DO Active Last Documented On 3 9:38AM ; [facility] Benign Prostatic Hypertrophy 06/08/2022 JORDY ARNOLD DO Active Last Documented On 2 9:29AM ; [facility] Past Visits Onset Date Resolved Date Provider 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 note free text]. - Last Documented On 08/27/2023 7:47AM ; [facility] Continue present medications, call for refills. He was advised to follow a healthy diet. He was advised to eat high-fiber diet. He was recommended taking MiraLAX. He was advised to drink plenty of water and stay hydrated. - Last Documented On 08/27/2023 7:47AM ; [facility] Assessments Includes: Assessments from this encounter Findings - Functional constipation [K59.00 - Constipation, unspecified] - Last Documented On 08/27/2023 7:47AM ; [facility] - Nausea [R11.0 - Nausea] - Last Documented On 08/27/2023 7:47AM ; [facility] - Acute renal failure [N17.9 - Acute kidney failure, unspecified] - Last Documented On 08/27/2023 7:47AM ; [facility] - Benign prostatic hypertrophy [N40.0 - Benign prostatic hyperplasia without lower urinary tract symptoms] - Last Documented On 08/27/2023 7:47AM ; [facility] - Anxiety disorder NOS [F41.3 - Other mixed anxiety disorders] - Last Documented On 08/27/2023 7:47AM ; [facility] Medical Equipment - Implanted Devices Includes: Current Devices No Medical Equipment Recorded Medications Includes: Medications discussed during this encounter and other current Medications Discontinued / Stopped on this date JORDY ARNOLD DO on 07/06/2023 Citalopram Hydrobromide 10 M G Oral Tablet Provider: JORDY ARNOLD DO Diagnosis: Depression, unsp ecified Last Documented On 08/24/2023 11:25AM By JORDY ARNOLD DO ; [facility] Cimetidine 300 MG Oral Tablet Provider: FRANKLIN FAIRBANKS P-BC Diagnosis: Dermatitis, unsp ecified Last Documented On 08/24/2023 11:26AM By JORDY ARNOLD DO ; [facility] Pantoprazole Sodium 40 MG Oral Tablet Delayed Release Provider: Diagnosis: Last Documented On 08/24/2023 11:26AM By JORDY ARNOLD DO ; [facility] New / Renewed during this visit JORDY ARNOLD DO on 08/24/2023 Citalopram Hydrobromide 20 M G Oral Tablet Provider: JORDY ARNOLD DO 90 day supply: 90 tablet, 0 refills Diagnosis: Other mixed anxiety disorders One tablet daily Pharmacy: [facility] ([place] - [address] , [facility], [phone] - Last Documented On 11/20/2023 10:37AM By JORDY ARNOLD DO ; [facility] Current Medications (continue as prescribed) Citalopram Hydrobromide 20 M G Oral Tablet 02/20/2024 Provider: JORDY ARNOLD DO Diagnosis: Other mixed anxi ety disorders TAKE 1 TABLET BY MOUTH EVERY DAY Last Documented On 02/20/2024 2:47PM By JORDY ARNOLD DO ; [facility] Mycophenolate Mofetil 500 MG Oral Tablet 01/24/2024 Provider: VIANEY ROWLAND MD Diagnosis: Last Documented On 02/20/2024 2:19PM By Heather GREGORY ; [facility] Famotidine 20 MG Oral Tablet 06/08/2023 Provider: Diagnosis: Last Documented On 06/08/2023 9:19AM By Marcelino GREOGRY ; [facility] Sevelamer Carbonate 800 MG Oral Tablet 05/10/2023 Pr ovider: Diagnosis: Last Documented On 3 10:45AM By KATEY GREGORY ; [facility] Dilt-XR 180 MG Oral Capsule Extended Release 24 Hour 0 05/10/2023 Provider: Diagnosis: Last Documented On 3 10:46AM By KATEY GREGORY ; [facility] Labetalol HCl 100 MG Oral Tablet 05/10/2023 Provider : Diagnosis: 1/2 tab po every 12 hours Last Documented On 3 10:47AM By KATEY GREGORY ; [facility] Cyclobenzaprine HCl 10 MG Oral Tablet 02/14/2023 Pro vider: Diagnosis: Last Documented On 10:50AM By KATEY GREGORY ; [facility] Medications Administered Includes: Administered Medications from this encounter No Administered Medications Recorded Vital Signs Includes: Vital Signs from this encounter Vital Name 08/24/2023 11:13A Blood Pressure Sitting (mmHg) 114/70 Pulse Rate-Sitting (bpm) 78 Respiration Rate (breaths/min) 18 Temp-Oral (F) 96.3 Height (in) 68 Weight (lb) 158.3 Body Mass Index 24.1 Body Surface Area 1.9 Oxygen Saturation (%) 99 Last Documented: On 08/24/2023 11:16A M ; [facility] Results Includes: Results discussed during this encounter [...] cardiovascular symptoms - No pulmonary symptoms - Gastrointestinal symptoms - Normal appetite - No genitourinary symptoms - No musculoskeletal symptoms - No anxiety - No depression - No initial insomnia - Not thinking about suicide - No homicidal thoughts - No skin symptoms The patient is a pleasant 58-year-old male, who presents today for a 1-month follow-up visit. He is feeling fine today. He reports good moods and sound sleep patterns. With respect to his energy, it is better than prior. He has been taking citalopram 20 mg once daily and has been tolerating it well. He denies any side effects. He denies having thoughts of hurting himself or others. He denies any crying spells or angry spells. The patient reports that he started having irritable bowel movements and nausea since he ran out of his antacid medication. He has also had diarrhea for a couple of days and then very soft stools. 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 He denies any vision changes, headaches, dizziness, or falls. He denies any chest pain, palpitations, shortness of breath, or bladder problems. Social History Description Last Updated Non-smoker 04/15/2020 Last Documented On 3 11:13AM ; [facility] Currently 01/04/2017 Last Documented On 3 11:13AM ; [facility] No tobacco use 12/14/2016 Last Documented On 3 11:13AM ; [facility] Smoking status : Former smoker 7 Last Documented On 3 11:13AM ; [facility] Alcohol 2 per week 01/04/2012 Last Documented On 3 11:13AM ; [facility] 01/04/2012 Last Documented On 3 11:13AM ; [facility] Former smoker 01/04/2012 Last Documented On 3 11:13AM ; [facility] Procedures and Surgical History Includes: Procedures from this encounter Procedures Code Diagnosis Performing Provider Service L ocation Service Date dietary regime Last Documented On 3 11:34AM ; [facility] continue current medication Last Documented On 3 11:34AM ; [facility] plan of care reviewed and agreed to Last Documented On 3 11:34AM ; [facility] plan of care reviewed and agreed to by t he patient Last Documented On 3 11:34AM ; [facility] Pt encouraged to be compliant with curre nt treatment Last Documented On 3 11:34AM ; [facility] Discussed Exercise Last Documented On 3 11:34AM ; [facility] instructed to monitor salt intake Last Documented On 3 11:34AM ; [facility] Reviewed Blood Pressures Last Documented On 3 11:34AM ; [facility] reviewed laboratory-based chemistry Last Documented On 3 11:34AM ; [facility] Medical History Includes: Medical History addressed during this encounter Description Last Updated Vaccine history 08/24/2023 Last Documented On 3 7:47AM ; [facility] History of colonoscopy fiberoptic was pe rformed 05/04/2023 06/07/2023 Last Documented On 3 11:13AM ; [facility] No recent change in medical history 02/15 Last Documented On 3 11:13AM ; [facility] Currently wearing eyeglasses 01/04/2012 Last Documented On 3 11:13AM ; [facility] Wearing contact lenses 01/04/2012 Last Documented On 3 11:13AM ; [facility] Exposure airborne chemical particulate 0 01/04/2012 Last Documented On 3 11:13AM ; [facility] Exposure to chemical liquids 01/04/2012 Last Documented On 3 11:13AM ; [facility] Exposure to dust 01/04/2012 Last Documented On 3 11:13AM ; [facility] Exposure to fumes 01/04/2012 Last Documented On 3 11:13AM ; [facility] High level of environmental noise 2011 Last Documented On 3 11:13AM ; [facility] Smoke exposure 01/04/2012 Last Documented On 3 11:13AM ; [facility] No history of arthritis 01/04/2012 Last Documented On 3 11:13AM ; [facility] No history of cancer 01/04/2012 Last Documented On 3 11:13AM ; [facility] No history of chronic obstructive pulmon lia disease 01/04/2012 Last Documented On 3 11:13AM ; [facility] No history of convulsive disorder 2011 Last Documented On 3 11:13AM ; [facility] No history of diabetes mellitus 01/04/20 12 Last Documented On 3 11:13AM ; [facility] No history of hypertension 01/04/2012 Last Documented On 3 11:13AM ; [facility] No history of stroke syndrome 01/04/2012 Last Documented On 3 11:13AM ; [facility] No history of venereal disease 2 Last Documented On 3 11:13AM ; [facility] No reported cardiovascular symptoms 12/15 Last Documented On 3 11:13AM ; [facility] No reported easy bleeding 01/04/2012 Last Documented On 3 11:13AM ; [facility] No reported recurrent infections 012 Last Documented On 3 11:13AM ; [facility] Family History Includes: Family History addressed during this encounter Description Last Updated Family history unchanged 06/08/2022 Last Documented On 3 11:13AM ; [facility] Review of Systems Includes: Review of Systems from this encounter Systemic: No fever, no night sweats, and no edema. Head: No headache. Neck: No neck pain. Eyes: No vision problems. Otolaryngeal: No nasal discharge and no sore throat. Cardiovascular: No chest pain or discomfort and no palpitations. Pulmonary: Dyspnea expressed as feeling short of breath. Gastrointestinal: Nausea. No vomiting. Diarrhea. Genitourinary: No dysuria. Musculoskeletal: No localized joint [...] ctive Last Documented On 4 2:10PM ; [facility] Encounters Encounter Provider Location Date Check-In Time Check-Out Time Diagnosis CHECK UP JORDY ARNOLD DO [facility] 08/24/20 23 10:59AM 11:52AM Nausea,Acute Renal Failure,Anxiet y Disorder Nos,Benign Prostatic Hypertrophy,Co nstipation Functional Insurance Includes: Active Insurance Policies Plan Name Member ID Group # Subscriber Relationship Effect bebeto Dates 1 - [facility] [id number] CLIFFORD KAUFFMAN Self Clinical Notes Includes: Clinical Notes from this encounter * Progress note Date Encounter Last Documented by 08/24/2023 CHECK UP Last documented on 08/27/2023; 7:47 AM, JORDY ARNOLD DO; [facility] Active Problems & Conditions - N17.9 - Acute Renal Failure - F41.3 - Anxiety Disorder Nos - N40.0 - Benign Prostatic Hypertrophy Chief Complaint The Chief Complaint is: 1 month follow up, having some trouble with stomach nausea. History of Present Illness CLIFFORD KAUFFMAN is a 58 year old male. - Allergy list reviewed - Medication list reviewed - No systemic symptoms - Not feeling tired or poorly - No head symptoms - No neck symptoms - No eye symptoms - No otolaryngeal symptoms - No cardiovascular symptoms - No pulmonary symptoms - Gastrointestinal symptoms - Normal appetite - No genitourinary symptoms - No musculoskeletal symptoms - No anxiety - No depression - No initial insomnia - Not thinking about suicide - No homicidal thoughts - No skin symptoms The patient is a pleasant 58-year-old male, who presents today for a 1-month follow-up visit. He is feeling fine today. He reports good moods and sound sleep patterns. With respect to his energy, it is better than prior. He has been taking citalopram 20 mg once daily and has been tolerating it well. He denies any side effects. He denies having thoughts of hurting himself or others. He denies any crying spells or angry spells. The patient reports that he started having irritable bowel movements and nausea since he ran out of his antacid medication. He has also had diarrhea for a couple of days and then very soft stools. 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 He denies any vision changes, headaches, dizziness, or falls. He denies any chest pain, palpitations, shortness of breath, or bladder problems. Current Medication - Citalopram Hydrobromide 20 MG Oral Tablet One tablet daily, 30 [...] ONCE DAILY 30 days, 0 refills - predniSONE 20 MG [...] pain or discomfort and no palpitations. Pulmonary: Dyspnea expressed as feeling short of breath. Gastrointestinal: Nausea. No vomiting. Diarrhea. Genitourinary: No dysuria. Musculoskeletal: No localized joint pain. Neurological: No dizziness and no lightheadedness. Psychological: No high irritability, no emotional hypersensitivity, and no sleep disturbances. No change in thought patterns and no lack of balance between leisure activities and work. Skin: No rash. Physical Findings - Vitals taken 08/24/2023 11:13 am BP-Sitting 114/70 mmHg Pulse Rate-Sitting 78 bpm Respiration Rate 18 per min Temp-Oral 96.3 F Height 68 in Weight 158 lbs 4.8 oz Body Mass Index 24.1 kg/m2 Body Surface Area 1.9 m2 Oxygen Saturation 99 % General Appearance: - Well-appearing. - Alert. Neck: Suppleness: - Neck demonstrated no decrease [...] place, and person. Cranial Nerves: - Normal. Motor: - No tremor was seen. Reflexes: [...] Laboratory-based Chemistry: Reviewed laboratory-based chemistry. Assessment - Functional constipation [K59.00 - Constipation, unspecified] - Nausea [R11.0 - Nausea] - Acute renal failure [N17.9 - Acute kidney failure, unspecified] - Benign prostatic hypertrophy [N40.0 - Benign prostatic hyperplasia without lower urinary tract symptoms] - Anxiety disorder NOS [F41.3 - Other [...] vaccine Counseling/Education - Reduce caffeine intake Discussed Discussed lab test results with Patient. discussion [Use for free text]. >20 MIN> 50% His blood pressure has been within normal limits. His weight is down 6 pounds since the last visit. A KUB was done in the clinic today, which showed some stool retention. Plan StartCited - Benign prostatic hyperplasia without lower urinry tract symp Lab: PSA SCREEN EndCited StartCited - Nausea X-ray/IN OFFICE XRAYS: KUB (Kidney Ureter Bladder Xray) EndCited StartCited - Other Follow-up FOLLOW UP IN 3 MONTHS. EndCited StartCited - Other mixed anxiety disorders Citalopram Hydrobromide 20 MG tablet One tablet daily, 90 days, 0 refills EndCited - Follow-up visit - Patient to call if problem develops PLAN [Use for s.o.a.p. note free text]. Continue present medications, call for refills. He was advised to follow a healthy diet. He was advised to eat high-fiber diet. He was recommended taking MiraLAX. He was advised to drink plenty of water and stay hydrated. Other Jatinder Galicia, scribing the following service on behalf of Dr. Jordy Arnold, D.O.
--- OUTSIDE RECORDS SUMMARY | 2025-01-29 11:44 | XMS_ITS | Clinical Summary ---
Author Organization [facility] Address [address] [place] [address] Phone Care Team Providers Care Electric Serviceman Name Role Phone Von Arnold Primary Care Provider [phone] Allergies Active Allergy Reactions Criticality Noted Date Comments Sulfa (Sulfonamide Antibiotics) Rash Low 03/17 Medications cetirizine (ZyrTEC) 10 mg tablet Take 10 mg by mouth daily. Active acetaminophen (TYLENOL) 500 mg tablet Take 1,000 mg by mouth every 6 hours as needed. Active oxyCODONE-acetamin ophen (PERCOCET) 5-325 mg tabletIndications: Closed nondisplaced fracture of shaft of left clavicle, initial encounter,Lisfranc dislocation, left, initial encounter Take 1 Tablet by mouth every 4 hours as needed for Pain, Moderate. Max Daily Amount: 6 Tablets 60 Tablet 0 Active HYDROcodone-acetam inophen (NORCO) 5-325 mg tabletIndications: Closed displaced fracture of metatarsal bone of left foot, unspecified metatarsal, initial encounter,Closed nondisplaced fracture of shaft of left clavicle, initial encounter Take 1 Tablet by mouth every 4 hours as needed for Pain, Moderate. Max Daily Amount: 6 Tablets 42 Tablet 0 Active prednisoLONE 5 mg tablet Take 10 mg by mouth daily. Active pantoprazole (PROTONIX) 40 mg Tablet, Delayed Release (E.C.) Take 40 mg by mouth daily. Active diltiaZEM (CARDIZEM LA) 180 mg Extended Release 24 hour tablet Take 180 mg by mouth daily. Active cycloSPORINE modified (NEORAL) 50 mg Capsule Take 50 mg by mouth every 12 hours. Active labetaloL (NORMODYNE) 200 mg tablet Take 100 mg by mouth 2 times daily. Active sodium zirconium cyclosilicate (Lokelma) 10 gram Powder in Packet Take 5 Grams by mouth daily in the morning. Active ondansetron (ZOFRAN ODT) 8 mg Tablet, Rapid DissolveIndication s:Glomerulonephrit is, acute, proliferative Dissolve 1 tablet on top of tongue then swallow with saliva every 8 hours as needed for nausea or vomiting 30 Tablet 1 3 Active Active Problems No known active problems Encounters Date Type Department Care Team Description 12/19/2024 Orders Only [facility] Oncology and Hematology [address] [place] [address] [address] [place] [address] Amos Alicea MD 12/19/2024 Abstract [facility] Oncology and Hematology [facility] [address] [place] [address] Amos Alicea MD 12/16/2024 Orders Only [facility] Oncology and Hematology - [address] [place] [address] Amos Alicea MD from Last 3 Months Immunizations Immunization Administration Dates Next Due (ADACEL/BOOSTRIX)(10 YR UP) TDAP VACCINE, 0.5ML, IM 02/03/2020 Family History Relation Name Status Comments Brother Alive Father Mother Sister 1 Alive Sister 2 Alive Son 1 Alive Son 2 Alive Social History Tobacco Use Types Packs/Day Years Used Date Smoking Tobacco: Never Smokeless Tobacco: Never Alcohol Use Standard Drinks/Week Comments Yes 0 (1 standard drink = 0.6 oz pur e alcohol) occasionally Sex and Gender Information Value Date Recorded Sex Assigned at Not on file Legal Sex Male 7:15 PM CDT Gender Identity Not on file Sexual Orientation Not on file Last Filed Vital Signs Vital Sign Reading Time Taken Comments Blood Pressure 120/86 06/23/2023 8:43 AM CDT Pulse 94 06/23/2023 8:43 AM CDT Temperature 36.6 C (97.9 F) 06/23/2023 8:43 AM CDT Respiratory Rate 12 06/23/2023 8:43 AM CDT Oxygen Saturation 100% 06/23/2023 8:43 AM CDT Inhaled Oxygen Concentration - - Weight 78.6 kg (173 lb 3.2 oz) 06/23/2023 8:43 A M CDT Height 172.7 cm (5' 8 ) 05/29/2023 8:47 AM CDT Body Mass Index 26.33 05/29/2023 8:47 AM CDT Plan of Treatment Health Maintenance Due Date Last Done Comments HEPATITIS B VACCINES (1 of 3 - 19+ 3-dose series) 02/15 COLORECTAL SCREENING 2011 Colorectal Cancer Screening 2011 FIT-DNA Q 3 years 2011 FIT/FOBT Q 1 year 2011 Flex Sig/CT Colonography Q 5 years 2011 ZOSTER VACCINE (1 of 2) 2016 INFLUENZA VACCINE (#1) 2024 Preventative Visit- Commercial 10/16/2024 DTAP/TDAP/TD VACCINES (2 - Td or Tdap) 02/02/2030 Medical Devices Implanted Type Area Acid Pumper Device Identifier Shelf Expiration Date Model / Serial / Lot Bonilla Hamilton 5/64x3/8in Niraj W564-[id number] - [id number] Implanted:Qty: 3 on 02/10/2020 by Jake Vaughan DO at [facility] Integral Left: Foot JESSICA [id number] / / Synthes Clavicle Plate 10 Holes Implanted:Qty: 1 on 02/10/2020 by Jake Vaughan DO at [facility] Plate Left: Clavicle SYNTHES [employer]ure [facility] 7S / / Description:not All Synthes components are processed on requisition [id number]. see delivery document for more details Plate Clvrlf Fsn 2.4/2.7mm 02.251 - [id number] Implanted:Qty: 1 on 02/10/2020 by Jake Vaughan DO at [facility] Plate Left: Foot SYNTHES STRATEC .25 1S / / 1 JAN 24, [address] 3.5x24mm 204.824 - [id number] Implanted:Qty: 1 on 02/10/2020 by Jake Vaughan DO at [facility] Screw Left: Clavicle SYNTHES STRATEC 204.824 / / 1 FEB 05, [address] [place] Loc 2.7x24mm 02.211.024 - [id number] Implanted:Qty: 1 on 02/10/2020 by Jake Vaughan DO at [facility] Screw Left: Foot SYNTHES STRATEC 02.211.02 4 JAN 24, [address] T8 2.7x18mm 202.878 - [id number] Implanted:Qty: 1 on 02/10/2020 by Jake Vaughan DO at [facility] Screw Left: Foot SYNTHES STRATEC 202.878 / / 1 JAN 24, [address] T8 2.7x24mm 202.884 - [id number] Implanted:Qty: 1 on 02/10/2020 by Jake Vaughan DO at [facility] Screw Left: Foot SYNTHES STRATEC 202.884 / / 1 JAN 24, [address] T8 2.7x26mm 202.886 - [id number] Implanted:Qty: 1 on 02/10/2020 by Jake Vaughan DO at [facility] Screw Left: Foot SYNTHES STRATEC 202.886 / / 1 JAN 24, [address] 2.7x18mm 202.818 - [id number] Implanted:Qty: 2 on 02/10/2020 by Jake Vaughan DO at [facility] Screw Left: Clavicle SYNTHES STRATEC 202.818 / / 1 FEB 05, [address] 2.7x20mm 202.820 - [id number] Implanted:Qty: 2 on 02/10/2020 by Jake Vaughan DO at [facility] Screw Left: Clavicle SYNTHES STRATEC 202.820 / / 1 FEB 05, [address] 2.7x26mm 202.826 - [id number] Implanted:Qty: 1 on 02/10/2020 by Jake Vaughan DO at [facility] Screw Left: Clavicle SYNTHES STRATEC 202.826 / / 1 FEB 05, [address] 2.7x28mm 202.828 - [id number] Implanted:Qty: 1 on 02/10/2020 by Jake Vaughan DO at [facility] Screw Left: Clavicle SYNTHES STRATEC 202.828 / / 1 FEB 05, [address] 3.5x16mm 204.816 - [id number] Implanted:Qty: 2 on 02/10/2020 by Jake Vaughan DO at [facility] Screw Left: Clavicle SYNTHES STRATEC 204.816 / / 1 FEB 05, [address] 3.5x18mm 204.818 - [id number] Implanted:Qty: 2 on 02/10/2020 by Jake Vaughan DO at [facility] Screw Left: Clavicle SYNTHES STRATEC 204.818 / / 1 FEB 05, 2020 Wire K Evacar Dbl .050h5tp [id number] - [id number] Implanted:Qty: 3 on 02/10/2020 by Jake Vaughan DO at [facility] Wire Left: Foot BRASSELER [facility] [id number] JAN 20, 2020 Explanted Type Area Acid Pumper Device Identifier Shelf Expiration Date Model / Serial / Lot Screw St 2.7x14mm 202.814 - [id number] Implanted:Jake Abad DO (Quantity not on file) Explanted:Qty : 1 on 02/10/2020 by Jake Vaughan DO at [facility] Screw Left: Clavicle SYNTHES STRATEC 202.814 / / 1 FEB 05, [address] 3.5x22mm 204.822 - [id number] Implanted:Jake Abad DO (Quantity not on file) Explanted:Qty : 1 on 02/10/2020 by Jake Vaughan DO at [facility] Screw Left: Clavicle SYNTHES STRATEC 204.822 / / 1 FEB 05, [address] 2.7x16mm 202.816 - [id number] Implanted:Jake Abad DO (Quantity not on file) Explanted:Qty : 1 on 02/10/2020 by Jake Vaughan DO at [facility] Screw Left: Clavicle SYNTHES STRATEC 202.816 / / 1 FEB 05, [address] 2.7x22mm 202.822 - [id number] Implanted:Marlon on, Jake Madera DO (Quantity not on file) Explanted:Qty : 1 on 02/10/2020 by Jake Vaughan DO at [facility] Screw Left: Clavicle SYNTHES STRATEC 202.822 / / 1 FEB 05, 2020 Procedures Procedure Name Priority Date/Time Associated Diagnosis Comments CBC WITH DIFFERENTIAL Routine 12/13/2024 3:56 PM KINDERGARTEN TEACHER ASSISTANT BASIC METABOLIC PANEL Routine 12/13/2024 10:06 AM KINDERGARTEN TEACHER ASSISTANT from Last 3 Months Results * CBC WITH DIFFERENTIAL (12/13/2024 3:56 PM KINDERGARTEN TEACHER ASSISTANT) Blood us Amos Alicea MD HEMATOLOGY ORDERABLES Final Res ult * BASIC METABOLIC PANEL (12/13/2024 10:06 AM KINDERGARTEN TEACHER ASSISTANT) Blood us Amos Alicea MD CHEMISTRY ORDERABLES Final Resu lt from Last 3 Months Insurance [employer] Direct[employer] For more information, please contact: [phone] * Full Code (Latest Code Status on File) Date Activated Date Inactivated Comments 02/10/2020 6:07 AM 02/10/2020 6:07 PM * Full Code Date Activated Date Inactivated Comments 02/10/2020 5:48 AM 02/10/2020 6:07 AM Care Teams Electric Serviceman Relationship Specialty Start Date End Date Von Arnold DO [address] [place] [id number] PCP - General Family Practice 02/03/20
--- OUTSIDE RECORDS SUMMARY | 2025-01-29 11:44 | XMS_ITS | Clinical Summary ---
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 JORDY ARNOLD DO Active Last Documented On 4 10:47PM ; [facility] Acute Renal Failure 07/17/2023 JORDY ARNOLD DO Active Last Documented On 3 9:37AM ; [facility] Anxiety Disorder Nos 07/17/2023 JORDY ARNOLD DO Active Last Documented On 3 9:38AM ; [facility] Past Visits Onset Date Resolved Date Provider Condition Status Benign Prostatic Hypertrophy 06/08/2022 JORDY ARNOLD DO Active Last Documented On 2 9:29AM ; [facility] Plan of Treatment - Follow-up visit - Last Documented On 11/30/2023 10:48PM ; [facility] - Patient to call if problem develops - Last Documented On 11/30/2023 10:48PM ; [facility] PLAN [Use for s.o.a.p. note free text]. - Last Documented On 11/30/2023 10:48PM ; [facility] Continue present medications, call for refills. Take citalopram 20 mg 2 tablets daily x1 week and let us know if it works or not. He was suggested to do neck stretching exercises. He was advised to follow a healthy diet. He was advised to drink plenty of water and stay hydrated. - Last Documented On 11/30/2023 10:48PM ; [facility] Pending Tests Order Diagnosis Results Due Ordering Etelivna whitney In office procedures - *[facility] OMT 1-2 Areas Segmental and somatic dysfunction of cervical region 12/08/23 JORDY ARNOLD DO Last Documented On 10:47PM ; [facility] Assessments Includes: Assessments from this encounter Findings - Nausea [R11.0 - Nausea] due to meds - Last Documented On 11/30/2023 10:48PM ; [facility] - Primary pauci-immune necrotizing and crescentic glomerulonephritis [N05.9 - Unspecified nephritic syndrome with unspecified morphologic changes] - Last Documented On 11/30/2023 10:48PM ; [facility] - Acute renal failure [N17.9 - Acute kidney failure, unspecified] - Last Documented On 11/30/2023 10:48PM ; [facility] - Arthralgias of multiple sites [M25.50 - Pain in unspecified joint] - Last Documented On 11/30/2023 10:48PM ; [facility] - Anxiety disorder NOS [F41.3 - Other mixed anxiety disorders] - Last Documented On 11/30/2023 10:48PM ; [facility] - Somatic dysfunction of cervical region [M99.01 - Segmental and somatic dysfunction of cervical region] - Last Documented On 11/30/2023 10:48PM ; [facility] Medical Equipment - [...] On 02/20/2024 2:19PM By Heather GREGORY ; [facility] Famotidine 20 MG Oral Tablet 06/08/2023 Provider: Diagnosis: Last Documented On 06/08/2023 9:19AM By Marcelino GREGORY ; [facility] Sevelamer Carbonate 800 MG Oral Tablet 05/10/2023 Pr ovider: Diagnosis: Last Documented On 3 10:45AM By KATEY GREGORY ; [facility] Dilt-XR 180 MG Oral Capsule Extended Release 24 Hour 0 05/10/2023 Provider: Diagnosis: Last Documented On 10:46AM By KATEY GREGORY ; [facility] Labetalol HCl 100 MG Oral Tablet 05/10/2023 Provider : Diagnosis: 1/2 tab po every 12 hours Last Documented On 10:47AM By KATEY GREGORY ; [facility] Cyclobenzaprine HCl 10 MG Oral Tablet 02/14/2023 Pro vider: Diagnosis: Last Documented On 10:50AM By KATEY GREGORY ; [facility] Medications Administered Includes: Administered Medications from this encounter No Administered Medications Recorded Vital Signs Includes: Vital Signs from this encounter Vital Name 11/24/2023 10:49A Blood Pressure Sitting R 108/72 Pulse Rate-Sitting (bpm) 76 Respiration Rate (breaths/min) 20 Height (in) 68 Weight (lb) 161.125 Body Mass Index 24.5 Body Surface Area 1.9 Oxygen Saturation (%) 98 Last Documented: On 11/24/2023 10:49A M ; [facility] Results Includes: Results discussed during this encounter No Results Recorded For Specified Dates History of Present Illness Includes: History of Present Illness from this encounter TRICE KAUFFMAN is a 58 year old male. - Allergy list reviewed - Medication list reviewed - Feeling tired or poorly - No head symptoms - Neck symptoms - No eye symptoms - No otolaryngeal symptoms - No cardiovascular symptoms - No pulmonary symptoms - Gastrointestinal symptoms - Normal appetite - No genitourinary symptoms - No muscle weakness - Muscle spasms - No musculoskeletal symptoms - No recent falls - No numbness - Anxiety - Middle-night awakening - No depression - No initial insomnia - No homicidal thoughts - No skin symptoms The patient is a pleasant 58-year-old male who presents today for a 3-month follow-up visit. He is feeling fine today. He reports good moods. He reports having difficulty staying asleep as he wakes up multiple times and does take naps during the day or evening. He sleeps 5-6 hours every night. He has been taking citalopram 20 mg once daily and has been tolerating it well. He reports feeling mildly anxious and winded occasionally. He denies having thoughts of hurting himself or others. He denies any crying spells or angry spells. He has been taking Pepcid once daily. He continues to have nausea, vomiting, and feeling tired lately. He has been on CTX for Pauci-immune glomerulonephritis. He had labs done in September which showed WBC 4.1, hemoglobin 10.5, sodium 137, total protein 4.1, BUN 28, creatinine 2.6, GFR 26, glucose 117, phosphorus 2.7, CRP 0.5, and PTH 66.7. He does also complain of having pain in his neck lately. He denies any vision changes, headaches, dizziness, or falls. He denies any chest pain, palpitations, shortness of breath, changes in bowel movements such as black or tarry stools, or bladder problems. Social History Description Last Updated Non-smoker 04/15/2020 Last Documented On 4 10:48AM ; [facility] Currently 01/04/2017 Last Documented On 4 10:48AM ; [facility] No tobacco use 12/14/2016 Last Documented On 4 10:48AM ; [facility] Smoking status : Former smoker Last Documented On 4 10:48AM ; [facility] Alcohol 2 per week 01/04/2012 Last Documented On 4 10:48AM ; [facility] 01/04/2012 Last Documented On 4 10:48AM ; [facility] Former smoker 01/04/2012 Last Documented On 4 10:48AM ; [facility] Procedures and Surgical History Includes: Procedures from this encounter Procedures Code Diagnosis Performing Provider Service L ocation Service Date dietary regime Last Documented On 4 11:16AM ; [facility] continue current medication Last Documented On 4 11:16AM ; [facility] plan of care reviewed and agreed to Last Documented On 4 11:16AM ; [facility] plan of care reviewed and agreed to by t he patient Last Documented On 4 11:16AM ; [facility] muscle energy therapy TOLERATED WELL Last Documented On 4 10:46PM ; [facility] Pt encouraged to be compliant with curre nt treatment Last Documented On 4 11:16AM ; [facility] Discussed Exercise Last Documented On 4 11:16AM ; [facility] OMT - Soft tissue/muscle stretching tech niques TOLERATED WE[employer] Last Documented On 4 10:46PM ; [facility] instructed to monitor salt intake Last Documented On 4 11:16AM ; [facility] Reviewed Blood Pressures Last Documented On 4 11:16AM ; [facility] Medical History Includes: Medical History addressed during this encounter Description Last Updated Vaccine history 08/24/2023 Last Documented On 4 10:48AM ; [facility] History of colonoscopy fiberoptic was pe rformed 05/04/2023 06/07/2023 Last Documented On 4 10:48AM ; [facility] No recent change in medical history 02/15 Last Documented On 4 10:48AM ; [facility] Currently wearing eyeglasses 01/04/2012 Last Documented On 4 10:48AM ; [facility] Wearing contact lenses 01/04/2012 Last Documented On 4 10:48AM ; [facility] Exposure airborne chemical particulate 0 01/04/2012 Last Documented On 4 10:48AM ; [facility] Exposure to chemical liquids 01/04/2012 Last Documented On 4 10:48AM ; [facility] Exposure to dust 01/04/2012 Last Documented On 4 10:48AM ; [facility] Exposure to fumes 01/04/2012 Last Documented On 4 10:48AM ; [facility] High level of environmental noise 2011 Last Documented On 4 10:48AM ; [facility] Smoke exposure 01/04/2012 Last Documented On 4 10:48AM ; [facility] No history of arthritis 01/04/2012 Last Documented On 4 10:48AM ; [facility] No history of cancer 01/04/2012 Last Documented On 4 10:48AM ; [facility] No history of chronic obstructive pulmon lia disease 01/04/2012 Last Documented On 4 10:48AM ; [facility] No history of convulsive disorder 2011 Last Documented On 4 10:48AM ; [facility] No history of diabetes mellitus 01/04/20 12 Last Documented On 4 10:48AM ; [facility] No history of hypertension 01/04/2012 Last Documented On 4 10:48AM ; [facility] No history of stroke syndrome 01/04/2012 Last Documented On 4 10:48AM ; [facility] No history of venereal disease 2 Last Documented On 4 10:48AM ; [facility] No reported cardiovascular symptoms 12/15 Last Documented On 4 10:48AM ; [facility] No reported easy bleeding 01/04/2012 Last Documented On 4 10:48AM ; [facility] No reported recurrent infections 012 Last Documented On 4 10:48AM ; [facility] Family History Includes: Family History addressed during this encounter Description Last Updated Family history unchanged 06/08/2022 Last Documented On 4 10:48AM ; [facility] Review of Systems Includes: Review of Systems from this encounter Systemic: Feeling poorly (malaise). No fever and no night sweats. Head: No headache. Neck: Neck pain. Eyes: No vision problems. Otolaryngeal: No nasal discharge and no sore throat. Cardiovascular: No chest pain or discomfort and no palpitations. Pulmonary: No dyspnea. Gastrointestinal: Nausea and vomiting. No melena. Genitourinary: No dysuria. Musculoskeletal: No localized joint pain. Neurological: No dizziness and no lightheadedness. Psychological: Anxiety. No high irritability and no emotional hypersensitivity. Sleep disturbances. No change in thought patterns and no lack of balance between leisure activities and work. Skin: No rash. Mental Status Includes: Mental Status from this encounter Description Cognitive functioning was no rmal Oriented to time, place, and person Thought processes were not i mpaired Anxiety No homicidal thoughts The thought content revealed no impairment Functional Status Includes: Functional Status from this encounter No Functional Status Recorded Physical Exam Includes: Physical Exam from this encounter Allergies Includes: Active Allergies Substance Type Reaction Onset Date Resolved Date Statu s Sulfa Antibiotics Allergy 05/26/2022 A ctive Last Documented On 4 2:10PM ; [facility] Encounters Encounter Provider Location Date Check-In Time Check-Out Time Diagnosis CHECK UP JORDY ARNOLD DO [facility] 11/24/19 24 10:15AM 11:26AM Anxiety Disorder Nos,Acute Renal Failure,Primary Pauci-immune Necrotizing and Crescentic Glomerulonephri tis,Nausea,Arth ralgias Multiple Sites,Somatic Dysfunction of Cervical Region Insurance Includes: Active Insurance Policies Plan Name Member ID Group # Subscriber Relationship Effect bebeto Dates 1 - [facility] [id number] CLIFFORD KAUFFMAN Self Clinical Notes Includes: Clinical Notes from this encounter * Progress note Date Encounter Last Documented by 11/24/2023 CHECK UP Last documented on 11/30/2023; 10:48 PM, JORDY ARNOLD DO; [facility] Active Problems & Conditions [...] list reviewed - Medication list reviewed - Feeling tired or poorly - No head symptoms - Neck symptoms - No eye symptoms - No otolaryngeal symptoms - No cardiovascular symptoms - No pulmonary symptoms - Gastrointestinal symptoms - Normal appetite - No genitourinary symptoms - No muscle weakness - Muscle spasms - No musculoskeletal symptoms - No recent falls - No numbness - Anxiety - Middle-night awakening - No depression - No initial insomnia - No homicidal thoughts - No skin symptoms The patient is a pleasant 58-year-old male who presents today for a 3-month follow-up visit. He is feeling fine today. He reports good moods. He reports having difficulty staying asleep as he wakes up multiple times and does take naps during the day or evening. He sleeps 5-6 hours every night. He has been taking citalopram 20 mg once daily and has been tolerating it well. He reports feeling mildly anxious and winded occasionally. He denies having thoughts of hurting himself or others. He denies any crying spells or angry spells. He has been taking Pepcid once daily. He continues to have nausea, vomiting, and feeling tired lately. He has been on CTX for Pauci-immune glomerulonephritis. He had labs done in September which showed WBC 4.1, hemoglobin 10.5, sodium 137, total protein 4.1, BUN 28, creatinine 2.6, GFR 26, glucose 117, phosphorus 2.7, CRP 0.5, and PTH 66.7. He does also complain of having pain in his neck lately. He denies any vision changes, headaches, dizziness, or falls. He denies any chest pain, palpitations, shortness of breath, changes in bowel movements such as black or tarry stools, or bladder problems. Current Medication - Citalopram Hydrobromide 20 MG Oral Tablet TAKE 1 TABLET BY MOUTH EVERY DAY, 90 days, 0 refills - Cyclobenzaprine HCl 10 [...] unchanged Review Of Systems Systemic: Feeling poorly (malaise). No fever and no night sweats. Head: No headache. Neck: Neck pain. Eyes: No vision problems. Otolaryngeal: No nasal discharge and no sore throat. Cardiovascular: No chest pain or discomfort and no palpitations. Pulmonary: No dyspnea. Gastrointestinal: Nausea and vomiting. No melena. Genitourinary: No dysuria. Musculoskeletal: No localized joint pain. Neurological: No dizziness and no lightheadedness. Psychological: Anxiety. No high irritability and no emotional hypersensitivity. Sleep disturbances. No change in thought patterns and no lack of balance between leisure activities and work. Skin: No rash. Physical Findings - Vitals taken 11/24/2023 10:49 am BP-Sitting R 108/72 mmHg Pulse Rate-Sitting 76 bpm Respiration Rate 20 per min Height 68 in Weight 161 lbs 2 oz Body Mass Index 24.5 kg/m2 Body Surface Area 1.9 m2 Oxygen Saturation 98 % General Appearance: - Well-appearing. - Alert. [...] System: General/bilateral: - Musculoskeletal system: normal. Cervical Spine (Motion): General/bilateral: - Cervical spine did not show full range of motion. - Side Bent Left , Rotated Right. - Side Bent Right, Rotated Left. - Cervical lymph nodes were not tender on palpation. - Cervical spine pain was not elicited by motion. Lower Leg: General/bilateral: - A positive Aura's [...] skin lesions. - No rash. Assessment - Nausea [R11.0 - Nausea] due to meds - Primary pauci-immune necrotizing and crescentic glomerulonephritis [N05.9 - Unspecified nephritic syndrome with unspecified morphologic changes] - Acute renal failure [N17.9 - Acute kidney failure, unspecified] - Arthralgias of multiple sites [M25.50 - Pain in unspecified joint] - Anxiety disorder NOS [F41.3 - Other mixed anxiety disorders] - Somatic dysfunction of cervical region [M99.01 - Segmental and somatic dysfunction of cervical region] Therapy - Reviewed Blood Pressures. - Dietary regime modified electrolyte levels low in sodium content instructed to monitor salt intake. - Discussed Exercise. - Continue current medication. - Pt encouraged to be compliant with current treatment. - Muscle energy therapy TOLERATED WE[employer] and OMT - Soft tissue/muscle stretching techniques [employer]ATED WE[employer]. - Plan of care reviewed and agreed to by the patient. Counseling/Education - Reduce caffeine intake Discussed discussion [Use for free text]. >20 MIN> 50% His blood pressure has been within normal limits. His weight is up 3 pounds since the last visit. Plan StartCited - Other Follow-up FOLLOW UP IN 3 MONTHS. EndCited StartCited - Segmental and somatic dysfunction of cervical region In office procedures/*Family Practice: OMT 1-2 Areas EndCited - Follow-up visit - Patient to call if problem develops PLAN [Use for s.o.a.p. note free text]. Continue present medications, call for refills. Take citalopram 20 mg 2 tablets daily x1 week and let us know if it works or not. He was suggested to do neck stretching exercises. He was advised to follow a healthy diet. He was advised to drink plenty of water and stay hydrated. Other Jatinder Galicia, scribing the following service on behalf of Dr. Jordy Arnold D.O.
[2025-01-29 11:47] LABS: Erythrocyte Sedimentation Rate 16 mm/hr (0-20)
[2025-01-29 11:58] LABS: Parathyroid Intact 177.5 pg/mL (14.5-75.2)
[2025-01-29 12:01] LABS: Creatinine Urine 125.8 mg/dL
[2025-01-29 12:25] LABS: Total Protein Urine Random 438 mg/dL; Ur Ttl Prot Creatinine Ratio 3.48 mg/mg (0-0.20)
== END 2025-01-29 10:30 | disposition home or self-care (01) ==
LOC: ANHLAB 10:29
PROVIDERS: PCP Internal Medicine Nephrology; Visit Provider Internal Medicine Nephrology
DX: N18.4 Chronic kidney disease, stage 4 (severe) (principal); N01.9 Rapidly progressive nephritic syndrome with unspecified morphologic changes
CPT/HCPCS: 36415; 80069; 82570; 83970; 84156; 85027; 85652; 86140

== ENCOUNTER 2025-02-13 11:08 | Outpatient (CLI) | payer BC, SELFPAY ==
--- NOTE | ~2025-02-13 | XR_ITS ---
Clinical Indication: Shortness of breath PA and lateral views of the chest: Comparison: 12/13/2023 Findings: The lungs are clear, without evidence of focal consolidation or pleural effusion. Cardiome diastinal silhouette is within normal limits. Stable ORIF hardware at the left clavicle. Impression: Clear lungs. Reviewed, dictated and finalized at location . Impression: Clear lungs.
--- OUTSIDE RECORDS SUMMARY | 2025-02-13 12:31 | XMS_ITS | Continuity of Care Document ---
Author Organization [facility] Address [address] [place] [address] Phone Care Team Providers Care Human Resources Hr Generalist Name Role Phone Wilson Germain MD Unavailable Unavailable Advance Directives Directive Yes / No Effective Date File Name No Information Encounters Encounter Description Practice Location Reason(s) For Visit Diagnoses Date Provider Providers Copied on Encounter [facility], [address] [place], [place], [id number], [place] tel:[phone] [facility] No Information [address] Marcellus Rachel. [address], [place], [place], [id number], [place]. tel:[phone] Family History Family Member Type Diagnosis Age At Onset No Information Payers Payer name Insurance type Covered democrat ID Authoriza tion(s) No Information Social History [...]
--- OUTSIDE RECORDS SUMMARY | 2025-02-13 12:31 | XMS_ITS | Clinical Summary ---
Author Organization [facility] Address [address] [place] [address] Phone Care Team Providers Care Screen Room Operator Name Role Phone JORDY ARNOLD DO Primary Care Provider [phone] Reason for Visit and Chief Complaint The Chief Complaint is: Patient is here for a check up Problems Includes: Problems addressed during this encounter and other active Problems Current Visit Onset Date Resolved Date Provider Conditio n Status Acute Renal Failure 07/17/2023 JORDY ARNOLD DO Active Last Documented On 3 9:37AM ; [facility] Anxiety Disorder Nos 07/17/2023 JORDY ARNOLD DO Active Last Documented On 3 9:38AM ; [facility] Past Visits Onset Date Resolved Date Provider 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 JORDY ARNOLD DO Active Last Documented On 4 10:47PM ; [facility] Abdominal Pain 05/04/2023 JORDY ARNOLD DO In active Last Documented On 3 2:13PM ; [facility] Constipation Chronic 05/04/2023 JORDY ARNOLD DO Inactive Last Documented On 3 2:12PM ; [facility] Benign Prostatic Hypertrophy 06/08/2022 JORDY ARNOLD DO Active Last Documented On 2 9:29AM ; [facility] Closed Fracture of Tarsal an d Metatarsal Bones 05/12/2020 07/29/2023 JORDY ARNOLD DO Resolved Last Documented On 2:12PM ; [facility] Plan of Treatment - Follow-up visit - Last Documented On 07/29/2023 2:15PM ; [facility] - Patient to call if problem develops - Last Documented On 07/29/2023 2:15PM ; [facility] PLAN [Use for s.o.a.p. note free text]. - Last Documented On 07/29/2023 2:15PM ; [facility] Continue present medications, call for refills. Increased citalopram to 20 mg once daily. Finish course of antibiotic. He was advised to follow a healthy diet. He was advised to drink plenty of water and stay hydrated. - Last Documented On 07/29/2023 2:15PM ; [facility] Assessments Includes: Assessments from this encounter Findings - Bacterial pneumonia [J15.9 - Unspecified bacterial pneumonia] - Last Documented On 07/29/2023 2:15PM ; [facility] - Acute renal failure [N17.9 - Acute kidney failure, unspecified] - Last Documented On 07/29/2023 2:15PM ; [facility] - Anxiety disorder NOS [F41.3 - Other mixed anxiety disorders] - Last Documented On 07/29/2023 2:15PM ; [facility] Medical Equipment - Implanted Devices Includes: Current Devices No Medical Equipment Recorded Medications Includes: Medications discussed during this encounter and other current Medications New / Renewed during this visit JORDY ARNOLD DO on 07/25/2023 Citalopram Hydrobromide 20 M G Oral Tablet Provider: JORDY ARNOLD DO 30 day supply: 30 tablet, 0 refills Diagnosis: Other mixed anxiety disorders One tablet daily Pharmacy: [facility]) - [id number] , [facility], [phone] - Last Documented On 08/24/2023 11:36AM By Jatinder Galicia ; [facility] Current Medications (continue as prescribed) Citalopram Hydrobromide 20 M G Oral Tablet 02/20/2024 Provider: JORDY ARNOLD DO Diagnosis: Other mixed anxi ety disorders TAKE 1 TABLET BY MOUTH EVERY DAY Last Documented On 02/20/2024 2:47PM By JORDY ARNOLD DO ; [facility] Mycophenolate Mofetil 500 MG Oral Tablet 01/24/2024 Provider: VIANEY ROWLAND MD Diagnosis: Last Documented On 02/20/2024 2:19PM By Heather GREGORY ; [facility] Famotidine 20 MG Oral Tablet 06/08/2023 Provider: Diagnosis: Last Documented On 06/08/2023 9:19AM By Marcelino GREGORY ; [facility] Sevelamer Carbonate 800 MG Oral Tablet 05/10/2023 Pr ovider: Diagnosis: Last Documented On 3 10:45AM By KATEY GREGORY ; [facility] Dilt-XR 180 MG Oral Capsule Extended Release 24 Hour 0 05/10/2023 Provider: Diagnosis: Last Documented On 10:46AM By KATEY GREGORY ; [facility] Labetalol HCl 100 MG Oral Tablet 05/10/2023 Provider : Diagnosis: 1/2 tab po every 12 hours Last Documented On 3 10:47AM By KATEY GREGORY ; [facility] Cyclobenzaprine HCl 10 MG Oral Tablet 02/14/2023 Pro vider: Diagnosis: Last Documented On 10:50AM By KATEY GREGORY ; [facility] Medications Administered Includes: Administered Medications from this encounter No Administered Medications Recorded Vital Signs Includes: Vital Signs from this encounter Vital Name 07/25/2023 02:40P Blood Pressure Sitting L 112/72 Pulse Rate-Sitting (bpm) 82 Respiration Rate (breaths/min) 20 Height (in) 68 Weight (lb) 164.375 Body Mass Index 25 Body Surface Area 1.9 Oxygen Saturation (%) 97 Last Documented: On 07/25/2023 2:40PM ; [facility] Results Includes: Results discussed during this encounter [...] down He was seen and admitted to [facility] for pneumonia last week and discharged home on Monday with Cefdinir. He reports that his breathing is a lot better. He denies any abdominal pain, nausea, or vomiting. He has an appointment with dj instructor tomorrow. He denies any vision changes, headaches, dizziness, or falls. He denies any chest pain, palpitations, changes in bowel movements such as black or tarry stools, or bladder problems. Social History Description Last Updated Non-smoker 04/15/2020 Last Documented On 3 2:40PM ; [facility] Currently 01/04/2017 Last Documented On 3 2:40PM ; [facility] No tobacco use 12/14/2016 Last Documented On 3 2:40PM ; [facility] Smoking status : Former smoker Last Documented On 3 2:40PM ; [facility] Alcohol 2 per week 01/04/2012 Last Documented On 3 2:40PM ; [facility] 01/04/2012 Last Documented On 3 2:40PM ; [facility] Former smoker 01/04/2012 Last Documented On 3 2:40PM ; [facility] Procedures and Surgical History Includes: Procedures from this encounter Procedures Code Diagnosis Performing Provider Service L ocation Service Date dietary regime Last Documented On 3 3:02PM ; [facility] continue current medication Last Documented On 3 3:01PM ; [facility] plan of care reviewed and agreed to Last Documented On 3 3:01PM ; [facility] plan of care reviewed and agreed to by t he patient Last Documented On 3 3:01PM ; [facility] Pt encouraged to be compliant with curre nt treatment Last Documented On 3 3:02PM ; [facility] Discussed Exercise Last Documented On 3 3:02PM ; [facility] instructed to monitor salt intake Last Documented On 3 3:02PM ; [facility] Reviewed Blood Pressures Last Documented On 3 3:01PM ; [facility] Medical History Includes: Medical History addressed during this encounter Description Last Updated History of colonoscopy fiberoptic was pe rformed 05/04/2023 06/07/2023 Last Documented On 3 2:40PM ; [facility] No recent change in medical history 02/15 Last Documented On 3 2:40PM ; [facility] Currently wearing eyeglasses 01/04/2012 Last Documented On 3 2:40PM ; [facility] Wearing contact lenses 01/04/2012 Last Documented On 3 2:40PM ; [facility] Exposure airborne chemical particulate 0 01/04/2012 Last Documented On 3 2:40PM ; [facility] Exposure to chemical liquids 01/04/2012 Last Documented On 3 2:40PM ; [facility] Exposure to dust 01/04/2012 Last Documented On 3 2:40PM ; [facility] Exposure to fumes 01/04/2012 Last Documented On 3 2:40PM ; [facility] High level of environmental noise 2011 Last Documented On 3 2:40PM ; [facility] Smoke exposure 01/04/2012 Last Documented On 3 2:40PM ; [facility] No history of arthritis 01/04/2012 Last Documented On 3 2:40PM ; [facility] No history of cancer 01/04/2012 Last Documented On 3 2:40PM ; [facility] No history of chronic obstructive pulmon lia disease 01/04/2012 Last Documented On 3 2:40PM ; [facility] No history of convulsive disorder 2011 Last Documented On 3 2:40PM ; [facility] No history of diabetes mellitus 01/04/20 12 Last Documented On 3 2:40PM ; [facility] No history of hypertension 01/04/2012 Last Documented On 3 2:40PM ; [facility] No history of stroke syndrome 01/04/2012 Last Documented On 3 2:40PM ; [facility] No history of venereal disease 2 Last Documented On 3 2:40PM ; [facility] No reported cardiovascular symptoms 12/15 Last Documented On 3 2:40PM ; [facility] No reported easy bleeding 01/04/2012 Last Documented On 3 2:40PM ; [facility] No reported recurrent infections 012 Last Documented On 3 2:40PM ; [facility] Family History Includes: Family History addressed during this encounter Description Last Updated Family history unchanged 06/08/2022 Last Documented On 3 2:40PM ; [facility] Review of Systems Includes: Review of Systems [...] ctive Last Documented On 4 2:10PM ; [facility] Encounters Encounter Provider Location Date Check-In Time Check-Out Time Diagnosis CHECK UP JORDY ARNOLD DO [facility] 07/25/20 23 2:14PM 3:02PM Bacterial Pneumonia,Acu te Renal Failure,Anxie ty Disorder Nos Insurance Includes: Active Insurance Policies Plan Name Member ID Group # Subscriber Relationship Effect bebeto Dates 1 - [facility] [id number] CLIFFORD KAUFFMAN Self Clinical Notes Includes: Clinical Notes from this encounter * Progress note Date Encounter Last Documented by 07/25/2023 CHECK UP Last documented on 07/29/2023; 2:15 PM, JORDY ARNOLD DO; [facility] Active Problems & Conditions [...] down He was seen and admitted to [facility] for pneumonia last week and discharged home on Monday with Cefdinir. He reports that his breathing is a lot better. He denies any abdominal pain, nausea, or vomiting. He has an appointment with dj instructor tomorrow. He denies any vision changes, headaches, [...]
--- OUTSIDE RECORDS SUMMARY | 2025-02-13 12:32 | XMS_ITS ---
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 JORDY MERCADO DO Active Last Documented On 4 10:47PM ; [facility] Acute Renal Failure 07/17/2023 JORDY MERCADO DO Active Last Documented On 3 9:37AM ; [facility] Anxiety Disorder Nos 07/17/2023 JORDY MERCADO DO Active Last Documented On 3 9:38AM ; [facility] Abdominal Pain 05/04/2023 JORDY MERCADO DO In active Last Documented On 3 2:13PM ; [facility] Constipation Chronic 05/04/2023 JORDY MERCADO DO Inactive Last Documented On 3 2:12PM ; [facility] Benign Prostatic Hypertrophy 06/08/2022 JORDY MERCADO DO Active Last Documented On 2 9:29AM ; [facility] Closed Fracture of Tarsal an d Metatarsal Bones 05/12/2020 07/29/2023 JORDY MERCADO DO Resolved Last Documented On 3 2:12PM ; [facility] Chest Pain 01/09/2017 06/08/2022 JORDY French ROGELIO DO Resolv ed Last Documented On 2 9:29AM ; [facility] Esophageal Disorders 01/09/2017 06/08/2022 JORDY French ROGELIO DO Resolved Last Documented On 2 9:29AM ; [facility] Plan of Treatment Findings Encounter Date Ordered follow-up visit CHECK UP with JORDY JASON DO 02/20/2024 Last Documented On 4 8:01PM ; [facility] Ordered patient to call if p roblem develops CHECK UP with JORDY MERCADO DO 02/20/2024 Last Documented On 4 8:01PM ; [facility] PLAN [Use for s.o.a.p. note free text] CHECK UP with JORDY MERCADO DO 02/20/2024 Last Documented On 4 8:01PM ; [facility] Ordered follow-up visit CHECK UP with JORDY JASON DO 11/24/2023 Last Documented On 4 10:48PM ; [facility] Ordered patient to call if p roblem develops CHECK UP with JORDY MERCADO DO 11/24/2023 Last Documented On 4 10:48PM ; [facility] [Use for s.o.a.p. note free text] CHECK UP with JORDY MERCADO DO 11/24/2023 Last Documented On 4 10:48PM ; [facility] Ordered follow-up visit CHECK UP with JORDY JASON DO 08/24/2023 Last Documented On 3 7:47AM ; [facility] Ordered patient to call if p roblem develops CHECK UP with JORDY MERCADO DO 08/24/2023 Last Documented On 3 7:47AM ; [facility] [Use for s.o.a.p. note free text] CHECK UP with JORDY MERCADO DO 08/24/2023 Last Documented On 3 7:47AM ; [facility] Ordered follow-up visit CHECK UP with JORDY JASON DO 07/25/2023 Last Documented On 3 2:15PM ; [facility] Ordered patient to call if p roblem develops CHECK UP with JORDY MERCADO DO 07/25/2023 Last Documented On 3 2:15PM ; [facility] PLAN [Use for s.o.a.p. note free text] CHECK UP with JORDY MERCADO DO 07/25/2023 Last Documented On 3 2:15PM ; [facility] Ordered follow-up visit SICK VISIT with JORDY JARA DO 07/13/2023 Last Documented On 3 9:41AM ; [facility] Ordered patient to call if p roblem develops SICK VISIT with JORDY MERCADO DO 07/13/2023 Last Documented On 3 9:41AM ; [facility] PLAN [Use for s.o.a.p. note free text] SICK VISI T with JORDY MERCADO DO 07/13/2023 Last Documented On 3 9:41AM ; [facility] Ordered follow-up visit ANNUAL PHYSICAL EXAM wit h JORDY MERCADO DO 07/06/2023 Last Documented On 3 2:45PM ; [facility] Ordered return to the clinic if condition worsens or new symptoms arise ANNUAL PHYSICAL EXAM with JORDY MERCADO DO 07/06/2023 Last Documented On 3 2:45PM ; [facility] PLAN [Use for s.o.a.p. note free text] ANNUAL PHYSICAL EXAM with JORDY MERCADO DO 07/06/2023 Last Documented On 3 2:45PM ; [facility] Ordered patient to call if p roblem develops PROBLEM VISIT with JORDY MERCADO DO 05/01/2023 Last Documented On 3 5:33PM ; [facility] PLAN [Use for s.o.a.p. note free text] PROBLEM VISIT with JORDY MERCADO DO 05/01/2023 Last Documented On 3 5:33PM ; [facility] Ordered return to the clinic if condition worsens or new symptoms arise CHECK UP with JORDY MERCADO DO 06/08/2022 Last Documented On 2 10:36PM ; [facility] PLAN [Use for s.o.a.p. note free text] CHECK UP with JORDY MERCADO DO 06/08/2022 Last Documented On 2 10:36PM ; [facility] Ordered an X-ray PROBLEM VISIT with JORDY WOMACK DO 05/26/2022 Last Documented On 2 2:19PM ; [facility] Ordered return to the clinic if condition worsens or new symptoms arise PROBLEM VISIT with JORDY MERCADO DO 05/26/2022 Last Documented On 2 2:19PM ; [facility] Ordered return to the clinic if condition worsens or new symptoms arise PROBLEM VISIT with JORDY MERCADO DO 03/04/2021 Last Documented On 1 8:34AM ; [facility] PLAN [Use for s.o.a.p. note free text] PROBLEM VISIT with JORDY MERCADO DO 03/04/2021 Last Documented On 1 8:34AM ; [facility] Ordered return to the clinic if condition worsens or new symptoms arise PROBLEM VISIT with JORDY MERCADO DO 01/25/2021 Last Documented On 1 8:35PM ; [facility] PLAN [Use for s.o.a.p. note free text] PROBLEM VISIT with JORDY MERCADO DO 01/25/2021 Last Documented On 1 8:35PM ; [facility] Ordered return to the clinic if condition worsens or new symptoms arise GENERAL OFFICE VISIT with JORDY MERCADO DO 05/06/2020 Last Documented On 0 4:03PM ; [facility] PLAN [Use for s.o.a.p. note free text] GENERAL OFFICE VISIT with JORDY MERCADO DO 05/06/2020 Last Documented On 0 4:03PM ; [facility] ONCE RELEASED FX HEALED 1-2 WEEK CAN DO P.T 1-2 WEEKS AND RESUME WORK SLOW CHECK UP with JORDY MERCADO DO 04/15/2020 Last Documented On 0 6:07PM ; [facility] Ordered follow-up visit CHECK UP with JORDY JASON DO 04/15/2020 Last Documented On 0 6:07PM ; [facility] Ordered return to the clinic if condition worsens or new symptoms arise CHECK UP with JORDY MERCADO DO 04/15/2020 Last Documented On 0 6:07PM ; [facility] Ordered patient to call if p roblem develops PROBLEM VISIT with JORDY MERCADO DO 12/27/2017 Last Documented On 8 6:42PM ; [facility] Ordered return to the clinic if condition worsens or new symptoms arise PROBLEM VISIT with JORDY MERCADO DO 12/27/2017 Last Documented On 8 6:42PM ; [facility] Ordered Transition in care, clinical summary provided PROBLEM VISIT with JORDY MERCADO DO 12/27/2017 Last Documented On 8 6:42PM ; [facility] Ordered patient will call r appointment as needed or in 1 year for annual exam CHECK UP with LORRIE VALLADARES [facility]- MONITORING ENGINEER- 03/15/2017 Last Documented On 7 8:57AM ; [facility] Stress test if symptoms reoc cure. Continue the Omeprazole can decrease use if symptoms decrease 3 WK CK-UP with JORDY MERCADO DO 01/04/2017 Last Documented On 7 9:59PM ; [facility] Ordered patient to call if p roblem develops 3 WK CK-UP with JORDY MERCADO DO 01/04/2017 Last Documented On 7 9:59PM ; [facility] Ordered return to the clinic if condition worsens or new symptoms arise 3 WK CK-UP with JORDY MERCADO DO 01/04/2017 Last Documented On 7 9:59PM ; [facility] Ordered Transition in care, clinical summary provided 3 WK CK-UP with JORDY MERCADO DO 01/04/2017 Last Documented On 7 9:59PM ; [facility] Stay hydrated. Start Omepraz ole. Take the Nitro with chest pain for protection. ER if not resolving. Do fasting lab 12 hours CBC, Mag, PSA, CRP, LIPID, CMP order given NEW PATIENT VISIT with JORDY MERCADO DO 12/14/2016 Last Documented On 7 9:02PM ; [facility] Go to the emergency room if condition worsens NEW PATIENT VISIT with JORDY MERCADO 12/14/2016 Last Documented On 7 9:02PM ; [facility] Ordered patient to call if denton philip develops NEW PATIENT VISIT with JORDY MERCADO 12/14/2016 Last Documented On 7 9:02PM ; [facility] Ordered return to the clinic if condition worsens or new symptoms arise NEW PATIENT VISIT with JORDY MERCADO 12/14/2016 Last Documented On 7 9:02PM ; [facility] Ordered Transition in care, clinical summary provided NEW PATIENT VISIT with JORDY MERCADO 12/14/2016 Last Documented On 7 9:02PM ; [facility] bring in results of lab work done at work NEW PATIENT VISIT with JORDY ELIASJERRY ALEXIS 01/04/2012 Last Documented On 2 9:20AM ; [facility] Ordered return to the clinic if condition worsens or new symptoms arise NEW PATIENT VISIT with JORDY ELIASJERRY ALEXIS 01/04/2012 Last Documented On 2 9:20AM ; [facility] Referrals To Diagnosis General Surgery LUCIANO WISE DO Encounter for screening for malignant neoplasm of colon Last Documented On 7 7:32AM ; [facility] General Surgery [address] [address] - Neoplasm of unsp behavior of bone, soft tissue, and skin Note: possible excisional bi opsy if indicated Last Documented On 3 9:40AM ; [facility] Instructions to patient Go to the emergency room if condition worsens Last Documented On 3 3:52PM ; [facility] Go to the emergency room if condition worsens Last Documented On 3 12:00PM ; [facility] Watch for signs/symptoms of infection Last Documented On 3 12:00PM ; [facility] Go to the emergency room if condition worsens Last Documented On 2 9:23AM ; [facility] Intervention and counseling on cessation of tobacco use Last Documented On 2 9:13AM ; [facility] Intervention and counseling on cessation of tobacco use Last Documented On 2 8:58AM ; [facility] Watch for signs/symptoms of infection Last Documented On 1 9:01AM ; [facility] Go to the emergency room if condition worsens Last Documented On 1 8:35PM ; [facility] Watch for signs/symptoms of infection Last Documented On 1 9:55AM ; [facility] Go to the emergency room if condition worsens Last Documented On 0 2:06PM ; [facility] Watch for signs/symptoms of infection Last Documented On 0 1:50PM ; [facility] Go to the emergency room if condition worsens Last Documented On 0 6:04PM ; [facility] Watch for signs/symptoms of infection Last Documented On 0 11:57AM ; [facility] Go to the emergency room if condition worsens Last Documented On 8 6:40PM ; [facility] Go to the emergency room if condition worsens Last Documented On 8 6:41PM ; [facility] Instructions for patient Last Documented On 7 8:52AM ; [facility] Go to the emergency room if condition worsens Last Documented On 7 6:22PM ; [facility] Avoid certain foods Last Documented On 7 6:49PM ; [facility] Assessments Includes: Assessments for all patient encounters Findings Encounter Date Acute renal failure CHECK UP with JORDY HOUSTON F DO 02/20/2024 Last Documented On 4 8:01PM ; [facility] Anxiety disorder NOS CHECK UP with JORDY French PALDASHA FF DO 02/20/2024 Last Documented On 4 8:01PM ; [facility] Acute renal failure CHECK UP with JORDY French PALDASHAF F DO 11/24/2023 Last Documented On 4 10:48PM ; [facility] Anxiety disorder NOS CHECK UP with JORDY French PALDASHA FF DO 11/24/2023 Last Documented On 4 10:48PM ; [facility] Arthralgias of multiple sites CHECK UP with JORDY L PALCHEFF DO 11/24/2023 Last Documented On 4 10:48PM ; [facility] Nausea due to meds CHECK UP with JORDY L PALCHEFF DO 11/24/2023 Last Documented On 4 10:48PM ; [facility] Primary pauci-immune necroti zing and crescentic glomerulonephritis CHECK UP with JORDY L PALCHEFF DO 11/24/2023 Last Documented On 4 10:48PM ; [facility] Somatic dysfunction of cervical region CHECK UP with JORDY L PALCHEFF DO 11/24/2023 Last Documented On 4 10:48PM ; [facility] Acute renal failure CHECK UP with JORDY L PALCHEF F DO 08/24/2023 Last Documented On 3 7:47AM ; [facility] Anxiety disorder NOS CHECK UP with JORDY L PALCHE FF DO 08/24/2023 Last Documented On 3 7:47AM ; [facility] Benign prostatic hypertrophy CHECK UP with JORDY L PALCHEFF DO 08/24/2023 Last Documented On 3 7:47AM ; [facility] Functional constipation CHECK UP with JORDY L PAL CHEFF DO 08/24/2023 Last Documented On 3 7:47AM ; [facility] Nausea CHECK UP with JORDY L PALCHEFF DO 08/24/2023 Last Documented On 3 7:47AM ; [facility] Acute renal failure CHECK UP with JORDY L PALCHEF F DO 07/25/2023 Last Documented On 3 2:15PM ; [facility] Anxiety disorder NOS CHECK UP with JORDY L PALCHE FF DO 07/25/2023 Last Documented On 3 2:15PM ; [facility] Bacterial pneumonia CHECK UP with JORDY L PALCHEF F DO 07/25/2023 Last Documented On 3 2:15PM ; [facility] Acute renal failure SICK VISIT with JORDY Gillian LIMCH EFF DO 07/13/2023 Last Documented On 3 9:41AM ; [facility] Anxiety disorder NOS SICK VISIT with JORDY L PALC HEFF DO 07/13/2023 Last Documented On 3 9:41AM ; [facility] Drug-induced headache withou t intractable headache SICK VISIT with JORDY MERCADO DO 07/13/2023 Last Documented On 3 9:41AM ; [facility] Viral upper respiratory infection SICK VISIT wit h JORDY MERCADO DO 07/13/2023 Last Documented On 3 9:41AM ; [facility] Acute glomerulonephritis ANNUAL PHYSICAL EXAM wi th JORDY MERCADO DO 07/06/2023 Last Documented On 3 2:45PM ; [facility] Allergic rhinitis due to pollen ANNUAL P HYSICAL EXAM with JORDY MERCADO DO 07/06/2023 Last Documented On 3 2:45PM ; [facility] Depression ANNUAL PHYSICAL EXAM with JORDY MERCADO DO 07/06/2023 Last Documented On 3 2:45PM ; [facility] Routine history and physical ANNUAL PHYSICAL EXA M with JORDY MERCADO DO 07/06/2023 Last Documented On 3 2:45PM ; [facility] [L98.8 - Other specified dis orders of the skin and subcutaneous tissue] skin lesion: FOLLOW UP with KAMALJIT MARTINEZ MD 07/06/2023 Last Documented On 3 10:53AM ; [facility] [L98.8 - Other specified dis orders of the skin and subcutaneous tissue] skin lesion: FOLLOW UP with KAMALJIT MARTINEZ MD 06/14/2023 Last Documented On 3 12:36PM ; [facility] [L98.8 - Other specified dis orders of the skin and subcutaneous tissue] skin lesion: CONSULTATION - NEW PATIENT with KAMALJIT MARTINEZ MD 06/08/2023 Last Documented On 3 9:57AM ; [facility] [L30.9 - Dermatitis, unspeci fied] dermatitis PROBLEM VISIT with FRANKLIN BRADLEY-ROMAINE 06/07/2023 Last Documented On 3 2:39PM ; [facility] Neoplasm of unspecified beha vior of bone, soft tissue, and skin PROBLEM VISIT with FRANKLIN BRADLEY-ROMAINE 06/07/2023 Last Documented On 3 2:39PM ; [facility] Abdominal pain PROBLEM VISIT with JORDY EDWARDS DO 05/01/2023 Last Documented On 3 5:33PM ; [facility] Acute renal failure PROBLEM VISIT with JORDY LANG DO 05/01/2023 Last Documented On 3 5:33PM ; [facility] Benign prostatic hypertrophy PROBLEM VISIT with JORDY MERCADO DO 05/01/2023 Last Documented On 3 5:33PM ; [facility] Chronic constipation PROBLEM VISIT with JORDY JARA DO 05/01/2023 Last Documented On 3 5:33PM ; [facility] Benign prostatic hypertrophy CHECK UP with JORDY MERCADO DO 06/08/2022 Last Documented On 2 10:36PM ; [facility] Cramp of limb CHECK UP with JORDY MERCADO DO 06/08/2022 Last Documented On 2 10:36PM ; [facility] Onychomycosis CHECK UP with JORDY MERCADO DO 06/08/2022 Last Documented On 2 10:36PM ; [facility] Primary erectile dysfunction CHECK UP with JORDY MERCADO DO 06/08/2022 Last Documented On 2 10:36PM ; [facility] Routine history and physical CHECK UP with JORDY MERCADO DO 06/08/2022 Last Documented On 2 10:36PM ; [facility] Screening Malig. Neoplasm Rectum CHECK UP with Manuel MERCADO DO 06/08/2022 Last Documented On 2 10:36PM ; [facility] Bursitis of elbow left PROBLEM VISIT with JORDY MERCADO DO 05/26/2022 Last Documented On 2 2:19PM ; [facility] Urticaria PROBLEM VISIT with JORDY EDWARDS DO 03/04/2021 Last Documented On 1 8:34AM ; [facility] Urticaria PROBLEM VISIT with JORDY EDWARDS DO 01/25/2021 Last Documented On 1 8:35PM ; [facility] Benign prostatic hypertrophy GENERAL OFFICE VISI T with JORDY MERCADO DO 05/06/2020 Last Documented On 0 4:03PM ; [facility] Closed fracture of tarsal an d metatarsal bones GENERAL OFFICE VISIT with JORDY MERCADO DO 05/06/2020 Last Documented On 0 4:03PM ; [facility] Routine history and physical GENERAL OFFICE VISI T with JORDY MERCADO DO 05/06/2020 Last Documented On 0 4:03PM ; [facility] Screening Malig. Neoplasm Rectum GENERAL OFFICE VISIT with JORDY MERCADO DO 05/06/2020 Last Documented On 0 4:03PM ; [facility] Open fracture of metatarsal neck ALL 5 LEFT FOOT SURG REPAIR CHECK UP with JORDY MERCADO DO 04/15/2020 Last Documented On 0 6:07PM ; [facility] Open fracture of the left cl avicle POST REPAIR PLATE CHECK UP with JORDY MERCADO DO 04/15/2020 Last Documented On 0 6:07PM ; [facility] Common migraine (without aura) PROBLEM VISIT wit h JORDY MERCADO DO 12/27/2017 Last Documented On 8 6:42PM ; [facility] Upper respiratory infection * PHONE CALL with JACQUIE MERCADO DO 10/10/2017 Last Documented On 7 1:09PM ; [facility] Routine adult history and ph ysical (18-64 yrs) without abnormal findings CHECK UP with LORRIE VALLADARES PMHNP-BC MONITORING ENGINEER-BC 03/15/2017 Last Documented On 7 8:57AM ; [facility] Chest pain 3 WK CK-UP with JORDY MERCADO DO 01/04/2017 Last Documented On 7 9:59PM ; [facility] Esophageal disorders 3 WK CK-UP with JORDY JENNINGS DO 01/04/2017 Last Documented On 7 9:59PM ; [facility] Chest pain NEW PATIENT VISIT with JORDY LANG DO 12/14/2016 Last Documented On 7 9:02PM ; [facility] Esophageal reflux NEW PATIENT VISIT with JORDY MERCADO DO 12/14/2016 Last Documented On 7 9:02PM ; [facility] Vertigo NEW PATIENT VISIT with JORDY French JOLANTA MCGRAWJERRY DO 12/14/2016 Last Documented On 7 9:02PM ; [facility] Normal routine history and physical NEW PATIENT VISIT with JORDY MERCADO DO 01/04/2012 Last Documented On 2 9:20AM ; [facility] Instructions Includes: Instructions for all patient encounters Instructions to patient Go to the emergency room if condition worsens Last Documented On 3 3:52PM ; [facility] Go to the emergency room if condition worsens Last Documented On 3 12:00PM ; [facility] Watch for signs/symptoms of infection Last Documented On 3 12:00PM ; [facility] Go to the emergency room if condition worsens Last Documented On 2 9:23AM ; [facility] Intervention and counseling on cessation of tobacco use Last Documented On 2 9:13AM ; [facility] Intervention and counseling on cessation of tobacco use Last Documented On 2 8:58AM ; [facility] Watch for signs/symptoms of infection Last Documented On 1 9:01AM ; [facility] Go to the emergency room if condition worsens Last Documented On 1 8:35PM ; [facility] Watch for signs/symptoms of infection Last Documented On 1 9:55AM ; [facility] Go to the emergency room if condition worsens Last Documented On 0 2:06PM ; [facility] Watch for signs/symptoms of infection Last Documented On 0 1:50PM ; [facility] Go to the emergency room if condition worsens Last Documented On 0 6:04PM ; [facility] Watch for signs/symptoms of infection Last Documented On 0 11:57AM ; [facility] Go to the emergency room if condition worsens Last Documented On 8 6:40PM ; [facility] Go to the emergency room if condition worsens Last Documented On 8 6:41PM ; [facility] Instructions for patient Last Documented On 7 8:52AM ; [facility] Go to the emergency room if condition worsens Last Documented On 7 6:22PM ; [facility] Avoid certain foods Last Documented On 7 6:49PM ; [facility] Medical Equipment - Implanted Devices Includes: Current and historical Devices No Medical Equipment Recorded Medications Includes: Current and historical Medications Current Medications (continue as prescribed) Citalopram Hydrobromide 20 M G Oral Tablet 02/20/2024 Provider: JORDY MERCADO DO Diagnosis: Other mixed anxi ety disorders TAKE 1 TABLET BY MOUTH EVERY DAY Last Documented On 02/20/2024 2:47PM By JORDY MERCADO DO ; [facility] Mycophenolate Mofetil 500 MG Oral Tablet 01/24/2024 Provider: VIANEY ROWLAND MD Diagnosis: Last Documented On 02/20/2024 2:19PM By Heather GREGORY ; [facility] Famotidine 20 MG Oral Tablet 06/08/2023 Provider: Diagnosis: Last Documented On 06/08/2023 9:19AM By Marcelino GREGORY ; [facility] Sevelamer Carbonate 800 MG Oral Tablet 05/10/2023 Pr ovider: Diagnosis: Last Documented On 3 10:45AM By KATEY GREGORY ; [facility] Dilt-XR 180 MG Oral Capsule Extended Release 24 Hour 0 05/10/2023 Provider: Diagnosis: Last Documented On 3 10:46AM By KATEY GREGORY ; [facility] Labetalol HCl 100 MG Oral Tablet 05/10/2023 Provider : Diagnosis: 1/2 tab po every 12 hours Last Documented On 3 10:47AM By KATEY GREGORY ; [facility] Cyclobenzaprine HCl 10 MG Oral Tablet 02/14/2023 Pro vider: Diagnosis: Last Documented On 3 10:50AM By KATEY GREGORY ; [facility] Past Medications on file Citalopram Hydrobromide 20 MG Oral Tablet 11/20/2023 - 02/20/2024 Provider: JORDY MERCADO DO Diagnosis: Other mixed anxi ety disorders TAKE 1 TABLET BY MOUTH EVERY DAY Last Documented On 02/20/2024 2:34PM By JORDY MERCADO DO ; [facility] Citalopram Hydrobromide 20 MG Oral Tablet 08/24/2023 - 11/20/2023 Provider: JORDY MERCADO DO Diagnosis: Other mixed anxi ety disorders One tablet daily Last Documented On 11/20/2023 10:37AM By JORDY MERCADO DO ; [facility] Citalopram Hydrobromide 20 MG Oral Tablet 07/25/2023 - 08/24/2023 Provider: JORDY MERCADO DO Diagnosis: Other mixed anxi ety disorders One tablet daily Last Documented On 08/24/2023 11:36AM By Jatinder Galicia ; [facility] Citalopram Hydrobromide 10 MG Oral Tablet 07/06/2023 - 08/24/2023 Provider: JORDY MERCADO DO Diagnosis: Depression, unspecified One tablet daily Last Documented On 08/24/2023 11:25AM By JORDY MERCADO DO ; [facility] Cimetidine 300 MG Oral Tablet 06/07/2023 - 08/24/2023 Provider: FRANKLIN MALIK [facility]- Diagnosis: Dermatitis, unspecified One tablet daily Last Documented On 08/24/2023 11:26AM By JORDY MERCADO DO ; [facility] predniSONE 20 MG Oral Tablet 05/26/2023 - 02/20/2024 P sterlingvider: VIANEY ROWLAND MD Diagnosis: Last Documented On 02/20/2024 2:19PM By Heather GREGORY ; [facility] predniSONE 5 MG Oral Tablet 05/26/2023 - 02/20/2024 Pr ovider: VIANEY ROWLAND MD Diagnosis: Last Documented On 02/20/2024 2:19PM By Heather GREGORY ; [facility] Lokelma 5 GM Oral Packet 05/25/2023 - 02/20/2024 Provi gene: VIANEY ROWLAND MD Diagnosis: Last Documented On 02/20/2024 2:19PM By Heather GREGORY ; [facility] Pantoprazole Sodium 40 MG Or al Tablet Delayed Release 05/10/2023 - 08/24/2023 Provider: Diagnosis: Last Documented On 08/24/2023 11:26AM By JORDY MERCADO DO ; [facility] Sildenafil Citrate 25 MG Oral Tablet 06/13/2022 - 05/01/2023 Provider: JORDY MERCADO DO Diagnosis: Erectile dysfunc tion due to arterial insufficiency 1 pill 30 min before needed, max 2 pills a day. if no results after 2-3 times with 1 pill may increase to 2 pills at a time Last Documented On 05/01/2023 11:48AM By Bon GREGORY ; [facility] Cimetidine 400 MG Oral Tablet 06/10/2022 - 06/07/2023 Provider: JORDY MERCADO DO Diagnosis: TAKE 1 TABLET BY MOUTH TWICE DAILY Last Documented On 3 10:46AM By KATEY GREGORY ; [facility] Terbinafine HCl 250 MG Oral Tablet 06/08/2022 - 05/01/2023 Provider: JORDY MERCADO DO Diagnosis: Tinea unguium One tablet daily Last Documented On 05/01/2023 11:47AM By Bon GREGORY ; [facility] Cimetidine 400 MG Oral Tablet 05/05/2021 - 05/26/2022 Provider: JORDY MERCADO DO Diagnosis: Urticaria, unspe cified TAKE 1 TABLET BY MOUTH TWICE DAILY Last Documented On 05/26/2022 8:56AM By Tiffanie GREGORY ; [facility] Cimetidine 400 MG Oral Tablet 03/31/2021 - 05/05/2021 Provider: JORDY MERCADO DO Diagnosis: Urticaria, unspe cified TAKE 1 TABLET BY MOUTH TWICE DAILY Last Documented On 11:39AM By LORRIE VALLADARES [facility] ; [facility] Cimetidine 400 MG Oral Tablet 03/04/2021 - 03/31/2021 Provider: JORDY MERCADO DO Diagnosis: Urticaria, unspe cified One tablet twice a day Last Documented On 4:10PM By ANASTASIYA GREGORY ; [facility] Cephalexin 500 MG Oral Tablet 02/19/2021 - 03/31/2021 Provider: JORDY MERCADO DO Diagnosis: Urticaria, unspe cified One tablet three times a day Last Documented On 1:15PM By ANASTASIYA GREGORY ; [facility] Medrol 4 MG Oral Tablet Therapy Pack 02/01/2021 - 03/31/2021 Provider: JORDY MERCADO DO Diagnosis: Urticaria, unspe cified as directed Last Documented On 1 1:16PM By ANASTASIYA GREGORY ; [facility] Medrol 4 MG Oral Tablet Therapy Pack 01/25/2021 - 02/01/2021 Provider: JORDY MERCADO DO Diagnosis: Urticaria, unspe cified as directed Last Documented On 02/01/2021 9:59AM By JORDY MERCADO DO ; [facility] Ibuprofen 800 MG Oral Tablet 10/23/2020 - 06/07/2023 Provider: JORDY MERCADO DO Diagnosis: Fracture of unsp metatarsal bone(s), left foot, init TAKE 1 TABLET BY MOUTH THREE TIMES DAILY Last Documented On 3 10:46AM By KTAEY GREGORY ; [facility] Ibuprofen 800 MG Oral Tablet 08/31/2020 - 10/23/2020 Provider: JORDY MERCADO DO Diagnosis: Fracture of unsp metatarsal bone(s), left foot, init TAKE 1 TABLET BY MOUTH THREE TIMES DAILY Last Documented On 10/23/2020 12:47PM By JORDY MERCADO DO ; [facility] Ibuprofen 800 MG Oral Tablet 05/07/2020 - 08/31/2020 Provider: JORDY MERCADO DO Diagnosis: Fracture of unsp metatarsal bone(s), left foot, init One tablet three times a day Last Documented On 08/31/2020 1:20PM By JORDY MERCADO DO ; [facility] oxyCODONE-Acetaminophen 5-325 MG Oral Tablet 0 - 05/26/2022 Provider: Diagnosis: NEEDED Last Documented On 05/26/2022 8:56AM By Tiffanie GREGORY ; [facility] Aspirin 325 MG Oral Tablet 04/15/2020 - 03/04/2021 Pro vider: Diagnosis: Last Documented On 03/04/2021 8:54AM By JORDY MERCADO DO ; [facility] SUMAtriptan Succinate 100MG Oral Tablet 12/27/2017 - 04/15/2020 Provider: JORDY MERCADO DO Diagnosis: Other migraine, intractable, with status migrainosus TAKE AT THE ONSET OF CELESTIN, MAY REPEAT IN 2 HOURS IS NOT RESOLVING Last Documented On 04/15/2020 10:59AM By JOSE ALFREDO ; [facility] Zithromax Z-Timothy 250MG Oral Tablet 10/10/2017 - 12/27/2017 Provider: JORDY MERCADO DO Diagnosis: Acute upper resp iratory infection, unspecified as directed Last Documented On 12/27/2017 8:28AM By Melissa GREGORY ; [facility] PriLOSEC OTC 20MG Oral Table t Delayed Release 10/06/2017 - 05/26/2022 Provider: JORDY MERCADO DO Diagnosis: One tablet daily Last Documented On 05/26/2022 8:56AM By Tiffanie Posadas Shiv ; [facility] Omeprazole 20MG Oral Capsule Delayed Release 09/29/2017 - 06/07/2023 Provider: JORDY MERCADO DO Diagnosis: Disease of esoph allegra, unspecified 1 capsule daily Last Documented On 3 10:46AM By KATEY GREGORY ; [facility] Omeprazole 20MG Oral Capsule Delayed Release 03/15/2017 - 09/29/2017 Provider: LORRIE VALLADARES [facility]- Diagnosis: Disease of esoph allegra, unspecified 1 capsule daily Last Documented On 09/29/2017 5:00PM By JORDY MERCADO DO ; [facility] Omeprazole 20MG Oral Capsule, delayed-release 01/04/2017 - 03/15/2017 Provider: JORDY MERCADO DO Diagnosis: Disease of esoph allegra, unspecified 1 capsule daily Last Documented On 7 8:36AM By LORRIE VALLADARES [facility] ; [facility] Omeprazole 20MG Oral Capsule, delayed-release 12/14/2016 - 01/04/2017 Provider: JORDY MERCADO DO Diagnosis: Disease of esoph allegra, unspecified Take before evening meal. Last Documented On 7 7:23PM By ANASTASIYA GREGORY ; [facility] Nitrostat 0.4MG Sublingual Tablet, sublingual 12/14/2016 - 05/06/2020 Provider: JORDY MERCADO DO Diagnosis: Chest pain, unspecified 1 q 5 mins for a total of 3 doses PRN Last Documented On 05/06/2020 1:34PM By [email or web address] ; [facility] Medications Administered Includes: Administered Medications in patient's chart No Administered Medications Recorded Vital Signs Includes: Vital Signs from 02/14/2024 through 02/13/2025 Vital Name 02/20/2024 02:11P Blood Pressure Sitting L 132/82 Pulse Rate-Sitting (bpm) 84 Respiration Rate (breaths/min) 20 Height (in) 68 Weight (lb) 158.125 Body Mass Index 24 Body Surface Area 1.8 Oxygen Saturation (%) 93 Last Documented: On 02/20/2024 2:18PM ; [facility] Results Includes: Results from 02/14/2024 through 02/13/2025 No Results Recorded For Specified Dates History of Present Illness History of Present Illness not supported for this document type No History of Present Illness Recorded Social History Description Last Updated Non-smoker 04/15/2020 Last Documented On 0 6:07PM ; [facility] Currently 01/04/2017 Last Documented On 7 9:59PM ; [facility] No tobacco use 12/14/2016 Last Documented On 7 9:02PM ; [facility] Smoking status : Former smoker 7 Last Documented On 7 9:02PM ; [facility] Alcohol 2 per week 01/04/2012 Last Documented On 2 9:20AM ; [facility] 01/04/2012 Last Documented On 2 9:20AM ; [facility] Former smoker 01/04/2012 Last Documented On 2 9:20AM ; [facility] Medical History Includes: Medical History in patient's chart Description Last Updated Vaccine history 08/24/2023 Last Documented On 3 7:47AM ; [facility] History of colonoscopy fiberoptic was pe rformed 05/04/2023 06/07/2023 Last Documented On 3 2:39PM ; [facility] No recent change in medical history 02/15 Last Documented On 7 8:57AM ; [facility] Currently wearing eyeglasses 01/04/2012 Last Documented On 2 9:20AM ; [facility] Wearing contact lenses 01/04/2012 Last Documented On 2 9:20AM ; [facility] Exposure airborne chemical particulate 0 01/04/2012 Last Documented On 2 9:20AM ; [facility] Exposure to chemical liquids 01/04/2012 Last Documented On 2 9:20AM ; [facility] Exposure to dust 01/04/2012 Last Documented On 2 9:20AM ; [facility] Exposure to fumes 01/04/2012 Last Documented On 2 9:20AM ; [facility] High level of environmental noise 2011 Last Documented On 2 9:20AM ; [facility] Smoke exposure 01/04/2012 Last Documented On 2 9:20AM ; [facility] No history of arthritis 01/04/2012 Last Documented On 2 9:20AM ; [facility] No history of cancer 01/04/2012 Last Documented On 2 9:20AM ; [facility] No history of chronic obstructive pulmon lia disease 01/04/2012 Last Documented On 2 9:20AM ; [facility] No history of convulsive disorder 2011 Last Documented On 2 9:20AM ; [facility] No history of diabetes mellitus 01/04/20 12 Last Documented On 2 9:20AM ; [facility] No history of hypertension 01/04/2012 Last Documented On 2 9:20AM ; [facility] No history of stroke syndrome 01/04/2012 Last Documented On 2 9:20AM ; [facility] No history of venereal disease 2 Last Documented On 2 9:20AM ; [facility] No reported cardiovascular symptoms 12/15 Last Documented On 2 9:20AM ; [facility] No reported easy bleeding 01/04/2012 Last Documented On 2 9:20AM ; [facility] No reported recurrent infections 012 Last Documented On 2 9:20AM ; [facility] Family History Includes: Family History in patient's chart Description Last Updated Family history unchanged 06/08/2022 Last Documented On 2 10:36PM ; [facility] Review of Systems Review of Systems [...] Patient Last Documented On 3 10:55AM ; [facility] Tdap (Boostrix) 1 01/12/2014 Left Arm Complete (Re ported) Patient Last Documented On 3 10:55AM ; [facility] Allergies Includes: Active, inactive, and resolved Allergies Substance Type Reaction Onset Date Resolved Date Statu s Sulfa Antibiotics Allergy 05/26/2022 A ctive Last Documented On 4 2:10PM ; [facility] Encounters Includes: Encounters from 02/14/2024 through 02/13/2025 Encounter Provider Location Date Check-In Time Check-Out Time Diagnosis CHECK UP JORDY MERCADO DO [facility] 02/20/20 24 2:07PM 2:50PM Anxiety Disorder Nos,Acute Renal Failure Insurance Includes: Active Insurance Policies Plan Name Member ID Group # Subscriber Relationship Effect bebeto Dates 1 - [facility] [id number] CLIFFORD KAUFFMAN Self Clinical Notes Includes: Signed Clinical Notes starting from 11/04/2022 * Progress note Date Encounter Last Documented by 02/20/2024 CHECK UP Last documented on 02/27/2024; 8:01 PM, JORDY MERCADO DO; [facility] Active Problems & Conditions - N17.9 - [...]
--- OUTSIDE RECORDS SUMMARY | 2025-02-13 12:34 | XMS_ITS | Clinical Summary ---
Author Organization 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 Plan of Treatment - Follow-up visit - Last Documented On 11/30/2023 10:48PM ; [facility] - Patient to call if problem develops - Last Documented On 11/30/2023 10:48PM ; [facility] PLAN [Use for s.o.a.p. 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 - Unspecified nephritic syndrome with unspecified morphologic changes] - Last Documented On 11/30/2023 10:48PM ; [facility] - Acute renal failure [N17.9 - Acute kidney failure, unspecified] - Last Documented On 11/30/2023 10:48PM ; [facility] - Arthralgias of multiple sites [M25.50 - Pain in unspecified joint] - Last Documented On 11/30/2023 10:48PM ; [facility] - Anxiety disorder NOS [F41.3 - Other mixed anxiety disorders] - Last Documented On 11/30/2023 10:48PM ; [facility] - Somatic dysfunction of cervical region [M99.01 - Segmental and somatic dysfunction of cervical region] - Last Documented On 11/30/2023 10:48PM ; [facility] Medical Equipment - Implanted Devices Includes: [...] 02/20/2024 2:47PM By JORDY ARNOLD DO ; [facility] Mycophenolate Mofetil 500 MG Oral Tablet 01/24/2024 Provider: VIANEY ROWLAND MD Diagnosis: Last Documented On 02/20/2024 2:19PM By Heather GREGORY ; [facility] Famotidine 20 MG Oral Tablet 06/08/2023 Provider: Diagnosis: Last Documented On 06/08/2023 9:19AM By Marcelino GREGORY ; [facility] Sevelamer Carbonate 800 MG Oral Tablet 05/10/2023 Pr ovider: Diagnosis: Last Documented On 3 10:45AM By KATEY GREGORY ; [facility] Dilt-XR 180 MG Oral Capsule Extended Release 24 Hour 0 05/10/2023 Provider: Diagnosis: Last Documented On 10:46AM By KATEY GREGORY ; [facility] Labetalol HCl 100 MG Oral Tablet 05/10/2023 Provider : Diagnosis: 1/2 tab po every 12 hours Last Documented On 10:47AM By KATEY GREGORY ; [facility] Cyclobenzaprine HCl 10 MG Oral Tablet 02/14/2023 Pro vider: Diagnosis: Last Documented On 10:50AM By KATEY GREGORY ; [facility] Medications Administered Includes: Administered Medications [...] Last Documented: On 11/24/2023 10:49A M ; [facility] [...] 04/15/2020 Last Documented On 4 10:48AM ; [facility] Currently 01/04/2017 Last Documented On 4 10:48AM ; [facility] No tobacco use 12/14/2016 Last Documented On 4 10:48AM ; [facility] Smoking status : Former smoker Last Documented On 4 10:48AM ; [facility] Alcohol 2 per week 01/04/2012 Last Documented On 4 10:48AM ; [facility] 01/04/2012 Last Documented On 4 10:48AM ; [facility] Former smoker 01/04/2012 Last Documented On 4 10:48AM ; [facility] Procedures and Surgical History Includes: Procedures from this encounter Procedures Code Diagnosis Performing Provider Service L ocation Service Date dietary regime Last Documented On 4 11:16AM ; [facility] continue current medication Last Documented On 4 11:16AM ; [facility] plan of care reviewed and agreed to Last Documented On 4 11:16AM ; [facility] plan of care reviewed and agreed to by t he patient Last Documented On 4 11:16AM ; [facility] muscle energy therapy [employer] Last Documented On 4 10:46PM ; [facility] Pt encouraged to be compliant with curre nt treatment Last Documented On 4 11:16AM ; [facility] Discussed Exercise Last Documented On 4 11:16AM ; [facility] OMT - Soft tissue/muscle stretching tech niques [employer] Last Documented On 4 10:46PM ; [facility] instructed to monitor salt intake Last Documented On 4 11:16AM ; [facility] Reviewed Blood Pressures Last Documented On 4 11:16AM ; [facility] Medical History Includes: Medical History addressed during this encounter Description Last Updated Vaccine history 08/24/2023 Last Documented On 4 10:48AM ; [facility] History of colonoscopy fiberoptic was pe rformed 05/04/2023 06/07/2023 Last Documented On 4 10:48AM ; [facility] No recent change in medical history 02/15 Last Documented On 4 10:48AM ; [facility] Currently wearing eyeglasses 01/04/2012 Last Documented On 4 10:48AM ; [facility] Wearing contact lenses 01/04/2012 Last Documented On 4 10:48AM ; [facility] Exposure airborne chemical particulate 0 01/04/2012 Last Documented On 4 10:48AM ; [facility] Exposure to chemical liquids 01/04/2012 Last Documented On 4 10:48AM ; [facility] Exposure to dust 01/04/2012 Last Documented On 4 10:48AM ; [facility] Exposure to fumes 01/04/2012 Last Documented On 4 10:48AM ; [facility] High level of environmental noise 2011 Last Documented On 4 10:48AM ; [facility] Smoke exposure 01/04/2012 Last Documented On 4 10:48AM ; [facility] No history of arthritis 01/04/2012 Last Documented On 4 10:48AM ; [facility] No history of cancer 01/04/2012 Last Documented On 4 10:48AM ; [facility] No history of chronic obstructive pulmon lia disease 01/04/2012 Last Documented On 4 10:48AM ; [facility] No history of convulsive disorder 2011 Last Documented On 4 10:48AM ; [facility] No history of diabetes mellitus 01/04/20 12 Last Documented On 4 10:48AM ; [facility] No history of hypertension 01/04/2012 Last Documented On 4 10:48AM ; [facility] No history of stroke syndrome 01/04/2012 Last Documented On 4 10:48AM ; [facility] No history of venereal disease 2 Last Documented On 4 10:48AM ; [facility] No reported cardiovascular symptoms 12/15 Last Documented On 4 10:48AM ; [facility] No reported easy bleeding 01/04/2012 Last Documented On 4 10:48AM ; [facility] No reported recurrent infections 012 Last Documented On 4 10:48AM ; [facility] Family History Includes: Family History addressed during this encounter Description Last Updated Family history unchanged 06/08/2022 Last Documented On 4 10:48AM ; [facility] Review of Systems Includes: Review of [...] ctive Last Documented On 4 2:10PM ; [facility] Encounters Encounter Provider Location Date Check-In Time Check-Out Time Diagnosis CHECK UP JORDY ARNOLD DO [facility] 11/24/19 24 10:15AM 11:26AM Anxiety Disorder Nos,Acute Renal Failure,Primary Pauci-immune Necrotizing and Crescentic Glomerulonephri tis,Nausea,Arth ralgias Multiple Sites,Somatic Dysfunction of Cervical Region Insurance Includes: Active Insurance Policies Plan Name Member ID Group # Subscriber Relationship Effect bebeto Dates 1 - [facility] [id number] CLIFFORD KAUFFMAN Self Clinical Notes Includes: Clinical Notes from this encounter * Progress note Date Encounter Last Documented by 11/24/2023 CHECK UP Last documented on 11/30/2023; 10:48 PM, JORDY ARNOLD DO; [facility] Active Problems & Conditions - [...]
--- OUTSIDE RECORDS SUMMARY | 2025-02-13 12:35 | XMS_ITS | Clinical Summary ---
Author Organization [facility] Address [address] [place] [address] Phone Care Team Providers Care Certified Pharmacist Assistant Name Role Phone JORDY ARNOLD DO Primary Care Provider [phone] Reason for Visit and Chief Complaint The Chief Complaint is: 1 month follow up, having some trouble with stomach nausea Problems Includes: Problems addressed during this encounter and other active Problems Current Visit Onset Date Resolved Date Provider Conditio n Status Acute Renal Failure 07/17/2023 JORDY ARNOLD DO Active Last Documented On 3 9:37AM ; [facility] Anxiety Disorder Nos 07/17/2023 JORDY ARNOLD DO Active Last Documented On 3 9:38AM ; [facility] Benign Prostatic Hypertrophy 06/08/2022 JORDY ARNOLD DO Active Last Documented On 2 9:29AM ; [facility] Past Visits Onset Date Resolved Date Provider 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 note free text]. - Last Documented On 08/27/2023 7:47AM ; [facility] Continue present medications, call for refills. He was advised to follow a healthy diet. He was advised to eat high-fiber diet. He was recommended taking MiraLAX. He was advised to drink plenty of water and stay hydrated. - Last Documented On 08/27/2023 7:47AM ; [facility] Assessments Includes: Assessments from this encounter Findings - Functional constipation [K59.00 - Constipation, unspecified] - Last Documented On 08/27/2023 7:47AM ; [facility] - Nausea [R11.0 - Nausea] - Last Documented On 08/27/2023 7:47AM ; [facility] - Acute renal failure [N17.9 - Acute kidney failure, unspecified] - Last Documented On 08/27/2023 7:47AM ; [facility] - Benign prostatic hypertrophy [N40.0 - Benign prostatic hyperplasia without lower urinary tract symptoms] - Last Documented On 08/27/2023 7:47AM ; [facility] - Anxiety disorder NOS [F41.3 - Other mixed anxiety disorders] - Last Documented On 08/27/2023 7:47AM ; [facility] Medical Equipment - Implanted Devices Includes: Current Devices No Medical Equipment Recorded Medications Includes: Medications discussed during this encounter and other current Medications Discontinued / Stopped on this date JORDY ARNOLD DO on 07/06/2023 Citalopram Hydrobromide 10 M G Oral Tablet Provider: JORDY ARNOLD DO Diagnosis: Depression, unsp ecified Last Documented On 08/24/2023 11:25AM By JORDY ARNOLD DO ; [facility] Cimetidine 300 MG Oral Tablet Provider: FRANLKIN FAIRBANKS P-BC Diagnosis: Dermatitis, unsp ecified Last Documented On 08/24/2023 11:26AM By JORDY ARNOLD DO ; [facility] Pantoprazole Sodium 40 MG Oral Tablet Delayed Release Provider: Diagnosis: Last Documented On 08/24/2023 11:26AM By JORDY ARNOLD DO ; [facility] New / Renewed during this visit JORDY ARNOLD DO on 08/24/2023 Citalopram Hydrobromide 20 M G Oral Tablet Provider: JORDY ARNOLD DO 90 day supply: 90 tablet, 0 refills Diagnosis: Other mixed anxiety disorders One tablet daily Pharmacy: [facility] ([place] - [id number] , [facility], [id number] - Last Documented On 11/20/2023 10:37AM By JORDY ARNOLD DO ; [facility] Current Medications (continue as prescribed) Citalopram Hydrobromide 20 M G Oral Tablet 02/20/2024 Provider: JORDY ARNOLD DO Diagnosis: Other mixed anxi ety disorders TAKE 1 TABLET BY MOUTH EVERY DAY Last Documented On 02/20/2024 2:47PM By JORDY ARNOLD DO ; [facility] Mycophenolate Mofetil 500 MG Oral Tablet 01/24/2024 Provider: VIANEY ROWLAND MD Diagnosis: Last Documented On 02/20/2024 2:19PM By Heather GREGORY ; [facility] Famotidine 20 MG Oral Tablet 06/08/2023 Provider: Diagnosis: Last Documented On 06/08/2023 9:19AM By Marcelino GREGORY ; [facility] Sevelamer Carbonate 800 MG Oral Tablet 05/10/2023 Pr ovider: Diagnosis: Last Documented On 3 10:45AM By KATEY GREGORY ; [facility] Dilt-XR 180 MG Oral Capsule Extended Release 24 Hour 0 05/10/2023 Provider: Diagnosis: Last Documented On 3 10:46AM By KATEY GREGORY ; [facility] Labetalol HCl 100 MG Oral Tablet 05/10/2023 Provider : Diagnosis: 1/2 tab po every 12 hours Last Documented On 3 10:47AM By KATEY GREGORY ; [facility] Cyclobenzaprine HCl 10 MG Oral Tablet 02/14/2023 Pro vider: Diagnosis: Last Documented On 10:50AM By KATYE GREGORY ; [facility] Medications Administered Includes: Administered [...] Last Documented: On 08/24/2023 11:16A M ; [facility] Results Includes: Results discussed [...] soft stools. He was seen by a gun club manager and had labs done, which showed WBC 6.8, hemoglobin 11.3, sodium 132, potassium 4.3, BUN 28, and creatinine 2.6. He denies any vision changes, headaches, dizziness, or falls. He denies any chest pain, palpitations, shortness of breath, or bladder problems. Social History Description Last Updated Non-smoker 04/15/2020 Last Documented On 3 11:13AM ; [facility] Currently 01/04/2017 Last Documented On 3 11:13AM ; [facility] No tobacco use 12/14/2016 Last Documented On 3 11:13AM ; [facility] Smoking status : Former smoker 7 Last Documented On 3 11:13AM ; [facility] Alcohol 2 per week 01/04/2012 Last Documented On 3 11:13AM ; [facility] 01/04/2012 Last Documented On 3 11:13AM ; [facility] Former smoker 01/04/2012 Last Documented On 3 11:13AM ; [facility] Procedures and Surgical History Includes: Procedures from this encounter Procedures Code Diagnosis Performing Provider Service L ocation Service Date dietary regime Last Documented On 3 11:34AM ; [facility] continue current medication Last Documented On 3 11:34AM ; [facility] plan of care reviewed and agreed to Last Documented On 3 11:34AM ; [facility] plan of care reviewed and agreed to by t he patient Last Documented On 3 11:34AM ; [facility] Pt encouraged to be compliant with curre nt treatment Last Documented On 3 11:34AM ; [facility] Discussed Exercise Last Documented On 3 11:34AM ; [facility] instructed to monitor salt intake Last Documented On 3 11:34AM ; [facility] Reviewed Blood Pressures Last Documented On 3 11:34AM ; [facility] reviewed laboratory-based chemistry Last Documented On 3 11:34AM ; [facility] Medical History Includes: Medical History addressed during this encounter Description Last Updated Vaccine history 08/24/2023 Last Documented On 3 7:47AM ; [facility] History of colonoscopy fiberoptic was pe rformed 05/04/2023 06/07/2023 Last Documented On 3 11:13AM ; [facility] No recent change in medical history 02/15 Last Documented On 3 11:13AM ; [facility] Currently wearing eyeglasses 01/04/2012 Last Documented On 3 11:13AM ; [facility] Wearing contact lenses 01/04/2012 Last Documented On 3 11:13AM ; [facility] Exposure airborne chemical particulate 0 01/04/2012 Last Documented On 3 11:13AM ; [facility] Exposure to chemical liquids 01/04/2012 Last Documented On 3 11:13AM ; [facility] Exposure to dust 01/04/2012 Last Documented On 3 11:13AM ; [facility] Exposure to fumes 01/04/2012 Last Documented On 3 11:13AM ; [facility] High level of environmental noise 2011 Last Documented On 3 11:13AM ; [facility] Smoke exposure 01/04/2012 Last Documented On 3 11:13AM ; [facility] No history of arthritis 01/04/2012 Last Documented On 3 11:13AM ; [facility] No history of cancer 01/04/2012 Last Documented On 3 11:13AM ; [facility] No history of chronic obstructive pulmon lia disease 01/04/2012 Last Documented On 3 11:13AM ; [facility] No history of convulsive disorder 2011 Last Documented On 3 11:13AM ; [facility] No history of diabetes mellitus 01/04/20 12 Last Documented On 3 11:13AM ; [facility] No history of hypertension 01/04/2012 Last Documented On 3 11:13AM ; [facility] No history of stroke syndrome 01/04/2012 Last Documented On 3 11:13AM ; [facility] No history of venereal disease 2 Last Documented On 3 11:13AM ; [facility] No reported cardiovascular symptoms 12/15 Last Documented On 3 11:13AM ; [facility] No reported easy bleeding 01/04/2012 Last Documented On 3 11:13AM ; [facility] No reported recurrent infections 012 Last Documented On 3 11:13AM ; [facility] Family History Includes: Family History addressed during this encounter Description Last Updated Family history unchanged 06/08/2022 Last Documented On 3 11:13AM ; [facility] Review of Systems Includes: [...] ctive Last Documented On 4 2:10PM ; [facility] Encounters Encounter Provider Location Date Check-In Time Check-Out Time Diagnosis CHECK UP JORDY ARNOLD DO [facility] 08/24/20 23 10:59AM 11:52AM Nausea,Acute Renal Failure,Anxiet y Disorder Nos,Benign Prostatic Hypertrophy,Co nstipation Functional Insurance Includes: Active Insurance Policies Plan Name Member ID Group # Subscriber Relationship Effect bebeto Dates 1 - [facility] [id number] CLIFFORD KAUFFMAN Self Clinical Notes Includes: Clinical Notes from this encounter * Progress note Date Encounter Last Documented by 08/24/2023 CHECK UP Last documented on 08/27/2023; 7:47 AM, JORDY ARNOLD DO; [facility] Active Problems & Conditions [...] soft stools. He was seen by a gun club manager and had labs done, which showed WBC [...]
--- OUTSIDE RECORDS SUMMARY | 2025-02-13 12:35 | XMS_ITS | Clinical Summary ---
Author Organization [facility] Address [address] [place] [address] Phone Care Team Providers Care Short Piece Handler Name Role Phone Von Arnold Primary Care Provider [phone] Allergies Active Allergy Reactions Criticality Noted Date [...] Department Care Team Description 12/19/2024 Orders Only [facility] Oncology and Hematology [place] [address] [address] [place] [address] Amos Alicea MD 12/19/2024 Abstract [facility] Oncology and Hematology [facility] [address] [place] [address] Amos Alicea MD 12/16/2024 Orders Only [facility] Oncology and Hematology - [address] [place] [address] Amos Alicea MD from Last 3 Months [...] of 2) 2016 INFLUENZA VACCINE (#1) 2024 DTAP/TDAP/TD VACCINES (2 - Td or Tdap) 02/02/2030 Medical Devices Implanted Type Area Liquid Flavor Compounder Device Identifier Shelf Expiration Date Model / Serial / Lot Bonilla Hamilton 5/64x3/8in Niraj W564-Bl - [id number] Implanted:Qty: 3 on 02/10/2020 by Jake Vaughan DO at [facility] Integral Left: Foot JESSICA W564-[id number] / / Synthes Clavicle Plate 10 Holes Implanted:Qty: 1 on 02/10/2020 by Jake Vaughan DO at [facility] Plate Left: Clavicle [employer]way [facility] 112.04 7S / / Description:not All Synthes components are processed on requisition [id number]. see delivery document for more details Plate Clvrlf Fsn 2.4/2.7mm 02..251 - [id number] Implanted:Qty: 1 on 02/10/2020 by Jake Vaugahn DO at [facility] Plate Left: Foot SYNTHES STRATEC 02..25 1S / / 1 JAN 24, [address] 3.5x24mm 204.824 - [id number] Implanted:Qty: 1 on 02/10/2020 by Jake Vaughan DO at [facility] Screw Left: Clavicle SYNTHES STRATEC 204.824 / / 1 FEB 05, [address] Va Loc 2.7x24mm 02.211.024 - [id number] Implanted:Qty: 1 on 02/10/2020 by Jake Vaughan DO at [facility] Screw Left: Foot SYNTHES STRATEC 02.211.02 JAN 24, [address] T8 2.7x18mm 202.878 - [id number] Implanted:Qty: 1 on 02/10/2020 by Jake Vaughan DO at [facility] Screw Left: Foot SYNTHES STRATEC 202.878 / / 1 JAN 24, [address] T8 2.7x24mm 202.884 - [id number] Implanted:Qty: 1 on 02/10/2020 by Jake Vaughan DO at [facility] Screw Left: Foot SYNTHES STRATEC 202.884 / / 1 JAN 24, [address] T8 2.7x26mm 202.886 - [id number] Implanted:Qty: 1 on 02/10/2020 by Jake Vaughan DO at [facility] Screw Left: Foot SYNTHES STRATEC 202.886 / / 1 JAN 24, [address] 2.7x18mm 202.818 - [id number] Implanted:Qty: 2 on 02/10/2020 by Jake Vaughan DO at [facility] Screw Left: Clavicle SYNTHES STRATEC 202.818 / / 1 FEB 05, [address] 2.7x20mm 202.820 - [id number] Implanted:Qty: 2 on 02/10/2020 by Jake Vaughan DO at [facility] Screw Left: Clavicle SYNTHES STRATEC 202.820 / / 1 FEB 05, [address] 2.7x26mm 202.826 - [id number] Implanted:Qty: 1 on 02/10/2020 by Jake Vaughan DO at [facility] Screw Left: Clavicle SYNTHES STRATEC 202.826 / / 1 FEB 05, [address] 2.7x28mm 202.828 - [id number] Implanted:Qty: 1 on 02/10/2020 by Jake Vaughan DO at [facility] Screw Left: Clavicle SYNTHES STRATEC 202.828 / / 1 FEB 05, [address] 3.5x16mm 204.816 - [id number] Implanted:Qty: 2 on 02/10/2020 by Jake Vaughan DO at [facility] Screw Left: Clavicle SYNTHES STRATEC 204.816 / / 1 FEB 05, [address] 3.5x18mm 204.818 - [id number] Implanted:Qty: 2 on 02/10/2020 by Jake Vaughan DO at [facility] Screw Left: Clavicle SYNTHES STRATEC 204.818 / / 1 FEB 05, 2020 Wire K Trocar Dbl .853x7lo Ab262-78-73 - [id number] Implanted:Qty: 3 on 02/10/2020 by Jake Vaughan DO at [facility] Wire Left: Foot BRASSELER [facility] [id number] / 10 23JAN 20, 2020 Explanted Type Area Liquid Flavor Compounder Device Identifier Shelf Expiration Date Model / Serial / Lot Screw St 2.7x14mm 202.814 - [id number] Implanted:Jake Abad DO (Quantity not on file) Explanted:Qty : 1 on 02/10/2020 by Jake Vaughan DO at [facility] Screw Left: Clavicle SYNTHES STRATEC 202.814 / / 1 FEB 05, [address] 3.5x22mm 204.822 - [id number] Implanted:Jake Abad DO (Quantity not on file) Explanted:Qty : 1 on 02/10/2020 by Jake Vaughan DO at [facility] Screw Left: Clavicle SYNTHES STRATEC 204.822 / / 1 FEB 05, [address] 2.7x16mm 202.816 - [id number] Implanted:Jake Abad DO (Quantity not on file) Explanted:Qty : 1 on 02/10/2020 by Jake Vaughan DO at [facility] Screw Left: Clavicle SYNTHES STRATEC 202.816 / / 1 FEB 05, [address] 2.7x22mm 202.822 - [id number] Implanted:Jake Abad DO (Quantity not on file) Explanted:Qty : 1 on 02/10/2020 by Jake Vaughan DO at [facility] Screw Left: Clavicle SYNTHES STRATEC 202.822 / / 1 FEB 05, 2020 Procedures Procedure Name Priority Date/Time Associated Diagnosis Comments CBC WITH DIFFERENTIAL Routine 12/13/2024 3:56 PM LAYOUT INSPECTOR BASIC METABOLIC PANEL Routine 12/13/2024 10:06 AM LAYOUT INSPECTOR from Last 3 Months Results * CBC WITH DIFFERENTIAL (12/13/2024 3:56 PM LAYOUT INSPECTOR) Blood us Amos Alicea MD HEMATOLOGY ORDERABLES Final Res ult * BASIC METABOLIC PANEL (12/13/2024 10:06 AM LAYOUT INSPECTOR) Blood us Amos Alicea MD CHEMISTRY ORDERABLES Final Resu lt from Last 3 Months Insurance RX [employer] Express [facility] BLUE ACCESS CHOICE Advance Directives For more information, please contact: [phone] * Full Code (Latest Code Status on File) Date Activated Date Inactivated Comments 02/10/2020 6:07 AM 02/10/2020 6:07 PM * Full Code Date Activated Date Inactivated Comments 02/10/2020 5:48 AM 02/10/2020 6:07 AM Care Teams Short Piece Handler Relationship Specialty Start Date End Date Von Arnold DO [address] [place] [phone] PCP - General Family Practice 02/03/20
== END 2025-02-13 11:09 | disposition home or self-care (01) ==
PROVIDERS: Visit Provider Internal Medicine Nephrology
DX: R06.02 Shortness of breath (principal); N01.9 Rapidly progressive nephritic syndrome with unspecified morphologic changes; N18.4 Chronic kidney disease, stage 4 (severe); E83.51 Hypocalcemia
CPT/HCPCS: 71046

== ENCOUNTER 2025-02-27 10:06 | Outpatient (CLI) | payer BC, SELFPAY ==
--- OUTSIDE RECORDS SUMMARY | 2025-02-27 10:10 | XMS_ITS | Continuity of Care Document ---
Author Organization [facility] Medical Group I [facility] Building Address [address] [place] [address] Care Team Providers Care High Risk Case Manager Name Role Phone Von Arnold Primary Care Physician Encounter JERS_AK Date(s): 02/26/25 - 02/26/25 [facility] Medical [address] [address]- (0 ) - Discharge Disposition: Home or Self Care Attending Physician: Von Arnold DO Referring Physician: Von Arnold DO Encounter Type: Outpatient Allergies, Adverse Reactions, Alerts Substance Criticality Severity Reaction Reaction Severity Status sulfa drugs High criticality Moderate A ctive Assessment and Plan Future Appointments Appointment Date:05/08/2025 08:40:00 AM Scheduled Provider:Von Arnold DO Location:[facility] Appointment Type:Follow Up (JERS) Immunizations Given and Recorded Vaccine Date Status Refusal Reason SARS-CoV-2 (COVID-19) Ad26 vax, recomb 10/26/21 Re corded tetanus/diphtheria/pertussis, acel(Tdap) 01/12/14 Recorded Medications cholecalciferol 50 mcg (2000 intl units) oral tablet 0 Refill(s) Start Date: 08/05/24 Status: Ordered Repeat number: 1 citalopram 40 mg oral tablet = 1 tab, Oral, Daily, # 90 tab, 1 Refill(s), Pharmacy: [id number] Start Date: 02/09/25 Status: Ordered Quantity: 90.0 Unit: Repeat number: 2 CoQmax Lindrith 100 mg 0 Refill(s) Start Date: 08/05/24 Status: Ordered Repeat number: 1 cyclobenzaprine 5 mg oral tablet 60 EA, 0 Refill(s), TAKE 1 TABLET BY MOUTH TWICE DAILY NEEDED FOR MUSCLE SPASM, 0 Refill(s) Start Date: 08/05/24 Status: Ordered Repeat number: 1 famotidine 20 mg oral tablet 0 Refill(s) Start Date: 08/05/24 Status: Ordered Repeat number: 1 labetalol 100 mg oral tablet 0 Refill(s) Start Date: 08/05/24 Status: Ordered Repeat number: 1 mycophenolate mofetil 500 mg oral tablet 60 EA, 0 Refill(s), TAKE 1 TABLET BY MOUTH EVERY 12 HOURS, 0 Refill(s) Start Date: 08/05/24 Status: Ordered Repeat number: 1 sevelamer carbonate 800 mg oral tablet 0 Refill(s) Start Date: 08/05/24 Status: Ordered Repeat number: 1 sodium bicarbonate 650 mg oral tablet = 3 tab, Oral, Daily, # 60 tab, 0 Refill(s) Start Date: 08/05/24 Status: Ordered Quantity: 60.0 Unit: Repeat number: 1 Problem List Condition Confirmation Course Effective Dates Status Health Status Informant Acute kidney injury Confirmed 07/17/23 Active Anxiety disorder Confirmed 07/17/23 Active Benign prostatic hyperplasia Confirmed 06/08/22 Active Hypertension Confirmed Active 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 Diagnosis Diagnosis Type Effective Dates Health Status Clinical Service Informant Acute kidney injury 02/26/25 Non-Specif ied Hypertension 02/26/25 Non-Specified Results Laboratory List Name Date Lipid Panel 02/26/25 Most recent to oldest [Reference Range]: 1 Cholesterol Total [0-200 mg/dL] 238 mg/d L 1 *HI* (02/26/25 9:30 AM) LDL [0-130 mg/dL] 173 mg/dL *HI* (02/26/25 9:30 AM) HDL [>=40 mg/dL] 42 mg/dL (02/26/25 9:30 AM) Chol/HDL [<=4.9] 5.7 *HI* (02/26/25 9:30 AM) Triglycerides [<=150 mg/dL] 114 mg/dL (02/26/25 9:30 AM) 1Interpretive Data: Coronary Artery Risk Panel Reference Values Based on the recommendations of the Heart, Lung, and Blood [place] (in mg/dL) Risk Levels = High Borderline Desirable Cholesterol >240 200 - 240 <200 LDL >160 130 - 159 <130 Cholesterol/HDL Ratio Male <= 4.88 Female <= 4.23 Social History Social History Type Response Sex Male Sex Representation Male (finding) Patient Care team information Care Team Personnel Name: Von Arnold DO Position: Physician Member Role: Primary Care Physician Address: [address] [place] [address] Telecom: Care Team Related Persons Name: GOOD KAUFFMAN Insurance Providers Guarantor name: CLIFFORD KAUFFMAN Health Plan Information #: 1 Payer: [employer] Member Number: [id number] Policy Number: NA Group Number: [id number] Payer Identifier: NA Health Plan Information #: 2 Payer: [employer] Member Number: [id number] Policy Number: NA Group Number: NA Payer Identifier: NA
--- OUTSIDE RECORDS SUMMARY | 2025-02-27 10:10 | XMS_ITS | Clinical Summary ---
Author Organization [facility] Address [address] [place] [address] Phone Care Team Providers Care Enterprise Security Architect Name Role Phone Von Arnold Primary Care Provider [phone] Allergies Active Allergy Reactions Criticality Noted Date [...] Department Care Team Description 12/19/2024 Orders Only [facility] Oncology and Hematology [place] [address] [address] [place] [address] Amos Alicea MD 12/19/2024 Abstract [facility] Oncology and Hematology [facility] [address] [place] [address] Amos Alicea MD 12/16/2024 Orders Only [facility] Oncology and Hematology - [address] [place] [address] Amos Alicea MD from Last 3 Months [...] Tdap) 02/02/2030 Medical Devices Implanted Type Area Schedule Maker Device Identifier Shelf Expiration Date Model / Serial / Lot Bonilla Hamilton 5/64x3/8in Niraj W564-Bl - [id number] Implanted:Qty: 3 on 02/10/2020 by Jake Vaughan DO at [facility] Integral Left: Foot JESSICA W564-BL / / Synthes Clavicle Plate 10 Holes Implanted:Qty: 1 on 02/10/2020 by Jake Vaughan DO at [facility] Plate Left: Clavicle [employer] [facility] 112.04 7S / / Description:not All Synthes components are processed on requisition [id number]. see delivery document for more details Plate Clvrlf Fsn 2.4/2.7mm 02..251 - [id number] Implanted:Qty: 1 on 02/10/2020 by Jake Vaughan DO at [facility] Plate Left: Foot SYNTHES STRATEC 02..25 1S / / 1 JAN 24, [address] 3.5x24mm 204.824 - [id number] Implanted:Qty: 1 on 02/10/2020 by Jake Vaughan DO at [facility] Screw Left: Clavicle SYNTHES STRATEC 204.824 / / 1 FEB 05, [address] Va Loc 2.7x24mm 02.211.024 - [id number] Implanted:Qty: 1 on 02/10/2020 by Jake Vaughan DO at [facility] Screw Left: Foot SYNTHES STRATEC 02.211.02 JAN 24, [address] T8 2.7x18mm 202.878 - [id number] Implanted:Qty: 1 on 02/10/2020 by Jake Vaughan DO at [facility] Screw Left: Foot SYNTHES STRATEC 202.878 / / 1 JAN 24, [address] T8 2.7x24mm 202.884 - [id number] Implanted:Qty: 1 on 02/10/2020 by Jake Vaughan DO at [facility] Screw Left: Foot SYNTHES STRATEC 202.884 / / 1 JAN 24, [address] T8 2.7x26mm 202.886 - [id number] Implanted:Qty: 1 on 02/10/2020 by Jake Vaughan DO at [facility] Screw Left: Foot SYNTHES STRATEC 202.886 / / 1 JAN 24, [address] 2.7x18mm 202.818 - [id number] Implanted:Qty: 2 on 02/10/2020 by Jake Vaughan DO at [facility] Screw Left: Clavicle SYNTHES STRATEC 202.818 / / 1 FEB 05, [address] 2.7x20mm 202.820 - [id number] Implanted:Qty: 2 on 02/10/2020 by Jake Vaughan DO at [facility] Screw Left: Clavicle SYNTHES STRATEC 202.820 / / 1 FEB 05, [address] 2.7x26mm 202.826 - [id number] Implanted:Qty: 1 on 02/10/2020 by Jake Vaughan DO at [facility] Screw Left: Clavicle SYNTHES STRATEC 202.826 / / 1 FEB 05, [address] 2.7x28mm 202.828 - [id number] Implanted:Qty: 1 on 02/10/2020 by Jake Vaughan DO at [facility] Screw Left: Clavicle SYNTHES STRATEC 202.828 / / 1 FEB 05, [address] 3.5x16mm 204.816 - [id number] Implanted:Qty: 2 on 02/10/2020 by Jake Vaughan DO at [facility] Screw Left: Clavicle SYNTHES STRATEC 204.816 / / 1 FEB 05, [address] 3.5x18mm 204.818 - [id number] Implanted:Qty: 2 on 02/10/2020 by Jake Vaughan DO at [facility] Screw Left: Clavicle SYNTHES STRATEC 204.818 / / 1 FEB 05, 2020 Wire K Trocar Dbl .384e2na Mg989-61-12 - [id number] Implanted:Qty: 3 on 02/10/2020 by Jake Vaughan DO at [facility] Wire Left: Foot BRASSELER [facility] [id number] / 10 23JAN 20, 2020 Explanted Type Area Schedule Maker Device Identifier Shelf Expiration Date Model / Serial / Lot Screw St 2.7x14mm 202.814 - [id number] Implanted:Jake Abad DO (Quantity not on file) Explanted:Qty : 1 on 02/10/2020 by Jake Vaughan DO at [facility] Screw Left: Clavicle SYNTHES STRATEC 202.814 / / 1 FEB 05, [address] 3.5x22mm 204.822 - [id number] Implanted:Jake Abad DO (Quantity not on file) Explanted:Qty : 1 on 02/10/2020 by Jake Vaughan DO at [facility] Screw Left: Clavicle SYNTHES STRATEC 204.822 / / 1 FEB 05, [address] 2.7x16mm 202.816 - [id number] Implanted:Jake Abad DO (Quantity not on file) Explanted:Qty : 1 on 02/10/2020 by Jake Vaughan DO at [facility] Screw Left: Clavicle SYNTHES STRATEC 202.816 / / 1 FEB 05, [address] 2.7x22mm 202.822 - [id number] Implanted:Jake Abad DO (Quantity not on file) Explanted:Qty : 1 on 02/10/2020 by Jake Vaughan DO at [facility] Screw Left: Clavicle SYNTHES STRATEC 202.822 / / 1 FEB 05, 2020 Procedures Procedure Name Priority Date/Time Associated Diagnosis Comments CBC WITH DIFFERENTIAL Routine 12/13/2024 3:56 PM LOCKSTITCH FRONT MAKER BASIC METABOLIC PANEL Routine 12/13/2024 10:06 AM LOCKSTITCH FRONT MAKER from Last 3 Months Results * CBC WITH DIFFERENTIAL (12/13/2024 3:56 PM LOCKSTITCH FRONT MAKER) Blood us Amos Alicea MD HEMATOLOGY ORDERABLES Final Res ult * BASIC METABOLIC PANEL (12/13/2024 10:06 AM LOCKSTITCH FRONT MAKER) Blood us Amos Alicea MD CHEMISTRY ORDERABLES Final Resu lt from Last 3 Months Insurance RX [employer] Express [facility] BLUE ACCESS CHOICE Advance Directives For more information, please contact: [phone] * Full Code (Latest Code Status on File) Date Activated Date Inactivated Comments 02/10/2020 6:07 AM 02/10/2020 6:07 PM * Full Code Date Activated Date Inactivated Comments 02/10/2020 5:48 AM 02/10/2020 6:07 AM Care Teams Enterprise Security Architect Relationship Specialty Start Date End Date Von Arnold DO [address] [place] [phone] PCP - General Family Practice 02/03/20
--- OUTSIDE RECORDS SUMMARY | 2025-02-27 10:10 | XMS_ITS | Continuity of Care Document ---
Author Organization [facility] Address [address] [place] [address] Phone Care Team Providers Care Baccarat Dealer Name Role Phone Wilson Germain MD Unavailable Unavailable Advance Directives Directive Yes / No Effective Date File Name No Information Encounters Encounter Description Practice Location Reason(s) For Visit Diagnoses Date Provider Providers Copied on Encounter Merged with [facility], [address] [place], [place], [id number], [place] tel:[phone] [facility] [place] No Information 6[address] Marcellus Rachel. [address] [facility] [address], [place], [place], [id number], [place]. tel:[phone] Family History Family Member Type Diagnosis Age At Onset No Information Payers Payer name Insurance type Covered alliance party ID Authoriza tion(s) No Information Social [...]
[2025-02-27 14:11] LABS: Anion Gap 12 mmol/L (4-12); Blood Urea Nitrogen 55 mg/dL (9-20); Calcium 9.4 mg/dL (8.4-10.2); Carbon Dioxide 19 mmol/L (22-30); Chloride 106 mmol/L (98-107); Estimated Glomerular Filt Rate 16; Glucose 93 mg/dL (65-110); Potassium 5.5 mmol/L (3.4-5.0); Sodium 137 mmol/L (137-145)
== END 2025-02-27 10:07 | disposition home or self-care (01) ==
LOC: ANHLAB 10:08
PROVIDERS: Visit Provider Internal Medicine Nephrology
DX: N01.9 Rapidly progressive nephritic syndrome with unspecified morphologic changes (principal); N18.4 Chronic kidney disease, stage 4 (severe); E83.51 Hypocalcemia
CPT/HCPCS: 36415; 80048

== ENCOUNTER 2025-04-09 13:32 | Outpatient (CLI) | payer BC, SELFPAY ==
[2025-04-09 14:08] LABS: Hematocrit 36.3 % (42.0-52.0); Hemoglobin 11.5 g/dL (14.0-18.0); Mean Corpuscular HGB Conc 31.7 g/dl (32-36); Mean Corpuscular Hemoglobin 29.8 pg (26-34); Mean Platelet Volume 10.6 fl (7.4-10.4); Platelet Count Result 190 k/mm3 (150-375); Red Blood Count 3.86 M/mm3 (4.6-6.20); Red Cell Distribution Width 13.1 % (11.5-14.5); White Blood Count 5.1 K/mm3 (4.5-10.0)
[2025-04-09 16:30] LABS: Alanine Aminotransferase 11 U/L (6-50); Albumin Level 4.4 g/dL (3.5-5.1); Anion Gap 10 mmol/L (4-12); Blood Urea Nitrogen 57 mg/dL (9-20); Calcium 9.5 mg/dL (8.4-10.2); Carbon Dioxide 22 mmol/L (22-30); Chloride 105 mmol/L (98-107); Creatine Kinase 125 U/L (55-170); Estimated Glomerular Filt Rate 16; Glucose 95 mg/dL (65-110); Phosphorus 3.1 mg/dL (2.5-4.5); Potassium 5.4 mmol/L (3.4-5.0); Sodium 137 mmol/L (137-145)
[2025-04-09 16:35] LABS: Creatinine Urine 99.4 mg/dL
[2025-04-09 16:40] LABS: LDL Cholesterol Direct 122 mg/dL
[2025-04-09 16:41] LABS: Parathyroid Intact 186.5 pg/mL (14.5-75.2)
[2025-04-09 17:27] LABS: Total Protein Urine Random 302 mg/dL; Ur Ttl Prot Creatinine Ratio 3.04 mg/mg (0-0.20)
[2025-04-12 15:14] LABS: ANCA Screen P-ANCA POS (NEGATIVE); P-ANCA Titer 1:20 titer (<1:20); P-ANCA Titer Reflex Chg Test YES
== END 2025-04-09 13:33 | disposition home or self-care (01) ==
PROVIDERS: Visit Provider Internal Medicine Nephrology
DX: N01.9 Rapidly progressive nephritic syndrome with unspecified morphologic changes (principal); N18.4 Chronic kidney disease, stage 4 (severe); E78.5 Hyperlipidemia, unspecified
CPT/HCPCS: 36415; 80069; 82550; 82570; 83721; 83970; 84156; 84460; 85027; 86036

== ENCOUNTER 2025-08-12 13:13 | Outpatient (CLI) | payer BC, SELFPAY ==
[2025-08-12 13:37] LABS: Hematocrit 37.6 % (42.0-52.0); Hemoglobin 11.9 g/dL (14.0-18.0); Mean Corpuscular HGB Conc 31.6 g/dl (32-36); Mean Corpuscular Hemoglobin 29.7 pg (26-34); Mean Corpuscular Volume 93.8 fl (80-100); Platelet Count Result 218 k/mm3 (150-375); Red Blood Count 4.01 M/mm3 (4.6-6.20); White Blood Count 5.6 K/mm3 (4.5-10.0)
[2025-08-12 16:29] LABS: Albumin Level 4.5 g/dL (3.5-5.1); Anion Gap 8 mmol/L (4-12); Blood Urea Nitrogen 51 mg/dL (9-20); Calcium 9.4 mg/dL (8.4-10.2); Carbon Dioxide 21 mmol/L (22-30); Chloride 106 mmol/L (98-107); Estimated Glomerular Filt Rate 15; Glucose 94 mg/dL (65-110); Potassium 6.0 mmol/L (3.4-5.0); Sodium 135 mmol/L (137-145)
[2025-08-12 16:35] LABS: Parathyroid Intact 175.3 pg/mL (14.5-75.2)
[2025-08-12 17:07] LABS: Total Protein Urine Random 407 mg/dL; Ur Ttl Prot Creatinine Ratio 3.20 mg/mg (0-0.20)
== END 2025-08-12 13:14 | disposition home or self-care (01) ==
LOC: ANHLAB 13:14
PROVIDERS: PCP Family Medicine; Visit Provider Internal Medicine Nephrology
DX: N01.9 Rapidly progressive nephritic syndrome with unspecified morphologic changes (principal); N18.4 Chronic kidney disease, stage 4 (severe)
CPT/HCPCS: 36415; 80069; 82570; 83970; 84156; 85027; 86037

== ENCOUNTER 2025-08-27 10:07 | Outpatient (CLI) | payer BC, SELFPAY ==
--- OUTSIDE RECORDS SUMMARY | 2005-02-08 08:15 | XMS_ITS | Continuity of Care Document ---
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 [address], [place], [place], [id number], [place]. tel:[phone] Family History Family Member Type Diagnosis Age At Onset No Information Payers Payer name Insurance type Covered republican ID Authoriza tion(s) No Information Social History Type Description Quantity Date Captured Comments Sex Male Smoking Status No Information Chief Complaint And Reason For Visit No Information Reason For Referral Reason For Referral No Information History Of Present Illness Encounter Date Complaint History Of Prese nt Illness No Information Functional Status Date Functional Assessmen t No Information Instructions Date Instruction Additional Infor mation No Information Assessments Type Assessment Date No Information Patient Care Teams Name Effective Dates (start - stop) Status Members No Information
--- OUTSIDE RECORDS SUMMARY | 2025-08-27 11:15 | XMS_ITS | Clinical Summary ---
Author Organization [facility] Address [address] [place] [address] Phone Care Team Providers Care Alternative Medicine Practitioner Name Role Phone Von Arnold Primary Care Provider [phone] Allergies Active Allergy Reactions Criticality Noted Date [...] Encounters Date Type Department Care Team Description 07/29/2025 External Device Data [facility] ABSTRACTION Provider, Abstract 07/08/2025 External Device Data [facility] ABSTRACTION Provider, Abstract 07/08/2025 External Device Data [facility] ABSTRACTION Provider, Abstract 07/08/2025 External Device Data [facility] ABSTRACTION Provider, Abstract 07/02/2025 Telephone [facility] Oncology and Hematology [facility] [address] [place] [phone] Amos Alicea MD Kidney Transplant Questions from Last 3 Months Immunizations Immunization Administration [...] A M CDT Height 172.7 cm (5' 8) 05/29/2023 8:47 AM CDT Body Mass Index [...] (1 of 2) 2016 INFLUENZA VACCINE (#1) 2025 DTAP/TDAP/TD VACCINES (2 - Td or Tdap) 02/02/2030 Medical Devices Implanted Type Area Photovoltaic Subcontractor Device Identifier Shelf Expiration Date Model / Serial / Lot Bonilla Hamilton 5/64x3/8in Niraj W564-Bl - [id number] Implanted:Qty: 3 on 02/10/2020 by Jake Vaughan DO at [facility] Integral Left: Foot JESSICA [id number] / / Synthes Clavicle Plate 10 Holes Implanted:Qty: 1 on 02/10/2020 by Jake Vaughan DO at [facility] Plate Left: Clavicle SYNTHES [address] [facility] [address].04 7S / / Description:not All Synthes components are processed on requisition [id number]. see delivery document for more details Plate Clvrlf Fsn 2.4/2.7mm 02..251 - [id number] Implanted:Qty: 1 on 02/10/2020 by Jaek Vaughan DO at [facility] Plate Left: Foot SYNTHES STRATEC 02..25 1S / / 1 JAN 24, [address] 3.5x24mm 204.824 - [id number] Implanted:Qty: 1 on 02/10/2020 by Jake Vaughan DO at [facility] Screw Left: Clavicle SYNTHES STRATEC 204.824 / / 1 FEB 05, [address] Va Loc 2.7x24mm 02.211.024 - [id number] Implanted:Qty: 1 on 02/10/2020 by Jake Vaughan DO at [facility] Screw Left: Foot SYNTHES STRATEC 02.211.02 JAN 24, [address] T8 2.7x18mm 202.878 - [id number] Implanted:Qty: 1 on 02/10/2020 by Jake Vaughan DO at [facility] Screw Left: Foot SYNTHES STRATEC 202.878 / / 1 JAN 24, [address] T8 2.7x24mm 202.884 - [id number] Implanted:Qty: 1 on 02/10/2020 by Jake Vaughan DO at [facility] Screw Left: Foot SYNTHES STRATEC 202.884 / / 1 JAN 24, [address] T8 2.7x26mm 202.886 - [id number] Implanted:Qty: 1 on 02/10/2020 by Jake Vaughan DO at [facility] Screw Left: Foot SYNTHES STRATEC 202.886 / / 1 JAN 24, [address] 2.7x18mm 202.818 - [id number] Implanted:Qty: 2 on 02/10/2020 by Jake Vaughan DO at [facility] Screw Left: Clavicle SYNTHES STRATEC 202.818 / / 1 7 FEB 05, [address] 2.7x20mm 202.820 - [id number] Implanted:Qty: 2 on 02/10/2020 by Jake Vaughan DO at [facility] Screw Left: Clavicle SYNTHES STRATEC 202.820 / / 1 FEB 05, [address] 2.7x26mm 202.826 - [id number] Implanted:Qty: 1 on 02/10/2020 by Jake Vaughan DO at [facility] Screw Left: Clavicle SYNTHES STRATEC 202.826 / / 1 FEB 05, [address] 2.7x28mm 202.828 - [id number] Implanted:Qty: 1 on 02/10/2020 by Jake Vaughan DO at [facility] Screw Left: Clavicle SYNTHES STRATEC 202.828 / / 1 FEB 05, [address] 3.5x16mm 204.816 - [id number] Implanted:Qty: 2 on 02/10/2020 by Jake Vaughan DO at [facility] Screw Left: Clavicle SYNTHES STRATEC 204.816 / / 1 FEB 05, [address] 3.5x18mm 204.818 - [id number] Implanted:Qty: 2 on 02/10/2020 by Jake Vaughan DO at [facility] Screw Left: Clavicle SYNTHES STRATEC 204.818 / / 1 FEB 05, 2020 Wire K Trocar Dbl .446t9rl Ml587-89-50 - [id number] Implanted:Qty: 3 on 02/10/2020 by Jake Vaughan DO at [facility] Wire Left: Foot KAYCER [facility] [id number] JAN 20, 2020 Explanted Type Area Photovoltaic Subcontractor Device Identifier Shelf Expiration Date Model / Serial / Lot Screw St 2.7x14mm 202.814 - [id number] Implanted:Jake Abad DO (Quantity not on file) Explanted:Qty : 1 on 02/10/2020 by Jake Vaughan DO at [facility] Screw Left: Clavicle SYNTHES STRATEC 202.814 / / 1 FEB 05, [address] 3.5x22mm 204.822 - [id number] Implanted:Car onJake DO (Quantity not on file) Explanted:Qty : 1 on 02/10/2020 by Jake Vaughan DO at [facility] Screw Left: Clavicle SYNTHES STRATEC 204.822 / / 1 FEB 05, [address] 2.7x16mm 202.816 - [id number] Implanted:Marlon onJake DO (Quantity not on file) Explanted:Qty : 1 on 02/10/2020 by Jkae Vaughan DO at [facility] Screw Left: Clavicle SYNTHES STRATEC 202.816 / / 1 FEB 05, [address] 2.7x22mm 202.822 - [id number] Implanted:Car onJake DO (Quantity not on file) Explanted:Qty : 1 on 02/10/2020 by Jake Vaughan DO at [facility] Screw Left: Clavicle SYNTHES STRATEC 202.822 / / 1 FEB 05, 2020 Insurance [employer] ACCESS CHOICE Advance Directives For more information, please contact: [phone] * Full Code (Latest Code Status on File) Date Activated Date Inactivated Comments 02/10/2020 6:07 AM 02/10/2020 6:07 PM * Full Code Date Activated Date Inactivated Comments 02/10/2020 5:48 AM 02/10/2020 6:07 AM Care Teams Alternative Medicine Practitioner Relationship Specialty Start Date End Date Von Arnold DO [address] [place] [phone] PCP - General Family Practice 02/03/20
--- OUTSIDE RECORDS SUMMARY | 2025-08-27 11:15 | XMS_ITS ---
Author Organization [facility] ([facility]) Address [address] [place] [address] Care Team Providers Care Rn Labor And Delivery Name Role Phone Unavailable Unavailable Unavailable Allergies, Adverse Reactions, Alerts This patient has no known allergies or adverse reactions. Problems This patient has no known problems.
[2025-08-27 12:08] LABS: Anion Gap 9 mmol/L (4-12); Blood Urea Nitrogen 42 mg/dL (9-20); Calcium 9.2 mg/dL (8.4-10.2); Carbon Dioxide 22 mmol/L (22-30); Chloride 106 mmol/L (98-107); Estimated Glomerular Filt Rate 14; Glucose 70 mg/dL (65-110); Potassium 4.7 mmol/L (3.4-5.0); Sodium 137 mmol/L (137-145)
== END 2025-08-27 10:08 | disposition home or self-care (01) ==
LOC: ANHLAB 10:07
PROVIDERS: PCP Family Medicine; Visit Provider Internal Medicine Nephrology
DX: N18.4 Chronic kidney disease, stage 4 (severe) (principal)
CPT/HCPCS: 36415; 80048